=== PATIENT | female | born 1995 | race Caucasian/White ===

== ENCOUNTER → 2022-05-14 | Outpatient (CLI) | payer OTHER, BC, SELFPAY ==
[2022-05-14 10:51] LABS: hCG Titer Quant., Serum 98 mIU/mL (1-3)
== END | disposition home or self-care (01) ==
LOC: LAB 09:41
PROVIDERS: PCP Student in an Organized Health Care Education/Training Program; Referring Provider Obstetrics & Gynecology; Visit Provider Obstetrics & Gynecology
DX: O36.80X0 Pregnancy with inconclusive fetal viability, not applicable or unspecified (principal); Z3A.00 Weeks of gestation of pregnancy not specified
CPT/HCPCS: 36415; 84702

== ENCOUNTER → 2022-05-16 | Outpatient (CLI) | payer OTHER, BC, SELFPAY ==
[2022-05-16 11:41] LABS: hCG Titer Quant., Serum 17 mIU/mL (1-3)
== END | disposition home or self-care (01) ==
LOC: LAB 10:13
PROVIDERS: PCP Student in an Organized Health Care Education/Training Program; Referring Provider Obstetrics & Gynecology; Visit Provider Obstetrics & Gynecology
DX: O36.80X0 Pregnancy with inconclusive fetal viability, not applicable or unspecified (principal)
CPT/HCPCS: 36415; 84702

== ENCOUNTER → 2022-06-10 | Outpatient (CLI) | payer OTHER, BC, SELFPAY ==
[2022-06-19 14:59] LABS: HPV Reflexed? NOT INDICATED
== END | disposition home or self-care (01) ==
LOC: LABSPEC 13:18
PROVIDERS: PCP Student in an Organized Health Care Education/Training Program; Referring Provider Obstetrics & Gynecology; Visit Provider Obstetrics & Gynecology
DX: Z12.4 Encounter for screening for malignant neoplasm of cervix (principal)
CPT/HCPCS: 88175; G0145

== ENCOUNTER → 2022-12-31 | Outpatient (CLI) | payer BC, SELFPAY ==
[2022-12-31 11:56] LABS: hCG Titer Quant., Serum 485 mIU/mL (1-3)
== END | disposition home or self-care (01) ==
PROVIDERS: PCP Student in an Organized Health Care Education/Training Program; Referring Provider Obstetrics & Gynecology; Visit Provider Obstetrics & Gynecology
DX: N91.2 Amenorrhea, unspecified (principal)
CPT/HCPCS: 36415; 84702

== ENCOUNTER → 2023-01-02 | Outpatient (CLI) | payer BC, SELFPAY ==
[2023-01-02 11:05] LABS: hCG Titer Quant., Serum 974 mIU/mL (1-3)
== END | disposition home or self-care (01) ==
PROVIDERS: PCP Student in an Organized Health Care Education/Training Program; Referring Provider Obstetrics & Gynecology; Visit Provider Obstetrics & Gynecology
DX: N91.2 Amenorrhea, unspecified (principal)
CPT/HCPCS: 84702

== ENCOUNTER → 2023-01-31 | Outpatient (CLI) | payer BC, SELFPAY ==
--- NOTE | 2023-01-31 13:51 | US_ITS ---
STUDY: FIRST TRIMESTER OBSTETRICAL ULTRASOUND REASON FOR EXAM: Female, 27 years old . Dating. LMP: December 02, 2022. TECHNIQUE: Transvaginal TECHNICAL QUALITY: Adequate. PRIOR ULTRASOUND: None. FINDINGS: There is visualization of a single gestational sac in a normal intrauterine position. The mean sac diameter (MSD) measures 2.9 cm, indicating an estimated gestational age (EGA) of 8 weeks, 0 days. The gestational sac shape is within normal limits. There is a visualized yolk sac. The yolk sac measures 5 mm. The placenta is non-visualized. There is visualization of a live embryo. The crown-rump length (CRL) measures 2.22 cm, indicating an estimated gestational age (EGA) of 8 weeks, 3 days. There is demonstrated cardiac activity with a heart rate of 166 bpm. The estimated gestation age (EGA) by LMP is 8 weeks, 4 days. The estimated date of delivery (JOANNE) by LMP is September 08, 2023. The estimated gestation age (EGA) by US is 8 weeks, 3 days. The estimated date of delivery (JOANNE) by US is September 09, 2023. The uterus measures 9.9 cm x 7.4 cm x 5.5 cm. There is no demonstrated uterine fibroid. The cervix is closed. The right ovary measures 3.4 cm x 2.2 cm x 2.7 cm. There is no right ovarian cyst. There is no visualized right adnexal mass or complex lesion. The left ovary measures 4.3 cm x 2.8 cm x 3.4 cm. There is a 3.4 cm x 2 cm x 2.2 cm hypoechoic nodule in the left ovary most likely representing a corpus luteum cyst. There is no visualized left adnexal mass or complex lesion. There is no fluid in the cul de sac. US/Transvaginal w/Preg US IMPRESSION: Single live uterine gestation with a mean gestational age of 8 weeks and 3 days. Findings suggestive of a 3.4 cm x 2 cm x 2.2 cm corpus luteum cyst in the left ovary. Electronically Signed: Sharad Peoples MD at 12:49 EDT ,
[2023-02-02 22:07] LABS: Chlamydia By Nucleic Acid AMP Negative (Negative); Gonococcus By Nucleic Acid AMP Negative (Negative)
== END | disposition home or self-care (01) ==
PROVIDERS: PCP Student in an Organized Health Care Education/Training Program; Referring Provider Obstetrics & Gynecology; Visit Provider Obstetrics & Gynecology
DX: O09.90 Supervision of high risk pregnancy, unspecified, unspecified trimester (principal); Z3A.00 Weeks of gestation of pregnancy not specified
CPT/HCPCS: 76817; 87086; 87491; 87591

== ENCOUNTER → 2023-02-11 | Outpatient (CLI) | payer BC, SELFPAY ==
[2023-02-11 09:46] LABS: Absolute Lymphocyte Count 1.32 X10^3/uL (0.83-4.51); Absolute Neutrophil Count 6.5 X10^3/uL (2.0-7.7); Basophil# 0.03 X10^3/uL; Basophil% 0.4 % (0-1); Eosinophil# 0.15 X10^3/uL; Eosinophils% 1.8 % (0-5); Hematocrit 39.1 % (37-47); Hemoglobin 12.9 g/dL (12.0-15.0); Lymphocyte # 1.32 X10^3/ul (0.83-4.51); Lymphocyte % 15.6 % (19-41); Mean Corpuscular Hgb 29.5 pg (27.0-32.0); Mean Corpuscular Volume 89.5 fL (81-99); Monocyte# 0.44 X10^3/uL; Monocyte% 5.2 % (0-10); NRBC Flagged by Analyzer 0 % (0-5); Neutrophil # 6.49 X10^3/uL (2.7-7.7); Neutrophil % 76.8 % (47-70); Platelet Count 277 K/mm3 (150-450); RBC Distribution Width SD 39.6 fl (35.1-43.9); Red Blood Count 4.37 M/mm3 (4.2-5.4); White Blood Count 8.5 K/mm3 (4.4-11.0)
[2023-02-11 10:01] LABS: NATERA MAILED SPECIMEN
[2023-02-11 11:04] LABS: HIV - WCH Non-Reactive (Nonreactive); Hepatitis B Surface Antigen Non-Reactive (Nonreactive); Hepatitis C Antibody Non-Reactive (Nonreactive); Rubella IgG Reactive (Nonreactive); Syphilis Antibodies Non-reactive
== END | disposition home or self-care (01) ==
LOC: LAB 08:57
PROVIDERS: PCP Student in an Organized Health Care Education/Training Program; Referring Provider Obstetrics & Gynecology; Visit Provider Obstetrics & Gynecology
DX: Z34.81 Encounter for supervision of other normal pregnancy, first trimester (principal); Z31.430 Encounter of female for testing for genetic disease carrier status for procreative management
CPT/HCPCS: 36415; 85025; 86703; 86762; 86780; 86803; 86850; 86900; 86901; 87340

== ENCOUNTER → 2023-06-22 | Outpatient (CLI) | payer BC, SELFPAY ==
[2023-06-22 09:07] LABS: Absolute Lymphocyte Count 1.39 X10^3/uL (0.83-4.51); Absolute Neutrophil Count 7.7 X10^3/uL (2.0-7.7); Basophil# 0.03 X10^3/uL; Basophil% 0.3 % (0-1); Hematocrit 35.4 % (37-47); Hemoglobin 11.7 g/dL (12.0-15.0); Lymphocyte # 1.39 X10^3/ul (0.83-4.51); Lymphocyte % 14.1 % (19-41); Mean Corp Hgb Conc 33.1 g/dL (32-36); Mean Corpuscular Hgb 29.1 pg (27.0-32.0); Mean Corpuscular Volume 88.1 fL (81-99); Mean Platelet Vol. 10.4 fl (6.2-12.0); Monocyte# 0.54 X10^3/uL; Monocyte% 5.5 % (0-10); NRBC Flagged by Analyzer 0 % (0-5); Neutrophil % 78.4 % (47-70); Platelet Count 233 K/mm3 (150-450); RBC Distribution Width CV 12.4 % (11.6-14.6); RBC Distribution Width SD 40.1 fl (35.1-43.9); Red Blood Count 4.02 M/mm3 (4.2-5.4); White Blood Count 9.8 K/mm3 (4.4-11.0)
[2023-06-22 09:34] LABS: Glucose Challenge Gest 1H 50g 115 mg/dL (70-140)
[2023-06-22 10:06] LABS: HIV - WCH Non-Reactive (Nonreactive); Syphilis Antibodies Non-reactive
== END | disposition home or self-care (01) ==
LOC: LAB 07:49
PROVIDERS: PCP Student in an Organized Health Care Education/Training Program; Referring Provider Obstetrics & Gynecology; Visit Provider Obstetrics & Gynecology
DX: O09.90 Supervision of high risk pregnancy, unspecified, unspecified trimester (principal); Z3A.00 Weeks of gestation of pregnancy not specified
CPT/HCPCS: 36415; 82950; 85025; 86703; 86780

== ENCOUNTER → 2023-08-11 | Outpatient (CLI) | payer BC, SELFPAY ==
[2023-08-11 15:58] LABS: ROM Internal Control Test YES-OK TO RESULT pt. (Internal QC); ROM Patient Test Negative (Negative)
--- OUTSIDE RECORDS SUMMARY | 2023-08-11 17:45 | XMS RPT_ITS | CCD ---
Author Name Unknown Address [id number] [place] [address] Organization [facility] Care Team Providers Care Osha Inspector Name Role Phone Bello Alfaro DO Primary Care Provider [phone] JUDY WILCOX Attending Unavailable BELLO ALFARO Primary Care Unavailable KELY PEREZ Attending Unavailable JALEN MOSER Primary Care Unavailable PUNEET ENRIQUE Referring Unavaillelo e Allergies Allergy Classification Reported Allergen(s) Allergy Type Date of Onset Reaction(s) Facility (2 sources) Environmental allergies [Other] Propensity to adverse reactions 1 Other: See Comments [facility] (1 source) OTHER; Translations: [OTHER] Propensity to adverse reactions (disorder) 1 [facility] Repository Medications Current Medications Medication Drug Class(es) Dates Sig (Normalized) Sig (Original) amoxicillin 875 mg oral tablet (1 source) Penicillin-class Antibacterial Start: 05-03-2022 End: 05-08-2022 take 1 tablet by mouth twice daily amoxicillin (AMOXIL) 875 mg tablet Take 1 tablet by mouth twice daily for 5 days. 10 tablet 0 05/03/2022 05/08/2022 Active Completed/Discontinued Medications Medication Drug Class(es) Dates Sig (Normalized) Sig (Original) [id number] 200 actuat albuterol 0.09 mg/actuat metered dose inhaler (2 sources) beta2-Adrenergic Agonist Start: 11-12-2015 albuterol HFA (PROVENTIL HFA, VENTOLIN HFA) 90 mcg/actuation inhaler 2 puffs q 4 prn. May use 15 to 20 minutes pre-exercise 1 Inhaler 0 11/12/2015 Active Problems Active Problems Problem Classification Problem Date Documented Da te Episodic/Chronic Anxiety disorders (5 sources) Generalized anxiety disorder; Translations: [Generalized anxiety disorder] Onset: 11-28-2016 Chronic Other upper respiratory disease (2 sources) Allergic rhinitis; Translations: [Allergic rhinitis, unspecified] Onset: 11-05-2010 11-05-2010 Chronic Other upper respiratory infections (1 source) Bacterial sinusitis; Translations: [Chronic sinusitis, unspecified] Chronic Residual codes; unclassified (1 source) First trimester ; Translations: [Less than 8 weeks gestation of ] Episodic Past or Other Problems Problem Classification Problem Date Documented Date Episodic/Chronic Conditions associated with dizziness or vertigo (2 sources) Dizziness and giddiness; Translations: [Dizziness and giddiness] Onset: 03-04-2021 03-04-2021 Episodic Headache; including migraine (2 sources) Chronic mixed headache syndrome; Translations: [Other headache syndrome] Onset: 03-04-2021 03-04-2021 Episodic Inflammation; infection of eye (except that caused by tuberculosis or sexually transmitteddisease) (2 sources) Acute atopic conjunctivitis; Translations: [Acute atopic conjunctivitis, unspecified eye] Onset: 11-05-2010 11-05-2010 Episodic Other circulatory disease (2 sources) Syncope due to orthostatic hypotension; Translations: [Orthostatic hypotension] Onset: 03-23-2013 03-23-2013 Episodic Other connective tissue disease (1 source) Weakness of right arm; Translations: [Other symptoms and signs involving the musculoskeletal system] Onset: 03-04-2021 03-04-2021 Episodic Other connective tissue disease (1 source) Other symptoms and signs involving the musculoskeletal system; Translations: [Other musculoskeletal symptoms referable to limbs] Onset: 03-04-2021 03-04-2021 Episodic Other nervous system disorders (2 sources) Facial paresthesia; Translations: [Paresthesia of skin] Onset: 03-04-2021 03-04-2021 Episodic Other nervous system disorders (2 sources) Weakness of face muscles; 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] Onset: 03-04-2021 03-04-2021 Episodic Other nervous system disorders (2 sources) Numbness of upper limb; Translations: [Anesthesia of skin] Onset: 03-04-2021 03-04-2021 Episodic Results Test Name Value Interpretation Reference Range Facil ity Vital Signs Date Time Vital Sign Value Performing Clinician Faci lity 05-03-2022 12:49-0400 Body temperature 99 [degF] Judy Zurawick [employer] Work Phone: [facility] 05-03-2022 12:49-0400 Body weight 77.66 kg Judy Zurawick [employer] Work Phone: [facility] 05-03-2022 12:49-0400 Diastolic blood pressure 68 mm[Hg] Judy Zurawick [employer] Work Phone: [facility] 05-03-2022 12:49-0400 Heart rate 86 /min Judy Zurawick [employer] Work Phone: [facility] 05-03-2022 12:49-0400 Respiratory rate 14 /min Judy Zurawick [employer] Work Phone: [facility] 05-03-2022 12:49-0400 SaO2% (BldA) [Mass fraction] 99 % Judy Zurawick [employer] Work Phone: [facility] 05-03-2022 12:49-0400 Systolic blood pressure 100 mm[Hg] Judy Zurawick [employer] Work Phone: [facility] Encounters Encounter Date Encounter Type Care Provider Facility Start: 04-12-2023 End: 04-12-2023 ambulatory KELY PEREZ [facility] Start: 06-08-2022 Telephone encounter [facility] Plan of Treatment Date Care Activity Detail Author Start: 07-03-2023 PAP TESTING PAP TESTING [facility] Start: 05-03-2023 Urine microalbumin profile DTA P,TDAP,TD (7 - Td or Tdap) [facility] Immunizations Immunization Date Immunization Notes Care Provider Jeovany lange 04-24-2014 influenza, injectabl e, quadrivalent, preservative free Judy Emmaawick [employer] Work Phone: [facility] 01-30-2013 Meningococcal, MCV4, unspecified conjugate formulation(groups A, C, Y and W-135) Judy Zurawick [facility] Work Phone: [facility] Work Phone: 01-30-2013 varicella virus vaccine Genny on Zurawick [employer] Work Phone: [facility] Work Phone: 04-17-2009 influenza virus vaccine, unspecified formulation Judy Zurawick [employer] Work Phone: [facility] 01-30-2009 hepatitis A vaccine, unspecified formulation Judy Zurawick [employer] Work Phone: [facility] Work Phone: 01-30-2009 Meningococcal, MCV4, unspecified conjugate formulation(groups A, C, Y and W-135) Judy Zurawick [employer] [employer] Work Phone: [facility] Work Phone: 01-30-2009 tetanus toxoid, redu dwaine diphtheria toxoid, and acellular pertussis vaccine, adsorbed Judy Zurawick [employer] Work Phone: [facility] Work Phone: 05-09-2008 influenza virus vaccine, unspecified formulation Judy Zurawick [employer] Work Phone: [facility] Work Phone: 05-22-2007 influenza virus vaccine, unspecified formulation Judy Zurawick [employer] Work Phone: [facility] 02-14-2007 hepatitis A vaccine, unspecified formulation Judy Zurawick [employer] Work Phone: [facility] Work Phone: 05-09-2006 influenza virus vaccine, unspecified formulation Judy Zurawick [employer] Work Phone: [facility] Work Phone: 05-10-2005 influenza virus vaccine, unspecified formulation Judy Zurawick [employer] Work Phone: [facility] Work Phone: 05-29-2004 influenza virus vaccine, unspecified formulation Judy Zurawick [employer] Work Phone: [facility] Work Phone: 02-06-2002 diphtheria, tetanus toxoids and acellular pertussis vaccine Judy Zurawick [employer] Work Phone: [facility] Work Phone: 02-06-2002 measles, mumps and rubella virus vaccine Judy Zurawick [employer] Work Phone: [facility] Work Phone: 02-06-2002 poliovirus vaccine, inactivated Judy Zurawick [employer] Work Phone: [facility] Work Phone: 06-13-2000 influenza virus vaccine, unspecified formulation Judy Zurawick [employer] Work Phone: [facility] Work Phone: 06-05-1999 influenza virus vaccine, unspecified formulation Judy Zurawick [employer] Work Phone: [facility] Work Phone: 02-06-1999 poliovirus vaccine, inactivated Judy Zurawick [employer] Work Phone: [facility] Work Phone: 11-03-1998 diphtheria, tetanus toxoids and acellular pertussis vaccine Judy Zurawick [employer] Work Phone: [facility] Work Phone: 11-03-1998 haemophilus influenz ae type b vaccine, HbOC conjugate Judy Zurawick [employer] Work Phone: [facility] Work Phone: 11-28-1997 measles, mumps and rubella virus vaccine Judy Zurawick [employer] Work Phone: [facility] Work Phone: 11-28-1997 varicella virus vaccine Genny on Zurawick [employer] Work Phone: [facility] Work Phone: 06-03-1997 diphtheria, tetanus toxoids and acellular pertussis vaccine Judy Zurawick [employer] [employer] Work Phone: [facility] Work Phone: 06-03-1997 haemophilus influenz ae type b vaccine, HbOC conjugate Judy Zurawick [employer] [employer] Work Phone: [facility] Work Phone: 06-03-1997 hepatitis B vaccine, pediatric or pediatric/adolescent dosage Judy Zurawick [employer] Work Phone: [facility] Work Phone: 04-03-1997 diphtheria, tetanus toxoids and acellular pertussis vaccine Judy Zurawick [employer] Work Phone: [facility] Work Phone: 04-03-1997 haemophilus influenz ae type b vaccine, HbOC conjugate Judy Zurawick [employer] Work Phone: [facility] Work Phone: 04-03-1997 poliovirus vaccine, inactivated Judy Zurawick [employer] Work Phone: [facility] Work Phone: 02-19-1997 diphtheria, tetanus toxoids and acellular pertussis vaccine Judy Zurawick [employer] Work Phone: [facility] Work Phone: 02-19-1997 haemophilus influenz ae type b vaccine, HbOC conjugate Judy Zurawick [employer] Work Phone: [facility] Work Phone: 02-19-1997 poliovirus vaccine, inactivated Judy Zurawick [employer] Work Phone: [facility] Work Phone: 01-16-1997 hepatitis B vaccine, pediatric or pediatric/adolescent dosage Judy Zurawick [employer] Work Phone: [facility] Work Phone: 1996 hepatitis B vaccine, pediatric or pediatric/adolescent dosage Judy Daley [employer] Work Phone: [facility] Work Phone: Payers Date Payer Category Payer Unknown MMO MMO [employer] [id number] 2015-Present [phone] [address] [place] [address] PPO [id number] 2015 Unknown [id number] 1996 Unknown [id number] Unknown [id number] Social History Date Type Detail Facility Tobacco smoking status NHIS Never smoked tobacco [facility] Start: 05-03-2022 Alcohol intake Current non-dr 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 machine of alcohol (finding) [facility] Start: 07-03-2020 History SDOH Social Connections Phone 5 [facility] Start: 07-03-2020 History SDOH Social Connections Get Together 4 [facility] Start: 07-03-2020 History SDOH Social Connections Hinduism 2 [facility] Start: 07-03-2020 History SDOH Social Connections Meetings 1 [facility] Start: 07-03-2020 History SDOH Social Connections Living 7 [facility] Start: 07-03-2020 History SDOH Physica l Activity DPW 0 [facility] Start: 07-03-2020 History SDOH Stress 3 [facility] Start: 07-03-2020 Education 21 [facility] Start: 1996 Sex Assigned At Not on file C [facility] Start: 04-23-2022 End: 05-03-2022 Exposure to SARS-CoV-2 (event) Not sure [facility] Note 06-22-2022 Telephone Encounter - Lizeth Lovelace Pss - 06/22/2022 9:20 AM ESTTelephone Encounter - Bello Alfaro DO - 06/21/2022 4:05 PM ESTTelephone Encounter - INDIA Kenny - 06/08/2022 12:40 PM EST Note Date & Type Note Facility 06-22-2022 Miscellaneous Notes Formattin g of this note might be different from the original. 1st attempt to reach patient. Left message for patient to call office to schedule to schedule new patient consult with anyone in Dr. Alfaro's triad. Ok per JG. Patient's MRN is .[id number]. Yes, willing for him to establish care with our team. Bello Alfaro DO Patient calling in to see if you will make an exception to take on her as a patient. Daren Jain, : 02/08/1996. Please review and advise. Patient prefers that we call her to get him scheduled if willing to take him on. INDIA Kenny June 08, 2022 12:42 PM documented in this encounter [facility] Progress note 05-03-2022 Note Date & Type Note Facility 05-03-2022 Note HNO ID: [id number] Author: Judy Daley APRN.[employer] Service: ? Author Type: Nurse Practitioner Type: Progress Notes Filed: 05/03/2022 2:31 PM Note Text: Chief Complaint Patient presents with: Cough: Cough and nsal congestion for past two weeks no over the counters working and just found out she is HPI Miesha Tanner is a 26 year old female who presents here today for Above Complaints. Miesha is an established patient of Dr. Alfaro. She is a new patient to me today. Concerns today... Cough-- Cough and runny nose x 2 weeks. Was taking OTC pseudofed AND Advil cold and sinus with little relief. Tested for COVID at home 2-3 days ago and was negative. Sinus pressure in bilateral cheeks. Just found out she is yesterday, first . Just has honeymoon. Knows what OB she would like to use ([facility]), has not set up appointment yet. Was unsure what OTC medication to use or if she could have an antibiotic for this. No other concerns or complaints. HM -- Overdue for routine lab work and routine physical exam. No prior thyroid issues -- recent TSH in 2020 was normal. No need to repeat due to now. Past medical history, appointments, medications, allergies reviewed. 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 PMH - PAST MEDICAL HISTORY OF 02/2007 normal color vision PMH - PAST MEDICAL HISTORY OF 07/2008 menses started Previous Surgical History PAST SURGICAL HISTORY Procedure Laterality Date NONE Family History FAMILY HISTORY Problem Relation Age of Onset Asthma Mother Asthma Father Allergies Father Heart Father Diabetes Father Allergies Sister Cancer Sister PATERNAL SIDE WITH BREAST CANCER AND GBCA Heart Maternal Grandfather GA Lipids Maternal Grandfather ELEVATED CHOLESTEROL Patient Allergies ALLERGIES Allergen Reactions Environmental Aller* Other: See Comments Molds, trees, grasses, weeds, ragweed, horse Current Medications Current Outpatient Medications on File Prior to Visit Medication Sig FLUoxetine (PROZAC) 20 mg capsule Take 1 capsule by mouth once daily. Take with 10 mg capsul, take In the morning FLUoxetine (PROZAC) 10 mg capsule Take 1 capsule by mouth once daily. Take with 20 mg capsule to total 30 mg a day, take In the morning rizatriptan (MAXALT CREAMERY WORKER) 5 mg disintegrating tablet Take 1 tablet by mouth as needed for Migraine Headache (see administration instructions). May repeat in 2 hours if needed loratadine (CLARITIN) 10 mg tablet Take 1 tablet by mouth once daily. albuterol HFA (PROVENTIL HFA, VENTOLIN HFA) 90 mcg/actuation inhaler 2 puffs q 4 prn. May use 15 to 20 minutes pre-exercise cetirizine-pseudoephedrine (ZYRTEC-D) 5-120 mg per tablet Take 1 tablet by mouth once daily. No current facility-administered medications on file prior to visit. Social History Social History Tobacco Use Smoking status: Never Smokeless tobacco: Never Vaping Use Vaping Use: Never used Substance Use Topics Alcohol use: No Drug use: No REVIEW OF SYSTEMS: as above Reviewed relevant PMHx, PSHx, Social Hx, current medications and allergies. Review of Symptoms REVIEW OF SYSTEMS See HPI. All other systems are negative. EXAM: BP 100/68 (BP Site: Left Arm, BP Position: Sitting, BP Cuff Size: Regular Adult) Pulse 86 Temp 37.2 ?C (99 ?F) Resp 14 Wt 77.7 kg (171 lb 3.2 oz) LMP 02/20/2021 (Exact Date) SpO2 99% BMI 29.39 kg/m? General Appearance: Well appearing, alert, in no acute distress, well-hydrated, well nourished.. Skin: Skin color, texture, turgor normal, no suspicious rashes or lesions. Head: Normocephalic, no masses, lesions, tenderness or abnormalities. Lungs: Lungs clear to auscultation. No wheezing, rhonchi, rales.. Heart: RRR without murmur, gallop, or rubs. No ectopy. Health Maintenance List COVID-19 VACCINE(1) Never done HPV VACCINE(1 - 2-dose series) Never done HEPATITIS C SCREENING Never done HIV SCREENING Never done INFLUENZA(1) due on 12/31/2022 DTAP,TDAP,TD(7 - Td or Tdap) due on 05/03/2023 PAP TESTING due on 07/03/2023 HEPATITIS B Completed ASSESSMENT/PLAN: 1. Bacterial sinusitis - ICD9: 473.9, 041.9, ICD10: J32.9, B96.89 (primary diagnosis) Discussed due to , the avoidance of numerous over the counter cold/flu medications. Due to , we discussed regimen of short term amoxicillin x 5 days. Pt requesting antibiotic versus symptomatic, supportive management. - Will begin treatment with Amoxicillin for 5 days - The patient should also be given warm salt water gargles, throat lozenges and/or OTC throat spray as needed and nasal saline gtts and suction prn for the first 5-7 days of treatment. - Supportive care with plenty of fluids, rest, and analgesi (more content not included)... [facility] History of Present illness Narrative 05-03-2022 Judy Daley APRN.[employer] - 05/03/2022 12:53 PM EDT Note Date & Type Note Facility 10-31-2022 History of Presen t illness Narrative Chief Complaint Patient presents with: Cough: Cough and nsal congestion for past two weeks no over the counters working and just found out she is HPI Miesha Tanner is a 26 year old female who presents here today for Above Complaints. Miesha is an established patient of Dr. Alfaro. She is a new patient to me today. Concerns today... Cough-- Cough and runny nose x 2 weeks. Was taking OTC pseudofed & Advil cold and sinus with little relief. Tested for COVID at home 2-3 days ago and was negative. Sinus pressure in bilateral cheeks. Just found out she is yesterday, first . Just has honeymoon. Knows what OB she would like to use ([facility]), has not set up appointment yet. Was unsure what OTC medication to use or if she could have an antibiotic for this. No other concerns or complaints. -- Overdue for routine lab work and routine physical exam. No prior thyroid issues -- recent TSH in 2020 was normal. No need to repeat due to now. Past medical history, appointments, medications, allergies reviewed. 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 PMH - PAST MEDICAL HISTORY OF 02/2007 normal color vision PMH - PAST MEDICAL HISTORY OF 07/2008 menses started Previous Surgical History PAST SURGICAL HISTORY Procedure Laterality Date NONE Family History FAMILY HISTORY Problem Relation Age of Onset Asthma Mother Asthma Father Allergies Father Heart Father Diabetes Father Allergies Sister Cancer Sister PATERNAL SIDE WITH BREAST CANCER AND GBCA Heart Maternal Grandfather GA Lipids Maternal Grandfather ELEVATED CHOLESTEROL Patient Allergies ALLERGIES Allergen Reactions Environmental Aller* Other: See Comments Molds, trees, grasses, weeds, ragweed, horse Current Medications Current Outpatient Medications on File Prior to Visit Medication Sig FLUoxetine (PROZAC) 20 mg capsule Take 1 capsule by mouth once daily. Take with 10 mg capsul, take In the morning FLUoxetine (PROZAC) 10 mg capsule Take 1 capsule by mouth once daily. Take with 20 mg capsule to total 30 mg a day, take In the morning rizatriptan (MAXALT CREAMERY WORKER) 5 mg disintegrating tablet Take 1 tablet by mouth as needed for Migraine Headache (see administration instructions). May repeat in 2 hours if needed loratadine (CLARITIN) 10 mg tablet Take 1 tablet by mouth once daily. albuterol HFA (PROVENTIL HFA, VENTOLIN HFA) 90 mcg/actuation inhaler 2 puffs q 4 prn. May use 15 to 20 minutes pre-exercise cetirizine-pseudoephedrine (ZYRTEC-D) 5-120 mg per tablet Take 1 tablet by mouth once daily. No current facility-administered medications on file prior to visit. Social History Social History Tobacco Use Smoking status: Never Smokeless tobacco: Never Vaping Use Vaping Use: Never used Substance Use Topics Alcohol use: No Drug use: No REVIEW OF SYSTEMS: as above Reviewed relevant PMHx, PSHx, Social Hx, current medications and allergies. Review of Symptoms REVIEW OF SYSTEMS See HPI. All other systems are negative. EXAM: BP 100/68 (BP Site: Left Arm, BP Position: Sitting, BP Cuff Size: Regular Adult) Pulse 86 Temp 37.2 C (99 F) Resp 14 Wt 77.7 kg (171 lb 3.2 oz) LMP 02/20/2021 (Exact Date) SpO2 99% BMI 29.39 kg/m General Appearance: Well appearing, alert, in no acute distress, well-hydrated, well nourished.. Skin: Skin color, texture, turgor normal, no suspicious rashes or lesions. Head: Normocephalic, no masses, lesions, tenderness or abnormalities. Lungs: Lungs clear to auscultation. No wheezing, rhonchi, rales.. Heart: RRR without murmur, gallop, or rubs. No ectopy. Health Maintenance List COVID-19 VACCINE(1) Never done HPV VACCINE(1 - 2-dose series) Never done HEPATITIS C SCREENING Never done HIV SCREENING Never done INFLUENZA(1) due on 12/31/2022 DTAP,TDAP,TD(7 - Td or Tdap) due on 05/03/2023 PAP TESTING due on 07/03/2023 HEPATITIS B Completed ASSESSMENT/PLAN: 1. Bacterial sinusitis - ICD9: 473.9, 041.9, ICD10: J32.9, B96.89 (primary diagnosis) Discussed due to , the avoidance of numerous over the counter cold/flu medications. Due to , we discussed regimen of short term amoxicillin x 5 days. Pt requesting antibiotic versus symptomatic, supportive management. - Will begin treatment with Amoxicillin for 5 days - The patient should also be given warm salt water gargles, throat lozenges and/or OTC throat spray as needed and nasal saline gtts and suction prn for the first 5-7 days of treatment. - Supportive care with plenty of fluids, rest, and analgesia prn. - Follow up in 3-5 days if symptoms persist or worsen. 2. PRÉEZ (generalized anxiety disorder) - ICD9: 300.02, ICD10: F41.1 Discussed finding OB and reaching out about SSRI therapy. Discussed switching to Zoloft due to known safety. Would like to stay on prozac if safe. Again, needs to discuss with OB as soon as possible about options for medication regimen. 3. Less than 8 weeks gestation of - ICD9: V22.2, ICD10: Z3A.01 See above. Discussed no maxalt during -- on medication list but not needing currently per pt. RTO in 3 months, sooner if needed. For routine physical exam and routine blood work. Prescription instructions reviewed with patient as applicable. Potential red flag symptoms discussed with the patient. Reviewed appropriate action plan to take if red flag symptoms occur. Patient agreeable to treatment plan. Judy Daley APRN.CNP [address] [place] [address] documented in this encounter [facility] Evaluation note Note Date & Type Note Facility documented in this encounter [facility] Summary Purpose Family History No Family History Records FoundNo Family History Records Found Advance Directives No Advanced Directives Records FoundNo Advanced Directives Records Found Additional Source Comments Source Comments (unrecognize d section and content) In the event this informatio n is protected by the Federal Confidentiality of Alcohol and Drug Abuse Patient Records regulations: The Federal rules restrict any use of the information to criminally investigate or prosecute any alcohol or drug abuse patient.[facility] the event this information is protected by the Federal Confidentiality of Alcohol and Drug Abuse Patient Records regulations: The Federal rules restrict any use of the information to criminally investigate or prosecute any alcohol or drug abuse patient.[facility] Reason for Visit (unrecogniz ed section and content) Reason Comments Appointment Care Teams (unrecognized sec tion and content) Osha Inspector Relationship Specialty Start Date End Date Bello Alfaro, DO [address] [place] [address] PCP - General Family Medicine 03/24/21 INFORMATION SOURCE (unrecogn ized section and content) DATE CREATED AUTHOR AUTHOR'S ORGANIZ ATION 04/13/2023 [facility] FOR RECORDS PERTAINING TO PATIENTS WHO ARE OR HAVE BEEN ENROLLED IN A CHEMICAL DEPENDENCY/SUBSTANCEABUSE PROGRAM, SOME INFORMATION MAY BE OMITTED. This clinical summary was aggregated from multiple sources. Caution should be exercised in using it in the provision of clinical care. This summary normalizes information from multiple sources, and as a consequence, information in this document may materially change the coding, format and clinical context of patient data. In addition, data may be omitted in some cases. CLINICAL DECISIONS SHOULD BE BASED ON THE PRIMARY CLINICAL RECORDS. [employer] [facility]. provides no warranty or guarantee of the accuracy or completeness of information in this document.
== END | disposition home or self-care (01) ==
PROVIDERS: PCP Student in an Organized Health Care Education/Training Program; Referring Provider Nurse Practitioner Women's Health; Visit Provider Nurse Practitioner Women's Health
DX: O42.90 Premature rupture of membranes, unspecified as to length of time between rupture and onset of labor, unspecified weeks of gestation (principal); Z3A.00 Weeks of gestation of pregnancy not specified
CPT/HCPCS: 84112; 87081

== ENCOUNTER 2023-08-23 08:17 | Inpatient (IN) | payer BC, SELFPAY ==
[2023-08-23] VITALS (61 sets, daily range): BP systolic 115–173; BP diastolic 57–96; PULSE 60–109; TEMP 36.7–37.1; O2SAT 97–100; BMI 36.6
--- OUTSIDE RECORDS SUMMARY | 2023-08-23 07:34 | XMS RPT_ITS | CCD ---
Author Name Unknown Address [address] [place] [address] Organization [facility] Care Team Providers Care Lab Associate Name Role Phone Bello Alfaro DO Primary Care Provider JUDY WILCOX Attending Unavailable BELLO ALFARO Primary Care Unavailable KELY PEREZ Attending Unavailable JALEN MOSER Primary Care Unavailable PUNEET ENRIQUE Referring Unavaillelo e Allergies Allergy Classification Reported Allergen(s) Allergy Type Date of Onset Reaction(s) Facility (2 sources) Environmental allergies [Other] Propensity to adverse reactions 1 Other: See Comments [facility] (1 source) OTHER; Translations: [OTHER] Propensity to adverse reactions (disorder) 1 [facility] Repository Medications Current Medications Medication Drug Class(es) Dates Sig (Normalized) Sig (Original) amoxicillin 875 mg oral tablet (1 source) Penicillin-class Antibacterial Start: 05-03-2022 End: 05-08-2022 take 1 tablet by mouth twice daily amoxicillin (AMOXIL) 875 mg tablet Take 1 tablet by mouth twice daily for 5 days. 10 tablet 0 05/03/2022 05/08/2022 Active Completed/Discontinued Medications Medication Drug Class(es) Dates Sig (Normalized) Sig (Original) [id number] 200 actuat albuterol 0.09 mg/actuat metered dose [...] 12:49-0400 Body temperature 99 [degF] Judy Zurawick SALES DEVELOPMENT ASSOCIATE.PARA MACHINE OPERATOR Work Phone: [facility] 05-03-2022 12:49-0400 Body weight 77.66 kg Judy Zurawick SALES DEVELOPMENT ASSOCIATE.PARA MACHINE OPERATOR Work Phone: [facility] 05-03-2022 12:49-0400 Diastolic blood pressure 68 mm[Hg] Judy Zurawick SALES DEVELOPMENT ASSOCIATE.PARA MACHINE OPERATOR Work Phone: [facility] 05-03-2022 12:49-0400 Heart rate 86 /min Judy Zurawick SALES DEVELOPMENT ASSOCIATE.PARA MACHINE OPERATOR Work Phone: [facility] 05-03-2022 12:49-0400 Respiratory rate 14 /min Judy Zurawick SALES DEVELOPMENT ASSOCIATE.PARA MACHINE OPERATOR Work Phone: [facility] 05-03-2022 12:49-0400 SaO2% (BldA) [Mass fraction] 99 % Judy Zurawick SALES DEVELOPMENT ASSOCIATE.PARA MACHINE OPERATOR Work Phone: [facility] 05-03-2022 12:49-0400 Systolic blood pressure 100 mm[Hg] Judy Zurawick SALES DEVELOPMENT ASSOCIATE.PARA MACHINE OPERATOR Work Phone: [facility] Encounters Encounter Date Encounter Type Care Provider Facility Start: 04-12-2023 End: 04-12-2023 ambulatory KELY PEREZ [facility] Start: 06-08-2022 Telephone encounter [facility] [place] Plan of Treatment Date Care Activity Detail Author Start: 07-03-2023 PAP TESTING PAP TESTING [facility] Start: 05-03-2023 Urine microalbumin profile DTA P,TDAP,TD (7 - Td or Tdap) [facility] Immunizations Immunization Date Immunization Notes Care Provider Jeovany lange 04-24-2014 influenza, injectabl e, quadrivalent, preservative free Judy Emmaawick SALES DEVELOPMENT ASSOCIATE.PARA MACHINE OPERATOR Work Phone: [facility] 01-30-2013 Meningococcal, MCV4, unspecified conjugate formulation(groups A, C, Y and W-135) Judy Zurawick SALES DEVELOPMENT ASSOCIATE.[facility] Work Phone: [facility] Work Phone: 01-30-2013 varicella virus vaccine Genny on Zurawick SALES DEVELOPMENT ASSOCIATE.[facility] Work Phone: [facility] Work Phone: 04-17-2009 influenza virus vaccine, unspecified formulation Judy Zurawick SALES DEVELOPMENT ASSOCIATE.[facility] Work Phone: [facility] 01-30-2009 hepatitis A vaccine, unspecified formulation Judy Zurawick SALES DEVELOPMENT ASSOCIATE.[facility] Work Phone: [facility] Work Phone: 01-30-2009 Meningococcal, MCV4, unspecified conjugate formulation(groups A, C, Y and W-135) Judy Zurawick SALES DEVELOPMENT ASSOCIATE.[facility] Work Phone: [facility] Work Phone: 01-30-2009 tetanus toxoid, redu dwaine diphtheria toxoid, and acellular pertussis vaccine, adsorbed Judy Zurawick SALES DEVELOPMENT ASSOCIATE.[facility] Work Phone: [facility] Work Phone: 05-09-2008 influenza virus vaccine, unspecified formulation Judy Zurawick SALES DEVELOPMENT ASSOCIATE.[facility] Work Phone: [facility] Work Phone: 05-22-2007 influenza virus vaccine, unspecified formulation Judy Zurawick SALES DEVELOPMENT ASSOCIATE.[facility] Work Phone: [facility] 02-14-2007 hepatitis A vaccine, unspecified formulation Judy Zurawick SALES DEVELOPMENT ASSOCIATE.[facility] Work Phone: [facility] Work Phone: 05-09-2006 influenza virus vaccine, unspecified formulation Judy Zurawick SALES DEVELOPMENT ASSOCIATE.[facility] Work Phone: [facility] Work Phone: 05-10-2005 influenza virus vaccine, unspecified formulation Judy Zurawick SALES DEVELOPMENT ASSOCIATE.[facility] Work Phone: [facility] Work Phone: 05-29-2004 influenza virus vaccine, unspecified formulation Judy Zurawick SALES DEVELOPMENT ASSOCIATE.[facility] Work Phone: [facility] Work Phone: 02-06-2002 diphtheria, tetanus toxoids and acellular pertussis vaccine Judy Zurawick SALES DEVELOPMENT ASSOCIATE.[facility] Work Phone: [facility] Work Phone: 02-06-2002 measles, mumps and rubella virus vaccine Judy Zurawick SALES DEVELOPMENT ASSOCIATE.[facility] Work Phone: [facility] Work Phone: 02-06-2002 poliovirus vaccine, inactivated Judy Zurawick SALES DEVELOPMENT ASSOCIATE.[facility] Work Phone: [facility] Work Phone: 06-13-2000 influenza virus vaccine, unspecified formulation Judy Zurawick SALES DEVELOPMENT ASSOCIATE.[facility] Work Phone: [facility] Work Phone: 06-05-1999 influenza virus vaccine, unspecified formulation Judy Zurawick SALES DEVELOPMENT ASSOCIATE.[facility] Work Phone: [facility] Work Phone: 02-06-1999 poliovirus vaccine, inactivated Judy Zurawick SALES DEVELOPMENT ASSOCIATE.[facility] Work Phone: [facility] Work Phone: 11-03-1998 diphtheria, tetanus toxoids and acellular pertussis vaccine Judy Zurawick SALES DEVELOPMENT ASSOCIATE.[facility] Work Phone: [facility] Work Phone: 11-03-1998 haemophilus influenz ae type b vaccine, HbOC conjugate Judy Zurawick SALES DEVELOPMENT ASSOCIATE.[facility] Work Phone: [facility] Work Phone: 11-28-1997 measles, mumps and rubella virus vaccine Judy Zurawick SALES DEVELOPMENT ASSOCIATE.[facility] Work Phone: [facility] Work Phone: 11-28-1997 varicella virus vaccine Genny on Zurawick SALES DEVELOPMENT ASSOCIATE.[facility] Work Phone: [facility] Work Phone: 06-03-1997 diphtheria, tetanus toxoids and acellular pertussis vaccine Judy Zurawick SALES DEVELOPMENT ASSOCIATE.[facility] Work Phone: [facility] Work Phone: 06-03-1997 haemophilus influenz ae type b vaccine, HbOC conjugate Judy Zurawick SALES DEVELOPMENT ASSOCIATE.[facility] Work Phone: [facility] Work Phone: 06-03-1997 hepatitis B vaccine, pediatric or pediatric/adolescent dosage Judy Zurawick SALES DEVELOPMENT ASSOCIATE.[facility] Work Phone: [facility] Work Phone: 04-03-1997 diphtheria, tetanus toxoids and acellular pertussis vaccine Judy Zurawick SALES DEVELOPMENT ASSOCIATE.[facility] Work Phone: [facility] Work Phone: 04-03-1997 haemophilus influenz ae type b vaccine, HbOC conjugate Judy Zurawick SALES DEVELOPMENT ASSOCIATE.[facility] Work Phone: [facility] Work Phone: 04-03-1997 poliovirus vaccine, inactivated Judy Zurawick SALES DEVELOPMENT ASSOCIATE.[facility] Work Phone: [facility] Work Phone: 02-19-1997 diphtheria, tetanus toxoids and acellular pertussis vaccine Judy Zurawick SALES DEVELOPMENT ASSOCIATE.[facility] Work Phone: [facility] Work Phone: 02-19-1997 haemophilus influenz ae type b vaccine, HbOC conjugate Judy Zurawick SALES DEVELOPMENT ASSOCIATE.[facility] Work Phone: [facility] Work Phone: 02-19-1997 poliovirus vaccine, inactivated Judy Zurawick SALES DEVELOPMENT ASSOCIATE.[facility] Work Phone: [facility] Work Phone: 01-16-1997 hepatitis B vaccine, pediatric or pediatric/adolescent dosage Judy Zurawick SALES DEVELOPMENT ASSOCIATE.PARA MACHINE OPERATOR Work Phone: [facility] Work Phone: 1996 hepatitis B vaccine, pediatric or pediatric/adolescent dosage Judy Daley SALES DEVELOPMENT ASSOCIATE.PARA MACHINE OPERATOR Work Phone: [facility] Work Phone: Payers Date Payer Category Payer Unknown MMO MMO [employer] [id number] 2015-Present [phone] [address] [place] [address] PPO [id number] 2015 Unknown [id number] 1996 Unknown [id number] Unknown [id number] Social History Date Type Detail Facility Tobacco smoking status NHIS Never smoked tobacco [facility] Start: 05-03-2022 Alcohol intake 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) [facility] Start: 07-03-2020 History SDOH Social Connections Phone 5 [facility] Start: 07-03-2020 History SDOH Social Connections Get Together 4 [facility] Start: 07-03-2020 History SDOH Social Connections Scientologist 2 [facility] Start: 07-03-2020 History SDOH Social Connections Meetings 1 [facility] Start: 07-03-2020 History SDOH Social Connections Living 7 [facility] Start: 07-03-2020 History SDOH Physica l Activity DPW 0 [facility] Start: 07-03-2020 History SDOH Stress 3 [facility] Start: 07-03-2020 Education 21 [facility] Start: 1995 Sex Assigned At Not on file [facility] Start: 04-23-2022 End: 05-03-2022 Exposure to SARS-CoV-2 (event) Not sure [facility] Note 06-22-2022 Telephone Encounter - Lizeth Lovelace [...] triad. Ok per JG. Patient's MRN is .[id number]. Yes, willing for him to establish care [...] 2022 12:42 PM documented in this encounter [facility] Progress note 05-03-2022 Note Date & Type Note Facility 05-03-2022 Note HNO ID: [id number] Author: Judy Daley APRN.PARA MACHINE OPERATOR Service: ? Author Type: Nurse Practitioner Type: [...] what OB she would like to use ([facility]), has not set up appointment yet. [...] BREAST CANCER AND GBCA Heart Maternal Grandfather MT Lipids Maternal Grandfather ELEVATED CHOLESTEROL Patient Allergies [...] day, take In the morning rizatriptan (MAXALT MENTAL HEALTH TECHNICIAN) 5 mg disintegrating tablet Take 1 tablet [...] rest, and analgesi (more content not included)... [facility] History of Present illness Narrative 05-03-2022 Judy Daley APRN.PARA MACHINE OPERATOR - 05/03/2022 12:53 PM EDT Note Date [...] what OB she would like to use ([facility]), has not set up appointment yet. [...] BREAST CANCER AND GBCA Heart Maternal Grandfather MT Lipids Maternal Grandfather ELEVATED CHOLESTEROL Patient Allergies [...] day, take In the morning rizatriptan (MAXALT MENTAL HEALTH TECHNICIAN) 5 mg disintegrating tablet Take 1 tablet [...] days if symptoms persist or worsen. 2. PÉREZ (generalized anxiety disorder) - ICD9: 300.02, ICD10: [...] agreeable to treatment plan. Judy Daley APRN.CNP [address] [place] [address] documented in this encounter [facility] Evaluation note Note Date & Type Note Facility documented in this encounter [facility] Summary Purpose Family History No Family History [...] or prosecute any alcohol or drug abuse patient.[facility] the event this information is protected by the Federal Confidentiality of Alcohol and Drug Abuse Patient Records regulations: The Federal rules restrict any use of the information to criminally investigate or prosecute any alcohol or drug abuse patient.[facility] Reason for Visit (unrecogniz ed section and content) Reason Comments Appointment Care Teams (unrecognized sec tion and content) Lab Associate Relationship Specialty Start Date End Date Bello Alfaro, DO [address] [place] [address] PCP - General Family Medicine 03/24/21 INFORMATION SOURCE (unrecogn ized section and content) DATE CREATED AUTHOR AUTHOR'S ORGANIZ ATION 04/13/2023 [facility] FOR RECORDS PERTAINING TO PATIENTS WHO [...] BE BASED ON THE PRIMARY CLINICAL RECORDS. [facility]. provides no warranty or guarantee of the accuracy or completeness of information in this document.
[2023-08-23 08:16] LABS: ROM Internal Control Test YES-OK TO RESULT pt. (Internal QC); ROM Patient Test POSITIVE (Negative)
--- NOTE | 2023-08-23 08:30 | PCM.HP.OB ---
HPI - General General Date of Admission: 08/23/23 Date of Service: 08/23/23 HPI Narrative ROBERTO CARLOS SEPULVEDA, is a 27 F 37.5 weeks GBS neg who presents to Unit for SROM at 0515 this am for clear fluid. positive ROM. Maternal Data Information JOANNE Calculator Estimated Delivery Date Method Current WG Current Estimate 09/08/23 LMP (Certain) 37w 5d Final JOANNE: 09/08/23 Final JOANNE Source: US >20 weeks Gestational age: 37.5 weeks PFSH PFSH Medical History Anxiety with depression Asthma Home Medications montelukast 10 mg tablet (Singulair) 10 mg PO DAILY 01/20/23 [History Last Taken Unknown] multivit-min no.71-iron fum 28 mg-folate no.1 1 mg-dha 300 mg capsule (PNV-Thornton) 1 cap PO DAILY 01/20/23 [History Last Taken 08/23/23 07:00 1 cap] breast pump #1 ea 07/18/23 [Rx Last Taken Unknown] sertraline 50 mg tablet (Zoloft) 75 mg (1.5 x 50 mg) PO DAILY 90 days #135 tabs 08/01/23 [Rx Last Taken 08/23/23 07:00 75 mg] Allergy/AdvReac Type Severity Reaction Status Date / Time No Known Allergies Allergy Verified 08/23/23 07:45 Family History Father Diabetes Mother Hypertension Grandmother Family history of recurrent miscarriage paternal Social History adopted: No household members: spouse current occupational status: employed current occupation: [employer] pets and animals: Yes pets and animals: dog(s) history of recent travel: Yes ([place]) out of state: Yes out of country: No sexually active: Yes Smoking Status: Never smoker alcohol intake: never substance use type: does not use well-balanced diet: daily or most days caffeine: No eating out: 1-3 times/week during the past year weight has: increased > 10 lbs what type of physical activity do you participate in: walking frequency: 3-4 times per week duration: 30-45 minutes/day ben/baptist: Gnosticism seatbelt use: always do you feel safe at home: Yes additional social history: works at [employer]- [employer] History 2 Elective abortions Hx Para 0 Spontaneous abortions 1 Hx # Term Pregnancies Ectopic pregnancies Hx # Pregnancies Multiple births # of living children 0 Past Pregnancies Del. Date Name GA/Weeks Outcome Route Bth Weight Gen Labor Lgth Anesthesia Billy Newellatn Provider FOB Unknown 05/2022 Miscarriage 6wks Visit Details Expected Delivery Route/Plan Labor Preferences- CB/BF classes: signed up for all 3 labor support person: Daren labor intervention preferences: [] pain management options preferred: [] cut cord/dad catch: [] : plans PP control planned: [] discussed possible routes of delivery and associated risks: [] special requests: [] Plans Covid status: unvaxed Flu vaccine: declines Tdap vaccine: accepts 07/06 Rhogam: NA LARC form signed: [] Problem list reviewed and updated with the most current plan of care details and appropriate orders placed. Relevant counseling for the gestational age provided. Continue routine care and follow up unless otherwise noted in visit notes/problem list details OB Flowsheet Initial Weight: Not Recorded Date <del>?</del> EGA Weight BP Urine Prot <del>?</del> Glucose FHR FuHt Pres Dilation <del>?</del> Effaced St Visit Note 01/31/23 <del>?</del> 8w 4d 182 lb 4 oz 124/75 <del>?</del> <del>?</del> Sm- getting formal scan right after this visit. no vb 03/01/23 <del>?</del> 12w 5d 181 lb 4 oz 109/72 Negative <del>?</del> Negative 160 <del>?</del> KW-VB/cramping. no concerns 03/29/23 <del>?</del> 16w 5d 186 lb 4 oz 108/65 Negative <del>?</del> Negative 153 <del>?</del> JV- no lof, vaginal bleeding, or cramping. no complaints. normal NIPT. has anatomy scan scheduled. 04/26/23 <del>?</del> 20w 5d 190 lb 8 oz 122/78 Negative <del>?</del> Negative 155 <del>?</del> MH-No VB, LOF. Good FM. Wants to change to zoloft due to concern with prozac and . New Rx sent and discussed airplane coverer. 05/25/23 <del>?</del> 24w 6d 197 lb Negative <del>?</del> Negative 160 25 <del>?</del> KW-discussed CB education classes. no vb/lof/cramping. good fm. KW-discussed CB education classes. no vb/lof/cramping. good fm. did not start the zoloft yet. will product picker from pharmacy and start taking 06/22/23 <del>?</del> 28w 6d 201 lb 4 oz 128/77 Negative <del>?</del> Negative 143 28 <del>?</del> LC- no vb/ctx/lof. good fm. enrolled in CBE, larc and pedi discussed. 07/06/23 <del>?</del> 30w 6d 203 lb 2 oz 129/78 Negative <del>?</del> Negative 153 31 <del>?</del> LC- no vb/ctx/lof. good fm. no concerns today. will desire a breast pump. tdap today 07/18/23 <del>?</del> 32w 4d 206 lb 8 oz 120/78 Negative <del>?</del> Negative 147 33 <del>?</del> JV- no lof, vaginal bleeding or dec fm. breast pump rx today JV- no lof, vaginal bleeding or dec fm. breast pump rx today. will try increasing zoloft to 75 these next 2 weeks. if helps will give rx to reflect this if not will give rx for 100 mg. 08/01/23 <del>?</del> 34w 4d 213 lb 122/79 Negative <del>?</del> Negative 160 35 <del>?</del> JV-doing well on zoloft 75 mg. no lof, vaginal bleeding, or dec fm. 08/11/23 <del>?</del> 36w 0d 212 lb 2 oz 126/84 Negative <del>?</del> Negative 156 36 <del>?</del> MH-Gush of fluid in the night, none since. No bleeding. ROM and GBS collected. No CTX. Good FM 08/15/23 <del>?</del> 36w 4d 214 lb 2 oz 131/88 Negative <del>?</del> Negative 150 37 <del>?</del> JV- no lof, vaginal bleeding, or dec fm gbs was negative. NST FHR Rate Baby A Baseline: 150 Variability:: Moderate Accelerations:: 15 x 15 Decelerations:: Variable NST Reactive:: Yes FHR Category:: Category II Uterine Activity:: 2-3 minutes ROS Constitutional Constitutional: Denies change in weight, fatigue, fever(s), headache(s), poor appetite or weakness Eyes Eyes: Denies blurry vision, change in vision, floaters, seeing flashes or spots in vision ENT HEENT: Denies dizziness, headache(s), loss taste/smell or sore throat Cardiovascular Cardiovascular: Denies chest pain, dizziness, dyspnea, irregular heart rhythm, lightheadedness, palpitations or rapid heart rate Respiratory/Chest Respiratory/Chest: Denies change in mental status, chest tightness, cough, dyspnea or breast pain Gastrointestinal Gastrointestinal: Denies anorexia, chewing difficulty, constipation, diarrhea or weight changes Genitourinary Genitourinary: Denies difficulty urinating, dysuria, flank pain, genital pain, urinary frequency or urinary urgency Musculoskeletal Musculoskeletal: Denies back pain, difficulty walking, extremity pain, joint pain, muscle cramps or muscle weakness Integumentary Integumentary: Denies lesions or unusual bruising Neurologic Neurologic: Denies abnormal movements, abnormal speech, dizziness, numbness, seizure-like activity, syncope or weakness Psychiatric Psychiatric: Denies behavioral changes, change in appetite, confusion, depression, homicidal ideation, suicidal ideation or suicidal thoughts Endocrine Endocrinology: Denies excessive sweating, polydipsia or polyuria Hematologic/Lymphatic Hematologic/Lymphatic: Denies anemia Allergic/Immunologic Allergic/Immunologic: Denies itchy eyes, lip swelling, throat swelling, tongue swelling or wheezing Vital Signs Vital Signs Vital Signs: 08/23/23 07:41 08/23/23 07:41 08/23/23 07:41 Temperature Temperature Source Pulse Rate 89 Blood Pressure 130/84 H BP Systolic 130 BP Diastolic 84 Pulse Ox 97 08/23/23 07:41 08/23/23 07:41 Temperature 98.5 F Temperature Source Temporal Pulse Rate Blood Pressure BP Systolic BP Diastolic Pulse Ox Weight Weight: 213 lb 10.047 oz Body Mass Index (BMI) 36.6 Physical Exam Const alert, oriented x3 and no apparent distress General Appearance: cooperative Orientation / Consciousness: awake HEENT normocephalic Neck full ROM Lymph Lymphatic: no lymphadenopathy noted Chest inspection of chest normal Resp normal respiratory effort and normal air movement Effort and Inspection: able to speak in complete sentences and symmetric chest movement GI soft to palpation and non-tender Inspection: gravid Palpation: soft; Negative for tender external exam normal Manual OB Exam: dilated Back/Spine normal to inspection Extremity normal to inspection and full ROM Skin no rashes or lesions noted Psych mental status grossly normal Appearance: grossly normal Speech: normal speech Labs Labs Labs: Blood Type A POSITIVE Antibody Screen NEGATIVE Hct 35.4 % (37-47) L Hgb 11.7 g/dL (12.0-15.0) L Obstetrics Ultrasound Syphilis Total Ab Non-reactive Rubella IgG Antibody Reactive (Nonreactive) Hep Bs Antigen Non-Reactive (Nonreactive) Hepatitis C Antibody Non-Reactive (Nonreactive) Chlamydia DNA ([place]) Negative (Negative) N.gonorrhoeae DNA ([facility]) Negative (Negative) HIV 1&2 Antibody Non-Reactive (Nonreactive) Glucose 1 Hr 50 gm 115 mg/dL (70-140) Assessment & Plan (1) SROM (spontaneous rupture of membranes): PLAN: Patient presents IAL, plan expectant management for , pitocin/AROM PRN if needed. Pain management: plans epidural. GBS neg. Management of any complications: none I have reviewed the [facility] and made any clinically relevant updates. Dr Madrigal aware of above assessment and plan and agrees with plan of care (2) H/O miscarriage, currently : COMMENT: 05/2022 @6wks (3) Anxiety with depression: COMMENT: prozac; switched to zoloft; stable (4) Seasonal allergies: (5) Supervision of high-risk : QUALIFIERS: Trimester: third trimester Qualified Code(s): O09.93 - Supervision of high risk , unspecified, third trimester COMMENT: PRR,,boy! JOANNE 09/07/22 Daren (6) : QUALIFIERS: Weeks of gestation: 36 weeks Qualified Code(s): Z3A.36 - 36 weeks gestation of COMMENT: Neg GBS. NIPT low risk, carrier neg. , nl anatomy Charges/Coding Multi Select Codes Urinary/Genital Urinary/Genital CPT Codes: No Charge
[2023-08-23] MEDS: Lactated Ringers 1,000 ML 50 ML IV (09:15)
[2023-08-23 09:33] LABS: Absolute Lymphocyte Count 1.03 X10^3/uL (0.83-4.51); Absolute Neutrophil Count 9.8 X10^3/uL (2.0-7.7); Basophil# 0.05 X10^3/uL; Basophil% 0.4 % (0-1); Eosinophil# 0.21 X10^3/uL; Eosinophils% 1.8 % (0-5); Hemoglobin 10.8 g/dL (12.0-15.0); Lymphocyte # 1.03 X10^3/ul (0.83-4.51); Lymphocyte % 8.7 % (19-41); Mean Corp Hgb Conc 32.7 g/dL (32-36); Mean Corpuscular Volume 82.5 fL (81-99); Mean Platelet Vol. 11.1 fl (6.2-12.0); Monocyte# 0.71 X10^3/uL; NRBC Flagged by Analyzer 0 % (0-5); Neutrophil # 9.81 X10^3/uL (2.7-7.7); Neutrophil % 82.6 % (47-70); Platelet Count 249 K/mm3 (150-450); RBC Distribution Width CV 12.9 % (11.6-14.6); RBC Distribution Width SD 38.7 fl (35.1-43.9); White Blood Count 11.9 K/mm3 (4.4-11.0)
[2023-08-23 10:16] LABS: Syphilis Antibodies Non-reactive
[2023-08-23] MEDS: Oxytocin 15 Units/NS 250ml 15 UNITS/250 ML IV.SOLN 2 UNITS IV (12:19)
--- NOTE | 2023-08-23 12:43 | PCM.PN.BLA ---
Progress Note Coping well with contractions current tracing: FHT: 140 Moderate variability reactive no decelerations category I tracing [place]: 3-4 minute mild Contractions Membranes: additional bag felt SVE:2/60/-2 A/P: Continue with position changes start and titrate pitocin per protocol Epidural per anesthesia Plan to rupture forebag when appropriate Anticipate Dr Madrigal aware of above assessment and agrees with plan of care Assessment & Plan Assessment/Plan (1) SROM (spontaneous rupture of membranes): (2) H/O miscarriage, currently : (3) Seasonal allergies: (4) Supervision of high-risk : QUALIFIERS: Trimester: third trimester Qualified Code(s): O09.93 - Supervision of high risk , unspecified, third trimester (5) : QUALIFIERS: Weeks of gestation: 36 weeks Qualified Code(s): Z3A.36 - 36 weeks gestation of (6) Anxiety with depression: Multi Select Codes Urinary/Genital Urinary/Genital CPT Codes: No Charge
[2023-08-23] MEDS: LACTATED RINGERS 500 ML 999 ML IV (15:58)
[2023-08-23] MEDS: fentaNYL-bupivacaine (epidural) 100 ML BAG EPIDURAL (16:51)
[2023-08-23] MEDS: Lactated Ringers 1,000 ML 200 ML IV (19:20)
[2023-08-23 19:47] LABS: Hematocrit 32.7 % (37-47); Hemoglobin 10.4 g/dL (12.0-15.0); Mean Corp Hgb Conc 31.8 g/dL (32-36); Mean Corpuscular Hgb 26.6 pg (27.0-32.0); Mean Corpuscular Volume 83.6 fL (81-99); Mean Platelet Vol. 10.9 fl (6.2-12.0); Platelet Count 245 K/mm3 (150-450); RBC Distribution Width CV 13.1 % (11.6-14.6); RBC Distribution Width SD 39.2 fl (35.1-43.9); Red Blood Count 3.91 M/mm3 (4.2-5.4); White Blood Count 16.5 K/mm3 (4.4-11.0)
[2023-08-23 19:55] LABS: Protein, Urine (Random) 11.6 mg/dL (<11.9); Protein:Creat Ratio 375 mg/g CRE (0-200)
[2023-08-23 20:02] LABS: AST(SGOT) 24 U/L (15-37); Alanine Aminotransfer ALT/SGPT 12 U/L (13-56); Creatinine, Serum 0.63 mg/dL (0.55-1.02); EST Glomerular Filtration Rate 121 mL/min (>60); Est Glom Filt Rate - Afr Amer 147 mL/min (>60); Estimated Creatinine Clearance 152.91 ml/min; Uric Acid 4.1 mg/dL (2.6-6.0)
--- NOTE | 2023-08-23 20:14 | PN_ITS ---
Progress Note comfortable with epidural current tracing: FHT: 135 Moderate variability reactive prolonged deceleration noted after nursing placed IUPC category II tracing [place]: 1-2 minute Contractions after IUPC Membranes: Forebag Ruptured for meconium 1400 SVE:/-2 reviewed tracing abnormalities since last note: collaboration with Dr Madrigal at time of deceleration for Cat II FHT tracing and BJ. In route to hospital A/P: Continue with position changes Discontinue pitocin IV fluid bolus Epidural per anesthesia BJ called. If resolved return to room and anticipate . Dr Madrigal aware of above assessment and agrees with plan of care Assessment & Plan Assessment/Plan (1) SROM (spontaneous rupture of membranes): (2) H/O miscarriage, currently : (3) Seasonal allergies: (4) Supervision of high-risk : QUALIFIERS: Trimester: third trimester Qualified Code(s): O09.93 - Supervision of high risk , unspecified, third trimester (5) : QUALIFIERS: Weeks of gestation: 36 weeks Qualified Code(s): Z3A.36 - 36 weeks gestation of (6) Anxiety with depression: Multi Select Codes Urinary/Genital Urinary/Genital CPT Codes: No Charge
--- NOTE | 2023-08-23 20:27 | PCM.PN.BLA ---
Progress Note giles din for BJ due to decel into the 90s x 4 minutes. upon arrival patient in OR and on hands and knees and heart rate in the 150s moderate variability and acceleration present. some blood present, possible small abruption but overall reassuring FHT and now 5 cm, so bleeding could be due to quick cervical change. position changed and one late decel noted, then min-mod variability pos accel. will continue to monitor and return to room for now, reviewed with nursing and block hacker tracing monitoring and bleeding monitoring parameters. exp management for now.
[2023-08-23] MEDS: CHLORHEXIDINE GLUC 2% CLOTH 1 EACH TOWELETTE TOPICAL (21:45)
[2023-08-23] MEDS: Oxytocin 15 Units/NS 250ml 15 UNITS/250 ML IV.SOLN 83 UNITS IV (23:07)
[2023-08-23] MEDS: Oxytocin 10 UNITS/ML Vial IM (23:07)
[2023-08-24] VITALS (34 sets, daily range): BP systolic 111–138; BP diastolic 62–83; PULSE 86–113; RESP 14–16; TEMP 36.1–37.7; O2SAT 93–99
--- NOTE | 2023-08-24 00:25 | EX.PCM.OBRPT ---
Assessment & Plan (1) SROM (spontaneous rupture of membranes): (2) H/O miscarriage, currently : COMMENT: 05/2022 @6wks (3) Vaginal delivery: COMMENT: KW SROM 37.5 Boy (4) Seasonal allergies: (5) Supervision of high-risk : QUALIFIERS: Trimester: third trimester Qualified Code(s): O09.93 - Supervision of high risk , unspecified, third trimester COMMENT: PRR,,boy! JOANNE 09/07/22 Daren (6) : QUALIFIERS: Weeks of gestation: 36 weeks Qualified Code(s): Z3A.36 - 36 weeks gestation of COMMENT: Neg GBS. NIPT low risk, carrier neg. , nl anatomy (7) Anxiety with depression: COMMENT: prozac; switched to zoloft; stable Maternal Data Information JOANNE Calculator Estimated Delivery Date Method Current WG Current Estimate 09/08/23 LMP (Certain) 37w 6d Final JOANNE: 09/08/23 Final JOANNE Source: US >20 weeks Gestational age: 37.5 weeks Vaginal Delivery Maternal Presentation Maternal Presentation: Spontaneous Rupture of Membranes Maternal Presentation: Progressed well to 10cm dilated and made steady progress with effective maternal pushing. Delivered the head in ANTONIO presentation. The head was delivered atraumatically and no nuchal cord was identified. The anterior and posterior shoulders delivered without complication followed by the rest of the and the was placed on the maternal abdomen. Delayed cord clamping was employed for approximately 3 minutes. Cord was clamped and cut and gentle traction was applied to the cord and the placenta delivered spontaneously. Immediately following, it was noted to be intact with a 3 vessel cord. The perineum and vagina were inspected and noted to have a second degree laceration which was repaired with 3-0 Vicryl in the usual fashion. EBL was 100cc. Patient and tolerated delivery well. Apgars 9/9. Dr Madrigal notified of vaginal delivery and orders reviewed. Physician agrees with current plan of care. 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: Lavern Zavala Type of Anesthesia: Epidural Estimated Blood Loss: 100 Time of Delivery: 23:04 Findings Presentation: Vertex Amniotic Membrane Rupture Type: Spontaneous Amniotic Fluid Description: Moderate meconium Placental Delivery Description: Spontaneous Placenta Disposition: [facility] Cord Vessel Description: 3 Vessels Cord Entanglement: None Infant A Gender: Male (1 minute): 9 (5 minute): 9 Delayed Cord Clamping: Yes Post Vaginal Delivery Medications Given After Delivery: IV Pitocin and IM Pitocin Episiotomy Description: None Laceration: 2nd degree Complication Complications: None Multi Select Codes Urinary/Genital Urinary/Genital CPT Codes: 65825 Vaginal Delivery [facility]
--- NOTE | 2023-08-24 00:32 | NURSING ---
This RN notified KWilliams of patient temp 99.5 and HR during recovery being 100's-118. Provider states to make sure patient isn't covered in blankets & to give fluid bolus if HR goes into 120's.
--- NOTE | 2023-08-24 07:59 | PN.OBGYN_ITS ---
Subjective Subjective Patient doing well without complaints. Tolerating PO. Ambulating and voiding without difficulty. Feeding well. Denies chest pain, shortness of breath, calf pain/swelling, fevers, chills, lightheadedness. Objective Data Objective Data Vital Signs: Vital Signs Temp Pulse Resp BP Pulse Ox O2 Del Method 97.4 F L 100 16 121/74 H 95 Room Air 08/24/23 07:26 08/24/23 07:26 08/24/23 07:26 08/24/23 07:26 08/24/23 07:26 08/24/23 07:26 Oxygen Delivery Method Room Air Weight: 213 lb 10.047 oz Body Mass Index (BMI) 36.6 Intake & Output: Intake and Output for Last 24 Hours 08/22/23 08/23/23 08/24/23 23:59 23:59 23:59 Intake Total 2810.04 / 2810.04 250 / 250 Output Total 1150 / 1150 1200 / 1200 Balance 1660.04 / 1660.04 -950 / -950 Lab / Micro Data 08/23/23 19:30 08/23/23 19:30 Labs: Laboratory Results - last 24 hr 08/23/23 08:00: Vag Amniotic Fld Detect POSITIVE H 08/23/23 09:15: WBC 11.9 H, RBC 4.00 L, Hgb 10.8 L, Hct 33.0 L, MCV 82.5, MCH 27.0, MCHC 32.7, RDW Std Deviation 38.7, RDW Coeff of [place] 12.9, Plt Count 249, MPV 11.1, Immature Gran % (Auto) 0.500, Neut % (Auto) 82.6 H, Lymph % (Auto) 8.7 L, [place] % (Auto) 6.0, Eos % (Auto) 1.8, Baso % (Auto) 0.4, Absolute Neuts (auto) 9.8 H, Absolute Lymphs (auto) 1.03, Nucleated RBC % 0, Syphilis Total Ab Non- reactive, Blood Type A POSITIVE, Antibody Screen NEGATIVE 08/23/23 18:50: U Random Total Protein 11.6, Urine Creatinine 30.90, Protein/Creatinin Ratio 375 H 08/23/23 19:30: WBC 16.5 H, RBC 3.91 L, Hgb 10.4 L, Hct 32.7 L, MCV 83.6, MCH 26.6 L, MCHC 31.8 L, RDW Std Deviation 39.2, RDW Coeff of [place] 13.1, Plt Count 245, MPV 10.9, Creatinine 0.63, Estim Creat Clear Calc 152.91, Est GFR (MDRD) Af Amer 147, Est GFR (MDRD) Non-Af 121, Uric Acid 4.1, AST 24, ALT 12 L Physical Exam Const alert and oriented x3 HEENT normocephalic Eyes PERRL Neck full ROM Resp normal respiratory effort GI soft to palpation GI Narrative: FF below U Assessment & Plan (1) Vaginal delivery: COMMENT: KW SROM 37.5 Boy [place] (2) Anxiety with depression: COMMENT: prozac; switched to zoloft; stable PLAN: Plan s/p PPD # 1 1. routine post delivery care 2. breast feeding- support given 3. rh positive 4. rubella immune
[2023-08-24] MEDS: Acetaminophen 500 MG Tablet 1000 MG PO ×2 (13:37→22:08)
[2023-08-25 08:08] VITALS: BP 124/91; PULSE 88; RESP 16; TEMP 36.1; O2SAT 98
--- NOTE | 2023-08-25 08:19 | PCM.PN.OB ---
Subjective Subjective Patient doing well without complaints. Tolerating PO. Ambulating and voiding without difficulty. feeding well. Denies chest pain, shortness of breath, calf pain/swelling, fevers, chills, lightheadedness. Objective Data Objective Data Vital Signs: Vital Signs Temp Pulse Resp BP Pulse Ox O2 Del Method 97.0 F L 88 16 124/91 H 98 Room Air 08/25/23 08:08 08/25/23 08:08 08/25/23 08:08 08/25/23 08:08 08/25/23 08:08 08/25/23 08:08 Oxygen Delivery Method Room Air Weight: 213 lb 10.047 oz Body Mass Index (BMI) 36.6 Intake & Output: Intake and Output for Last 24 Hours 08/23/23 08/24/23 08/25/23 23:59 23:59 23:59 Intake Total 2810.04 / 2810.04 877.67 / 877.67 Output Total 1150 / 1150 1200 / 1200 Balance 1660.04 / 1660.04 -322.33 / -322.33 Lab / Micro Data 08/23/23 19:30 08/23/23 19:30 ROS Constitutional Constitutional: Reports systems reviewed and no addt'l complaints, except as documented Cardiovascular Cardiovascular: Reports systems reviewed and no addt'l complaints, except as documented Respiratory/Chest Respiratory/Chest: Reports systems reviewed and no addt'l complaints, except as documented Gastrointestinal Gastrointestinal: Reports systems reviewed and no addt'l complaints, except as documented Physical Exam Const alert, oriented x3 and no apparent distress HEENT Head and Scalp: atraumatic Resp normal respiratory effort GI soft to palpation and non-tender Bimanual Exam - Vag & Uterus: uterus non-tender Uterus Palpation: uterus fundus firm (below Umbilicus) Assessment & Plan (1) Vaginal delivery: COMMENT: KW SROM 37.5 Boy Romain PLAN: Plan s/p PPD # 2 1. routine post delivery care 2. breast feeding- support given 3. rh positive 4. rubella immune
[2023-08-25 12:10] VITALS: BP 145/90
[2023-08-25 12:39] VITALS: PULSE 100; RESP 16; TEMP 35.9; O2SAT 97
--- NOTE | 2023-08-25 15:30 | CASEMGMT ---
Social Work Assessment Labor and Delivery Unit Patient Address: [address] [place] [address] [place] [address] Phone number: [phone] Date of Referral: 08/24/23 Time of Referral:? 410 Referred By: Lavern Zavala Date of Intervention: ??08/25/23 Time of Intervention:? 5 Reason for Referral:? anxiety and depression Sw completed chart review and acknowledges social work consult due to maternal mental health history of anxiety and depression. Sw presented to bedside and introduced self to mother of baby (NAYLA- Miesha) and father of baby (FOMarlo- Daren). Sw explained reason for sw involvement and completed psychosocial assessment. History obtained from: medical records, MOB and FOB Household composition: Currently residing in the family home is MOB, FOMarlo, and now baby. Parents deny that anyone else is currently living with them. No concerns or issues with their housing at this time. Patient's parent/guardian status:? ?Parents state that they have been together for 6 years, they met through a mutual friend. No concerns at this time regarding domestic violence or intimate partner violence. Medical History: ?NAYLA is 27 year old female who is 2, para 0- now 1 following labor and delivery of . NAYLA did experience a loss at 6 weeks gestation. NAYLA received routine care with [place] during . NAYLA presented to hospital on 08/23/23 and delivered baby via vaginal delivery at 37 weeks gestation. Baby boy, named Romain, was born weighing 6lb 13oz and his apgars were 9 and 9 at one and five minutes of life, respectfully. NAYLA states that she is breast feeding and it is going well, she has a breast pump for home. NAYLA states that baby will also be followed by Dr. Liu for pediatrics. Educational Status:? Both parents graduated from high school.. NAYLA has some college courses but no degree. NO concerns regarding reading, learning or comprehension. 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 KEVIN states that he si able to take off 6 weeks of work. Supplies:?? Parents have obtained all necessary baby supplies, including: car seat, safe sleep space, clothes, diapers and wipes. Childcare/Caregiver(s):? Transportation:?? Programs/Agencies Involved: ??? Children Services/Legal Issues:??? Behavioral Health Issues: ??Mental Health History:??? Substance Use History:?? Family History:? Drug Screens: ?? Family/Social Stressors:? Support Systems: Depression/Shaken Baby/Safe Sleeping:? ASSESSMENT:? Safe Plan of Care for infant related to substance use:? PLAN:? ?No other services requested or indicated.
--- NOTE | 2023-08-26 08:54 | CASEMGMT ---
Social Work Assessment Labor and Delivery Unit Patient Address:[address] [place] [address] [place] [address] Phone number: [phone] Date of Referral: 08/24/23 Time of Referral:? [phone] Referred By: Lavern Zavala Date of Intervention: ??08/25/23 Time of Intervention:? 1320 Reason for Referral:? anxiety and depression Sw completed chart review and acknowledges social work consult due to maternal mental health history positive for anxiety and depression. Sw presented to bedside and introduced self to mother of baby (MOB- Miesha) and father of baby (FOB- Daren). Sw explained reason for sw involvement and completed psychosocial assessment. History obtained from: medical records, MOB and FOB Household composition: MOB, FOB and now baby. Patient's parent/guardian status:? ?Parents have been together for 6 years, they met through mutual friends. No concerns of domestic violence or intimate partner violence reported. Medical History: ?NAYLA is 27 year old female who is 2, para 0- now 1 following labor and delivery of . NAYLA did experience a loss at 6 weeks gestation. NAYLA received routine care during with [facility]. NAYLA presented to hospital on 08/23/23 and delivered baby Educational Status:? Both parents graduated from high school, no concerns with reading, learning or comprehension. MOB did attend some college, but did not obtain a degree. 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 He is able to take a month off of work now that baby has been born. 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 Supplies:?? Parents have obtained all necessary baby items, including: car seat, safe sleep space, clothes, diapers, wipes and a breast pump Childcare/Caregiver(s):? MOB will be the primary caregiver to baby along with KEVIN when he is not working. Transportation:?? No barriers. Programs/Agencies Involved: ???Parents are over income for financial assistance through community agencies. Children Services/Legal Issues:??No history of involvement, no issues or concerns warranting a referral to be made at this time. ? Behavioral Health Issues: ??Mental Health History:??FOMarlo states that he has anxiety, he is prescribed medication through his Primary Care doctor. MOB states that she has also been diagnosed with anxiety and depression. MOB is prescribed zoloft also prescribed through her PCP/ OBGYN. MOB states that her labor was anxiety driven due to some things that happened including an BJ. MOB states that she is feeling better now, she is anxious to be discharged and to get home to her own space. ? Substance Use History:?MOB denies substance use prior to and during . FOB also denies substance use. ? Family History:?Parents deny family history of substance use, and also no reported significant mental health diagnoses such as bipolar or schizophrenia. ? Drug Screens: ?No drug screens observed during chart review. ? Family/Social Stressors:? Parents deny any issues or concerns at this time. Support Systems: MOB and FOB both report to having strong family support systems. Depression/Shaken Baby/Safe Sleeping:? Sw talked at length regarding signs and symptoms of baby blues and depression and anxiety. Parents report to understand signs and symptoms to look out for. FOB states that he and MOB have been together for a long time and he believes that he would be able to recognize a change in MOB and would know how to support her if she were to struggle. Sw educated parents on shaken baby prevention and ABCs of safe sleep. Parents express understanding. ASSESSMENT:? MOB and baby admitted following labor and delivery. MOB was observed holding baby in appropriate way and providing loving hands on care. FOB was very attentive to MOB and baby and observed to be very supportive. Parents have obtained all necessary baby items and have natural family supports in place. Parents very open with sw and discussed several concerns they experienced during labor and delivery of . Parents very polite and receptive to sw involvement and support. PLAN:? MOB and baby to be discharged when medically ready ?No other services requested or indicated. Adan Avila, DRAWING HAND, RESIZER OPERATOR
--- NOTE | 2023-08-29 14:34 | NURSING ---
Attempted follow up phone call. No answer, voicemail left for pt. with unit phone number if she has questions or concerns.
== END 2023-08-25 12:50 | disposition home or self-care (01) | DRG 807 ==
LOC: WPOUT 08:22 → WP 08:23
PROVIDERS: Admitting Provider Advanced Practice Midwife; PCP Student in an Organized Health Care Education/Training Program; Referring Provider Obstetrics & Gynecology; Visit Provider Advanced Practice Midwife
DX: O70.1 Second degree perineal laceration during delivery (principal); Z37.0 Single live birth; O99.344 Other mental disorders complicating childbirth; F41.8 Other specified anxiety disorders; J30.2 Other seasonal allergic rhinitis; O99.824 Streptococcus B carrier state complicating childbirth; O99.52 Diseases of the respiratory system complicating childbirth; Z3A.37 37 weeks gestation of pregnancy
CPT/HCPCS: 36415; 59025; 59050; 82565; 82570; 84112; 84156; 84450; 84460; 84550; 85025; 85027; 86780; 86850; 86900; 86901; 99221; J7120; G0378; J0330

== ENCOUNTER → 2024-09-12 | Outpatient (CLI) | payer BC, SELFPAY ==
[2024-09-12 14:13] LABS: Protein, Urine (Random) 10.2 mg/dL (0.0-12.0); Protein:Creat Ratio 150 mg/g CRE (0-200)
[2024-09-13 22:07] LABS: Chlamydia By Nucleic Acid AMP Negative (Negative); Gonococcus By Nucleic Acid AMP Negative (Negative)
== END | disposition home or self-care (01) ==
PROVIDERS: PCP Student in an Organized Health Care Education/Training Program; Referring Provider Obstetrics & Gynecology; Visit Provider Obstetrics & Gynecology
DX: O09.90 Supervision of high risk pregnancy, unspecified, unspecified trimester (principal); Z87.59 Personal history of other complications of pregnancy, childbirth and the puerperium
CPT/HCPCS: 82570; 84156; 87086; 87491; 87591

== ENCOUNTER → 2024-09-25 | Outpatient (CLI) | payer BC, SELFPAY ==
[2024-09-25 12:15] LABS: Absolute Lymphocyte Count 1.56 X10^3/uL (0.83-4.51); Absolute Neutrophil Count 5.5 X10^3/uL (2.0-7.7); Basophil# 0.02 X10^3/uL; Basophil% 0.3 % (0-1); Eosinophil# 0.08 X10^3/uL; Eosinophils% 1.1 % (0-5); Hematocrit 40.1 % (37-47); Hemoglobin 13.6 g/dL (12.0-15.0); Lymphocyte # 1.56 X10^3/ul (0.83-4.51); Lymphocyte % 20.8 % (19-41); Mean Corp Hgb Conc 33.9 g/dL (32-36); Mean Corpuscular Hgb 29.2 pg (27.0-32.0); Mean Corpuscular Volume 86.2 fL (81-99); Mean Platelet Vol. 10.7 fl (6.2-12.0); Monocyte# 0.35 X10^3/uL; Monocyte% 4.7 % (0-10); NRBC Flagged by Analyzer 0 % (0-5); Neutrophil # 5.46 X10^3/uL (2.7-7.7); Neutrophil % 72.7 % (47-70); Platelet Count 261 K/mm3 (150-450); RBC Distribution Width CV 13.2 % (11.6-14.6); RBC Distribution Width SD 41.1 fl (35.1-43.9); Red Blood Count 4.65 M/mm3 (4.2-5.4); White Blood Count 7.5 K/mm3 (4.4-11.0)
[2024-09-25 13:25] LABS: HIV Nonreactive (Nonreactive)
[2024-09-25 13:42] LABS: ALB/GLOB Ratio 1.5 RATIO (0.9-2.4); AST(SGOT) 15 U/L (<=31); Alanine Aminotransfer ALT/SGPT 10 U/L (<=34); Albumin, Serum 4.4 g/dL (3.5-5.0); Alkaline Phosphatase 65 U/L (35-104); Anion Gap 14 (5-15); BUN 7 mg/dL (4-19); BUN/Creat Ratio 12.1 RATIO (10-20); Calcium,Total 9.5 mg/dL (7.6-11.0); Carbon Dioxide 20.9 mmol/L (21.0-32.0); Chloride 100 mmol/L (98-108); Creatinine, Serum 0.59 mg/dL (0.70-1.20); EST Glomerular Filtration Rate 127 (>60); Glucose 84 mg/dL (70-99); Potassium 4.2 mmol/L (3.3-5.1); Protein, Total 7.5 g/dL (5.9-8.4); Sodium Level 135 mmol/L (133-145); Total Bilirubin 0.53 mg/dL (0.00-1.30)
[2024-09-25 15:40] LABS: Hepatitis B Surface Antigen Nonreactive (Nonreactive); Hepatitis C Antibody Nonreactive (Nonreactive); Rubella IgG REAC (Nonreactive); Syphilis Antibodies Nonreactive (Nonreactive)
== END | disposition home or self-care (01) ==
PROVIDERS: PCP Student in an Organized Health Care Education/Training Program; Referring Provider Obstetrics & Gynecology; Visit Provider Obstetrics & Gynecology
DX: O09.90 Supervision of high risk pregnancy, unspecified, unspecified trimester (principal); Z3A.00 Weeks of gestation of pregnancy not specified
CPT/HCPCS: 36415; 80053; 85025; 86703; 86762; 86780; 86803; 86850; 86900; 86901; 87340

== ENCOUNTER → 2024-11-13 | Outpatient (CLI) | payer BC, SELFPAY | END | disposition home or self-care (01) | PROVIDERS: PCP Student in an Organized Health Care Education/Training Program; Referring Provider Nurse Practitioner Women's Health; Visit Provider Nurse Practitioner Women's Health | DX: Z36.9 Encounter for antenatal screening, unspecified (principal) | CPT/HCPCS: 36415 ==

== ENCOUNTER → 2024-12-10 | Outpatient (CLI) | payer BC, SELFPAY ==
[2024-12-10 13:01] LABS: Protein, Urine (Random) 51.8 mg/dL (0.0-12.0); Protein:Creat Ratio 200 mg/g CRE (0-200)
== END | disposition home or self-care (01) ==
LOC: LABSPEC 11:56
PROVIDERS: PCP Student in an Organized Health Care Education/Training Program; Referring Provider Advanced Practice Midwife; Visit Provider Advanced Practice Midwife
DX: R80.9 Proteinuria, unspecified (principal)
CPT/HCPCS: 82570; 84156

== ENCOUNTER → 2025-01-28 | Outpatient (CLI) | payer BC, SELFPAY ==
[2025-01-28 16:28] LABS: Hematocrit 33.3 % (37-47); Hemoglobin 11.1 g/dL (12.0-15.0); Immature Granulocytes Count 0.160 X10^3/uL (0.0-0.0); Mean Corp Hgb Conc 33.3 g/dL (32-36); Mean Corpuscular Volume 86.7 fL (81-99); Mean Platelet Vol. 10.7 fl (6.2-12.0); NRBC Flagged by Analyzer 0 % (0-5); Platelet Count 244 K/mm3 (150-450); RBC Distribution Width CV 12.6 % (11.6-14.6); RBC Distribution Width SD 39.9 fl (35.1-43.9); Red Blood Count 3.84 M/mm3 (4.2-5.4); White Blood Count 13.0 K/mm3 (4.4-11.0)
[2025-01-28 17:09] LABS: Glucose Challenge Gest 1H 50g 103 mg/dL (70-140); HIV Nonreactive (Nonreactive); Syphilis Antibodies Nonreactive (Nonreactive)
== END | disposition home or self-care (01) ==
LOC: BWCLAB 13:17
PROVIDERS: Obstetrics & Gynecology; PCP Student in an Organized Health Care Education/Training Program; Visit Provider Nurse Practitioner Women's Health
DX: O09.92 Supervision of high risk pregnancy, unspecified, second trimester (principal); Z3A.00 Weeks of gestation of pregnancy not specified; Z13.1 Encounter for screening for diabetes mellitus
CPT/HCPCS: 36415; 82950; 85025; 86703; 86780

== ENCOUNTER → 2025-03-28 | Outpatient (CLI) | payer BC, SELFPAY | END | disposition home or self-care (01) | LOC: LABSPEC 12:23 | PROVIDERS: PCP Student in an Organized Health Care Education/Training Program; Referring Provider Obstetrics & Gynecology; Visit Provider Obstetrics & Gynecology | DX: O09.93 Supervision of high risk pregnancy, unspecified, third trimester (principal); Z3A.36 36 weeks gestation of pregnancy | CPT/HCPCS: 87081 ==

== ENCOUNTER 2025-04-08 16:13 | Outpatient (CLI) | payer BC, SELFPAY ==
[2025-04-08 16:38] VITALS: BP 135/85; PULSE 70
[2025-04-08 16:53] VITALS: BP 136/89; PULSE 82
[2025-04-08 17:06] VITALS: RESP 16; TEMP 37.1
[2025-04-08 17:11] LABS: Hematocrit 33.5 % (37-47); Hemoglobin 10.9 g/dL (12.0-15.0); Mean Corp Hgb Conc 32.5 g/dL (32-36); Mean Corpuscular Volume 80.9 fL (81-99); Mean Platelet Vol. 11.8 fl (6.2-12.0); Platelet Count 237 K/mm3 (150-450); RBC Distribution Width CV 13.8 % (11.6-14.6); RBC Distribution Width SD 40.1 fl (35.1-43.9); Red Blood Count 4.14 M/mm3 (4.2-5.4); White Blood Count 8.8 K/mm3 (4.4-11.0)
[2025-04-08 17:23] VITALS: BP 116/77; PULSE 67
[2025-04-08 17:30] LABS: AST(SGOT) 15 U/L (<=31); Alanine Aminotransfer ALT/SGPT 8 U/L (<=34); Uric Acid 3.9 mg/dL (2.6-6.0)
[2025-04-08 17:37] LABS: Creatinine, Urine (random) 36.00 mg/dL (28.00-217.00); Protein, Urine (Random) < 6.0 mg/dL (0.0-12.0); Protein:Creat Ratio UNABLE TO CALCULATE mg/g CRE (0-200)
[2025-04-08 17:38] VITALS: BP 120/72; PULSE 70
--- NOTE | 2025-04-11 08:11 | OB.TRI.PN_ITS ---
Progress Notes Date of Service: 04/08/25 Progress Note: Patient presents for triage evaluation secondary to elevated BP reading at home at 37 weeks FHT: Moderate variability reactive no decelerations category I tracing [place]: no Contractions Assessment and plan: bedside US to confirm position-Vertex, Normal pre e labs and BPs in hospital, Reactive NST, reassuring maternal and status patient discharged to home to follow-up in office. See problem list details for additional plan information. Laboratory Studies: Laboratory Tests 04/08/25 Range/Units 17:00 WBC 8.8 (4.4-11.0) K/mm3 RBC 4.14 L (4.2-5.4) M/mm3 Hgb 10.9 L (12.0-15.0) g/dL Hct 33.5 L (37-47) % MCV 80.9 L (81-99) fL MCH 26.3 L (27.0-32.0) pg MCHC 32.5 (32-36) g/dL RDW Std Deviation 40.1 (35.1-43.9) fl RDW Coeff of [place] 13.8 (11.6-14.6) % Plt Count 237 (150-450) K/mm3 MPV 11.8 (6.2-12.0) fl Creatinine 0.52 L (0.70-1.20) mg/dL Est GFR (MDRD) Non-Af 130 (>60) Uric Acid 3.9 (2.6-6.0) mg/dL AST 15 (<=31) U/L ALT 8 (<=34) U/L U Random Total Protein < 6.0 (0.0-12.0) mg/dL Urine Creatinine 36.00 (28.00-217.00) mg/dL Protein/Creatinin Ratio UNABLE TO CALCULATE (0-200) mg/g CRE Charges/Coding Multi Select Codes Visit Charges Office Visit/Consults: 81805 OV L3 Est 20min Urinary/Genital Urinary/Genital CPT Codes: 13192-64 non-stress test Interp Assessment & Plan (1) History of gestational hypertension: COMMENT: discussed 81 mg ASA if desired. (2) Anxiety with depression: COMMENT: prozac; switched to zoloft; stable (3) : QUALIFIERS: Weeks of gestation: 37 weeks Qualified Code(s): Z3A.37 - 37 weeks gestation of COMMENT: Neg GBS. NIPT low risk. carrier negative first . Negative AFP . nl anatomy. (4) Supervision of high-risk : QUALIFIERS: Trimester: third trimester Qualified Code(s): O09.93 - Supervision of high risk , unspecified, third trimester COMMENT: PRR , JOANNE 04/23/25, boy, PC Romain, Daren (5) Hemorrhoids during : QUALIFIERS: Trimester: third trimester Qualified Code(s): O22.43 - Hemorrhoids in , third trimester COMMENT: compounded suppositories, tucks, warm soaks, avoid constipation
--- NOTE | 2025-04-11 08:11 | OB.TRI.PN_ITS ---
Progress Notes Date of Service: 04/08/25 Progress Note: Patient presents for triage evaluation secondary to elevated BP reading at home at 37 weeks FHT: Moderate variability reactive no decelerations category I tracing [place]: no Contractions Assessment and plan: bedside US to confirm position-Vertex, Normal pre e labs and BPs in hospital, Reactive NST, reassuring maternal and status patient discharged to home to follow-up in office. See problem list details for additional plan information. Laboratory Studies: Laboratory Tests 04/08/25 Range/Units 17:00 WBC 8.8 (4.4-11.0) K/mm3 RBC 4.14 L (4.2-5.4) M/mm3 Hgb 10.9 L (12.0-15.0) g/dL Hct 33.5 L (37-47) % MCV 80.9 L (81-99) fL MCH 26.3 L (27.0-32.0) pg MCHC 32.5 (32-36) g/dL RDW Std Deviation 40.1 (35.1-43.9) fl RDW Coeff of [place] 13.8 (11.6-14.6) % Plt Count 237 (150-450) K/mm3 MPV 11.8 (6.2-12.0) fl Creatinine 0.52 L (0.70-1.20) mg/dL Est GFR (MDRD) Non-Af 130 (>60) Uric Acid 3.9 (2.6-6.0) mg/dL AST 15 (<=31) U/L ALT 8 (<=34) U/L U Random Total Protein < 6.0 (0.0-12.0) mg/dL Urine Creatinine 36.00 (28.00-217.00) mg/dL Protein/Creatinin Ratio UNABLE TO CALCULATE (0-200) mg/g CRE Charges/Coding Multi Select Codes Visit Charges Office Visit/Consults: 92394 OV L3 Est 20min Urinary/Genital Urinary/Genital CPT Codes: 76545-93 non-stress test Interp Assessment & Plan (1) History of gestational hypertension: COMMENT: discussed 81 mg ASA if desired. (2) Anxiety with depression: COMMENT: prozac; switched to zoloft; stable (3) : QUALIFIERS: Weeks of gestation: 37 weeks Qualified Code(s): Z3A.37 - 37 weeks gestation of COMMENT: Neg GBS. NIPT low risk. carrier negative first . Negative AFP . nl anatomy. (4) Supervision of high-risk : QUALIFIERS: Trimester: third trimester Qualified Code(s): O09.93 - Supervision of high risk , unspecified, third trimester COMMENT: PRR , JOANNE 04/23/25, boy, PC Romain, Daren (5) Hemorrhoids during : QUALIFIERS: Trimester: third trimester Qualified Code(s): O22.43 - Hemorrhoids in , third trimester COMMENT: compounded suppositories, tucks, warm soaks, avoid constipation
== END 2025-04-08 17:50 | disposition home or self-care (01) ==
LOC: WPOUT 16:16 → WP 16:32
PROVIDERS: PCP Student in an Organized Health Care Education/Training Program; Referring Provider Advanced Practice Midwife; Visit Provider Advanced Practice Midwife
DX: O26.893 Other specified pregnancy related conditions, third trimester (principal); R03.0 Elevated blood-pressure reading, without diagnosis of hypertension; O22.43 Hemorrhoids in pregnancy, third trimester; O99.343 Other mental disorders complicating pregnancy, third trimester; F41.9 Anxiety disorder, unspecified; F32.9 Major depressive disorder, single episode, unspecified; O09.93 Supervision of high risk pregnancy, unspecified, third trimester; Z3A.37 37 weeks gestation of pregnancy
CPT/HCPCS: 36415; 59050; 82565; 82570; 84156; 84450; 84460; 84550; 85027; 99221; G0378

== ENCOUNTER 2025-04-18 10:55 | Inpatient (IN) | payer BC, SELFPAY ==
[2025-04-18] VITALS (61 sets, daily range): BP systolic 120–168; BP diastolic 58–94; PULSE 61–97; RESP 14–18; TEMP 36.3–37.2; O2SAT 94–100; BMI 33.9
[2025-04-18] MEDS: Lactated Ringers 1,000 ML 50 ML IV (12:00)
[2025-04-18] MEDS: Oxytocin 15 Units/NS 250ml 15 UNITS/250 ML IV.SOLN 2 UNITS IV (12:15)
[2025-04-18 12:22] LABS: Hematocrit 34.1 % (37-47); Hemoglobin 11.1 g/dL (12.0-15.0); Immature Granulocytes Count 0.090 X10^3/uL (0.0-0.0); Mean Corp Hgb Conc 32.6 g/dL (32-36); Mean Corpuscular Volume 80.0 fL (81-99); Mean Platelet Vol. 11.5 fl (6.2-12.0); NRBC Flagged by Analyzer 0 % (0-5); Platelet Count 228 K/mm3 (150-450); RBC Distribution Width CV 14.4 % (11.6-14.6); RBC Distribution Width SD 41.1 fl (35.1-43.9); Red Blood Count 4.26 M/mm3 (4.2-5.4); White Blood Count 10.6 K/mm3 (4.4-11.0)
[2025-04-18 12:59] LABS: Creatinine, Urine (random) 33.10 mg/dL (28.00-217.00); Protein, Urine (Random) < 6.0 mg/dL (0.0-12.0); Protein:Creat Ratio UNABLE TO CALCULATE mg/g CRE (0-200)
[2025-04-18] MEDS: Lactated Ringers 1,000 ML 999 ML IV (13:02)
[2025-04-18 13:44] LABS: AST(SGOT) 18 U/L (<=31); Uric Acid 4.2 mg/dL (2.6-6.0)
[2025-04-18 13:51] LABS: Alanine Aminotransfer ALT/SGPT 10 U/L (<=34); Estimated Creatinine Clearance 156.52 ml/min (50-250); Syphilis Antibodies Nonreactive (Nonreactive)
[2025-04-18] MEDS: fentaNYL-bupivacaine (epidural) 100 ML BAG EPIDURAL ×2 (13:56→17:56)
[2025-04-18] MEDS: Lactated Ringers 1,000 ML 200 ML IV (17:56)
[2025-04-18] MEDS: Oxytocin 15 Units/NS 250ml 15 UNITS/250 ML IV.SOLN 83 UNITS IV (19:44)
[2025-04-18] MEDS: Cefazolin 1 GM/50 ML BAG IV (20:19)
[2025-04-18] MEDS: 0.9% Saline Lock 10 ML Syringe IV (22:48)
[2025-04-19] VITALS (9 sets, daily range): BP systolic 125–139; BP diastolic 67–78; PULSE 70–81; RESP 16–18; TEMP 36.1–36.7; O2SAT 96–97
[2025-04-20 02:33] VITALS: BP 129/70; PULSE 69; PULSE 70; RESP 16; O2SAT 97
[2025-04-20 10:45] VITALS: BP 128/88; PULSE 80; PULSE 84; RESP 18; TEMP 36.3; O2SAT 98
[2025-04-20 10:46] VITALS: BP 132/91; PULSE 83; O2SAT 98
[2025-04-20] MEDS: SELF ADMINISTRATION OF MEDS 1 EACH NOTE (11:35)
[2025-04-20] MEDS: GLYCERIN/WITCH HAZEL (TUCKS) MED..PAD 1 EACH TOPICAL (11:35)
== END 2025-04-20 11:40 | disposition home or self-care (01) | DRG 807 ==
PROVIDERS: Admitting Provider Obstetrics & Gynecology; PCP Student in an Organized Health Care Education/Training Program; Visit Provider Obstetrics & Gynecology
DX: O13.4 Gestational [pregnancy-induced] hypertension without significant proteinuria, complicating childbirth (principal); Z37.0 Single live birth; O99.344 Other mental disorders complicating childbirth; F32.A Depression, unspecified; F41.9 Anxiety disorder, unspecified; O77.0 Labor and delivery complicated by meconium in amniotic fluid; Z3A.39 39 weeks gestation of pregnancy
CPT/HCPCS: 59025; 59050; 82565; 82570; 84156; 84450; 84460; 84550; 85025; 86780; 86850; 86900; 86901; 99221; A4216; G0378

== ENCOUNTER → 2025-05-29 | Outpatient (CLI) | payer BC, SELFPAY ==
--- OUTSIDE RECORDS SUMMARY | 2025-05-29 16:42 | XMS RPT_ITS | CCD ---
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 Bello Alfaro Primary Care Provider Dr. Bello Alfaro Referring Provider Dr. Clementina Enrique Attending Provider [phone] Bello Alfaro DO Primary Care Provider Dr. Bello Alfaro Primary Care Provider Dr. Bello Alfaro Referring Provider Dr. Clementina Enrique Attending Provider Dr. Bello Alfaro Referring Provider BREANN Zavala Attending Provider [phone] Dr. Camille Herzog Attending Provider Michael PAD ASSEMBLER, ALINA-C Liana Attending Provider [phone] Care Physician, No Primary Referring Provider Un available BREANN Darnell Attending Provider [phone] Dr. Bello Alfaro Primary Care Provider BREANN Zavala Attending Provider [phone] Dr. Bello Alfaro Referring Provider Dr. Camille Herzog Attending Provider Michael PAD ASSEMBLERALINA-Jose Gaines Attending Provider Dr. Clementina Enrique Referring Provider BREANN Zavala Admit Provider BREANN Zavala Other Provider [phone] Clementina Enrique Attending Provider Bello Alfaro DO Primary Care Provider Hernandez BRIDGE PAINTER.SURGICAL ASSIST, Dorina Shoemaker Unavailable Lasha BRIDGE PAINTER.SURGICAL ASSIST, Myra Unavailable HALIMA IZAGUIRRE Referring Unavailable BELLO ALFARO Primary Care Unavailable BELLO ALFARO Primary Care Unavailable Dominic DEL CID, Dr. Monsalve Primary Care Provider Dr. Bello Alfaro DO Referring Provider Dr. Camille Herzog DO Attending Provider Jd Grant DO, Dr. Obrien Referring Provider Lavern Zavala CNM Attending Provider [phone] Dr. Clementina Enrique MD Attending Provider Michael PAD ASSEMBLER-CLiana Attending Provider [phone] Michael PAD ASSEMBLER-CLiana Referring Provider KELY PEREZ Attending Unavailable JALEN AREVALO Primary Care Unavailable CLEMENTINA ENRIQUE Referring Unavailabl e Lavern Zavala CNM Referring Provider [phone] Dr. Bello Alfaro DO Primary Care Provider [phone] Dr. Bello Alfaro DO Referring Provider Lavern Zavala CNM Attending Provider [phone] Dr. Camille Herzog DO Attending Provider Dr. Bello Alfaro DO Primary Care Provider Dr. Bello Alfaro DO Referring Provider Dr. Clementina Enrique MD Attending Provider [phone] Dominic DEL CID, Dr. Monsalve Primary Care Provider Dr. Bello Alfaro DO Referring Provider Michael FULLER-Liana Garcia Attending Provider Dr. Bello Alfaro DO Primary Care Physician Lavern Zavala CNM Attending Physician [phone] Jd Grant DO, Dr. Obrien Attending Physician Michael FULLER-CLiana Attending Physician [phone] Rohan ABEBE, Dr. Mcrae Attending Physician Jd Grant DO, Dr. Obrien Referring Provider Dominic DEL CID, Dr. Monsalve Primary Care Physician Dominic DEL CID, Dr. Monsalve Referring Provider [phone] Lavern Zavala CNM Attending Physician [phone] Lavern Zavala CNM Referring Provider [phone] Lavern Zavala CNM Nurse Practitioner [phone] Jd Grant DO, Dr. Obrien Admitting Physician Jd Grant DO, Dr. Obrien Nurse Practitioner Laureano CRAIN, Kathy Attending Physician Unavail jorge l oDnato PAD ASSEMBLER-Nikki Garcia Attending Physician [phone] Camille Herzog Attending Unavailabl e Alfaro, Bello Referring Unavailable Alfaro, Bello Primary Care Unavailable Alfaro, Bello Referring Unavailable Alfaro, Bello Primary Care Unavailable Lavern Zavala Attending Unavailable Camille Herzog Attending Unavailabl e Alfaro, Bello Referring Unavailable Alfaro, Bello Primary Care Unavailable Lavern Zavala Attending Unavailable Alfaro, Bello Referring Unavailable Alfaro, Bello Primary Care Unavailable Camille Herzog Admitting Unavailabl e Varshae Camille Grant Attending Unavailabl e Alfaro, Bello Primary Care Unavailable Camille Herzog Attending Unavaillelo e Camille Herzog Referring Unavailabl e Alfaro, Bello Primary Care Unavailable Camille Herzog Admitting UnavailClementina Ross Attending Unavailable Alfaro, Bello Primary Care Unavailable Camille Herzog Consulting UnavailCamille Bowling Attending UnavailLavern Garcia Attending Unavailable Lavern Zavala Referring Unavailable Alfaro, Bello Primary Care Unavailable Lavern Zavala Consulting Unavailable Michael PAD ASSEMBLERLiana Attending Unavailable Alfaro, Bello Referring Unavailable Alfaro, Bello Primary Care Unavailable Camille Herzog Attending Unavailabl e Alfaro, Bello Referring Unavailable Alfaro, Bello Primary Care Unavailable Michael PAD ASSEMBLER, Liana Attending Unavailable Alfaro, Bello Referring Unavailable Alfaro, Bello Primary Care Unavailable Lavern Zavala Attending Unavailable Alfaro, Bello Referring Unavailable Alfaro, Bello Primary Care Unavailable Camille Herzog Attending Unavailabl e Vande Vellatasha, Camille Referring Unavailabl e Alfaro, Bello Primary Care Unavailable Camille Herzog Attending Unavailabl e Vande Velde, Camille Referring Unavailabl e Alfaro, Bello Primary Care Unavailable Michael PAD ASSEMBLER, Liana Attending Unavailable Michael PAD ASSEMBLERLiana Referring Unavailable Alfaro, Bello Primary Care Unavailable Clementina Enrique Attending Unavailable Alfaro, Bello Referring Unavailable Alfaro, Bello Primary Care Unavailable Michael PAD ASSEMBLERLiana Attending Unavailable Alfaro, Bello Referring Unavailable Alfaro, Bello Primary Care Unavailable Camille Herzog Attending Unavailabl e Alfaro, Bello Referring Unavailable Alfaro, Bello Primary Care Unavailable Michael PAD ASSEMBLER, Liana Attending Unavailable Alfaro, Bello Primary Care Unavailable Lavern Zavala Attending Unavailable Lavern Zavala Referring Unavailable Alfaro, Bello Primary Care Unavailable Lavern Zavala Attending Unavailable Lavern Zavala Referring Unavailable Alfaro, Bello Primary Care Unavailable Lavern Zavala Attending Unavailable Alfaro, Bello Referring Unavailable Alfaro, Bello Primary Care Unavailable Alfaro, Bello Referring Unavailable Alfaro, Bello Primary Care Unavailable Lavern Zavala Attending Unavailable Clementina Enrique Attending Unavailable Alfaro, Bello Referring Unavailable Alfaro, Bello Primary Care Unavailable Alfaro, Bello Referring Unavailable Alfaro, Bello Primary Care Unavailable Lavern Zavala Attending Unavailable Nikki Donato Attending Unavailable Alfaro, Bello Referring Unavailable Alfaro, Bello Primary Care Unavailable Kathy Tinsley Attending Unavailable Alfaro , Dr. Monsalve Primary Care Physician Dominic DEL CID, Dr. Monsalve Referring Provider Dr. Camille Herzog DO Attending Physician Michael FULLER-CLiana Attending Physician [phone] Rohan ABEBE, Dr. Mcrae Attending Physician Lavern Zavala CNM Attending Physician [phone] Dr. Camille Herzog DO Referring Provider Lavern Zavala CNM Referring Provider [phone] Lavern Zavala CNM Nurse Practitioner [phone] Dr. Camille Herzog DO Admitting Physician Dr. Camille Herzog DO Nurse Practitioner Laureano CRAIN, Kathy Attending Physician Unavail jorge l Donato NP-CNikki Attending Physician Allergies Allergy Classification Reported Allergen(s) Allergy Type Date of Onset Reaction(s) Facility (2 sources) Environmental allergies [Other] Propensity to adverse reactions 1 Other: See Comments [facility] (3 sources) Seasonal allergy; Translations: [SEASONAL ALLERGIES] Allergy to substance 9 Intolerance [facility] (1 source) OTHER; Translations: [OTHER] Propensity to adverse reactions (disorder) 1 [facility] Medications Current Medications Medication Drug Class(es) Dates Sig (Normalized) Sig (Original) [id number] 200 actuat albuterol 0.09 mg/actuat metered dose inhaler (5 sources) beta2-Adrenergic Agonist Start: 06-28-2024 take 2 puff(s) by inhalation every four hours as needed for wheezing albuterol HFA (PROVENTIL HFA, VENTOLIN HFA) 90 mcg/actuation inhaler Indications: Acute cough , Influenza A Inhale 2 Puffs as instructed every 4 hours as needed for wheezing/shortnes s of breath. 8 g 06/28/2024 Active Start: 11-12-2015 albuterol HFA (PROVENTIL HFA, VENTOLIN HFA) 90 mcg/actuation inhaler 2 puffs q 4 prn. May use 15 to 20 minutes pre-exercise 1 Inhaler 0 11/12/2015 Active Comment on above: 2 puffs q 4 prn. May use 15 to 20 minutes pre-exercise amoxicillin 875 mg oral tablet (1 source) Penicillin-class Antibacterial Start: 05-03-20 22 End: 05-08-20 22 take 1 tablet by mouth twice daily amoxicillin (AMOXIL) 875 mg tablet Take 1 tablet by mouth twice daily for 5 days. 10 tablet 0 05/03/2022 05/08/2022 Active Comment on above: Take 1 tablet by catarino th twice daily for 5 days. Breast Pump (2 sources) Start: 07-18-19 24 Breast Pump Active 0 .ROUTE .MEDSUPPLY July 18, 2023 12:00am As directed 12 hr cetirizine hydrochloride 5 mg / pseudoephedrine hydrochloride 120 mg extended release oral tablet (4 sources) alpha-Adrenergic Agonist, Histamine-1 Receptor Antagonist Start: 11-22-19 13 take 1 tablet by mouth once daily cetirizine-pseudoep hedrine (ZYRTEC-D) 5-120 mg per tablet Take 1 tablet by mouth once daily. 25 tablet 2 11/21/2012 Active Comment on above: Take 1 tablet by catarino th once daily. loratadine 10 mg oral tablet (4 sources) Start: 03-31-20 18 take 1 tablet by mouth once daily loratadine (CLARITIN) 10 mg tablet Take 1 tablet by mouth once daily. 30 tablet 11 03/31/2018 Active Comment on above: Take 1 tablet by catarino th once daily. Mv-Mins 55-Dkam-Wrwia No.1-Dha (Pnv-[place]) 28-1-300 mg capsule (20 sources) Start: 01-21-20 Mv-Mins 67-Ilqh-Cqsxv No.1-Dha (Pnv-[place]) 28-1-300 mg capsule Active 1 NMA PO DAILY January 19, 2023 11:00pm Complies with drug therapy Start: 01-20-2023 Mv-Mins 71-Iro n-Folic No.1-Dha ([facility]nv-[place]) 28-1-300 mg capsule Active 1 NMA PO DAILY January 20, 2023 12:00am Complies with drug therapy Start: 01-20-2023 Mv-Mins 71-Iro n-Folic No.1-Dha (Pnv-[place]) 28-1-300 mg capsule Active 1 NMA PO DAILY January 20, 2023 12:00am Complies with drug therapy Start: 01-20-2023 Start: 01-20-2023 Mv-Mins 71-Iro n-Folic No.1-Dha (Pnv-[place]) 28-1-300 mg capsule Active 1 NMA PO DAILY January 20, 2023 12:00am Start: 01-20-2023 take 1 capsule by mo uth once daily Mv-Mins 21-Emhc-Nyvxv No.1-Dha (Pnv-[place]) 28-1-300 mg capsule Active 1 CAP PO DAILY January 19, 2023 11:00pm Start: 01-20-2023 take 1 capsule by mouth once M v-Mins 90-Bylu-Fajod No.1-Dha (Pnv-[place]) 28-1-300 mg capsule Active CAP PO January 19, 2023 11:00pm Start: 01-20-2023 take 1 capsule by mouth once M v-Mins 70-Vtom-Bqiot No.1-Dha ([facility]nv-[place]) 28-1-300 mg capsule Active CAP PO January 20, 2023 12:00am oseltamivir 75 mg oral capsule (1 source) Neuraminidase Inhibitor Start: 06-28-2024 End: 07-03-2024 take 1 capsule by mouth twice daily oseltamivir (TAMIFLU) 75 mg capsule Indications: Influenza A Take 1 capsule by mouth two times a day for 5 days. 10 capsule 06/28/2024 07/03/2024 Active predniSONE 20 mg oral tablet (1 source) Start: 06-28-2024 End: 07-03-2024 take 2 tablets by mouth once daily predniSONE (DELTASONE) 20 mg tablet Indications: Acute cough , Influenza A Take 2 tablets by mouth once daily for 5 days. 10 tablet 06/28/2024 07/03/2024 Active rizatriptan 5 mg disintegrating oral tablet (4 sources) Serotonin-1b and Serotonin-1d Receptor Agonist Start: 03-04-2021 take 1 tablet by mouth every two hours as needed for headache rizatriptan (MAXALT INSPECTOR PLATING) 5 mg disintegrating tablet Indications: Chronic mixed headache syndrome Take 1 tablet by mouth as needed for Migraine Headache (see administration instructions). May repeat in 2 hours if needed 12 tablet 2 03/04/2021 Active Comment on above: Take 1 tablet by catarino th as needed for Migraine Headache (see administration instructions). May repeat in 2 hours if needed Completed/Discontinued Medications Medication Drug Class(es) Dates Sig (Normalized) Sig (Original) Breast Pump device (20 sources) Start: 07-18-2023 End: 09-12-2024 Breast Pump device Discontinued 0 .ROUTE .MEDSUPPLY 1 0 July 18, 2023 12:00am September 12, 2024 7:46am Breast feeding status of mother Encounter for care and examination of lactating mother As directed Start: 07-18-2023 End: 09-12-2024 Breast Pump device Discontin ued 0 .ROUTE .MEDSUPPLY 1 0 July 18, 2023 1:00am September 12, 2024 8:46am Breast feeding status of mother Encounter for care and examination of lactating mother As directed Start: 07-18-2023 End: 09-12-2024 Breast Pump device Discontin ued 0 .ROUTE .MEDSUPPLY 1 July 18, 2023 1:00am September 12, 2024 8:46am As directed cephalexin 500 mg oral capsule (20 sources) Cephalosporin Antibacterial Start: 09-19-2023 End: 09-26-2023 take 1 capsule by mouth every six hours Cephalexin 500 mg capsule Discontinued 500 mg PO EVERY 6 HOURS 28 7 0 September 18, 2023 11:00pm September 24, 2023 11:00pm September 25, 2023 11:05pm dicloxacillin 500 mg oral capsule (20 sources) Penicillin-class Antibacterial Start: 10-27-2023 End: 08-28-2024 take 1 tablet by mouth every six hours Dicloxacillin 500 mg capsule Discontinued 500 mg PO EVERY 6 HOURS 40 0 October 26, 2023 11:00pm August 28, 2024 11:08am Take 1 tablet PO q 6 hours for 10 days FLUoxetine 40 mg oral capsule (20 sources) Serotonin Reuptake Inhibitor Start: 01-24-2024 End: 08-28-2024 take 1 capsule by mouth once daily Fluoxetine (Prozac) 40 mg capsule Discontinued 40 mg PO DAILY 30 January 24, 2024 8:25am August 28, 2024 11:08am Start: 06-10-2022 End: 04-26-2023 take 1 capsule by mouth once daily Fluoxetine (Prozac) 40 mg capsule Discontinued 40 mg PO DAILY 30 June 10, 2022 12:00am April 26, 2023 8:33am Start: 07-24-2021 End: 05-03-2022 take 1 capsule by mouth once daily in the morning FLUoxetine (PROZAC) 10 mg capsule Indications: PÉREZ (generalized anxiety disorder) Take 1 capsule by mouth once daily. Take with 20 mg capsule to total 30 mg a day, take In the morning 90 capsule 1 05/03/2022 Active Start: 07-24-2021 End: 08-28-2024 take 1 capsule by mouth once daily Fluoxetine (Prozac) 20 mg capsule Discontinued 20 mg PO DAILY 7 0 January 23, 2024 11:00pm August 28, 2024 11:08am Comment on above: Take 1 capsule by mo uth once daily. Take with 10 mg capsul, take In the morning Take 1 capsule by mo uth once daily. Take with 20 mg capsule to total 30 mg a day, take In the morning montelukast 10 mg oral tablet (20 sources) Leukotriene Receptor Antagonist Start: 3 End: take 1 tablet by mouth once daily Montelukast (Singulair) 10 mg tablet Discontinued 10 mg PO DAILY January 19, 2023 11:00pm August 28, 2024 11:08am sertraline 50 mg oral tablet (20 sources) Serotonin Reuptake Inhibitor Start: 4 End: Sertraline (Zoloft) 50 mg tablet Discontinued 75 mg PO DAILY 135 90 4 August 01, 2023 12:00am January 24, 2024 8:25am Start: 04-26-2023 End: 08-11-2023 take 1 tablet by mouth once daily Sertraline (Zoloft) 50 mg tablet Discontinued 50 mg PO DAILY 30 June 08, 2023 12:03pm August 11, 2023 3:23pm Problems Active Problems Problem Classification Problem Date Documented Date Episodic/Chronic Anxiety disorders (20 sources) Generalized anxiety disorder; Translations: [Generalized anxiety disorder] Onset: 11-28-2016 Chronic Comment on above: prozac; switched to zoloft; stable Hypertension complicating ; childbirth and the puerperium (20 sources) Hypertension complicating ; Translations: [Unspecified maternal hypertension, unspecified trimester] 08-28-2024 Chronic Comment on above: PP BP check normal. does not indicate need for medications. Hypertension complicating ; childbirth and the puerperium (7 sources) -induced hypertension; Translations: [Gestational [-induced] hypertension without significant proteinuria, unspecified trimester] Onset: 05-06-2025 04-20-2025 Episodic Comment on above: BP stable. Will marla tor BP at home 2-3 times a week & call if >140/90. Immunizations and screening for infectious disease (1 source) Encounter for immunization; Translations: [Encounter for immunization] Onset: 03-01-2025 Episodic Influenza (1 source) Influenza due to Influenza A virus; Translations: [Influenza due to other identified influenza virus with other respiratory manifestations] 06-28-2024 Episodic Nonmalignant breast conditions (6 sources) Engorgement of breasts; Translations: [Other signs and symptoms in breast] 04-23-2025 Episodic Other circulatory disease (1 source) Elevated blood-pressure reading, without diagnosis of hypertension; Translations: [Elevated blood-pressure reading, without diagnosis of hypertension] Onset: 04-26-2025 Episodic Other complications of (20 sources) H/O: miscarriage; Translations: [Supervision of with other poor reproductive or obstetric history, unspecified trimester] 01-20-2023 Episodic Comment on above: x1 in 2021 @ 6wks Other complications of (20 sources) High risk ; Translations: [Supervision of high risk , unspecified, unspecified trimester] 01-31-2023 Episodic Comment on above: , JOANNE 04/23/25, [facility], Daren PRR,,boy! JOANNE 09/07/22 Daren [facility]R , JOANNE , boy, [facility], Daren Other complications of (20 sources) Hemorrhoids in ; Translations: [Hemorrhoids in , unspecified trimester] 03-14-2025 Episodic Comment on above: compounded supposito maria l, tucks, warm soaks, avoid constipation Other complications of (2 sources) Hemorrhoids in , third trimester; Translations: [Hemorrhoids in , third trimester] Onset: 04-18-2025 Episodic Other complications of (2 sources) Supervision of high risk , unspecified, third trimester; Translations: [Supervision of high risk , unspecified, third trimester] Onset: 04-18-2025 Episodic Other complications of (1 source) Supervision of high risk , unspecified, second trimester; Translations: [Supervision of high risk , unspecified, second trimester] Onset: 03-01-2025 Episodic Other lower respiratory disease (1 source) Cough; Translations: [Acute cough] 06-28-2024 Episodic Other lower respiratory disease (1 source) H/O: asthma; Translations: [Personal history of other diseases of the respiratory system] 06-28-2024 Episodic Other and delivery including normal (20 sources) ; Translations: [Encounter for supervision of normal , unspecified, unspecified trimester] Onset: 09-30-2024 01-31-2023 Episodic Comment on above: KW SROM 37.5 Boy Luly higginbotham elects NIPT with Gen jenna Neg GBS. NIPT low ri sk, carrier neg. 14/14, nl anatomy NIPT low risk. anette er negative first . plan AFP screen NIPT low risk. anette er negative first . Negative AFP . nl anatomy. Neg GBS. NIPT low ri sk. carrier negative first . Negative AFP . nl anatomy. jv Other upper respiratory disease (4 sources) Allergic rhinitis; Translations: [Allergic rhinitis, unspecified] Onset: 11-05-2010 11-05-2010 Chronic Other upper respiratory disease (20 sources) Seasonal allergy; Translations: [Other seasonal allergic rhinitis] 01-20-2023 Chronic Other upper respiratory disease (19 sources) Other seasonal allergic rhinitis; Translations: [Allergic rhinitis, cause unspecified] 01-31-2023 Chronic Other upper respiratory infections (1 source) Bacterial sinusitis; Translations: [Chronic sinusitis, unspecified] Chronic Residual codes; unclassified (1 source) First trimester ; Translations: [Less than 8 weeks gestation of ] Episodic Residual codes; unclassified (20 sources) H/O: hypertension; Translations: [Personal history of other complications of , childbirth and the puerperium] 08-28-2024 Episodic Comment on above: PP BP check was norm al. No meds Residual codes; unclassified (20 sources) History of gestational hypertension; Translations: [Personal history of other complications of , childbirth and the puerperium] 08-28-2024 Episodic Comment on above: discussed 81 mg ASA if desired. Residual codes; unclassified (2 sources) 39 weeks gestation of ; Translations: [39 weeks gestation of ] Onset: 04-18-2025 Episodic Residual codes; unclassified (2 sources) Personal history of other complications of , childbirth and the puerperium; Translations: [Personal history of other complications of , childbirth and the puerperium] Onset: 04-18-2025 Episodic Residual codes; unclassified (1 source) 38 weeks gestation of ; Translations: [38 weeks gestation of ] Onset: 04-11-2025 Episodic Residual codes; unclassified (2 sources) 37 weeks gestation of ; Translations: [37 weeks gestation of ] Onset: 04-04-2025 Episodic Residual codes; unclassified (1 source) 36 weeks gestation of ; Translations: [36 weeks gestation of ] Onset: 03-28-2025 Episodic Residual codes; unclassified (1 source) 34 weeks gestation of ; Translations: [34 weeks gestation of ] Onset: 03-14-2025 Episodic Residual codes; unclassified (1 source) 32 weeks gestation of ; Translations: [32 weeks gestation of ] Onset: 03-01-2025 Episodic Residual codes; unclassified (1 source) 30 weeks gestation of ; Translations: [30 weeks gestation of ] Onset: 02-14-2025 Episodic Past or Other Problems Problem Classification Problem Date Documented Date Episodic/Chronic Conditions associated with dizziness or vertigo (4 sources) Dizziness and giddiness; Translations: [Dizziness and giddiness] Onset: 03-04-2021 03-04-2021 Episodic Genitourinary symptoms and ill-defined conditions (1 source) Proteinuria, unspecified; Translations: [Proteinuria, unspecified] Onset: 12-14-2024 Episodic Headache; including migraine (4 sources) Chronic mixed headache syndrome; Translations: [Other headache syndrome] Onset: 03-04-2021 03-04-2021 Episodic Inflammation; infection of eye (except that caused by tuberculosis or sexually transmitteddisease) (4 sources) Acute atopic conjunctivitis; Translations: [Acute atopic conjunctivitis, unspecified eye] Onset: 11-05-2010 11-05-2010 Episodic Other circulatory disease (4 sources) Syncope due to orthostatic hypotension; Translations: [Orthostatic hypotension] Onset: 03-23-2013 03-23-2013 Episodic Other complications of (13 sources) Supervision of with other poor reproductive or obstetric history, unspecified trimester; Translations: [Supervision of high-risk with history of ] Onset: 09-25-2024 01-31-2023 Episodic Other complications of (20 sources) Supervision of high risk , unspecified, unspecified trimester; Translations: [Supervision of unspecified high-risk ] Onset: 10-17-2024 01-31-2023 Episodic Other connective tissue disease (1 source) Weakness of right arm; Translations: [Other symptoms and signs involving the musculoskeletal system] Onset: 03-04-2021 03-04-2021 Episodic Other connective tissue disease (3 sources) Other symptoms and signs involving the musculoskeletal system; Translations: [Other musculoskeletal symptoms referable to limbs] Onset: 03-04-2021 03-04-2021 Episodic Other nervous system disorders (4 sources) Facial paresthesia; Translations: [Paresthesia of skin] Onset: 03-04-2021 03-04-2021 Episodic Other nervous system disorders (4 sources) Weakness of face muscles; 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] Onset: 03-04-2021 03-04-2021 Episodic Other nervous system disorders (4 sources) Numbness of upper limb; Translations: [Anesthesia of skin] Onset: 03-04-2021 03-04-2021 Episodic Other screening for suspected conditions (not mental disorders or infectious disease) (1 source) Encounter for screening, unspecified; Translations: [Encounter for screening, unspecified] Onset: 11-19-2024 Episodic Residual codes; unclassified (1 source) 27 weeks gestation of ; Translations: [27 weeks gestation of ] Onset: 01-28-2025 Episodic Residual codes; unclassified (1 source) 20 weeks gestation of ; Translations: [20 weeks gestation of ] Onset: 12-10-2024 Episodic Residual codes; unclassified (1 source) 17 weeks gestation of ; Translations: [17 weeks gestation of ] Onset: 11-13-2024 Episodic Residual codes; unclassified (1 source) 10 weeks gestation of ; Translations: [10 weeks gestation of ] Onset: 10-17-2024 Episodic Results Test Name Value Interpretation Reference Range Facility Office Visit Reporton 2024 Office Visit Report [facility] [address] [id number] OFFICE VISIT Date of Service: 04/25/25 MR#: [id number] Acct: [id number] Patient: ROBERTO CARLOS JAIN Rep #: [id number] : 1995 Provider: BREANN El ams Age/Sex: 29/F Location: [facility] [place] Status: Signed Intake Vital Signs 04/23/25 08:26 04/25/25 10:01 04/25/25 10:04 Height 5 ft 4 in 5 ft 4 in Weight: 179 lb 2 oz BMI 30.7 BP 131/85 H 116/82 H Intake Visit Reasons: 1wk BP Check Size Tester Required: No Is patient in pain?: No Allergies No Known Allergies Allergy (Verified 04/25/25 10:02) Medications ???Medication ???Instructions ???Recorded ???Confirmed ???Type multivit-min no.71-iron fum 28 1 cap PO DAILY 01/20/23 04/25/25 History mg-folate no.1 1 mg-dha 300 mg capsule (PNV-[place]) Is last menstrual period known: No Post menopausal: No Patient : No Have you fallen in the past year?: No Nursing Note pt presents for 1 wk bp check. has been taking them at home- 120's/70's. no issues or complaints today. first bp 131/85, second one 116/82. Clinical Quality Measures Falls Risk Screening/Assistive Devices Have you fallen in the past year?: No 04/26/25 1630 Date Lavern Doshi Signature: Date (if applicable) CC: Normal [facility] MR/BMS.BBCon 04-23-2025 MR/BMS.VALENTIN [facility] [address] [place] [address] OFFICE VISIT Date of Service: 04/22/25 MR#: [id number] Acct: [id number] Name: ORBERTO CARLOS JAIN Rep #: [id number] : 1995 Provider: ANDREA claire Age/Sex: 29/F Location[place] [facility] [place] Status: Signed Intake Vital Signs 04/18/25 11:41 Height 5 ft 4 in Intake Visit Reasons: Visit Allergies No Known Allergies Allergy (Verified 04/18/25 11:36) PFSH PFS Medical History (Updated 04/23/25 @ 08:21 by ANDREA Matson) Care and examination of lactating mother Engorgement of breasts Gestational HTN Vaginal delivery Family history of malignant hyperthermia Asthma Seasonal allergies Anxiety with depression Family History Father Diabetes Mother Hypertension Grandmother Family history of recurrent miscarriage paternal Social History (Updated 04/23/25 @ 08:16 by ANDREA Matson) adopted: No household members: spouse and children housing: house number of children: 2 current occupational status: unemployed current occupation: [employer] pets and animals: Yes (2) pets and animals: dog(s) history of recent travel: [place] ([place]) sexually active: Yes Smoking Status: Never smoker alcohol intake: never substance use type: does not use well-balanced diet: daily or most days caffeine: No eating out: rarely or never during the past year weight has: decreased > 10 lbs what type of physical activity do you participate in: other details: crossfit frequency: 3-4 times per week duration: 45-60 minutes/day ben/mu-ism: Orthodoxy seatbelt use: always do you feel safe at home: Yes additional social history: Daren- AEP History 3 Elective abortions Hx Para 2 Spontaneous abortions 1 Hx # Term Pregnancies 2 Ectopic pregnancies Hx # Pregnancies Multiple births # of living children 2 Past Pregnancies Del. Date Name GA/Weeks Outcome Route Bth Weight Gen Labor Lgth Anesthesia Del Locatn Provider FOB Unknown 05/2022 Miscarriage 6wks 08/23/23 [place] 37 live - 6#13oz Male epidural WCErick Mercedes 04/18/25 [place] 39 live - full term Male epidural H JV Daren Delivery Date: 08/23/23 Last Updated by: Stacy YATES Delivery Date: 04/18/25 Last Updated by: Zoila Santos, RN See problem list for complications HPI HPI HPI: ROBERTO CARLOS JAIN, is a 29 F who presents to the office today for assessment ROS ROS Const Constitutional: Denies fever(s) or lethargy : Denies nipple discharge Skin Skin/Breast: Reports breast pain; Denies breast skin changes or nipple discharge Details: patient reports being engorged since milk came in overnight 04/21 ROS Narrative patient with HTN during , denies MI, visual changes and RUQ pain. Has BP check in OB office scheduled. Exam Maternal Assessment Breast Assessment Bilateral Breasts: Engorged and Symmetrical Nipple Assessment Bilateral Nipples: Short Areolar Tissue Areolar Tissue: Non-pliable Assessment Baby Feeding History Is your baby latching onto the breast: Yes Number of Breast Feedings in 24 hours: every 2-2.5 hours Minutes per breast: First Breast: 10-15 Minutes per breast: Second Breast: 5 Supplements Supplement Type:: None Breast Pumping Type of Breast Pump: spectra Frequency: has not pumped yet Output - Last 24 hours Wets/Color:: 7 Stools/Color:: 6-7 yellow, brownish Exam Const General: comfortable and no acute distress Orientation: alert and oriented x3 Chest Breast inspection: normal inspection of the breasts Breast palpation: normal palpation of the breasts (breasts firm) Resp Effort Inspection: normal respiratory effort Skin General: no rashes or lesions noted Psych Appearance: grossly normal Mental Status: mental status grossly normal Affect: normal affect Assessment and Plan Assessment and Plan (1) Engorgement of breasts: Status: Acute Plan: Educated on ice, motrin, breast gymnastics, pumping only 2-5 minutes with goal of not overpumping. Monitor for any signs of infection and call office right away. (2) Care and examination of lactating mother: Status: Acute Plan: Newborns weight down 4% from birthweight with adequate output. Assisted patient to latch in office for 25 minutes, 10 on right side and 15 on left with total transfer volume of 65ml. Educated on feeding on demand, offering both sides with each feed, vasqueza use, pumping, milk supply, milk storage and milk regulation. Follow up with PRN. Card given with termite control servicer number provided, encouraged to call with any questio (more content not included)... Normal [facility] Discharge Instructionon 04-03 Discharge Instruction [facility] Medical Records Department [address] [place] [address] Instructions for Home/Discharge Instructions 04/19/25 1304 MR#: [id number] Acct: [id number] Name: ROBERTO CARLOS JAIN Rep #: [id number] : 1995 29 From: Clementina Enrique MD PCP: Dr. Bello Alfaro DO Status:ADM IN Discharge Instructions DC O2, CPAP, BIPAP needs Home O2 Discharge instructions: No Dressing / Incision Discharge Activity: Return to Normal Activity, May Not Drive (while taking narcotic pain medications.) and May Shower May resume sexual activity in: 4-6 weeks Dressing / Incision Call your doctor if your incision/area has: Continuous Slow Oozing, Sudden Increased Bleeding, Increased Pain/ Swelling, Increased Redness and Foul Smelling Discharge Follow Up Care Please Follow Up With: Clementina Enrique MD When: Call [phone] to make an appointment with your doctor in 6 weeks. If you had elevated blood pressure or 4th degree laceration, you will need to be seen in 2 weeks. Test Results: Test results from this visit will be discussed in further detail at your follow-up appointment, if applicable. Discharge Plan Admission Admit Date/Time: 04/18/25 10:55 Attending Provider: Camille Herzog Primary Care Provider: Bello Alfaro Discharge Orders/Prescriptions Prescriptions: No Action PNV-[place] 28-1-300 mg capsule 1 cap PO DAILY Referrals / Follow Up: Bello Alfaro DO [Primary Care Provider, Medical] 04/19/25 1304 Clementina Enrique MD CC: Dr. Bello Alfaro DO Signed Normal [facility] AST(SGOT)Ordered By: Nancy Grant on 04-18-2025 AST [Catalytic activity/Vol] 18 U/L Normal <=31 [facility] Comment on above: Performed By: #### L 501.4770, L501.1400, L501.0900 #### [facility] [address] [place], [address] Absolute lymphocyte countOrd ered By: Camille Rudy on 04-18-2025 Lymphocytes Auto (Unsp spec) [#/Vol] 1.64 10*3/uL 0.83-4.51 [facility] Absolute neutrophil countOrd ered By: Camille Rudy on 04-18-2025 Neutrophils (Bld) [#/Vol] 8.1 10*3/uL High 2.0-7.7 [facility] Automated blood erythrocyte countOrdered By: Camille Rudy on 04-18-2025 RBC (Bld) [#/Vol] 4.26 10*6/uL Normal 4.2-5.4 [facility] Comment on above: Performed By: #### L 100.0100, BTS ####[facility] [address] [place], [address] Automated blood hematocrit ( percentage)Ordered By: Camille Rudy on 04-18-2025 Hematocrit (Bld) [Volume fraction] 34.1 % Low 37-47 [facility] Comment on above: Performed By: #### L 100.0100, BTS ####[facility] [address] [place], [address] Automated lymphocyte count a s percentage of total leukocytesOrdered By: Camillevaibhav Grant on 04-18-2025 Lymphocytes/100 WBC Auto (Unsp spec) 15.5 % Low 19-41 [facility] Basophil percentageOrdered B y: Camille Rudy on 04-18-2025 Basophils/100 WBC (Bld) 0.3 % Normal 0-1 [facility] Comment on above: Performed By: #### L 100.0100, BTS ####[facility] [address] [place], [address] CBC W/Diff, Automatedon 10- Absolute Lymph 1.64 X10 3/uL Normal 0.83-4.51 [facility] Comment on above: Performed By: #### L 100.0100, BTS ####[facility] [address] [place], [address] Absolute Neut 8.1 X10 3/uL High 2.0-7.7 [facility] Comment on above: Performed By: #### L 100.0100, BTS ####[facility] [address] [place], [address] IG% 0.900 Normal 0.0-0.9 [facility] Comment on above: Result Comment: IG% - Immature Granulocytes (promyelocytes, myelocytes and metamyelocytes) > 1% indicates that a LEFT SHIFT is Present. Performed By: #### L 100.0100, BTS ####[facility] [address] [place], [address] Lymphocytes/100 WBC (Bld) 15.5 % Low 19-41 [facility] Comment on above: Performed By: #### L 100.0100, BTS ####[facility] [address] [place], [address] Nucleated RBC (Bld) [#/Vol] 0 10*3/uL Normal 0-5 [facility] Comment on above: Performed By: #### L 100.0100, BTS ####[facility] [address] [place], [address] RDW SD 41.1 fl Normal 35.1-43.9 [facility] Comment on above: Performed By: #### L 100.0100, BTS ####[facility] [address] [place], [address] Eosinophil percentageOrdered By: Camille Grant on 04-18-2025 Eosinophils/100 WBC (Bld) 0.6 % Normal 0-5 [facility] Comment on above: Performed By: #### L 100.0100, BTS ####[facility] [address] [place], [address] Erythrocyte distribution wid th ratioOrdered By: Camille Grant on 04-18-2025 Erythrocyte distribution width (RBC) [Ratio] 14.4 % Normal 11.6-14.6 [facility] Comment on above: Performed By: #### L 100.0100, BTS ####[facility] [address] [place], [address] Erythrocyte distribution wid th standard deviationOrdered By: Camille Grant on 04-18-2025 Erythrocyte distribution width (RBC) [Ratio] 41.1 fl 35.1-43.9 [facility] Glomerular filtration rate ( GFR) estimation/1.73 sq m using serum, plasma, or whole bOrdered By: Camille Grant on 04-18-2025 GFR/1.73 sq M.predicted among non-blacks MDRD (S/P/Bld) [Vol rate/Area] 126 mL/min/{1.73_m2} Normal >60 [facility] Comment on above: mL/min/1.73m2 CKD-EP I Creatinine Equation (2020) Result Comment: mL/m in/1.73m2 CKD-EPI Creatinine Equation (2020) Performed By: #### L 501.1105, L509.8002, L501.4405 ####[facility] [address] [place], [address] H AND P Exam - OB/GYNon 04-03 H&P Exam - BEEF LUGGER [facility] Medical Records Department [address] [place] [address] H P Exam - BEEF LUGGER 04/18/25 1242 MR#: [id number] Acct: [id number] Name: ROBERTO CARLOS JAIN Rep #: [id number] : 1995 29 From: Camille Herzog DO PCP: Dr. Blelo Alfaro, DO Status:ADM IN Location: [id number] [facility] - General General Date of Admission: 04/18/25 HPI Narrative ROBERTO CARLOS JAIN, is a 29 y/o @ 39 weeks 2 days who presents to L D for induced hypertension. Her pressures in the beginning of were 120'/s70's and have started to increase to 140's-150's/80's. She has intermittent headaches. pre-e work up ordered. plan is for IOL today. Maternal Data Information JOANNE Calculator Estimated Delivery Date Method Current WG Current Estimate 04/23/25 LMP (Certain) 39w 2d Other Estimates 04/22/25 Ultrasound #1 39w 3d PFSH PFS Medical History (Updated 04/18/25 @ 12:[address] Camille Herzog, DO) Gestational HTN Vaginal delivery Family history of malignant hyperthermia Asthma Seasonal allergies Anxiety with depression Home Medications ???Medication ???Instructions ???Recorded ???Last Taken ???Type multivit-min no.71-iron fum 28 1 cap PO DAILY 01/20/23 04/17/25 22:00 History mg-folate no.1 1 mg-dha 300 mg 1 cap capsule (PNV-[place]) Allergy/AdvReac Type Severity Reaction Status Date / Time No Known Allergies Allergy Verified 04/18/25 11:36 Family History Father Diabetes Mother Hypertension Grandmother Family history of recurrent miscarriage paternal Social History adopted: No household members: spouse and children housing: house number of children: 1 current occupational status: unemployed current occupation: [employer] pets and animals: Yes (2) pets and animals: dog(s) history of recent travel: [place] ([place]) sexually active: Yes Smoking Status: Never smoker alcohol intake: never substance use type: does not use well-balanced diet: daily or most days caffeine: No eating out: rarely or never during the past year weight has: decreased > 10 lbs what type of physical activity do you participate in: other details: crossfit frequency: 3-4 times per week duration: 45-60 minutes/day ben/mu-ism: Orthodoxy seatbelt use: always do you feel safe at home: Yes additional social history: Daren- JAM History 3 Elective abortions Hx Para 1 Spontaneous abortions 1 Hx # Term Pregnancies Ectopic pregnancies Hx # Pregnancies 1 Multiple births # of living children 1 Past Pregnancies Del. Date Name GA/Weeks Outcome Route Bth Weight Gen Labor Lgth Anesthesia Del Reeceatsourav Provider FOB Unknown 05/2022 Miscarriage 6wks 08/23/23 [place] 37 live - 6#13oz Male epidural [facility] Roger Mercedes Delivery Date: 08/23/23 Last Updated by: Stacy YATES Visit Details Expected Delivery Route/Plan Labor Preferences- CB/BF classes: no labor support person: Daren labor intervention preferences: [] pain management options preferred: epidural cut cord/dad catch: yes : yes PP control planned: [] discussed possible routes of delivery and associated risks: [] special requests: [] Plans Covid status: [] Flu vaccine: [] Tdap vaccine: given Rhogam: na LARC form signed: yes Problem list reviewed and updated with the most current plan of care details and appropriate orders placed. Relevant counseling for the gestational age provided. Continue routine care and follow up unless otherwise noted in visit notes/problem list details OB Flowsheet Initial Weight: 169 lb Date -???-???-???-???-??? -???-???-???-???-??? -???-???- EGA Weight BP Urine Prot -???-???-???-???-??? -???-???-???-???-??? -???-???- Glucose FHR FuHt Pres Dilation -???-???-???-???-??? -???-???-???-???-??? -???-???- Effaced St Visit Note 09/12/24 -???-???-???-???-??? -???-???-???-???-??? -???-???- 8w 1d 169 lb (+0 oz) 122/72 -???-???-???-???-??? -???-???-???-???-??? -???-???- 158 -???-???-???-???-??? -???-???-???-???-??? -???-???- JV- CRL cons istent with LMP. Desires NIPT. will return in 2 weeks for blood work. 09/25/24 -???-???-???-???-??? -???-???-???-???-??? -???-???- 10w 0d 168 lb 2 oz (-14 oz) 134/79 Negative -???-???-???-???-??? -???-???-???-???-??? -???-???- Negative 180 -???-???-???-???-??? -???-???-???-???-??? -???-???- KW- no vb/cr amping. requesting a heartbeat check because her friend just had SAB. active fetus on US and FHT easily found. labs today 10/17/24 -???-???-???-???-??? -???-???-???-???-??? -???-???- 13w 1d 171 lb 2 oz (+2 lb 2 oz) 123/71 Negative -???-???-???-???-? (more content not included)... Normal [facility] Hemoglobin measurementOrdere d By: Camille Grant on 04-18-2025 Hemoglobin (Bld) [Mass/Vol] 11.1 g/dL Low 12.0-15.0 [facility] Comment on above: Performed By: #### L 100.0100, BTS ####[facility] [address] [place], [place], [address] Immature granulocytes/100 WB C Auto (Bld)Ordered By: Camille Grant on 04-18-2025 Immature granulocytes/100 WBC (Bld) 0.900 % 0.0-0.9 [facility] Comment on above: IG% - Immature Granu locytes (promyelocytes, myelocytes and metamyelocytes) > 1% indicates that a LEFT SHIFT is Present. Laboratory - Chemistry and C hemistry - challengeOrdered By: Camille Grant on 04-18-2025 Glucose Ql (U) Negative [facility] Laboratory - UrinalysisOrder ed By: Camille Grant on 04-18-2025 Protein Ql (U) Negative [facility] MCV (mean corpuscular volume ) determinationOrdered By: Camille Grant on 04-18-2025 MCV (RBC) [Entitic vol] 80.0 fL Low 81-99 [facility] Comment on above: Performed By: #### L 100.0100, BTS ####[facility] [address] [place], [place], [id number] MR/OB.VAGDELIon 04-18-2025 MR/[facility] Medical Records Department [address] [place] [address] OB Vaginal Delivery 04/18/25 1921 MR#: [id number] Acct: [id number] Name: ROBERTO CARLOS JAIN Rep #: [id number] : 1995 29 From: Camille Herzog DO PCP: Dr. Bello Alfaro, DO Status:ADM IN Location: [id number] Assessment Plan (1) PIH ( induced hypertension): (2) Supervision of high-risk : QUALIFIERS: Trimester: third trimester Qualified Code(s): O09.93 - Supervision of high risk , unspecified, third trimester COMMENT: PRR , JOANNE 04/23/25, boy, PC Romain, Daren (3) : QUALIFIERS: Weeks of gestation: 39 weeks Qualified Code(s): Z3A.39 - 39 weeks gestation of COMMENT: Neg GBS. NIPT low risk. carrier negative first . Negative AFP . nl anatomy. (4) History of gestational hypertension: COMMENT: discussed 81 mg ASA if desired. (5) Anxiety with depression: COMMENT: prozac; switched to zoloft; stable Maternal Data Information JOANNE Calculator Estimated Delivery Date Method Current WG Current Estimate 04/23/25 LMP (Certain) 39w 2d Other Estimates 04/22/25 Ultrasound #1 39w 3d Final JOANNE: 04/23/25 Final JOANNE Source: LMP Gestational age: 39 weeks 2 days Doctor Who Attended Delivery: Curry Hendrix Vaginal Delivery Maternal Presentation Maternal Presentation: Medically Indicated Induction Type of Induction: Pitocin and Amniotomy Vaginal Delivery Information Procedure Performed: Spontaneous Vaginal Delivery Surgeon/Practitioner : Camille Herzog Date of Procedure: 04/18/25 Pre-Procedure Diagnosis: gestational hypertension, 39 weeks, Post-Procedure Diagnosis: gestational hypertension, 39 weeks, Type of anesthesia: Epidural Estimated Blood Loss: 100cc Time of Delivery: 19:08 Findings Description of procedure: Patient began pushing and delivered the head in the ANTONIO presentation. The head was delivered atraumatically. The anterior and posterior shoulders delivered without complication followed by the rest of the and the was placed on the maternal abdomen. Delayed cord clamping was employed for approximately 60 seconds. Cord was clamped and cut and gentle traction was applied to the cord, despite gentle traction and uterine massage, the cord evulsed. The placenta was beyond the cervical os and was manually grasped and delivered in one piece. manual uterine exploration was performed and no further membranes or uterine parts were left behind. The perineum and vagina were inspected. EBL was 100 cc. Patient and tolerated delivery well. Procedure findings: viable male apgars 7/9 Edwar Presentation: Vertex Amniotic Membrane Rupture Type: Artificial Amniotic Fluid Description: Lightly stained meconium Placental Delivery Description: Manual Removal Placenta Disposition: [facility] Specimen collected: No Cord Vessel Description: 3 Vessels Cord Entanglement: None A Gender: Male (1 minute): 7 (5 minute): 9 Delayed Cord Clamping: Yes Visual Merchandising Director business project analyst: No Post Vaginal Deli Medications given after delivery: IV Pitocin Episiotomy Description: None Laceration: None Complication Complications: No Multi Select Codes Urinary/Genital Urinary/Genital CPT Codes: 58212 Vaginal Delivery [facility] 04/18/251925 Cosigner Signature (if applicable): CC: Dr. Camille Herzog, DO; Dr. Bello Alfaro, DO Signed Normal [facility] Mean corpuscular hemoglobin (MCH) determinationOrdered By: Camille Grant on 04-18-2025 MCH (RBC) [Entitic mass] 26.1 pg Low 27.0-32.0 [facility] Comment on above: Performed By: #### L 100.0100, BTS ####[facility] [address] [place], [address] Mean corpuscular hemoglobin concentration (MCHC) determinationOrdered By: Camille Grant on 04-18-2025 MCHC (RBC) [Mass/Vol] 32.6 g/dL Normal 32-36 [facility] Comment on above: Performed By: #### L 100.0100, BTS ####[facility] [address] [place], [address] Mean platelet volume determi nationOrdered By: Camille Grant on 04-18-2025 Platelet mean volume (Bld) [Entitic vol] 11.5 fL Normal 6.2-12.0 [facility] Comment on above: Performed By: #### L 100.0100, BTS ####[facility] [address] [place], [address] Monocyte percentageOrdered B y: Camille Grant on 04-18-2025 Monocytes/100 WBC (Bld) 6.1 % Normal 0-10 [facility] Comment on above: Performed By: #### L 100.0100, BTS ####[facility] [address] [place], [address] Neutrophil percentageOrdered By: Camille Grant on 04-18-2025 Neutrophils/100 WBC (Bld) 76.6 % High 47-70 [facility] Comment on above: Performed By: #### L 100.0100, BTS ####[facility] [address] [place], [address] Nucleated red blood cell per centageOrdered By: Camille Grant on 04-18-2025 Nucleated RBC/100 WBC (Bld) [Ratio] 0 % 0-5 [facility] Collaborating Supervising Physician Office Visit Reporton 04-18-2025 Collaborating Supervising Physician Office Visit Report [facility] [address], [address] [place] [address] OFFICE VISIT Date of Service: 04/18/25 MR#: [id number] Acct: [id number] Name: ROBERTO CARLOS JAIN Rep #: [id number] : 1995 Provider: Dr. Camille Shields DO Age/Sex: 29/F Location: [facility] [place] Status: Signed Intake Vital Signs 01/28/25 13:15 04/11/25 11:18 04/18/25 10:20 04/18/25 10:21 Height 5 ft 3 in 5 ft 3 in 5 ft 3 in 5 ft 3 in Weight: 195 lb 3 oz 198 lb 3 oz BMI 34.5 35.1 BP 135/84 H 138/86 H Intake Visit Reasons: 39 wk ob Size Tester Required: No Is patient in pain?: No Allergies No Known Allergies Allergy (Verified 04/18/25 10:21) Medications ???Medication ???Instructions ???Recorded ???Confirmed ???Type multivit-min no.71-iron fum 28 1 cap PO DAILY 01/20/23 04/18/25 H istory mg-folate no.1 1 mg-dha 300 mg capsule (PNV-[place]) Last Menstrual Period: 07/17/24 Zika: Zika virus screening: Negative : No PFSH PFSH Medical History Seasonal allergies Vaginal delivery Family history of malignant hyperthermia Asthma Anxiety with depression Family History Father Diabetes Mother Hypertension Grandmother Family history of recurrent miscarriage paternal Social History adopted: No household members: spouse and children housing: house number of children: 1 current occupational status: unemployed current occupation: [employer] pets and animals: Yes (2) pets and animals: dog(s) history of recent travel: [place] ([place]) sexually active: Yes Smoking Status: Never smoker alcohol intake: never substance use type: does not use well-balanced diet: daily or most days caffeine: No eating out: rarely or never during the past year weight has: decreased > 10 lbs what type of physical activity do you participate in: other details: crossfit frequency: 3-4 times per week duration: 45-60 minutes/day ben/mu-ism: Orthodoxy seatbelt use: always do you feel safe at home: Yes additional social history: Daren- JAM History 3 Elective abortions Hx Para 1 Spontaneous abortions 1 Hx # Term Pregnancies Ectopic pregnancies Hx # Pregnancies 1 Multiple births # of living children 1 Past Pregnancies Del. Date Name GA/Weeks Outcome Route Bth Weight Infant Gen Labor Lgth Anesthesia Del Locatn Provider FOB Unknown 05/2022 Miscarriage 6wks 08/23/23 [place] 37 live - 6#13oz Male epidural [facility] Roger Mercedes Delivery Date: 08/23/23 Last Updated by: Stacy YATES HPI 39 wk ob Details: ROBERTO CARLOS JAIN is a 29 year old who presents for routine OB visit. OB Visit JOANNE Calculator Estimated Delivery Date Method Current WG Current Estimate 04/23/25 LMP (Certain) 39w 2d Other Estimates 04/22/25 Ultrasound #1 39w 3d Expected Delivery Route/Plan Labor Preferences- CB/BF classes: no labor support person: Daren labor intervention preferences: [] pain management options preferred: epidural cut cord/dad catch: yes : yes PP control planned: [] discussed possible routes of delivery and associated risks: [] special requests: [] Specific Issue/Plans Covid status: [] Flu vaccine: [] Tdap vaccine: given Rhogam: na LARC form signed: yes Problem list reviewed and updated with the most current plan of care details and appropriate orders placed. Relevant counseling for the gestational age provided. Continue routine care and follow up unless otherwise noted in visit notes/problem list details Initial Weight: 169 lb Date -???-???-???-???-??? -???-???-???-???-??? -???-???- EGA Weight BP Urine Prot -???-???-???-???-??? -???-???-???-???-??? -???-???- Glucose FHR FuHt Pres Dilation -???-???-???-???-??? -???-???-???-???-??? -???-???- Effaced St Visit Note 09/12/24 -???-???-???-???-??? -???-???-???-???-??? -???-???- 8w 1d 169 lb (+0 oz) 122/72 -???-???-???-???-??? -???-???-???-???-??? -???-???- 158 -???-???-???-???-??? -???-???-???-???-??? -???-???- JV- CRL cons istent with LMP. Desires NIPT. will return in 2 weeks for blood work. 09/25/24 -???-???-???-???-??? -???-???-???-???-??? -???-???- 10w 0d 168 lb 2 oz (-14 oz) 134/79 Negative -???-???-???-???-??? -???-???-???-???-??? -???-???- Negative 180 -???-???-???-???-??? -???-???-???-???-??? -???-???- KW- no vb/cr amping. requesting a heartbeat check because her friend just had SAB. active fetus on US and FHT easily found. labs today 10/17/24 -???-???-???-???-??? -???-???-???-???-??? -???-???- 13w 1d 171 lb 2 oz (+2 lb 2 oz) 123/71 Negative -???-??? (more content not included)... Normal [facility] Platelet countOrdered By: Oswaldo Grant on 04-18-2025 Platelets (Bld) [#/Vol] 228 10*3/uL Normal 150-450 [facility] Comment on above: Performed By: #### L 100.0100, BTS ####[facility] [address] [place], [address] Protein+Creatinine Ratio,Uri neon 04-18-2025 PROT:CRE RATIO UNABLE TO CALCULATE Normal 0-200 [facility] Comment on above: Performed By: #### L 501.4100, L501.1400, L501.0900 #### [facility] [address] [place], [address] PROTEIN,UR.RAN. < 6.0 Normal 0.0-12.0 [facility] Comment on above: Performed By: #### L 501.4100, L501.1400, L501.0900 #### [facility] [address] [place], [address] UR CREAT 33.10 mg/dL Normal 28.00-217.00 [facility] Comment on above: Performed By: #### L 501.4100, L501.1400, L501.0900 #### [facility] [address] [place], [address] Random urine creatinine jerman urement (mass/volume)Ordered By: Camille Grant on 04-18-2025 Creatinine Unsp time (U) [Mass/Vol] 33.10 mg/dL 28.00-217.00 [facility] Serum Creatinine AND GFRon 1 ECRCL 156.52 ml/min Normal 50-250 [facility] Comment on above: Performed By: #### L 501.1105, L509.8002, L501.4405 ####[facility] [address] [place], [address] Serum creatinine measurement (mass/volume)Ordered By: Camille Grant on 04-18-2025 Creatinine [Mass/Vol] 0.58 mg/dL Low 0.70-1.20 [facility] Comment on above: Performed By: #### L 501.1105, L509.8002, L501.4405 ####[facility] [address] [place], [address] Serum or plasma alanine tabares otransferase (ALT) measurementOrdered By: Camille Grant on 04-18-2025 ALT [Catalytic activity/Vol] 10 U/L Normal <=34 [facility] Comment on above: Performed By: #### L 501.1105, L509.8002, L501.4405 ####[facility] [address] [place], [address] Serum or plasma uric acid me asurement (mass/volume)Ordered By: Camille Grant on 04-18-2025 Urate [Mass/Vol] 4.2 mg/dL 2.6-6.0 [facility] Comment on above: The drugs N-Acetylcy steine and Metamizole may falsely depress this assay. Syphilis Antibodieson 2024 Syphilis Abs Non-Reactive Normal Nonreactive [facility] Comment on above: Performed By: #### L 501.1105, L509.8002, L501.4405 ####[facility] [address] [place], [address] Type AND Screenon 04-18-2025 Ab SCREEN GEL Negative Normal [facility] Comment on above: Order Comment: Labor Performed By: #### L 100.0100, BTS ####[facility] [address] [place], [address] Uric Acidon 04-18-2025 URIC 4.2 mg/dL Normal 2.6-6.0 [facility] Comment on above: Result Comment: The drugs N-Acetylcysteine and Metamizole may falsely depress this assay. Performed By: #### L 501.4100, L501.1400, L501.0900 #### [facility] [address] [place], [address] Urine protein measurement (m ass/volume)Ordered By: Camille Grant on 04-18-2025 Protein (U) [Mass/Vol] mg/dL 0.0-12.0 [facility] Urine protein/creatinine mas s ratioOrdered By: Camille Grant on 04-18-2025 Protein/Creatinine (U) [Mass ratio] UNABLE TO CALCULATE mg/g CRE 0-200 [facility] White blood cell (WBC) count Ordered By: Camille Grant on 04-18-2025 WBC (Bld) [#/Vol] 10.6 10*3/uL Normal 4.4-11.0 [facility] Comment on above: Performed By: #### L 100.0100, BTS ####[facility] [address] [place], [address] Laboratory - Chemistry and C hemistry - challengeOrdered By: Lavern Zavala on 04-11-2025 Glucose Ql (U) Negative [facility] Laboratory - UrinalysisOrder ed By: Lavern Zavala on 04-11-2025 Protein Ql (U) Negative [facility] OB Triage Progress Noteon OB Triage Progress Note [facility] Medical Records Department [address] [place] [address] OB Triage Progress Note 04/11/25 0811 MR#: [id number] Acct: [id number] Name: ROBERTO CARLOS JAIN Rep #: [id number] : 1995 29 From: Lavern Zavala CNM PCP: Dr. Bello Alfaro, DO Status:DEP CLI Y DOS: Location: [facility] Progress Notes Date of Service: 04/08/25 Progress Note: Patient presents for triage evaluation secondary to elevated BP reading at home at 37 weeks FHT: Moderate variability reactive no decelerations category I tracing Anthem: no Contractions Assessment and plan: bedside US to confirm position-Vertex, Normal pre e labs and BPs in hospital, Reactive NST, reassuring maternal and status patient discharged to home to follow-up in office. See problem list details for additional plan information. Laboratory Studies: Laboratory Tests 04/08/25 Range/Units 17:00 WBC 8.8 (4.4-11.0) K/mm3 RBC 4.14 L (4.2-5.4) M/mm3 Hgb 10.9 L (12.0-15.0) g/dL Hct 33.5 L (37-47) % MCV 80.9 L (81-99) fL MCH 26.3 L (27.0-32.0) pg MCHC 32.5 (32-36) g/dL RDW Std Deviation 40.1 (35.1-43.9) fl RDW Coeff of Adilene 13.8 (11.6-14.6) % Plt Count 237 (150-450) K/mm3 MPV 11.8 (6.2-12.0) fl Creatinine 0.52 L (0.70-1.20) mg/dL Est GFR (MDRD) Non-Af 130 (>60) Uric Acid 3.9 (2.6-6.0) mg/dL AST 15 (<=31) U/L ALT 8 (<=34) U/L U Random Total Protein < 6.0 (0.0-12.0) mg/dL Urine Creatinine 36.00 (28.00-217.00) mg/dL Protein/Creatinin Ratio UNABLE TO CALCULATE (0-200) mg/g CRE Charges/Coding Multi Select Codes Visit Charges Office Visit/Consults: 81677 OV L3 Est 20min Urinary/Genital Urinary/Genital CPT Codes: 04891-60 non-stress test Interp Assessment Plan (1) History of gestational hypertension: COMMENT: discussed 81 mg ASA if desired. (2) Anxiety with depression: COMMENT: prozac; switched to zoloft; stable (3) : QUALIFIERS: Weeks of gestation: 37 weeks Qualified Code(s): Z3A.37 - 37 weeks gestation of COMMENT: Neg GBS. NIPT low risk. carrier negative first . Negative AFP . nl anatomy. (4) Supervision of high-risk : QUALIFIERS: Trimester: third trimester Qualified Code(s): O09.93 - Supervision of high risk , unspecified, third trimester COMMENT: PRR , JOANNE 04/23/25, boy, BJORN [place]os, Daren (5) Hemorrhoids during : QUALIFIERS: Trimester: third trimester Qualified Code(s): O22.43 - Hemorrhoids in , third trimester COMMENT: compounded suppositories, tucks, warm soaks, avoid constipation 04/11/25 0813 Date Lavern Zavala CNM Cosigner Signature (if applicable): Date _ CC: BREANN Zavala; Dr. Bello Alfaro, DO Signed Normal [facility] Collaborating Supervising Physician Office Visit Reporton 04-11-2025 Collaborating Supervising Physician Office Visit Report [facility] [address], [address] [place] [address] OFFICE VISIT Date of Service: 04/11/25 MR#: [id number] Acct: [id number] Name: ROBERTO CARLOS JAIN Rep #: [id number] : 1995 Provider: BREANN El ams Age/Sex: 29/F [place] [facility] [place] Status: Signed Intake Vital Signs 01/28/25 13:15 04/04/25 14:56 04/11/25 11:18 Height 5 ft 3 in 5 ft 3 in 5 ft 3 in Weight: 195 lb 3 oz BMI 34.5 BP 135/84 H Intake Visit Reasons: 38 wk ob Chief Complaint: 38wk OB Size Tester Required: No Is patient in pain?: No Allergies No Known Allergies Allergy (Verified 04/11/25 11:19) Medications ???Medication ???Instructions ???Recorded ???Confirmed ???Type multivit-min no.71-iron fum 28 1 cap PO DAILY 01/20/23 04/11/25 H istory mg-folate no.1 1 mg-dha 300 mg capsule (PNV-[place]) Last Menstrual Period: 07/17/24 : No Have you fallen in the past year?: No PFSH PFSH Medical History Seasonal allergies Vaginal delivery Family history of malignant hyperthermia Asthma Anxiety with depression Family History Father Diabetes Mother Hypertension Grandmother Family history of recurrent miscarriage paternal Social History adopted: No household members: spouse and children housing: house number of children: 1 current occupational status: unemployed current occupation: [employer] pets and animals: Yes (2) pets and animals: dog(s) history of recent travel: [place] ([place]) sexually active: Yes Smoking Status: Never smoker alcohol intake: never substance use type: does not use well-balanced diet: daily or most days caffeine: No eating out: rarely or never during the past year weight has: decreased > 10 lbs what type of physical activity do you participate in: other details: crossfit frequency: 3-4 times per week duration: 45-60 minutes/day ben/mu-ism: Orthodoxy seatbelt use: always do you feel safe at home: Yes additional social history: Daren- AESamuel History 3 Elective abortions Hx Para 1 Spontaneous abortions 1 Hx # Term Pregnancies Ectopic pregnancies Hx # Pregnancies 1 Multiple births # of living children 1 Past Pregnancies Del. Date Name GA/Weeks Outcome Route Bth Weight Gen Labor Lgth Anesthesia Del Locatn Provider FOB Unknown 05/2022 Miscarriage 6wks 08/23/23 [place] 37 live - 6#13oz Male epidural [facility] Roger Mercedes Delivery Date: 08/23/23 Last Updated by: Stacy Garzon SROM HPI 38 wk ob Details: ROBERTO CARLOS JAIN is a 29 year old who presents for routine OB visit. OB Visit JOANNE Calculator Estimated Delivery Date Method Current WG Current Estimate 04/23/25 LMP (Certain) 38w 2d Other Estimates 04/22/25 Ultrasound #1 38w 3d Expected Delivery Route/Plan Labor Preferences- CB/BF classes: no labor support person: Daren labor intervention preferences: [] pain management options preferred: epidural cut cord/dad catch: yes : yes PP control planned: [] discussed possible routes of delivery and associated risks: [] special requests: [] Specific Issue/Plans Covid status: [] Flu vaccine: [] Tdap vaccine: given Rhogam: na LARC form signed: yes Problem list reviewed and updated with the most current plan of care details and appropriate orders placed. Relevant counseling for the gestational age provided. Continue routine care and follow up unless otherwise noted in visit notes/problem list details Initial Weight: 169 lb Date -???-???-???-???-??? -???-???-???-???-??? -???-???- EGA Weight BP Urine Prot -???-???-???-???-??? -???-???-???-???-??? -???-???- Glucose FHR FuHt Pres Dilation -???-???-???-???-??? -???-???-???-???-??? -???-???- Effaced St Visit Note 09/12/24 -???-???-???-???-??? -???-???-???-???-??? -???-???- 8w 1d 169 lb (+0 oz) 122/72 -???-???-???-???-??? -???-???-???-???-??? -???-???- 158 -???-???-???-???-??? -???-???-???-???-??? -???-???- JV- CRL cons istent with LMP. Desires NIPT. will return in 2 weeks for blood work. 09/25/24 -???-???-???-???-??? -???-???-???-???-??? -???-???- 10w 0d 168 lb 2 oz (-14 oz) 134/79 Negative -???-???-???-???-??? -???-???-???-???-??? -???-???- Negative 180 -???-???-???-???-??? -???-???-???-???-??? -???-???- KW- no vb/cr amping. requesting a heartbeat check because her friend just had SAB. active fetus on US and FHT easily found. labs today 10/17/24 -???-???-???-???-??? -???-???-???-???-??? -???-???- 13w 1d 171 lb 2 oz (+2 lb 2 oz) 123/71 Negative -???-???-???-???-??? -???-???-???-???-??? -???-???- Negati (more content not included)... Normal [facility] AST(SGOT)Ordered By: Lavern forte on 04-08-2025 AST [Catalytic activity/Vol] 15 U/L Normal <=31 [facility] Comment on above: Performed By: #### L 100.0500, L501.1105, L501.0900, L501.4405, L501.4100, L501.1400 ####[facility] [address] [place], [place], [id number] Automated blood erythrocyte countOrdered By: Lavern Zavala on 04-08-2025 RBC (Bld) [#/Vol] 4.14 10*6/uL Low 4.2-5.4 [facility] Comment on above: Performed By: #### L 100.0500, L501.1105, L501.0900, L501.4405, L501.4100, L501.1400 #### [facility] [address] [place], [address] Automated blood hematocrit ( percentage)Ordered By: Lavern Zavala on 04-08-2025 Hematocrit (Bld) [Volume fraction] 33.5 % Low 37-47 [facility] Comment on above: Performed By: #### L 100.0500, L501.1105, L501.0900, L501.4405, L501.4100, L501.1400 #### [facility] [address] [place], [address] CBC-Complete Blood Cnt No Di ffon 04-08-2025 RDW SD 40.1 fl Normal 35.1-43.9 [facility] Comment on above: Performed By: #### L 100.0500, L501.1105, L501.0900, L501.4405, L501.4100, L501.1400 #### [facility] [address] [place], [address] Erythrocyte distribution wid th ratioOrdered By: Lavern Zavala on 04-08-2025 Erythrocyte distribution width (RBC) [Ratio] 13.8 % Normal 11.6-14.6 [facility] Comment on above: Performed By: #### L 100.0500, L501.1105, L501.0900, L501.4405, L501.4100, L501.1400 #### [facility] [address] [place], [place], [id number] Erythrocyte distribution wid th standard deviationOrdered By: Lavern Zavala on 04-08-2025 Erythrocyte distribution width (RBC) [Ratio] 40.1 fl 35.1-43.9 [facility] Glomerular filtration rate ( GFR) estimation/1.73 sq m using serum, plasma, or whole bOrdered By: Lavern Zavala on 04-08-2025 GFR/1.73 sq M.predicted among non-blacks MDRD (S/P/Bld) [Vol rate/Area] 130 mL/min/{1.73_m2} Normal >60 [facility] Comment on above: mL/min/1.73m2 CKD-EP I Creatinine Equation (2020) Result Comment: mL/m in/1.73m2 CKD-EPI Creatinine Equation (2020) Performed By: #### L 100.0500, L501.1105, L501.0900, L501.4405, L501.4100, L501.1400 #### [facility] [address] [place], [place], [id number] Hemoglobin measurementOrdere d By: Lavern Zavala on 04-08-2025 Hemoglobin (Bld) [Mass/Vol] 10.9 g/dL Low 12.0-15.0 [facility] Comment on above: Performed By: #### L 100.0500, L501.1105, L501.0900, L501.4405, L501.4100, L501.1400 #### [facility] [address] [place], [place], [id number] MCV (mean corpuscular volume ) determinationOrdered By: Lavern Zavala on 04-08-2025 MCV (RBC) [Entitic vol] 80.9 fL Low 81-99 [facility] Comment on above: Performed By: #### L 100.0500, L501.1105, L501.0900, L501.4405, L501.4100, L501.1400 #### [facility] [address] [place], [place], [address] Mean corpuscular hemoglobin (MCH) determinationOrdered By: Lavern Zavala on 04-08-2025 MCH (RBC) [Entitic mass] 26.3 pg Low 27.0-32.0 [facility] Comment on above: Performed By: #### L 100.0500, L501.1105, L501.0900, L501.4405, L501.4100, L501.1400 #### [facility] [address] [place], [address] Mean corpuscular hemoglobin concentration (MCHC) determinationOrdered By: Lavern Zavala on 04-08-2025 MCHC (RBC) [Mass/Vol] 32.5 g/dL Normal 32-36 [facility] Comment on above: Performed By: #### L 100.0500, L501.1105, L501.0900, L501.4405, L501.4100, L501.1400 #### [facility] [address] [place], [address] Mean platelet volume determi nationOrdered By: Lavern Zavala on 04-08-2025 Platelet mean volume (Bld) [Entitic vol] 11.8 fL Normal 6.2-12.0 [facility] Comment on above: Performed By: #### L 100.0500, L501.1105, L501.0900, L501.4405, L501.4100, L501.1400 #### [facility] [address] [place], [address] Platelet countOrdered By: Chepe Zavala on 04-08-2025 Platelets (Bld) [#/Vol] 237 10*3/uL Normal 150-450 [facility] Comment on above: Performed By: #### L 100.0500, L501.1105, L501.0900, L501.4405, L501.4100, L501.1400 #### [facility] [address] [place], [address] Protein+Creatinine Ratio,Uri neon 04-08-2025 PROT:CRE RATIO UNABLE TO CALCULATE Normal 0-200 [facility] Comment on above: Performed By: #### L 100.0500, L501.1105, L501.0900, L501.4405, L501.4100, L501.1400 #### [facility] [address] [place], [address] PROTEIN,UR.RAN. < 6.0 Normal 0.0-12.0 [facility] Comment on above: Performed By: #### L 100.0500, L501.1105, L501.0900, L501.4405, L501.4100, L501.1400 #### [facility] [address] [place], [address] UR CREAT 36.00 mg/dL Normal 28.00-217.00 [facility] Comment on above: Performed By: #### L 100.0500, L501.1105, L501.0900, L501.4405, L501.4100, L501.1400 #### [facility] [address] [place], [address] Random urine creatinine jerman urement (mass/volume)Ordered By: Lavern Zavala on 04-08-2025 Creatinine Unsp time (U) [Mass/Vol] 36.00 mg/dL 28.00-217.00 [facility] Serum creatinine measurement (mass/volume)Ordered By: Lavern Zavala on 04-08-2025 Creatinine [Mass/Vol] 0.52 mg/dL Low 0.70-1.20 [facility] Comment on above: Performed By: #### L 100.0500, L501.1105, L501.0900, L501.4405, L501.4100, L501.1400 #### [facility] [address] [place], [address] Serum or plasma alanine tabares otransferase (ALT) measurementOrdered By: Lavern Zavala on 04-08-2025 ALT [Catalytic activity/Vol] 8 U/L Normal <=34 [facility] Comment on above: Performed By: #### L 100.0500, L501.1105, L501.0900, L501.4405, L501.4100, L501.1400 ####[facility] [address] [place], [place], [address] Serum or plasma uric acid me asurement (mass/volume)Ordered By: Lavern Zavala on 04-08-2025 Urate [Mass/Vol] 3.9 mg/dL 2.6-6.0 [facility] Comment on above: The drugs N-Acetylcy steine and Metamizole may falsely depress this assay. Uric Acidon 04-08-2025 URIC 3.9 mg/dL Normal 2.6-6.0 [facility] Comment on above: Result Comment: The drugs N-Acetylcysteine and Metamizole may falsely depress this assay. Performed By: #### L 100.0500, L501.1105, L501.0900, L501.4405, L501.4100, L501.1400 #### [facility] [address] [place], [address] Urine protein measurement (m ass/volume)Ordered By: Lavern Zavala on 04-08-2025 Protein (U) [Mass/Vol] mg/dL 0.0-12.0 [facility] Urine protein/creatinine mas s ratioOrdered By: Lavern Zavala on 04-08-2025 Protein/Creatinine (U) [Mass ratio] UNABLE TO CALCULATE mg/g CRE 0-200 [facility] White blood cell (WBC) count Ordered By: Lavern Zavala on 04-08-2025 WBC (Bld) [#/Vol] 8.8 10*3/uL Normal 4.4-11.0 [facility] Comment on above: Performed By: #### L 100.0500, L501.1105, L501.0900, L501.4405, L501.4100, L501.1400 #### [facility] [address] [place], [place], [id number] Collaborating Supervising Physician Office Visit Reporton 04-04-2025 Collaborating Supervising Physician Office Visit Report [facility], [address] [place] [id number] OFFICE VISIT Date of Service: 04/04/25 MR#: [id number] Acct: [id number] Name: ROBERTO CARLOS JAIN Rep #: [id number] : 1995 Provider: BREANN El ams Age/Sex: 29/F Location: [facility] [place] Status: Signed Intake Vital Signs 01/28/25 13:15 03/28/25 11:01 04/04/25 14:52 04/04/25 14:56 Height 5 ft 3 in 5 ft 3 in 5 ft 3 in 5 ft 3 in Weight: 193 lb 8 oz BMI 34.2 BP 129/85 H Intake Visit Reasons: 37 wk ob Size Tester Required: No Is patient in pain?: No Allergies No Known Allergies Allergy (Verified 04/04/25 14:51) Medications ???Medication ???Instructions ???Recorded ???Confirmed ???Type multivit-min no.71-iron fum 28 1 cap PO DAILY 01/20/23 04/04/25 H istory mg-folate no.1 1 mg-dha 300 mg capsule (PNV-[place]) Last Menstrual Period: 07/17/24 Zika: Zika virus screening: Negative : No PFSH PFSH Medical History Seasonal allergies Vaginal delivery Family history of malignant hyperthermia Asthma Anxiety with depression Family History Father Diabetes Mother Hypertension Grandmother Family history of recurrent miscarriage paternal Social History adopted: No household members: spouse and children housing: house number of children: 1 current occupational status: unemployed current occupation: [employer] pets and animals: Yes (2) pets and animals: dog(s) history of recent travel: [place] ([place]) sexually active: Yes Smoking Status: Never smoker alcohol intake: never substance use type: does not use well-balanced diet: daily or most days caffeine: No eating out: rarely or never during the past year weight has: decreased > 10 lbs what type of physical activity do you participate in: other details: crossfit frequency: 3-4 times per week duration: 45-60 minutes/day ben/mu-ism: Orthodoxy seatbelt use: always do you feel safe at home: Yes additional social history: Daren- AEP History 3 Elective abortions Hx Para 1 Spontaneous abortions 1 Hx # Term Pregnancies Ectopic pregnancies Hx # Pregnancies 1 Multiple births # of living children 1 Past Pregnancies Del. Date Name GA/Weeks Outcome Route Bth Weight Infant Gen Labor Lgth Anesthesia Del Locatn Provider FOB Unknown 05/2022 Miscarriage 6wks 08/23/23 [place] 37 live - 6#13oz Male epidural [facility] Roger Zavala Daren Delivery Date: 08/23/23 Last Updated by: Stacy YATES HPI 37 wk ob Details: ROBERTO CARLOS JAIN is a 29 year old who presents for routine OB visit. OB Visit JOANNE Calculator Estimated Delivery Date Method Current WG Current Estimate 04/23/25 LMP (Certain) 37w 2d Other Estimates 04/22/25 Ultrasound #1 37w 3d Expected Delivery Route/Plan Labor Preferences- CB/BF classes: no labor support person: Daren labor intervention preferences: [] pain management options preferred: epidural cut cord/dad catch: yes : yes PP control planned: [] discussed possible routes of delivery and associated risks: [] special requests: [] Specific Issue/Plans Covid status: [] Flu vaccine: [] Tdap vaccine: given Rhogam: na LARC form signed: yes Problem list reviewed and updated with the most current plan of care details and appropriate orders placed. Relevant counseling for the gestational age provided. Continue routine care and follow up unless otherwise noted in visit notes/problem list details Initial Weight: 169 lb Date -???-???-???-???-??? -???-???-???-???-??? -???-???- EGA Weight BP Urine Prot -???-???-???-???-??? -???-???-???-???-??? -???-???- Glucose FHR FuHt Pres Dilation -???-???-???-???-??? -???-???-???-???-??? -???-???- Effaced St Visit Note 09/12/24 -???-???-???-???-??? -???-???-???-???-??? -???-???- 8w 1d 169 lb (+0 oz) 122/72 -???-???-???-???-??? -???-???-???-???-??? -???-???- 158 -???-???-???-???-??? -???-???-???-???-??? -???-???- JV- CRL cons istent with LMP. Desires NIPT. will return in 2 weeks for blood work. 09/25/24 -???-???-???-???-??? -???-???-???-???-??? -???-???- 10w 0d 168 lb 2 oz (-14 oz) 134/79 Negative -???-???-???-???-??? -???-???-???-???-??? -???-???- Negative 180 -???-???-???-???-??? -???-???-???-???-??? -???-???- KW- no vb/cr amping. requesting a heartbeat check because her friend just had SAB. active fetus on US and FHT easily found. labs today 10/17/24 -???-???-???-???-??? -???-???-???-???-??? -???-???- 13w 1d 171 lb 2 oz (+2 lb 2 oz) 123/71 Negative -???-???-???-???-??? -???-???-???-???-??? -???-???- (more content not included)... Normal [facility] Rule out Beta Strep (Grp. B) on 03-30-2025 MELBA Group B Beta Streptococcus is not isolated. Normal [facility] Comment on above: Performed By: #### M 100.3400 ####[facility] [address] [place], [address] Laboratory - Chemistry and C hemistry - challengeOrdered By: Camille Grant on 03-28-2025 Glucose Ql (U) Negative [facility] Laboratory - UrinalysisOrder ed By: Camille Grant on 03-28-2025 Protein Ql (U) Negative [facility] Collaborating Supervising Physician Office Visit Reporton 03-28-2025 Collaborating Supervising Physician Office Visit Report [facility] [address], [address] [place] [address] OFFICE VISIT Date of Service: 03/28/25 MR#: [id number] Acct: [id number] Name: ROBERTO CARLOS JAIN Rep #: [id number] : 1995 Provider: Dr. Camille Shields DO Age/Sex: 29/F Location: [facility] [place] Status: Signed Intake Vital Signs 01/28/25 13:15 03/14/25 13:30 03/28/25 11:01 03/28/25 11:56 Height 5 ft 3 in 5 ft 3 in 5 ft 3 in Weight: 192 lb 7 oz BMI 34.0 BP 133/81 H 123/78 H Intake Visit Reasons: 36 wk ob Chief Complaint: 36wk OB Size Tester Required: No Is patient in pain?: No Allergies No Known Allergies Allergy (Verified 03/28/25 10:58) Medications ???Medication ???Instructions ???Recorded ???Confirmed ???Type multivit-min no.71-iron fum 28 1 cap PO DAILY 01/20/23 03/28/25 H istory mg-folate no.1 1 mg-dha 300 mg capsule (PNV-[place]) Last Menstrual Period: 07/17/24 : No PFSH PFSH Medical History Seasonal allergies Vaginal delivery Family history of malignant hyperthermia Asthma Anxiety with depression Family History Father Diabetes Mother Hypertension Grandmother Family history of recurrent miscarriage paternal Social History adopted: No household members: spouse and children housing: house number of children: 1 current occupational status: unemployed current occupation: [employer] pets and animals: Yes (2) pets and animals: dog(s) history of recent travel: [place] ([place]) sexually active: Yes Smoking Status: Never smoker alcohol intake: never substance use type: does not use well-balanced diet: daily or most days caffeine: No eating out: rarely or never during the past year weight has: decreased > 10 lbs what type of physical activity do you participate in: other details: crossfit frequency: 3-4 times per week duration: 45-60 minutes/day ben/mu-ism: Orthodoxy seatbelt use: always do you feel safe at home: Yes additional social history: Daren- JAM History 3 Elective abortions Hx Para 1 Spontaneous abortions 1 Hx # Term Pregnancies Ectopic pregnancies Hx # Pregnancies 1 Multiple births # of living children 1 Past Pregnancies Del. Date Name GA/Weeks Outcome Route Bth Weight Gen Labor Lgth Anesthesia Del Locatn Provider FOB Unknown 05/2022 Miscarriage 6wks 08/23/23 Romain 37 live - 6#13oz Male epidural [facility] Roger Zavala Daren Delivery Date: 08/23/23 Last Updated by: Stacy YATES HPI 36 wk ob Details: ROBERTO CARLOS JAIN is a 29 year old who presents for routine OB visit. OB Visit JOANNE Calculator Estimated Delivery Date Method Current WG Current Estimate 04/23/25 LMP (Certain) 36w 2d Other Estimates 04/22/25 Ultrasound #1 36w 3d Expected Delivery Route/Plan Labor Preferences- CB/BF classes: no labor support person: Daren labor intervention preferences: [] pain management options preferred: epidural cut cord/dad catch: yes : yes PP control planned: [] discussed possible routes of delivery and associated risks: [] special requests: [] Specific Issue/Plans Covid status: [] Flu vaccine: [] Tdap vaccine: given Rhogam: na LARC form signed: yes Problem list reviewed and updated with the most current plan of care details and appropriate orders placed. Relevant counseling for the gestational age provided. Continue routine care and follow up unless otherwise noted in visit notes/problem list details Initial Weight: 169 lb Date -???-???-???-???-??? -???-???-???-???-??? -???-???- EGA Weight BP Urine Prot -???-???-???-???-??? -???-???-???-???-??? -???-???- Glucose FHR FuHt Pres Dilation -???-???-???-???-??? -???-???-???-???-??? -???-???- Effaced St Visit Note 09/12/24 -???-???-???-???-??? -???-???-???-???-??? -???-???- 8w 1d 169 lb (+0 oz) 122/72 -???-???-???-???-??? -???-???-???-???-??? -???-???- 158 -???-???-???-???-??? -???-???-???-???-??? -???-???- JV- CRL cons istent with LMP. Desires NIPT. will return in 2 weeks for blood work. 09/25/24 -???-???-???-???-??? -???-???-???-???-??? -???-???- 10w 0d 168 lb 2 oz (-14 oz) 134/79 Negative -???-???-???-???-??? -???-???-???-???-??? -???-???- Negative 180 -???-???-???-???-??? -???-???-???-???-??? -???-???- KW- no vb/cr amping. requesting a heartbeat check because her friend just had SAB. active fetus on US and FHT easily found. labs today 10/17/24 -???-???-???-???-??? -???-???-???-???-??? -???-???- 13w 1d 171 lb 2 oz (+2 lb 2 oz) 123/71 Negative -???-???-???-???-??? -???-???-???-???-??? -???-???- Negative 1 (more content not included)... Normal [facility] Screening beta-hemolytic Str eptococcus cultureOrdered By: Camille Grant on 03-28-2025 Beta-hemolytic Streptococcus culture Group B Beta Streptococcus is not isolated. [facility] Beta-hemolytic Streptococcus culture Group B Beta Streptococcus is not isolated. [facility] Laboratory - Chemistry and C hemistry - challengeOrdered By: Liana Rodriguez on 03-14-2025 Glucose Ql (U) Negative [facility] Laboratory - UrinalysisOrder ed By: Liana Rodriguez on 03-14-2025 Protein Ql (U) Negative [facility] Collaborating Supervising Physician Office Visit Reporton 03-14-2025 Collaborating Supervising Physician Office Visit Report [facility] [address], [address] [place] [address] OFFICE VISIT Date of Service: 03/14/25 MR#: [id number] Acct: [id number] Name: DERICKROBERTO CARLOS YUNIOR Rep #: [id number] : 1995 Provider: ANDREA roldan Age/Sex: 29/F Location: [facility] [place] Status: Signed Intake Vital Signs 01/28/25 13:15 03/01/25 11:59 03/14/25 13:30 Height 5 ft 3 in 5 ft 3 in 5 ft 3 in Weight: 192 lb BMI 34.0 BP 122/74 H Intake Visit Reasons: 34 wk ob Chief Complaint: 34 Week OB Size Tester Required: No Is patient in pain?: No Allergies No Known Allergies Allergy (Verified 03/14/25 13:32) Medications ???Medication ???Instructions ???Recorded ???Confirmed ???Type multivit-min no.71-iron fum 28 1 cap PO DAILY 01/20/23 03/14/25 H istory mg-folate no.1 1 mg-dha 300 mg capsule (PNV-[place]) Last Menstrual Period: 07/17/24 Zika: Zika virus screening: Negative : No PFSH PFSH Medical History Seasonal allergies Vaginal delivery Family history of malignant hyperthermia Asthma Anxiety with depression Family History Father Diabetes Mother Hypertension Grandmother Family history of recurrent miscarriage paternal Social History adopted: No household members: spouse and children housing: house number of children: 1 current occupational status: unemployed current occupation: [employer] pets and animals: Yes (2) pets and animals: dog(s) history of recent travel: [place] ([place]) sexually active: Yes Smoking Status: Never smoker alcohol intake: never substance use type: does not use well-balanced diet: daily or most days caffeine: No eating out: rarely or never during the past year weight has: decreased > 10 lbs what type of physical activity do you participate in: other details: crossfit frequency: 3-4 times per week duration: 45-60 minutes/day ben/mu-ism: Orthodoxy seatbelt use: always do you feel safe at home: Yes additional social history: Kimberlyn POLK History 3 Elective abortions Hx Para 1 Spontaneous abortions 1 Hx # Term Pregnancies Ectopic pregnancies Hx # Pregnancies 1 Multiple births # of living children 1 Past Pregnancies Del. Date Name GA/Weeks Outcome Route Bth Weight Infant Gen Labor Lgth Anesthesia Del Locatn Provider FOB Unknown 05/2022 Miscarriage 6wks 08/23/23 Romain 37 live - 6#13oz Male epidural [facility] Roger Zavala Daren Delivery Date: 08/23/23 Last Updated by: Stacy YATES HPI 34 wk ob Details: ROBERTO CARLOS JAIN is a 29 year old who presents for routine OB visit. OB Visit JOANNE Calculator Estimated Delivery Date Method Current WG Current Estimate 04/23/25 LMP (Certain) 34w 2d Other Estimates 04/22/25 Ultrasound #1 34w 3d Expected Delivery Route/Plan Labor Preferences- CB/BF classes: no labor support person: Daren labor intervention preferences: [] pain management options preferred: epidural cut cord/dad catch: yes : yes PP control planned: [] discussed possible routes of delivery and associated risks: [] special requests: [] Specific Issue/Plans Covid status: [] Flu vaccine: [] Tdap vaccine: given Rhogam: na LARC form signed: yes Problem list reviewed and updated with the most current plan of care details and appropriate orders placed. Relevant counseling for the gestational age provided. Continue routine care and follow up unless otherwise noted in visit notes/problem list details Initial Weight: Not Recorded Date -???-???-???-???-??? -???-???-???-???-??? -???-???- EGA Weight BP Urine Prot -???-???-???-???-??? -???-???-???-???-??? -???-???- Glucose FHR FuHt Pres Dilation -???-???-???-???-??? -???-???-???-???-??? -???-???- Effaced St Visit Note 09/12/24 -???-???-???-???-??? -???-???-???-???-??? -???-???- 8w 1d 169 lb 122/72 -???-???-???-???-??? -???-???-???-???-??? -???-???- 158 -???-???-???-???-??? -???-???-???-???-??? -???-???- JV- CRL cons istent with LMP. Desires NIPT. will return in 2 weeks for blood work. 09/25/24 -???-???-???-???-??? -???-???-???-???-??? -???-???- 10w 0d 168 lb 2 oz 134/79 Negative -???-???-???-???-??? -???-???-???-???-??? -???-???- Negative 180 -???-???-???-???-??? -???-???-???-???-??? -???-???- KW- no vb/cr amping. requesting a heartbeat check because her friend just had SAB. active fetus on US and FHT easily found. labs today 10/17/24 -???-???-???-???-??? -???-???-???-???-??? -???-???- 13w 1d 171 lb 2 oz 123/71 Negative -???-???-???-???-??? -???-???-???-???-??? -???-???- Negative 160 - (more content not included)... Normal [facility] Laboratory - Chemistry and C hemistry - challengeOrdered By: Clementina Enrique on 03-01-2025 Glucose Ql (U) Negative [facility] Laboratory - UrinalysisOrder ed By: Clementina Enrique on 03-01-2025 Protein Ql (U) Negative [facility] Collaborating Supervising Physician Office Visit Reporton 03-01-2025 Collaborating Supervising Physician Office Visit Report [facility] [address], [address] [place] [address] OFFICE VISIT Date of Service: 03/01/25 MR#: [id number] Acct: [id number] Name: ROBERTO CARLOS JAIN Rep #: [id number] : 1995 Provider: BREANN El ams Age/Sex: 29/F [place] [facility] [place] Status: Signed with Addenda ADDENDUM by Kristyn Rodríguez on 03/01/25 at 1222 Office Procedure Documentation entered by Kristyn Rodríguez 03/01/25 12:22: Immunizations Adacel(Tdap Adolesn/Adult)(PF) 2 Lf-(2.5-5-3-5)-5 Lf/0.5 mL IM syringe Performing Provider: Lavern Zavala CNM Performing Location: [facility] Administered by: Kristyn Rodríguez on 03/01/25 12:22 Dose Route Admin Location Dispensed Lot Number Expiration Date NDC Man ufacturer 0.5 mL IM Right Deltoid 0.5 mL [id number] 03/03/27 [id number] SANOFI- PASTEUR VIS Given Date VIS Provided VIS Publication Date 03/01/25 Single Vaccine 24 Eligibility Eligibility Date Funding Source Not Applicable Date cc: * Signed Intake Vital Signs 01/09/25 15:23 02/14/25 15:17 03/01/25 11:57 03/01/25 11:59 Height 5 ft 3 in 5 ft 3 in 5 ft 3 in 5 ft 3 in Weight: 192 lb BMI 34.0 BP 121/76 H Intake Visit Reasons: 32 WK OB Size Tester Required: No Is patient in pain?: No Allergies No Known Allergies Allergy (Verified 03/01/25 11:57) Medications ???Medication ???Instructions ???Recorded ???Confirmed ???Type multivit-min no.71-iron fum 28 1 cap PO DAILY 01/20/23 03/01/25 H istory mg-folate no.1 1 mg-dha 300 mg capsule (PNV-[place]) Last Menstrual Period: 07/17/24 Zika: Zika virus screening: Negative : No PFSH PFSH Medical History Seasonal allergies Vaginal delivery Family history of malignant hyperthermia Asthma Anxiety with depression Family History Father Diabetes Mother Hypertension Grandmother Family history of recurrent miscarriage paternal Social History adopted: No household members: spouse and children housing: house number of children: 1 current occupational status: unemployed current occupation: [employer] pets and animals: Yes (2) pets and animals: dog(s) history of recent travel: [place] ([place]) sexually active: Yes Smoking Status: Never smoker alcohol intake: never substance use type: does not use well-balanced diet: daily or most days caffeine: No eating out: rarely or never during the past year weight has: decreased > 10 lbs what type of physical activity do you participate in: other details: crossfit frequency: 3-4 times per week duration: 45-60 minutes/day ben/mu-ism: Orthodoxy seatbelt use: always do you feel safe at home: Yes additional social history: Daren- AEP History 3 Elective abortions Hx Para 1 Spontaneous abortions 1 Hx # Term Pregnancies Ectopic pregnancies Hx # Pregnancies 1 Multiple births # of living children 1 Past Pregnancies Del. Date Name GA/Weeks Outcome Route Bth Weight Infant Gen Labor Lgth Anesthesia Del Locatn Provider FOB Unknown 05/2022 Miscarriage 6wks 08/23/23 [place] 37 live - 6#13oz Male epidural [facility] Roger Zavala Daren Delivery Date: 08/23/23 Last Updated by: Stacy YATES HPI 32 WK OB Details: ROBERTO CARLOS JAIN is a 29 year old who presents for routine OB visit. OB Visit JOANNE Calculator Estimated Delivery Date Method Current WG Current Estimate 04/23/25 LMP (Certain) 32w 3d Other Estimates 04/22/25 Ultrasound #1 32w 4d Expected Delivery Route/Plan Labor Preferences- CB/BF classes: no labor support person: Daren labor intervention preferences: [] pain management options preferred: epidural cut cord/dad catch: yes : yes PP control planned: [] discussed possible routes of delivery and associated risks: [] special requests: [] Specific Issue/Plans Covid status: [] Flu vaccine: [] Tdap vaccine: [] Rhogam: na LARC form signed: yes Problem list reviewed and updated with the most current plan of care details and appropriate orders placed. Relevant counseling for the gestational age provided. Continue routine care and follow up unless otherwise noted in visit notes/problem list details Initial Weight: Not Recorded Date -???-???-???-???-??? -???-???-???-???-??? -???-???- EGA Weight BP Urine Prot -???-???-???-???-??? -???-???-???-???-??? -???-???- Glucose FHR FuHt Pres Dilation -???-???-???-???-??? -???-???-???-???-??? -???-???- Effaced St Visit Note 09/12/24 -???-???-???- (more content not included)... Normal [facility] Laboratory - Chemistry and C hemistry - challengeOrdered By: Clementina Enrique on 02-14-2025 Glucose Ql (U) Negative [facility] Laboratory - UrinalysisOrder ed By: Clementina Enrique on 02-14-2025 Protein Ql (U) Negative [facility] Collaborating Supervising Physician Office Visit Reporton 02-14-2025 Collaborating Supervising Physician Office Visit Report [facility] [address], [address] [place] [address] OFFICE VISIT Date of Service: 02/14/25 MR#: [id number] Acct: [id number] Name: ROBERTO CARLOS JAIN Rep #: [id number] : 1995 Provider: Dr. Clementina guardado MD Age/Sex: 29/F Location: [facility] [place] Status: Signed Intake Vital Signs 01/09/25 15:23 01/28/25 13:15 02/14/25 15:13 02/14/25 15:17 Height 5 ft 3 in 5 ft 3 in 5 ft 3 in 5 ft 3 in Weight: 188 lb 3 oz BMI 33.3 BP 129/73 H Intake Visit Reasons: 30 WK OB Size Tester Required: No Is patient in pain?: No Allergies No Known Allergies Allergy (Verified 02/14/25 15:13) Medications ???Medication ???Instructions ???Recorded ???Confirmed ???Type multivit-min no.71-iron fum 28 1 cap PO DAILY 01/20/23 02/14/25 H istory mg-folate no.1 1 mg-dha 300 mg capsule (PNV-[place]) Last Menstrual Period: 07/17/24 Zika: Zika virus screening: Negative : No PFSH PFSH Medical History Seasonal allergies Vaginal delivery Family history of malignant hyperthermia Asthma Anxiety with depression Family History Father Diabetes Mother Hypertension Grandmother Family history of recurrent miscarriage paternal Social History adopted: No household members: spouse and children housing: house number of children: 1 current occupational status: unemployed current occupation: [employer] pets and animals: Yes (2) pets and animals: dog(s) history of recent travel: [place] ([place]) sexually active: Yes Smoking Status: Never smoker alcohol intake: never substance use type: does not use well-balanced diet: daily or most days caffeine: No eating out: rarely or never during the past year weight has: decreased > 10 lbs what type of physical activity do you participate in: other details: crossfit frequency: 3-4 times per week duration: 45-60 minutes/day ben/mu-ism: Orthodoxy seatbelt use: always do you feel safe at home: Yes additional social history: Daren- AESamuel History 3 Elective abortions Hx Para 1 Spontaneous abortions 1 Hx # Term Pregnancies Ectopic pregnancies Hx # Pregnancies 1 Multiple births # of living children 1 Past Pregnancies Del. Date Name GA/Weeks Outcome Route Bth Weight Gen Labor Lgth Anesthesia Del Locatn Provider FOB Unknown 05/2022 Miscarriage 6wks 08/23/23 Romain 37 live - 6#13oz Male epidural [facility] Roger Mercedes Delivery Date: 08/23/23 Last Updated by: Stacy Garzon SROM HPI 30 WK OB Details: ROBERTO CARLOS JAIN is a 29 year old who presents for routine OB visit. OB Visit JOANNE Calculator Estimated Delivery Date Method Current WG Current Estimate 04/23/25 LMP (Certain) 30w 2d Other Estimates 04/22/25 Ultrasound #1 30w 3d Expected Delivery Route/Plan Labor Preferences- CB/BF classes: no labor support person: Daren labor intervention preferences: [] pain management options preferred: epidural cut cord/dad catch: yes : yes PP control planned: [] discussed possible routes of delivery and associated risks: [] special requests: [] Specific Issue/Plans Covid status: [] Flu vaccine: [] Tdap vaccine: [] Rhogam: na LARC form signed: yes Problem list reviewed and updated with the most current plan of care details and appropriate orders placed. Relevant counseling for the gestational age provided. Continue routine care and follow up unless otherwise noted in visit notes/problem list details Initial Weight: Not Recorded Date -???-???-???-???-??? -???-???-???-???-??? -???-???- EGA Weight BP Urine Prot -???-???-???-???-??? -???-???-???-???-??? -???-???- Glucose FHR FuHt Pres Dilation -???-???-???-???-??? -???-???-???-???-??? -???-???- Effaced St Visit Note 09/12/24 -???-???-???-???-??? -???-???-???-???-??? -???-???- 8w 1d 169 lb 122/72 -???-???-???-???-??? -???-???-???-???-??? -???-???- 158 -???-???-???-???-??? -???-???-???-???-??? -???-???- JV- CRL cons istent with LMP. Desires NIPT. will return in 2 weeks for blood work. 09/25/24 -???-???-???-???-??? -???-???-???-???-??? -???-???- 10w 0d 168 lb 2 oz 134/79 Negative -???-???-???-???-??? -???-???-???-???-??? -???-???- Negative 180 -???-???-???-???-??? -???-???-???-???-??? -???-???- KW- no vb/cr amping. requesting a heartbeat check because her friend just had SAB. active fetus on US and FHT easily found. labs today 10/17/24 -???-???-???-???-??? -???-???-???-???-??? -???-???- 13w 1d 171 lb 2 oz 123/71 Negative -???-???-???-???-??? -???-???-???-???-??? -???-???- Negative 160 -??? (more content not included)... Normal [facility] Absolute lymphocyte countOrd ered By: Camille Grant on 01-28-2025 Lymphocytes Auto (Unsp spec) [#/Vol] 1.68 10*3/uL 0.83-4.51 [facility] Absolute neutrophil countOrd ered By: Camille Grant on 01-28-2025 Neutrophils (Bld) [#/Vol] 10.3 10*3/uL High 2.0-7.7 [facility] Automated lymphocyte count a s percentage of total leukocytesOrdered By: Camille Grant on 01-28-2025 Lymphocytes/100 WBC Auto (Unsp spec) 13.0 % Low 19-41 [facility] Basophil percentageOrdered B y: Camille Grant on 01-28-2025 Basophils/100 WBC (Bld) 0.4 % 0-1 [facility] CBC W/Diff, Automatedon 01-02 Absolute Lymph 1.68 X10 3/uL Normal 0.83-4.51 [facility] Comment on above: Performed By: #### L 509.8002, L501.0250, L100.0100, L3890.6006 ####[facility] [address] [place], [address] Absolute Neut 10.3 X10 3/uL High 2.0-7.7 [facility] Comment on above: Performed By: #### L 509.8002, L501.0250, L100.0100, L3890.6006 ####[facility] [address] [place], [address] Basophils/100 WBC (Bld) 0.4 % Normal 0-1 [facility] Comment on above: Performed By: #### L 509.8002, L501.0250, L100.0100, L3890.6006 ####[facility] [address] [place], [address] Eosinophils/100 WBC (Bld) 0.9 % Normal 0-5 [facility] Comment on above: Performed By: #### L 509.8002, L501.0250, L100.0100, L3890.6006 ####[facility] [address] [place], [address] Erythrocyte distribution width (RBC) [Ratio] 12.6 % Normal 11.6-14.6 [facility] Comment on above: Performed By: #### L 509.8002, L501.0250, L100.0100, L3890.6006 ####[facility] [address] [place], [address] Hematocrit (Bld) [Volume fraction] 33.3 % Low 37-47 [facility] Comment on above: Performed By: #### L 509.8002, L501.0250, L100.0100, L3890.6006 ####[facility] [address] [place], [address] Hemoglobin (Bld) [Mass/Vol] 11.1 g/dL Low 12.0-15.0 [facility] Comment on above: Performed By: #### L 509.8002, L501.0250, L100.0100, L3890.6006 ####[facility] [address] [place], [address] IG% 1.200 High 0.0-0.9 [facility] Comment on above: Result Comment: IG% - Immature Granulocytes (promyelocytes, myelocytes and metamyelocytes) > 1% indicates that a LEFT SHIFT is Present. Performed By: #### L 509.8002, L501.0250, L100.0100, L3890.6006 ####[facility] [address] [place], [address] Lymphocytes/100 WBC (Bld) 13.0 % Low 19-41 [facility] Comment on above: Performed By: #### L 509.8002, L501.0250, L100.0100, L3890.6006 ####[facility] [address] [place], [address] MCH (RBC) [Entitic mass] 28.9 pg Normal 27.0-32.0 [facility] Comment on above: Performed By: #### L 509.8002, L501.0250, L100.0100, L3890.6006 ####[facility] [address] [place], [address] MCHC (RBC) [Mass/Vol] 33.3 g/dL Normal 32-36 [facility] Comment on above: Performed By: #### L 509.8002, L501.0250, L100.0100, L3890.6006 ####[facility] [address] [place], [address] MCV (RBC) [Entitic vol] 86.7 fL Normal 81-99 [facility] Comment on above: Performed By: #### L 509.8002, L501.0250, L100.0100, L3890.6006 ####[facility] [address] [place], [address] Monocytes/100 WBC (Bld) 4.8 % Normal 0-10 [facility] Comment on above: Performed By: #### L 509.8002, L501.0250, L100.0100, L3890.6006 ####[facility] [address] [place], [address] Neutrophils/100 WBC (Bld) 79.7 % High 47-70 [facility] Comment on above: Performed By: #### L 509.8002, L501.0250, L100.0100, L3890.6006 ####[facility] [address] [place], [address] Nucleated RBC (Bld) [#/Vol] 0 10*3/uL Normal 0-5 [facility] Comment on above: Performed By: #### L 509.8002, L501.0250, L100.0100, L3890.6006 ####[facility] [address] [place], [address] Platelet mean volume (Bld) [Entitic vol] 10.7 fL Normal 6.2-12.0 [facility] Comment on above: Performed By: #### L 509.8002, L501.0250, L100.0100, L3890.6006 ####[facility] [address] [place], [address] Platelets (Bld) [#/Vol] 244 10*3/uL Normal 150-450 [facility] Comment on above: Performed By: #### L 509.8002, L501.0250, L100.0100, L3890.6006 ####[facility] [address] [place], [address] RBC (Bld) [#/Vol] 3.84 10*6/uL Low 4.2-5.4 [facility] Comment on above: Performed By: #### L 509.8002, L501.0250, L100.0100, L3890.6006 ####[facility] [address] [place], [address] RDW SD 39.9 fl Normal 35.1-43.9 [facility] Comment on above: Performed By: #### L 509.8002, L501.0250, L100.0100, L3890.6006 ####[facility] [address] [place], [address] WBC (Bld) [#/Vol] 13.0 10*3/uL High 4.4-11.0 [facility] Comment on above: Performed By: #### L 509.8002, L501.0250, L100.0100, L3890.6006 ####[facility] [address] [place], [place], [id number] Eosinophil percentageOrdered By: Camille Rudy on 01-28-2025 Eosinophils/100 WBC (Bld) 0.9 % 0-5 [facility] Erythrocyte distribution wid th ratioOrdered By: Camille Rudy on 01-28-2025 Erythrocyte distribution width (RBC) [Ratio] 12.6 % 11.6-14.6 [facility] Erythrocyte distribution wid th standard deviationOrdered By: Camille Rudy on 01-28-2025 Erythrocyte distribution width (RBC) [Ratio] 39.9 fl 35.1-43.9 [facility] Glucose Challenge Gest 1H 50 eveline 01-28-2025 GLU GEST 50g 1H 103 mg/dL Normal 70-140 [facility] Comment on above: Performed By: #### L 509.8002, L501.0250, L100.0100, L3890.6006 ####[facility] [address] [place], [address] Glucose measurement at 2 [facility] rs post-dose gestational glucose tolerance testOrdered By: Camille Grant on 01-28-2025 Glucose [Mass/Vol] 103 mg/dL 70-140 [facility] HIVon 01-28-2025 HIV Non-Reactive Normal Nonreactive [facility] Comment on above: Result Comment: Non- Reactive Reactive Repeatedly reactive samples must be confirmed according to CDC recommended confirmatory algorithms. The subresults for either HIVAG or AHIV can be used as an aid in the selection of the confirmation algorithm for reactive samples. Send out specimens with Reactive results to [facility] for confirmation. Order the HIV antibody detection and differentiation: lc#[id number] Performed By: #### L 509.8002, L501.0250, L100.0100, L3890.6006 ####[facility] [address] [place], [place], [id number] Hematocrit Auto (Bld) [Volum e fraction]Ordered By: Camille Grant on 01-28-2025 Hematocrit (Bld) [Volume fraction] 33.3 % Low 37-47 [facility] Hemoglobin measurementOrdere d By: Camille Grant on 01-28-2025 Hemoglobin (Bld) [Mass/Vol] 11.1 g/dL Low 12.0-15.0 [facility] Immature granulocytes/100 WB C Auto (Bld)Ordered By: Camille Grant on 01-28-2025 Immature granulocytes/100 WBC (Bld) 1.200 % High 0.0-0.9 [facility] Comment on above: IG% - Immature Granu locytes (promyelocytes, myelocytes and metamyelocytes) > 1% indicates that a LEFT SHIFT is Present. Laboratory - Chemistry and C hemistry - challengeOrdered By: Liana Rodriguez on 01-28-2025 Glucose Ql (U) Negative [facility] Laboratory - UrinalysisOrder ed By: Liana Rodriguez on 01-28-2025 Protein Ql (U) Negative [facility] MCV (mean corpuscular volume ) determinationOrdered By: Camille Grant on 01-28-2025 MCV (RBC) [Entitic vol] 86.7 fL 81-99 [facility] Mean corpuscular hemoglobin (MCH) determinationOrdered By: Camille Grant on 01-28-2025 MCH (RBC) [Entitic mass] 28.9 pg 27.0-32.0 [facility] Mean corpuscular hemoglobin concentration (MCHC) determinationOrdered By: Camille Grant on 01-28-2025 MCHC (RBC) [Mass/Vol] 33.3 g/dL 32-36 [facility] Mean platelet volume determi nationOrdered By: Camille Grant on 01-28-2025 Platelet mean volume (Bld) [Entitic vol] 10.7 fL 6.2-12.0 [facility] Monocyte percentageOrdered B y: Camille Grant on 01-28-2025 Monocytes/100 WBC (Bld) 4.8 % 0-10 [facility] Neutrophil percentageOrdered By: Camille Grant on 01-28-2025 Neutrophils/100 WBC (Bld) 79.7 % High 47-70 [facility] No Panel InformationOrdered By: Camille Grant on 01-28-2025 HIV (1&2) Antibody Non-Reactive Nonreactive [facility] Comment on above: Non-ReactiveReactive Repeatedly reactive samples must be confirmed according to CDC recommended confirmatory algorithms. The subresults for either HIVAG or AHIV can be used as an aid in the selection of the confirmation algorithm for reactive samples.Send out specimens with Reactive results to [facility] for confirmation.Order the HIV antibody detection and differentiation: #[id number] Nucleated red blood cell per centageOrdered By: Camille Grant on 01-28-2025 Nucleated RBC/100 WBC (Bld) [Ratio] 0 % 0-5 [facility] Collaborating Supervising Physician Office Visit Reporton 01-28-2025 Collaborating Supervising Physician Office Visit Report [facility] [address], [address] [place] [address] OFFICE VISIT Date of Service: 01/28/25 MR#: [id number] Acct: [id number] Name: ROBERTO CARLOS JAIN Rep #: [id number] : 1995 Provider: ANDREA roldan Age/Sex: 29/F Location: [facility] [place] Status: Signed Intake Vital Signs 11/13/24 15:51 01/09/25 15:23 01/28/25 13:14 01/28/25 13:15 Height 5 ft 3 in 5 ft 3 in 5 ft 3 in 5 ft 3 in Weight: 187 lb BMI 33.1 BP 107/71 Intake Visit Reasons: 28wk ob/glucose Size Tester Required: No Is patient in pain?: No Allergies No Known Allergies Allergy (Verified 01/28/25 13:15) Medications ???Medication ???Instructions ???Recorded ???Confirmed ???Type multivit-min no.71-iron fum 28 1 cap PO DAILY 01/20/23 01/28/25 H istory mg-folate no.1 1 mg-dha 300 mg capsule (PNV-[place]) Last Menstrual Period: 07/17/24 Zika: Zika virus screening: Negative : No Have you fallen in the past year?: No PFSH PFSH Medical History Seasonal allergies Vaginal delivery Family history of malignant hyperthermia Asthma Anxiety with depression Family History Father Diabetes Mother Hypertension Grandmother Family history of recurrent miscarriage paternal Social History adopted: No household members: spouse and children housing: house number of children: 1 current occupational status: unemployed current occupation: [employer] pets and animals: Yes (2) pets and animals: dog(s) history of recent travel: No ([place]) sexually active: Yes Smoking Status: Never smoker alcohol intake: never substance use type: does not use well-balanced diet: daily or most days caffeine: No eating out: rarely or never during the past year weight has: decreased > 10 lbs what type of physical activity do you participate in: other details: crossfit frequency: 3-4 times per week duration: 45-60 minutes/day ben/mu-ism: Orthodoxy seatbelt use: always do you feel safe at home: Yes additional social history: Kimberlyn POLK History 3 Elective abortions Hx Para 1 Spontaneous abortions 1 Hx # Term Pregnancies Ectopic pregnancies Hx # Pregnancies 1 Multiple births # of living children 1 Past Pregnancies Del. Date Name GA/Weeks Outcome Route Bth Weight Gen Labor Lgth Anesthesia Del Locatn Provider FOB Unknown 05/2022 Miscarriage 6wks 08/23/23 [place] 37 live - 6#13oz Male epidural [facility] Roger Mercedes Delivery Date: 08/23/23 Last Updated by: Stacy YATES HPI 28wk ob/glucose Details: ROBERTO CARLOS JAIN is a 29 year old who presents for routine OB visit. OB Visit JOANNE Calculator Estimated Delivery Date Method Current WG Current Estimate 04/23/25 LMP (Certain) 27w 6d Other Estimates 04/22/25 Ultrasound #1 28w 0d Expected Delivery Route/Plan Labor Preferences- CB/BF classes: no labor support person: Daren labor intervention preferences: [] pain management options preferred: epidural cut cord/dad catch: yes : yes PP control planned: [] discussed possible routes of delivery and associated risks: [] special requests: [] Specific Issue/Plans Covid status: [] Flu vaccine: [] Tdap vaccine: [] Rhogam: na LARC form signed: yes Problem list reviewed and updated with the most current plan of care details and appropriate orders placed. Relevant counseling for the gestational age provided. Continue routine care and follow up unless otherwise noted in visit notes/problem list details Initial Weight: Not Recorded Date -???-???-???-???-??? -???-???-???-???-??? -???-???- EGA Weight BP Urine Prot -???-???-???-???-??? -???-???-???-???-??? -???-???- Glucose FHR FuHt Pres Dilation -???-???-???-???-??? -???-???-???-???-??? -???-???- Effaced St Visit Note 09/12/24 -???-???-???-???-??? -???-???-???-???-??? -???-???- 8w 1d 169 lb 122/72 -???-???-???-???-??? -???-???-???-???-??? -???-???- 158 -???-???-???-???-??? -???-???-???-???-??? -???-???- JV- CRL cons istent with LMP. Desires NIPT. will return in 2 weeks for blood work. 09/25/24 -???-???-???-???-??? -???-???-???-???-??? -???-???- 10w 0d 168 lb 2 oz 134/79 Negative -???-???-???-???-??? -???-???-???-???-??? -???-???- Negative 180 -???-???-???-???-??? -???-???-???-???-??? -???-???- KW- no vb/cr amping. requesting a heartbeat check because her friend just had SAB. active fetus on US and FHT easily found. labs today 10/17/24 -???-???-???-???-??? -???-???-???-???-??? -???-???- 13w 1d 171 lb 2 oz 123/71 Negative -???-???-???-???-??? -???-???-???-???- (more content not included)... Normal [facility] Platelet countOrdered By: Oswaldo Grant on 01-28-2025 Platelets (Bld) [#/Vol] 244 10*3/uL 150-450 [facility] RBC Auto (Bld) [#/Vol]Ordere d By: Camille Grant on 01-28-2025 RBC (Bld) [#/Vol] 3.84 10*6/uL Low 4.2-5.4 [facility] Syphilis Antibodieson 2024 Syphilis Abs Non-Reactive Normal Nonreactive [facility] Comment on above: Performed By: #### L 509.8002, L501.0250, L100.0100, L3890.6006 ####[facility] [address] [place], [address] White blood cell (WBC) count Ordered By: Camille Grant on 01-28-2025 WBC (Bld) [#/Vol] 13.0 10*3/uL High 4.4-11.0 [facility] Laboratory - Chemistry and C hemistry - challengeOrdered By: Camille Grant on 01-09-2025 Glucose Ql (U) Negative [facility] Laboratory - UrinalysisOrder ed By: Camille Grant on 01-09-2025 Protein Ql (U) Negative [facility] Collaborating Supervising Physician Office Visit Reporton 01-09-2025 Collaborating Supervising Physician Office Visit Report [facility] [address], [address] [place] [address] OFFICE VISIT Date of Service: 01/09/25 MR#: [id number] Acct: [id number] Name: ROBERTO CARLOS JAIN Rep #: [id number] : 1995 Provider: Dr. Camille Shields DO Age/Sex: 29/F Location: [facility] [place] Status: Signed Intake Vital Signs 10/17/24 09:47 12/10/24 11:19 01/09/25 15:23 Height 5 ft 3 in 5 ft 3 in 5 ft 3 in Weight: 183 lb BMI 32.4 BP 107/67 Intake Visit Reasons: 25wk ob Size Tester Required: No Is patient in pain?: No Allergies No Known Allergies Allergy (Verified 01/09/25 15:25) Medications ???Medication ???Instructions ???Recorded ???Confirmed ???Type multivit-min no.71-iron fum 28 1 cap PO DAILY 01/20/23 01/09/25 H istory mg-folate no.1 1 mg-dha 300 mg capsule (PNV-[place]) Last Menstrual Period: 07/17/24 Zika: Zika virus screening: Negative : No PFSH PFSH Medical History Seasonal allergies Vaginal delivery Family history of malignant hyperthermia Asthma Anxiety with depression Family History Father Diabetes Mother Hypertension Grandmother Family history of recurrent miscarriage paternal Social History adopted: No household members: spouse and children housing: house number of children: 1 current occupational status: unemployed current occupation: [employer] pets and animals: Yes (2) pets and animals: dog(s) history of recent travel: [place] ([place]) sexually active: Yes Smoking Status: Never smoker alcohol intake: never substance use type: does not use well-balanced diet: daily or most days caffeine: No eating out: rarely or never during the past year weight has: decreased > 10 lbs what type of physical activity do you participate in: other details: crossfit frequency: 3-4 times per week duration: 45-60 minutes/day ben/mu-ism: Orthodoxy seatbelt use: always do you feel safe at home: Yes additional social history: Daren- AEP History 3 Elective abortions Hx Para 1 Spontaneous abortions 1 Hx # Term Pregnancies Ectopic pregnancies Hx # Pregnancies 1 Multiple births # of living children 1 Past Pregnancies Del. Date Name GA/Weeks Outcome Route Bth Weight Infant Gen Labor Lgth Anesthesia Del Locatn Provider FOB Unknown 05/2022 Miscarriage 6wks 08/23/23 [place] 37 live - 6#13oz Male epidural [facility] Roger juan antonio Mercedes Delivery Date: 08/23/23 Last Updated by: Stacy Garzon SROM HPI 25wk ob Details: ROBERTO CARLOS JAIN is a 29 year old who presents for routine OB visit. OB Visit JOANNE Calculator Estimated Delivery Date Method Current WG Current Estimate 04/23/25 LMP (Certain) 25w 1d Other Estimates 04/22/25 Ultrasound #1 25w 2d Expected Delivery Route/Plan Labor Preferences- CB/BF classes: [] labor support person: [] labor intervention preferences: [] pain management options preferred: [] cut cord/dad catch: [] : [] PP control planned: [] discussed possible routes of delivery and associated risks: [] special requests: [] Specific Issue/Plans Covid status: [] Flu vaccine: [] Tdap vaccine: [] Rhogam: [] LARC form signed: [] Problem list reviewed and updated with the most current plan of care details and appropriate orders placed. Relevant counseling for the gestational age provided. Continue routine care and follow up unless otherwise noted in visit notes/problem list details Initial Weight: Not Recorded Date -???-???-???-???-??? -???-???-???-???-??? -???-???- EGA Weight BP Urine Prot -???-???-???-???-??? -???-???-???-???-??? -???-???- Glucose FHR FuHt Pres Dilation -???-???-???-???-??? -???-???-???-???-??? -???-???- Effaced St Visit Note 09/12/24 -???-???-???-???-??? -???-???-???-???-??? -???-???- 8w 1d 169 lb 122/72 -???-???-???-???-??? -???-???-???-???-??? -???-???- 158 -???-???-???-???-??? -???-???-???-???-??? -???-???- JV- CRL cons istent with LMP. Desires NIPT. will return in 2 weeks for blood work. 09/25/24 -???-???-???-???-??? -???-???-???-???-??? -???-???- 10w 0d 168 lb 2 oz 134/79 Negative -???-???-???-???-??? -???-???-???-???-??? -???-???- Negative 180 -???-???-???-???-??? -???-???-???-???-??? -???-???- KW- no vb/cr amping. requesting a heartbeat check because her friend just had SAB. active fetus on US and FHT easily found. labs today 10/17/24 -???-???-???-???-??? -???-???-???-???-??? -???-???- 13w 1d 171 lb 2 oz 123/71 Negative -???-???-???-???-??? -???-???-???-???-??? -???-???- Negative 160 -???-???-???-???-??? -???-???-???-???-??? -???-???- (more content not included)... Normal [facility] Laboratory - Chemistry and C hemistry - challengeOrdered By: Lavern Zavala on 12-10-2024 Glucose Ql (U) Negative [facility] Laboratory - UrinalysisOrder ed By: Lavern Zavala on 12-10-2024 Protein Ql (U) 1+ [facility] Collaborating Supervising Physician Office Visit Reporton 12-10-2024 Collaborating Supervising Physician Office Visit Report [facility] [address], [address] [place] [address] OFFICE VISIT Date of Service: 12/10/24 MR#: [id number] Acct: [id number] Name: ROBERTO CARLOS JAIN Rep #: [id number] : 1995 Provider: BREANN El ams Age/Sex: 29/F Location: [facility] [place] Status: Signed Intake Vital Signs 10/17/24 09:47 11/13/24 15:51 12/10/24 11:19 Height 5 ft 3 in 5 ft 3 in 5 ft 3 in Weight: 176 lb 8 oz BMI 31.2 BP 124/75 H Intake Visit Reasons: 21wk ob Size Tester Required: No Is patient in pain?: No Allergies No Known Allergies Allergy (Verified 12/10/24 11:20) Medications ???Medication ???Instructions ???Recorded ???Confirmed ???Type multivit-min no.71-iron fum 28 1 cap PO DAILY 01/20/23 12/10/24 H istory mg-folate no.1 1 mg-dha 300 mg capsule (PNV-[place]) Last Menstrual Period: 07/17/24 Zika: Zika virus screening: Negative : No PFSH PFSH Medical History Seasonal allergies Vaginal delivery Family history of malignant hyperthermia Asthma Anxiety with depression Family History Father Diabetes Mother Hypertension Grandmother Family history of recurrent miscarriage paternal Social History adopted: No household members: spouse and children housing: house number of children: 1 current occupational status: unemployed current occupation: [employer] pets and animals: Yes (2) pets and animals: dog(s) history of recent travel: [place] ([place]) sexually active: Yes Smoking Status: Never smoker alcohol intake: never substance use type: does not use well-balanced diet: daily or most days caffeine: No eating out: rarely or never during the past year weight has: decreased > 10 lbs what type of physical activity do you participate in: other details: crossfit frequency: 3-4 times per week duration: 45-60 minutes/day ben/mu-ism: Orthodoxy seatbelt use: always do you feel safe at home: Yes additional social history: Kimberlyn POLK History 3 Elective abortions Hx Para 1 Spontaneous abortions 1 Hx # Term Pregnancies Ectopic pregnancies Hx # Pregnancies 1 Multiple births # of living children 1 Past Pregnancies Del. Date Name GA/Weeks Outcome Route Bth Weight Gen Labor Lgth Anesthesia Del Locatn Provider FOB Unknown 05/2022 Miscarriage 6wks 08/23/23 [place] 37 live - 6#13oz Male epidural [facility] Roger Mercedes Delivery Date: 08/23/23 Last Updated by: Stacy YATES HPI 21wk ob Details: ROBERTO CARLOS JAIN is a 29 year old who presents for routine OB visit. OB Visit JOANNE Calculator Estimated Delivery Date Method Current WG Current Estimate 04/23/25 LMP (Certain) 20w 6d Other Estimates 04/22/25 Ultrasound #1 21w 0d Expected Delivery Route/Plan Labor Preferences- CB/BF classes: [] labor support person: [] labor intervention preferences: [] pain management options preferred: [] cut cord/dad catch: [] : [] PP control planned: [] discussed possible routes of delivery and associated risks: [] special requests: [] Specific Issue/Plans Covid status: [] Flu vaccine: [] Tdap vaccine: [] Rhogam: [] LARC form signed: [] Problem list reviewed and updated with the most current plan of care details and appropriate orders placed. Relevant counseling for the gestational age provided. Continue routine care and follow up unless otherwise noted in visit notes/problem list details Initial Weight: Not Recorded Date -???-???-???-???-??? -???-???-???-???-??? -???-???- EGA Weight BP Urine Prot -???-???-???-???-??? -???-???-???-???-??? -???-???- Glucose FHR FuHt Pres Dilation -???-???-???-???-??? -???-???-???-???-??? -???-???- Effaced St Visit Note 09/12/24 -???-???-???-???-??? -???-???-???-???-??? -???-???- 8w 1d 169 lb 122/72 -???-???-???-???-??? -???-???-???-???-??? -???-???- 158 -???-???-???-???-??? -???-???-???-???-??? -???-???- JV- CRL cons istent with LMP. Desires NIPT. will return in 2 weeks for blood work. 09/25/24 -???-???-???-???-??? -???-???-???-???-??? -???-???- 10w 0d 168 lb 2 oz 134/79 Negative -???-???-???-???-??? -???-???-???-???-??? -???-???- Negative 180 -???-???-???-???-??? -???-???-???-???-??? -???-???- KW- no vb/cr amping. requesting a heartbeat check because her friend just had SAB. active fetus on US and FHT easily found. labs today 10/17/24 -???-???-???-???-??? -???-???-???-???-??? -???-???- 13w 1d 171 lb 2 oz 123/71 Negative -???-???-???-???-??? -???-???-???-???-??? -???-???- Negative 160 -???-???-???-???-??? -???-???-???-???-??? -???-???- (more content not included)... Normal [facility] Protein+Creatinine Ratio,Uri neon 12-10-2024 PROT:CRE RATIO 200 mg/g CRE Normal 0-200 [facility] Comment on above: Performed By: #### L 501.0900 ####[facility] [address] [place], [address] Protein (U) [Mass/Vol] 51.8 mg/dL High 0.0-12.0 [facility] Comment on above: Performed By: #### L 501.0900 ####[facility] [address] [place], [address] UR CREAT 259.00 mg/dL High 28.00-217.00 [facility] Comment on above: Performed By: #### L 501.0900 ####[facility] [address] [place], [address] Random urine creatinine jerman urement (mass/volume)Ordered By: Lavern Zavala on 12-10-2024 Creatinine Unsp time (U) [Mass/Vol] 259.00 mg/dL High 28.00-217.00 [facility] Urine protein measurement (m ass/volume)Ordered By: Lavern Zavala on 12-10-2024 Protein (U) [Mass/Vol] 51.8 mg/dL High 0.0-12.0 [facility] Urine protein/creatinine mas s ratioOrdered By: Lavern Zavala on 12-10-2024 Protein/Creatinine (U) [Mass ratio] 200 mg/g CRE 0-200 [facility] [id number] 11-30-2024 [facility] Misc. Normal [facility] Comment on above: Order Comment: [id number] 1msAFP SERUM RT Result Comment: TEST RESULTS LIMITS AFP, Serum, Open Spina Bifida Results Report Test Results: *Screen Negative* Gest. Age on Collection Date 17.1 weeks Gestat. Age Based On As provided Recalculations are not recommended when gestational dating by LMP and ultrasound are within 10 days. M[age] JOANNE 28.3 yr Race Weight 171 lbs Insulin Dep Diabetes No Multiple Gestation No AFP Value 47.1 ng/mL AFP MoM 1.34 OSBR Risk 1 IN 4273 Interpretation Interpretation: Screen Negative This result is screen negative for OSB. The AFP MoM calculated is based on the gestational age provided. MS-AFP can identify up to 80% of open neural tube defects. Closed neural tube defects and some open defects may not be detected by this test. This test does not screen for Down Syndrome or Trisomy 18. If screening for Down Syndrome or Trisomy 18 is desired, contact [facility] to discuss available options. The [employer] recommends amniocentesis be offered to women age 35 and older. Comment: Gisele Rossi, Ph.D., [facility] Director References: Available Upon Request. Multiples Of Median Cutoffs For AFP Elevations Velez 2.5 Black 2.8 IDD 2.0 Twins 4.5 Abbreviation Definitions IDD - Insulin Dep Diabetes OSBR - Open Spina Bifida Risk For further inquiries contact [facility] at [phone]. This test was developed and its performance characteristics determined by [facility]. It has not been cleared or approved by the Food and Drug Administration. TESTING PERFORMED AT [facility]. ORIGINAL REPORT ON FILE IN LAB CONTAINS ADDITIONAL TEST SITE INFORMATION. Performed By: #### L 3410.9992 ####[facility] [address] [place], [address] Laboratory - Chemistry and C hemistry - challengeOrdered By: Liana Rodriguez on 11-13-2024 Glucose Ql (U) Negative [facility] Laboratory - UrinalysisOrder ed By: Liana Rodriguez on 11-13-2024 Protein Ql (U) Negative [facility] Collaborating Supervising Physician Office Visit Reporton 11-13-2024 Collaborating Supervising Physician Office Visit Report [facility]'[address], [address] [place] [address] OFFICE VISIT Date of Service: 11/13/24 MR#: [id number] Acct: [id number] Name: ROBERTO CARLOS JAIN Rep #: [id number] : 1995 Provider: ANDREA roldan Age/Sex: 28/F Location: [facility] [place] Status: Signed Intake Vital Signs 09/12/24 08:47 10/17/24 09:47 11/13/24 15:51 Height 5 ft 3 in 5 ft 3 in 5 ft 3 in Weight: 173 lb BMI 30.6 BP 122/74 H Intake Visit Reasons: 17wk ob Chief Complaint: 17 Week OB Size Tester Required: No Is patient in pain?: No Allergies No Known Allergies Allergy (Verified 11/13/24 15:51) Medications ???Medication ???Instructions ???Recorded ???Confirmed ???Type multivit-min no.71-iron fum 28 1 cap PO DAILY 01/20/23 11/13/24 H istory mg-folate no.1 1 mg-dha 300 mg capsule (PNV-[place]) Last Menstrual Period: 07/17/24 Zika: Zika virus screening: Negative : No PFSH PFSH Medical History Seasonal allergies Vaginal delivery Family history of malignant hyperthermia Asthma Anxiety with depression Family History Father Diabetes Mother Hypertension Grandmother Family history of recurrent miscarriage paternal Social History adopted: No household members: spouse and children housing: house number of children: 1 current occupational status: unemployed current occupation: [employer] pets and animals: Yes (2) pets and animals: dog(s) history of recent travel: No ([place]) sexually active: Yes Smoking Status: Never smoker alcohol intake: never substance use type: does not use well-balanced diet: daily or most days caffeine: No eating out: rarely or never during the past year weight has: decreased > 10 lbs what type of physical activity do you participate in: other details: crossfit frequency: 3-4 times per week duration: 45-60 minutes/day ben/mu-ism: Orthodoxy seatbelt use: always do you feel safe at home: Yes additional social history: Daren- AEP History 3 Elective abortions Hx Para 1 Spontaneous abortions 1 Hx # Term Pregnancies Ectopic pregnancies Hx # Pregnancies 1 Multiple births # of living children 1 Past Pregnancies Del. Date Name GA/Weeks Outcome Route Bth Weight Gen Labor Lgth Anesthesia Del Locatn Provider FOB Unknown 05/2022 Miscarriage 6wks 08/23/23 [place] 37 live - 6#13oz Male epidural [facility] Roger Zavala Daren Delivery Date: 08/23/23 Last Updated by: Stacy Garzon SROM HPI 17wk ob Details: ROBERTO CARLOS JAIN is a 28 year old who presents for routine OB visit. OB Visit JOANNE Calculator Estimated Delivery Date Method Current WG Current Estimate 04/23/25 LMP (Certain) 17w 0d Other Estimates 04/22/25 Ultrasound #1 17w 1d Expected Delivery Route/Plan Labor Preferences- CB/BF classes: [] labor support person: [] labor intervention preferences: [] pain management options preferred: [] cut cord/dad catch: [] : [] PP control planned: [] discussed possible routes of delivery and associated risks: [] special requests: [] Specific Issue/Plans Covid status: [] Flu vaccine: [] Tdap vaccine: [] Rhogam: [] LARC form signed: [] Problem list reviewed and updated with the most current plan of care details and appropriate orders placed. Relevant counseling for the gestational age provided. Continue routine care and follow up unless otherwise noted in visit notes/problem list details Initial Weight: Not Recorded Date -???-???-???-???-??? -???-???-???-???-??? -???-???- EGA Weight BP Urine Prot -???-???-???-???-??? -???-???-???-???-??? -???-???- Glucose FHR FuHt Pres Dilation -???-???-???-???-??? -???-???-???-???-??? -???-???- Effaced St Visit Note 09/12/24 -???-???-???-???-??? -???-???-???-???-??? -???-???- 8w 1d 169 lb 122/72 -???-???-???-???-??? -???-???-???-???-??? -???-???- 158 -???-???-???-???-??? -???-???-???-???-??? -???-???- JV- CRL cons istent with LMP. Desires NIPT. will return in 2 weeks for blood work. 09/25/24 -???-???-???-???-??? -???-???-???-???-??? -???-???- 10w 0d 168 lb 2 oz 134/79 Negative -???-???-???-???-??? -???-???-???-???-??? -???-???- Negative 180 -???-???-???-???-??? -???-???-???-???-??? -???-???- KW- no vb/cr amping. requesting a heartbeat check because her friend just had SAB. active fetus on US and FHT easily found. labs today 10/17/24 -???-???-???-???-??? -???-???-???-???-??? -???-???- 13w 1d 171 lb 2 oz 123/71 Negative -???-???-???-???-??? -???-???-???-???-??? -???-???- Negative 160 -???-???-???-???- (more content not included)... Normal [facility] Laboratory - Chemistry and C hemistry - challengeOrdered By: Clementina Enrique on 10-17-2024 Glucose Ql (U) Negative [facility] Laboratory - UrinalysisOrder ed By: Clementina Enrique on 10-17-2024 Protein Ql (U) Negative [facility] Collaborating Supervising Physician Office Visit Reporton 10-17-2024 Collaborating Supervising Physician Office Visit Report [facility]'s [address], [address] [place] [address] OFFICE VISIT Date of Service: 10/17/24 MR#: [id number] Acct: [id number] Name: ROBERTO CARLOS JAIN Rep #: [id number] : 1995 Provider: Dr. Clementina guardado MD Age/Sex: 28/F Location: [facility] [place] Status: Signed Intake Vital Signs 10/27/23 14:32 09/25/24 11:09 10/17/24 09:47 Height 5 ft 3 in 5 ft 3 in 5 ft 3 in Weight: 171 lb 2 oz BMI 30.3 BP 123/71 H Intake Visit Reasons: 13wk OB Size Tester Required: No Is patient in pain?: No Feel stressed/tense/nervo us/anxious/difficult y sleeping: not at all Allergies No Known Allergies Allergy (Verified 10/17/24 09:50) Medications ???Medication ???Instructions ???Recorded ???Confirmed ???Type multivit-min no.71-iron fum 28 1 cap PO DAILY 01/20/23 10/17/24 H istory mg-folate no.1 1 mg-dha 300 mg capsule (PNV-[place]) Last Menstrual Period: 07/17/24 Zika: Zika virus screening: Negative : No PFSH PFSH Medical History Seasonal allergies Vaginal delivery Family history of malignant hyperthermia Asthma Anxiety with depression Family History Father Diabetes Mother Hypertension Grandmother Family history of recurrent miscarriage paternal Social History adopted: No household members: spouse and children housing: house number of children: 1 current occupational status: unemployed current occupation: [employer] pets and animals: Yes (2) pets and animals: dog(s) history of recent travel: [place] ([place]) sexually active: Yes Smoking Status: Never smoker alcohol intake: never substance use type: does not use well-balanced diet: daily or most days caffeine: No eating out: rarely or never during the past year weight has: decreased > 10 lbs what type of physical activity do you participate in: other details: crossfit frequency: 3-4 times per week duration: 45-60 minutes/day ben/mu-ism: Orthodoxy seatbelt use: always do you feel safe at home: Yes additional social history: [place]- AEP History 3 Elective abortions Hx Para 1 Spontaneous abortions 1 Hx # Term Pregnancies Ectopic pregnancies Hx # Pregnancies 1 Multiple births # of living children 1 Past Pregnancies Del. Date Name GA/Weeks Outcome Route Bth Weight Infant Gen Labor Lgth Anesthesia Del Locatn Provider FOB Unknown 05/2022 Miscarriage 6wks 08/23/23 [place] 37 live - 6#13oz Male epidural [facility] Roger Mercedes Delivery Date: 08/23/23 Last Updated by: Stacy Garzon SROM HPI 13wk OB Details: ROBERTO CARLOS JAIN is a 28 year old who presents for routine OB visit. OB Visit JOANNE Calculator Estimated Delivery Date Method Current WG Current Estimate 04/23/25 LMP (Certain) 13w 1d Other Estimates 04/22/25 Ultrasound #1 13w 2d Expected Delivery Route/Plan Labor Preferences- CB/BF classes: [] labor support person: [] labor intervention preferences: [] pain management options preferred: [] cut cord/dad catch: [] : [] PP control planned: [] discussed possible routes of delivery and associated risks: [] special requests: [] Specific Issue/Plans Covid status: [] Flu vaccine: [] Tdap vaccine: [] Rhogam: [] LARC form signed: [] Problem list reviewed and updated with the most current plan of care details and appropriate orders placed. Relevant counseling for the gestational age provided. Continue routine care and follow up unless otherwise noted in visit notes/problem list details Initial Weight: Not Recorded Date -???-???-???-???-??? -???-???-???-???-??? -???-???- EGA Weight BP Urine Prot -???-???-???-???-??? -???-???-???-???-??? -???-???- Glucose FHR FuHt Pres Dilation -???-???-???-???-??? -???-???-???-???-??? -???-???- Effaced St Visit Note 09/12/24 -???-???-???-???-??? -???-???-???-???-??? -???-???- 8w 1d 169 lb 122/72 -???-???-???-???-??? -???-???-???-???-??? -???-???- 158 -???-???-???-???-??? -???-???-???-???-??? -???-???- JV- CRL cons istent with LMP. Desires NIPT. will return in 2 weeks for blood work. 09/25/24 -???-???-???-???-??? -???-???-???-???-??? -???-???- 10w 0d 168 lb 2 oz 134/79 Negative -???-???-???-???-??? -???-???-???-???-??? -???-???- Negative 180 -???-???-???-???-??? -???-???-???-???-??? -???-???- KW- no vb/cr amping. requesting a heartbeat check because her friend just had SAB. active fetus on US and FHT easily found. labs today 10/17/24 -???-???-???-???-??? -???-???-???-???-??? -???-???- 13w 1d 171 lb 2 oz 123/71 Negative -???-???-???-???-??? -???-???-???-???-??? - (more content not included)... Normal [facility] Absolute lymphocyte countOrd ered By: Camille Grant on 09-25-2024 Lymphocytes Auto (Unsp spec) [#/Vol] 1.56 10*3/uL 0.83-4.51 [facility] Absolute neutrophil countOrd ered By: Camille Grant on 09-25-2024 Neutrophils (Bld) [#/Vol] 5.5 10*3/uL 2.0-7.7 [facility] Anion gap in Serum or Plasma Ordered By: Camille Grant on 09-25-2024 Anion gap [Moles/Vol] 14 mmol/L 5- [facility] Automated lymphocyte count a s percentage of total leukocytesOrdered By: Camille Grant on 09-25-2024 Lymphocytes/100 WBC Auto (Unsp spec) 20.8 % [facility] BUN/creatinine ratioOrdered By: Camille Grant on 09-25-2024 Urea nitrogen/Creatinine [Mass ratio] 12.1 mg/mg - [facility] Basophil percentageOrdered B y: Camille Grant on 09-25-2024 Basophils/100 WBC (Bld) 0.3 % 0-1 [facility] Bilirubin, totalOrdered By: Camille Grant on 09-25-2024 Bilirubin [Mass/Vol] 0.53 mg/dL 0.00-1.30 [facility] CBC W/Diff, Automatedon 09-02 Absolute Lymph 1.56 X10 3/uL Normal 0.83-4.51 [facility] Comment on above: Performed By: #### L 3890.6301, L900.0098, L500.4050, L100.0100, L3890.6006, L509.4006, BTS, L3890.6102, L509.8002 ####[facility] [address] [place], [place], [id number] Absolute Neut 5.5 X10 3/uL Normal 2.0-7.7 [facility] Comment on above: Performed By: #### L 3890.6301, L900.0098, L500.4050, L100.0100, L3890.6006, L509.4006, BTS, L3890.6102, L509.8002 ####[facility] [address] [place], [address] Basophils/100 WBC (Bld) 0.3 % Normal 0-1 [facility] Comment on above: Performed By: #### L 3890.6301, L900.0098, L500.4050, L100.0100, L3890.6006, L509.4006, BTS, L3890.6102, L509.8002 ####[facility] [address] [place], [address] Eosinophils/100 WBC (Bld) 1.1 % Normal 0-5 [facility] Comment on above: Performed By: #### L 3890.6301, L900.0098, L500.4050, L100.0100, L3890.6006, L509.4006, BTS, L3890.6102, L509.8002 ####[facility] [address] [place], [address] Erythrocyte distribution width (RBC) [Ratio] 13.2 % Normal 11.6-14.6 [facility] Comment on above: Performed By: #### L 3890.6301, L900.0098, L500.4050, L100.0100, L3890.6006, L509.4006, BTS, L3890.6102, L509.8002 ####[facility] [address] [place], [address] Hematocrit (Bld) [Volume fraction] 40.1 % Normal 37-47 [facility] Comment on above: Performed By: #### L 3890.6301, L900.0098, L500.4050, L100.0100, L3890.6006, L509.4006, BTS, L3890.6102, L509.8002 ####[facility] [address] [place], [address] Hemoglobin (Bld) [Mass/Vol] 13.6 g/dL Normal 12.0-15.0 [facility] Comment on above: Performed By: #### L 3890.6301, L900.0098, L500.4050, L100.0100, L3890.6006, L509.4006, BTS, L3890.6102, L509.8002 ####[facility] [address] [place], [address] IG% 0.400 Normal 0.0-0.9 [facility] Comment on above: Result Comment: IG% - Immature Granulocytes (promyelocytes, myelocytes and metamyelocytes) > 1% indicates that a LEFT SHIFT is Present. Performed By: #### L 3890.6301, L900.0098, L500.4050, L100.0100, L3890.6006, L509.4006, BTS, L3890.6102, L509.8002 ####[facility] [address] [place], [address] Lymphocytes/100 WBC (Bld) 20.8 % Normal 19-41 [facility] Comment on above: Performed By: #### L 3890.6301, L900.0098, L500.4050, L100.0100, L3890.6006, L509.4006, BTS, L3890.6102, L509.8002 ####[facility] [address] [place], [address] MCH (RBC) [Entitic mass] 29.2 pg Normal 27.0-32.0 [facility] Comment on above: Performed By: #### L 3890.6301, L900.0098, L500.4050, L100.0100, L3890.6006, L509.4006, BTS, L3890.6102, L509.8002 ####[facility] [address] [place], [address] MCHC (RBC) [Mass/Vol] 33.9 g/dL Normal 32-36 [facility] Comment on above: Performed By: #### L 3890.6301, L900.0098, L500.4050, L100.0100, L3890.6006, L509.4006, BTS, L3890.6102, L509.8002 ####[facility] [address] [place], [address] MCV (RBC) [Entitic vol] 86.2 fL Normal 81-99 [facility] Comment on above: Performed By: #### L 3890.6301, L900.0098, L500.4050, L100.0100, L3890.6006, L509.4006, BTS, L3890.6102, L509.8002 ####[facility] [address] [place], [address] Monocytes/100 WBC (Bld) 4.7 % Normal 0-10 [facility] Comment on above: Performed By: #### L 3890.6301, L900.0098, L500.4050, L100.0100, L3890.6006, L509.4006, BTS, L3890.6102, L509.8002 ####[facility] [address] [place], [address] Neutrophils/100 WBC (Bld) 72.7 % High 47-70 [facility] Comment on above: Performed By: #### L 3890.6301, L900.0098, L500.4050, L100.0100, L3890.6006, L509.4006, BTS, L3890.6102, L509.8002 ####[facility] [address] [place], [address] Nucleated RBC (Bld) [#/Vol] 0 10*3/uL Normal 0-5 [facility] Comment on above: Performed By: #### L 3890.6301, L900.0098, L500.4050, L100.0100, L3890.6006, L509.4006, BTS, L3890.6102, L509.8002 ####[facility] [address] [place], [address] Platelet mean volume (Bld) [Entitic vol] 10.7 fL Normal 6.2-12.0 [facility] Comment on above: Performed By: #### L 3890.6301, L900.0098, L500.4050, L100.0100, L3890.6006, L509.4006, BTS, L3890.6102, L509.8002 ####[facility] [address] [place], [address] Platelets (Bld) [#/Vol] 261 10*3/uL Normal 150-450 [facility] Comment on above: Performed By: #### L 3890.6301, L900.0098, L500.4050, L100.0100, L3890.6006, L509.4006, BTS, L3890.6102, L509.8002 ####[facility] [address] [place], [address] RBC (Bld) [#/Vol] 4.65 10*6/uL Normal 4.2-5.4 [facility] Comment on above: Performed By: #### L 3890.6301, L900.0098, L500.4050, L100.0100, L3890.6006, L509.4006, BTS, L3890.6102, L509.8002 ####[facility] [address] [place], [address] RDW SD 41.1 fl Normal 35.1-43.9 [facility] Comment on above: Performed By: #### L 3890.6301, L900.0098, L500.4050, L100.0100, L3890.6006, L509.4006, BTS, L3890.6102, L509.8002 ####[facility] [address] [place], [address] WBC (Bld) [#/Vol] 7.5 10*3/uL Normal 4.4-11.0 [facility] Comment on above: Performed By: #### L 3890.6301, L900.0098, L500.4050, L100.0100, L3890.6006, L509.4006, BTS, L3890.6102, L509.8002 ####[facility] [address] [place], [address] Carbon dioxide, total [Moles /volume] in Central venous bloodOrdered By: Camille Grant on 09-25-2024 CO2 [Moles/Vol] 20.9 mmol/L Low 21.0-32.0 [facility] Chloride assayOrdered By: Oswaldo Grant on 09-25-2024 Chloride [Moles/Vol] 100 mmol/L 98-108 [facility] Comprehensive Metabolic Prof ilon 09-25-2024 Albumin [Mass/Vol] 4.4 g/dL Normal 3.5-5.0 [facility] Comment on above: Order Comment: NIPT WITH GENDER Performed By: #### L 501.4100, L501.1400, L501.0900 #### [facility] [address] [place], [address] Albumin/Globulin [Mass ratio] 1.5 {ratio} Normal 0.9-2.4 [facility] Comment on above: Order Comment: NIPT WITH GENDER Performed By: #### L 501.4100, L501.1400, L501.0900 #### [facility] [address] [place], [address] ALK PHOS 65 U/L Normal 35-104 [facility] Comment on above: Order Comment: NIPT WITH GENDER Performed By: #### L 501.4100, L501.1400, L501.0900 #### [facility] [address] [place], [address] ALT [Catalytic activity/Vol] 10 U/L Normal <=34 [facility] Comment on above: Order Comment: NIPT WITH GENDER Performed By: #### L 501.4100, L501.1400, L501.0900 #### [facility] [address] [place], [address] AST [Catalytic activity/Vol] 15 U/L Normal <=31 [facility] Comment on above: Order Comment: NIPT WITH GENDER Performed By: #### L 501.4100, L501.1400, L501.0900 #### [facility] [address] [place], [address] Bilirubin [Mass/Vol] 0.53 mg/dL Normal 0.00-1.30 [facility] Comment on above: Order Comment: NIPT WITH GENDER Performed By: #### L 501.4100, L501.1400, L501.0900 #### [facility] [address] [place], [address] BUN/CRE 12.1 RATIO Normal 10-20 [facility] Comment on above: Order Comment: NIPT WITH GENDER Performed By: #### L 501.4100, L501.1400, L501.0900 #### [facility] [address] [place], [address] Calcium [Mass/Vol] 9.5 mg/dL Normal 7.6-11.0 [facility] Comment on above: Order Comment: NIPT WITH GENDER Performed By: #### L 501.4100, L501.1400, L501.0900 #### [facility] [address] [place], [address] Chloride [Moles/Vol] 100 mmol/L Normal 98-108 [facility] Comment on above: Order Comment: NIPT WITH GENDER Performed By: #### L 501.4100, L501.1400, L501.0900 #### [facility] [address] [place], [address] CO2 [Moles/Vol] 20.9 mmol/L Low 21.0-32.0 [facility] Comment on above: Order Comment: NIPT WITH GENDER Performed By: #### L 501.4100, L501.1400, L501.0900 #### [facility] [address] [place], [address] Creatinine [Mass/Vol] 0.59 mg/dL Low 0.70-1.20 [facility] Comment on above: Order Comment: NIPT WITH GENDER Performed By: #### L 501.4100, L501.1400, L501.0900 #### [facility] [address] [place], [address] GAP 14 Normal 5-15 [facility] Comment on above: Order Comment: NIPT WITH GENDER Performed By: #### L 501.4100, L501.1400, L501.0900 #### [facility] [address] [place], [address] GFR/1.73 sq M.predicted among non-blacks MDRD (S/P/Bld) [Vol rate/Area] 127 mL/min/{1.73_m2} Normal >60 [facility] Comment on above: Order Comment: NIPT WITH GENDER Result Comment: mL/m in/1.73m2 CKD-EPI Creatinine Equation (2020) Performed By: #### L 501.4100, L501.1400, L501.0900 #### [facility] [address] [place], [address] Globulin (S) [Mass/Vol] 3.0 g/dL Normal 2.2-4.2 [facility] Comment on above: Order Comment: NIPT WITH GENDER Performed By: #### L 501.4100, L501.1400, L501.0900 #### [facility] [address] [place], [address] Glucose [Mass/Vol] 84 mg/dL Normal 70-99 [facility] Comment on above: Order Comment: NIPT WITH GENDER Performed By: #### L 501.4100, L501.1400, L501.0900 #### [facility] [address] [place], [address] Potassium [Moles/Vol] 4.2 mmol/L Normal 3.3-5.1 [facility] Comment on above: Order Comment: NIPT WITH GENDER Performed By: #### L 501.4100, L501.1400, L501.0900 #### [facility] [address] [place], [address] Sodium [Moles/Vol] 135 mmol/L Normal 133-145 [facility] Comment on above: Order Comment: NIPT WITH GENDER Performed By: #### L 501.4100, L501.1400, L501.0900 #### [facility] [address] [place], [address] T PROT 7.5 g/dL Normal 5.9-8.4 [facility] Comment on above: Order Comment: NIPT WITH GENDER Performed By: #### L 501.4100, L501.1400, L501.0900 #### [facility] [address] [place], [address] Urea nitrogen [Mass/Vol] 7 mg/dL Normal 4-19 [facility] Comment on above: Order Comment: NIPT WITH GENDER Performed By: #### L 501.4100, L501.1400, L501.0900 #### [facility] [address] [place], [address] Eosinophil percentageOrdered By: Camille Grant on 09-25-2024 Eosinophils/100 WBC (Bld) 1.1 % 0-5 [facility] Erythrocyte distribution wid th ratioOrdered By: Camille Grant on 09-25-2024 Erythrocyte distribution width (RBC) [Ratio] 13.2 % 11.6-14.6 [facility] Erythrocyte distribution wid th standard deviationOrdered By: Camille Grant on 09-25-2024 Erythrocyte distribution width (RBC) [Entitic vol] 41.1 fL 35.1-43.9 [facility] Erythrocyte distribution width (RBC) [Ratio] 41.1 fl 35.1-43.9 [facility] GFR/1.73 sq M.predicted jay g non-blacks MDRD (S/P/Bld) [Vol rate/Area]Ordered By: Camille Grant on 09-25-2024 Estimated GFR (MDRD) Non-Af Amer 127 >60 [facility] Comment on above: mL/min/1.73m2 CKD-EP I Creatinine Equation (2020) Glomerular filtration rate ( GFR) estimation/1.73 sq m using serum, plasma, or whole bOrdered By: Camille Grant on 09-25-2024 GFR/1.73 sq M.predicted among non-blacks MDRD (S/P/Bld) [Vol rate/Area] 127 mL/min/{1.73_m2} >60 [facility] Comment on above: mL/min/1.73m2 CKD-EP I Creatinine Equation (2020) HBV surface Ag Ql (S)Ordered By: Camille Grant on 09-25-2024 Hepatitis B Surface Antigen Non-Reactive Nonreactive [facility] Comment on above: Reactive: Presumptiv e evidence of HBV. Repeatedly reactive samples must be confirmed using a neutralization test ([employer] HBsAg Confirmatory Test)Non-Reactive: HBsAg not detected; does not exclude the possibility of exposure to HBV Hematocrit Auto (Bld) [Volum e fraction]Ordered By: Camille Grant on 09-25-2024 Hematocrit (Bld) [Volume fraction] 40.1 % 37-47 [facility] Hemoglobin measurementOrdere d By: Camille Grant on 09-25-2024 Hemoglobin (Bld) [Mass/Vol] 13.6 g/dL 12.0-15.0 [facility] Hepatitis C antibodyOrdered By: Camille Grant on 09-25-2024 Hepatitis C Antibody Non-Reactive Nonreactive [facility] Comment on above: Reactive: Presumptiv e evidence of antibodies to HCV. Follow CDC recommendations for supplemental testing.Non-Reactive: Antibodies to HCV were not detected; does not exclude the possibility of exposure to HCVReactive Results are presumptive evidence of antibodies to HCV. Follow CDC recommendations for supplemental testing.Order confirmation testing: HCV Quant by PCR testing - HCVPCR #[id number] Non Reactive: < 0.8 Equivocal: >/= 0.8 to < 1.0 Reactive: >/= 1.0The CDC requires that a reactive/equivocal HCV antibody result be sent out for confirmation. HCV Quant by PCR testing. Immature granulocytes/100 WB C Auto (Bld)Ordered By: Camille Grant on 09-25-2024 Immature granulocytes/100 WBC (Bld) 0.400 % 0.0-0.9 [facility] Comment on above: IG% - Immature Granu locytes (promyelocytes, myelocytes and metamyelocytes) > 1% indicates that a LEFT SHIFT is Present. L3890.6006on 09-25-2024 HIV Non-Reactive Normal Nonreactive [facility] Comment on above: Result Comment: Non- Reactive Reactive Repeatedly reactive samples must be confirmed according to CDC recommended confirmatory algorithms. The subresults for either HIVAG or AHIV can be used as an aid in the selection of the confirmation algorithm for reactive samples. Send out specimens with Reactive results to [facility] for confirmation. Order the HIV antibody detection and differentiation: lc#[id number] Performed By: #### L 501.4100, L501.1400, L501.0900 #### [facility] [place], [address] L3890.6102on 09-25-2024 HEP B Surf Ag Non-Reactive Normal Nonreactive [facility] Comment on above: Result Comment: Reac tive: Presumptive evidence of HBV. Repeatedly reactive samples must be confirmed using a neutralization test ([employer] HBsAg Confirmatory Test) Non-Reactive: HBsAg not detected; does not exclude the possibility of exposure to HBV Performed By: #### L 501.4100, L501.1400, L501.0900 #### [facility] [address] [place], [address] L3890.6301on 09-25-2024 Hepatitis C Ab Non-Reactive Normal Nonreactive [facility] Comment on above: Result Comment: Reac tive: Presumptive evidence of antibodies to HCV. Follow CDC recommendations for supplemental testing. Non-Reactive: Antibodies to HCV were not detected; does not exclude the possibility of exposure to HCV Reactive Results are presumptive evidence of antibodies to HCV. Follow CDC recommendations for supplemental testing. Order confirmation testing: HCV Quant by PCR testing - HCVPCR #[id number] Non Reactive: < 0.8 Equivocal: >/= 0.8 to < 1.0 Reactive: >/= 1.0 The [facility] requires that a reactive/equivocal HCV antibody result be sent out for confirmation. HCV Quant by PCR testing. Performed By: #### L 501.4100, L501.1400, L501.0900 #### [facility] [address] [place], [address] L509.4006on 09-25-2024 Rubella IgG REAC Normal Nonreactive [facility] Comment on above: Result Comment: Anti body Result: Interpretation Non-Reactive: Non-Immune Reactive: Immune The following results were obtained with the [employer] Rubella IgG assay. Results from assays of other manufacturers cannot be used interchangeably. Performed By: #### L 501.4100, L501.1400, L501.0900 #### [facility] [address] [place], [address] L509.8002on 09-25-2024 Syphilis Abs Non-Reactive Normal Nonreactive [facility] Comment on above: Performed By: #### L 501.4100, L501.1400, L501.0900 #### [facility] [address] [place], [address] Laboratory - Chemistry and C hemistry - challengeOrdered By: Camille Grant on 09-25-2024 AST [Catalytic activity/Vol] 15 U/L <32 [facility] - Chemistry and C hemistry - challengeOrdered By: Lavern Zavala on 09-25-2024 Glucose Ql (U) Negative [facility] - Microbiology an d Antimicrobial susceptibilityOrdered By: Camille Grant on 09-25-2024 HBV surface Ag Ql (S) Non-Reactive Nonreactive [facility] Comment on above: Reactive: Presumptiv e evidence of HBV. Repeatedly reactive samples must be confirmed using a neutralization test ([employer] HBsAg Confirmatory Test)Non-Reactive: HBsAg not detected; does not exclude the possibility of exposure to HBV Laboratory - UrinalysisOrder ed By: Lavern Zavala on 09-25-2024 Protein Ql (U) Negative [facility] Lymphocytes Auto (Unsp spec) [#/Vol]Ordered By: Camille Grant on 09-25-2024 Lymphocytes (Bld) [#/Vol] 1.56 10*3/uL 0.83-4.51 [facility] Lymphocytes/100 WBC Auto (Un sp spec)Ordered By: Camille Grant on 09-25-2024 Lymphocytes/100 WBC (Bld) 20.8 % 19-41 [facility] MCV (mean corpuscular volume ) determinationOrdered By: Camille Grant on 09-25-2024 MCV (RBC) [Entitic vol] 86.2 fL 81-99 [facility] Mean corpuscular hemoglobin (MCH) determinationOrdered By: Camille Grant on 09-25-2024 MCH (RBC) [Entitic mass] 29.2 pg 27.0-32.0 [facility] Mean corpuscular hemoglobin concentration (MCHC) determinationOrdered By: Camille Grant on 09-25-2024 MCHC (RBC) [Mass/Vol] 33.9 g/dL 32-36 [facility] Mean platelet volume determi nationOrdered By: Camille Grant on 09-25-2024 Platelet mean volume (Bld) [Entitic vol] 10.7 fL 6.2-12.0 [facility] Miscellaneous procedureOrder ed By: Camille Grant on 09-25-2024 Miscellaneous Test Comment SEE SCANNED REPORT [facility] Monocyte percentageOrdered B y: Camille Leunglatasha on 09-25-2024 Monocytes/100 WBC (Bld) 4.7 % 0-10 [facility] NATERAon 09-25-2024 NATURA SEE SCANNED REPORT Normal [facility] Comment on above: Order Comment: Comme nts: NIPT WITH GENDER Performed By: #### L 501.4100, L501.1400, L501.0900 #### [facility] [address] [place], [address] Neutrophil percentageOrdered By: Camille Rudy on 09-25-2024 Neutrophils/100 WBC (Bld) 72.7 % High 47-70 [facility] No Panel InformationOrdered By: Camille Grant on 09-25-2024 HIV (1&2) Antibody Non-Reactive Nonreactive [facility] Comment on above: Non-ReactiveReactive Repeatedly reactive samples must be confirmed according to CDC recommended confirmatory algorithms. The subresults for either HIVAG or AHIV can be used as an aid in the selection of the confirmation algorithm for reactive samples.Send out specimens with Reactive results to [facility] for confirmation.Order the HIV antibody detection and differentiation: #[id number] Nucleated red blood cell per centageOrdered By: Camille Rudy on 09-25-2024 Nucleated RBC/100 WBC (Bld) [Ratio] 0 % 0-5 [facility] Collaborating Supervising Physician Office Visit Reporton 09-25-2024 Collaborating Supervising Physician Office Visit Report [facility] [address], [address] [place] [address] OFFICE VISIT Date of Service: 09/25/24 MR#: [id number] Acct: [id number] Name: ROBERTO CARLOS JAIN Rep #: [id number] : 1995 Provider: BREANN El ams Age/Sex: 28/F [place] [facility] Status: Signed Intake Vital Signs 09/12/24 08:47 09/25/24 11:09 Height 5 ft 3 in 5 ft 3 in Weight: 168 lb 2 oz BMI 29.7 BP 134/79 H Intake Visit Reasons: HEARTBEAT CK Chief Complaint: Heartbeat Check Is patient in pain?: No Allergies No Known Allergies Allergy (Verified 09/25/24 11:09) Medications ???Medication ???Instructions ???Recorded ???Confirmed ???Type multivit-min no.71-iron fum 28 1 cap PO DAILY 01/20/23 09/25/24 H istory mg-folate no.1 1 mg-dha 300 mg capsule (PNV-[place]) Last Menstrual Period: 07/17/24 : No PFSH PFSH Medical History Seasonal allergies Vaginal delivery Family history of malignant hyperthermia Asthma Anxiety with depression Family History Father Diabetes Mother Hypertension Grandmother Family history of recurrent miscarriage paternal Social History adopted: No household members: spouse and children housing: house number of children: 1 current occupational status: unemployed current occupation: [employer] pets and animals: Yes (2) pets and animals: dog(s) history of recent travel: No ([place]) sexually active: Yes Smoking Status: Never smoker alcohol intake: never substance use type: does not use well-balanced diet: daily or most days caffeine: No eating out: rarely or never during the past year weight has: decreased > 10 lbs what type of physical activity do you participate in: other details: crossfit frequency: 3-4 times per week duration: 45-60 minutes/day ben/mu-ism: Orthodoxy seatbelt use: always do you feel safe at home: Yes additional social history: Daren- AEP History 3 Elective abortions Hx Para 1 Spontaneous abortions 1 Hx # Term Pregnancies Ectopic pregnancies Hx # Pregnancies 1 Multiple births # of living children 1 Past Pregnancies Del. Date Name GA/Weeks Outcome Route Bth Weight Gen Labor Lgth Anesthesia Del Locatn Provider FOB Unknown 05/2022 Miscarriage 6wks 08/23/23 [place] 37 live - 6#13oz Male epidural [facility] Roger Zavala [place] Delivery Date: 08/23/23 Last Updated by: Stacy YATES HPI HEARTBEAT CK Details: ROBERTO CARLOS JAIN is a 28 year old who presents for routine OB visit. OB Visit JOANNE Calculator Estimated Delivery Date Method Current WG Current Estimate 10/21/25 LMP (Certain) 10w 0d Other Estimates 04/22/25 Ultrasound #1 10w 1d Expected Delivery Route/Plan Labor Preferences- CB/BF classes: [] labor support person: [] labor intervention preferences: [] pain management options preferred: [] cut cord/dad catch: [] : [] PP control planned: [] discussed possible routes of delivery and associated risks: [] special requests: [] Specific Issue/Plans Covid status: [] Flu vaccine: [] Tdap vaccine: [] Rhogam: [] LARC form signed: [] Problem list reviewed and updated with the most current plan of care details and appropriate orders placed. Relevant counseling for the gestational age provided. Continue routine care and follow up unless otherwise noted in visit notes/problem list details Initial Weight: Not Recorded Date -???-???-???-???-??? -???-???-???-???-??? -???-???- EGA Weight BP Urine Prot -???-???-???-???-??? -???-???-???-???-??? -???-???- Glucose FHR FuHt Pres Dilation -???-???-???-???-??? -???-???-???-???-??? -???-???- Effaced St Visit Note 09/12/24 -???-???-???-???-??? -???-???-???-???-??? -???-???- 8w 1d 169 lb 122/72 -???-???-???-???-??? -???-???-???-???-??? -???-???- 158 -???-???-???-???-??? -???-???-???-???-??? -???-???- JV- CRL cons istent with LMP. Desires NIPT. will return in 2 weeks for blood work. 09/25/24 -???-???-???-???-??? -???-???-???-???-??? -???-???- 10w 0d 168 lb 2 oz 134/79 Negative -???-???-???-???-??? -???-???-???-???-??? -???-???- Negative 180 -???-???-???-???-??? -???-???-???-???-??? -???-???- KW- no vb/cr amping. requesting a heartbeat check because her friend just had SAB. active fetus on US and FHT easily found. labs today ACOG First Trimester First Trimester: Discussed Second Trimester Second Trimester: Signs and Symptoms of Labor, Selecting a care provider, Reproductive Life Planning Contreception, Care Planning, Depression/Anxiety and In (more content not included)... Normal [facility] Platelet countOrdered By: Oswaldo Grant on 09-25-2024 Platelets (Bld) [#/Vol] 261 10*3/uL 150-450 [facility] Potassium (Unsp spec) [Mass/ Vol]Ordered By: Camille Grant on 09-25-2024 Potassium [Moles/Vol] 4.2 mmol/L 3.3-5.1 [facility] Potassium measurement (mass/ volume)Ordered By: Camille Grant on 09-25-2024 Potassium (Unsp spec) [Mass/Vol] 4.2 mmol/L 3.3-5.1 [facility] RBC Auto (Bld) [#/Vol]Ordere d By: Camille Grant on 09-25-2024 RBC (Bld) [#/Vol] 4.65 10*6/uL 4.2-5.4 [facility] Rubella immune status determ ination by IgG antibody assayOrdered By: Camille Grant on 09-25-2024 Rubella IgG Antibody REAC Nonreactive [facility] Comment on above: Antibody Result: Int erpretationNon-Reactive: Non-ImmuneReactive: ImmuneThe following results were obtained with the [employer] Rubella IgG assay. Results from assays of other manufacturers cannot be used interchangeably. Serum creatinine measurement (mass/volume)Ordered By: Camille Grant on 09-25-2024 Creatinine [Mass/Vol] 0.59 mg/dL Low 0.70-1.20 [facility] Serum globulin measurementOr dered By: Camille Grant on 09-25-2024 Globulin (S) [Mass/Vol] 3.0 g/dL 2.2-4.2 [facility] Serum glucose measurement (m ass/volume)Ordered By: Camille Grant on 09-25-2024 Glucose [Mass/Vol] 84 mg/dL 70-99 [facility] Serum or plasma alanine tabares otransferase (ALT) measurementOrdered By: Camille Grant on 09-25-2024 ALT [Catalytic activity/Vol] 10 U/L <35 [facility] Serum or plasma albumin jerman urement (mass/volume)Ordered By: Camille Grant on 09-25-2024 Albumin [Mass/Vol] 4.4 g/dL 3.5-5.0 [facility] Serum or plasma albumin/glob ulin mass ratioOrdered By: Camille Grant on 09-25-2024 Albumin/Globulin [Mass ratio] 1.5 {ratio} 0.9-2.4 [facility] Serum or plasma alkaline ysabel sphatase measurementOrdered By: Camille Grant on 09-25-2024 ALP [Catalytic activity/Vol] 65 U/L 35-104 [facility] Serum or plasma calcium jerman urement (mass/volume)Ordered By: Camille Grant on 09-25-2024 Calcium [Mass/Vol] 9.5 mg/dL 7.6-11.0 [facility] Serum or plasma urea nitroge n measurement (mass/volume)Ordered By: Camille Grant on 09-25-2024 Urea nitrogen [Mass/Vol] 7 mg/dL 4-19 [facility] Sodium levelOrdered By: Gissell josé miguel Rudy on 09-25-2024 Sodium [Moles/Vol] 135 mmol/L 133-145 [facility] T. pallidum abOrdered By: Oswaldo oh Rudy on 09-25-2024 Syphilis Total Antibody Non-Reactive Nonreactiv e [facility] Total proteinOrdered By: Noelle Grant on 09-25-2024 Protein [Mass/Vol] 7.5 g/dL 5.9-8.4 [facility] Type AND Screenon 09-25-2024 Ab SCREEN GEL Negative Normal [facility] Comment on above: Order Comment: PN Performed By: #### L 3890.6301, L900.0098, L500.4050, L100.0100, L3890.6006, L509.4006, BTS, L3890.6102, L509.8002 ####[facility] [address] [place], [address] White blood cell (WBC) count Ordered By: Camille Grant on 09-25-2024 WBC (Bld) [#/Vol] 7.5 10*3/uL 4.4-11.0 [facility] Chlamydia/GC WILBUR aptimaon CHLAMY,NUC ACID Negative Normal Negative [facility] Comment on above: Performed By: #### L 7000.1800, M100.2200, L501.0900 ####[facility] [address] [place], [address] GC BY NUC ACID Negative Normal Negative [facility] Comment on above: Result Comment: Perf ormed at: =G - [facility] [address] [id number] Dag Coater: Barbara Stephenson MD, Phone: [phone] Performed By: #### L 7000.1800, M100.2200, L501.0900 ####[facility] [address] [place], [address] Urine Cultureon 09-13-2024 URC Culture exhibits no growth. Normal [facility] Comment on above: Performed By: #### L 7000.1800, M100.2200, L501.0900 ####[facility] [address] [place], [address] C. trachomatis rRNA WILBUR+prob e Ql (Unsp spec)Ordered By: Camille Grant on 09-12-2024 Chlamydia DNA (WILBUR) Negative Negative [facility] Chlamydia trachomatis rRNA d etection by probe and target amplification methodOrdered By: Camille Grant on 09-12-2024 C. trachomatis rRNA WILBUR+probe Ql (Unsp spec) Negative Negative [facility] Creatinine Unsp time (U) [Ma ss/Vol]Ordered By: Camille Grant on 09-12-2024 Creatinine (U) [Mass/Vol] 67.90 mg/dL 28- [facility] Neisseria gonorrhoeae nuclei c acid detection by amplified probe techniqueOrdered By: Camille Grant on 09-12-2024 N. gonorrhoeae DNA WILBUR+probe Ql (Unsp spec) Negative Negative [facility] Comment on above: Performed at: =[address] [id number] Director: Barbara Stephenson MD, Phone: [phone] Collaborating Supervising Physician Office Visit Reporton 09-12-2024 Collaborating Supervising Physician Office Visit Report [facility] [address], [address] [place] [address] OFFICE VISIT Date of Service: 09/12/24 MR#: [id number] Acct: [id number] Name: ROBERTO CARLOS JAIN Rep #: [id number] : 1995 Provider: Dr. Camille Shields DO Age/Sex: 28/F [place] [facility] [place] Status: Signed Intake Vital Signs 10/27/23 14:32 09/12/24 08:47 09/12/24 08:47 Height 5 ft 3 in 5 ft 3 in 5 ft 3 in Weight: 169 lb BMI 29.9 BP 122/72 H Intake Visit Reasons: NOB, LMP 07/17, JOANNE 04/23/25 Size Tester Required: No Is patient in pain?: No Allergies No Known Allergies Allergy (Verified 09/12/24 08:46) Medications ???Medication ???Instructions ???Recorded ???Confirmed ???Type multivit-min no.71-iron fum 28 1 cap PO DAILY 01/20/23 09/12/24 H istory mg-folate no.1 1 mg-dha 300 mg capsule (PNV-[place]) Last Menstrual Period: 07/17/24 Zika: Zika virus screening: Negative : No PFSH PFSH Medical History Seasonal allergies Vaginal delivery Family history of malignant hyperthermia Asthma Anxiety with depression Family History Father Diabetes Mother Hypertension Grandmother Family history of recurrent miscarriage paternal Social History adopted: No household members: spouse and children housing: house number of children: 1 current occupational status: unemployed current occupation: [employer] pets and animals: Yes (2) pets and animals: dog(s) history of recent travel: No ([place]) sexually active: Yes Smoking Status: Never smoker alcohol intake: never substance use type: does not use well-balanced diet: daily or most days caffeine: No eating out: rarely or never during the past year weight has: decreased > 10 lbs what type of physical activity do you participate in: other details: crossfit frequency: 3-4 times per week duration: 45-60 minutes/day ben/mu-ism: Orthodoxy seatbelt use: always do you feel safe at home: Yes additional social history: Daren- AEP History 3 Elective abortions Hx Para 1 Spontaneous abortions 1 Hx # Term Pregnancies Ectopic pregnancies Hx # Pregnancies 1 Multiple births # of living children 1 Past Pregnancies Del. Date Name GA/Weeks Outcome Route Bth Weight Gen Labor Lgth Anesthesia Del Locatn Provider FOB Unknown 05/2022 Miscarriage 6wks 08/23/23 [place] 37 live - 6#13oz Male epidural [facility] Roger Zavala Daren Delivery Date: 08/23/23 Last Updated by: Stacy YATES HPI NOB, LMP 07/17, JOANNE 04/23/25 Details: ROBERTO CARLOS JAIN is a 28 year old who presents for New OB visit. OB Visit JOANNE Calculator Estimated Delivery Date Method Current WG Current Estimate 04/23/25 LMP (Certain) 8w 1d Other Estimates 04/22/25 Ultrasound #1 8w 2d Comments: HIV: Urine Culture: Sequential Screen: NIPT Screen: Estimated Due Date: 04/23/24 Expected Delivery Route/Plan Labor Preferences- CB/BF classes: [] labor support person: [] labor intervention preferences: [] pain management options preferred: [] cut cord/dad catch: [] : [] PP control planned: [] discussed possible routes of delivery and associated risks: [] special requests: [] Specific Issue/Plans Covid status: [] Flu vaccine: [] Tdap vaccine: [] Rhogam: [] LARC form signed: [] Problem list reviewed and updated with the most current plan of care details and appropriate orders placed. Relevant counseling for the gestational age provided. Continue routine care and follow up unless otherwise noted in visit notes/problem list details Initial Weight: Not Recorded Date -???-???-???-???-??? -???-???-???-???-??? -???-???- EGA Weight BP Urine Prot -???-???-???-???-??? -???-???-???-???-??? -???-???- Glucose FHR FuHt Pres Dilation -???-???-???-???-??? -???-???-???-???-??? -???-???- Effaced St Visit Note 09/12/24 -???-???-???-???-??? -???-???-???-???-??? -???-???- 8w 1d 169 lb 122/72 -???-???-???-???-??? -???-???-???-???-??? -???-???- 158 -???-???-???-???-??? -???-???-???-???-??? -???-???- JV- CRL cons istent with LMP. Desires NIPT. will return in 2 weeks for blood work. Menstrual History Last Menstrual Period: 07/17/24 Reported LMP: definite Normal amount/duration: Yes Frequency in days: 26-28 On hormonal BC at conception: No hCG+: 08/14/24 Antepartum Record Genetic Screening: Congenital Heart Defect: Other, Neural Tube Defect: Other, Hemoglobinopathy Or Carrier: Other, Cystic Fibrosis: Other, Chromosome Abnormality: Other, Luis Miguel-Sachs: Other, Hemophilia: Other, Intellectual Di (more content not included)... Normal [facility] Protein+Creatinine Ratio,Uri neon 09-12-2024 PROT:CRE RATIO 150 mg/g CRE Normal 0-200 [facility] Comment on above: Performed By: #### L 7000.1800, M100.2200, L501.0900 ####[facility] [address] [place], [address] Protein (U) [Mass/Vol] 10.2 mg/dL Normal 0.0-12.0 [facility] Comment on above: Performed By: #### L 7000.1800, M100.2200, L501.0900 ####[facility] [address] [place], [address] UR CREAT 67.90 mg/dL Normal 28-217 [facility] Comment on above: Performed By: #### L 7000.1800, M100.2200, L501.0900 ####[facility] [address] [place], [address] Protein/Creatinine (U) [Mass ratio]Ordered By: Camille Grant on 09-12-2024 Urine Protein/Creatinine Ratio 150 mg/g CRE 0-200 [facility] Random urine creatinine jerman urement (mass/volume)Ordered By: Camille Grant on 09-12-2024 Creatinine Unsp time (U) [Mass/Vol] 67.90 mg/dL 28-217 [facility] Urine cultureOrdered By: Noelle Grant on 09-12-2024 Bacteria identified Cx Nom (U) Culture exhibits no growth. [facility] Urine protein measurement (m ass/volume)Ordered By: Camille Grant on 09-12-2024 Protein (U) [Mass/Vol] 10.2 mg/dL 0.0-12.0 [facility] Urine protein/creatinine mas s ratioOrdered By: Camille Grant on 09-12-2024 Protein/Creatinine (U) [Mass ratio] 150 mg/g CRE 0-200 [facility] CNOVon 06-28-2024 CNOV Office Visit (UCWSTR) RODNEYNIKUNJROBERTO CARLOS ([id number]) 1995 F Date Time Provider Department 06/28/24 9:15 AM HALIMA IZAGUIRRE [facility] During your visit today, we recorded the following information about you: Temperature Pulse Respiration Blood pressure 102.7 degrees 106/minute 18/minute 114/75 Weight 76.9 kg Halima Izaguirre APRN.[facility] 06/28/2024 10:05 AM Signed Subjective HPI HPI Roberto Carloscarlos Jain is a 28 year old female who presents today for CC of fever, cough, congestion. This started 2 days ago. Has tried otc medication for relief. Symptoms are worsened by nothing. Risk factors no sick exposures. Hx of asthma. Denies possibility of being /breastfeedi ng. nonsmoker. 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 albuterol HFA (PROVENTIL HFA, VENTOLIN HFA) 90 mcg/actuation inhaler 2 puffs q 4 prn. May use 15 to 20 minutes pre-exercise cetirizine-pseudoeph edrine (ZYRTEC-D) 5-120 mg per tablet Take 1 tablet by mouth once daily. FLUoxetine (PROZAC) 10 mg capsule Take 1 capsule by mouth once daily. Take with 20 mg capsule to total 30 mg a day, take In the morning (Patient not taking: Reported on 06/28/2024) FLUoxetine (PROZAC) 20 mg capsule Take 1 capsule by mouth once daily. Take with 10 mg capsul, take In the morning (Patient not taking: Reported on 06/28/2024) rizatriptan (MAXALT INSPECTOR PLATING) 5 mg disintegrating tablet Take 1 tablet by mouth as needed for Migraine Headache (see administration instructions). May repeat in 2 hours if needed (Patient not taking: Reported on 06/28/2024) FAMILY HISTORY Problem Relation Age of Onset Asthma Mother Asthma Father Allergies Father Heart Father Diabetes Father Allergies Sister Cancer Sister PATERNAL SIDE WITH BREAST CANCER AND GBCA Heart Maternal Grandfather NM Lipids Maternal Grandfather ELEVATED CHOLESTEROL Social History Tobacco Use Smoking status: Never Smokeless tobacco: Never Vaping Use Vaping status: Never Used Substance Use Topics Alcohol use: No Drug use: No Review of Systems Constitutional: Positive for fever. HENT: Positive for congestion and sore throat. Negative for ear pain and nosebleeds. Respiratory: Positive for cough. Negative for shortness of breath and wheezing. Musculoskeletal: Negative for neck pain. Skin: Negative for itching and rash. Objective Blood pressure 114/75, pulse 106, temperature (!) 39.3 ?C (102.7 ?F), resp. rate 18, weight 76.9 kg (169 lb 8.5 oz), last menstrual period 02/20/2021, SpO2 100%. Physical Exam Constitutional: General: She is not in acute distress. Appearance: She is ill-appearing. She is not toxic-appearing or diaphoretic. HENT: Head: Normocephalic and atraumatic. Right Ear: Hearing, tympanic membrane, ear canal and external ear normal. Left Ear: Hearing, tympanic membrane, ear canal and external ear normal. Nose: Nose normal. Mouth/Throat: Pharynx: Uvula midline. No pharyngeal swelling, oropharyngeal exudate, posterior oropharyngeal erythema or uvula swelling. Eyes: General: Lids are normal. No scleral icterus. Right eye: No discharge. Left eye: No discharge. Conjunctiva/sclera: Conjunctivae normal. Pupils: Pupils are equal, round, and reactive to light. Neck: Trachea: Trachea normal. Cardiovascular: Rate and Rhythm: Normal rate and regular rhythm. Heart sounds: Normal heart sounds. Pulmonary: Effort: Pulmonary effort is normal. Breath sounds: Rhonchi (scattered bilat) present. No decreased breath sounds, wheezing or rales. Musculoskeletal: Cervical back: Normal range of motion and neck supple. Lymphadenopathy: Cervical: No cervical adenopathy. Right cervical: No superficial cervical adenopathy. Left cervical: No superficial cervical adenopathy. Skin: Findings: No rash. Neurological: Mental Status: She is alert and oriented to person, place, and time. ASSESSMENT/PLAN: 1. Influenza A - ICD9: 487.1, ICD10: J10.1 (primary diagnosis) -discussed expected course -discussed supportive care -discussed red flags and reasons for f/u -discussed contagiousness, reason/when close family members should f/u, and whom to avoid -f/u in 3-5 days if symptoms worsening - OSELTAMIVIR 75 MG CAPSULE - ALBUTEROL SULFATE HFA 90 MCG/ACTUATION AEROSOL INHALER - PREDNISONE 20 MG TABLET 2. Acute cough - ICD9: 786.2, ICD10: R05.1 - XR CHEST 2V FRONTAL/LAT IM (more content not included)... Normal [facility] INFLUENZA A&B MOLECULAR (POC )on 06-28-2024 Flu A (POCT) Positive Abnormal Negative [facility] Comment on above: Location:[facility] [address] [place] [address], [place], [address] Interpretation and review of laboratory results Abnormal [facility] Procedural Control Valid [facility] Location: [place], [address] [facility], [place], [address] [facility] POINT OF CARE [facility] XR CHEST 2V FRONTAL/LATon XR CHEST 2V FRONTAL/LAT * * *Final Repor t* * * DATE OF EXAM: Jun 28 2024 9:46AM WOX 5291 - XR CHEST 2V FRONTAL/LAT / PROCEDURE REASON: Acute cough * * * * Physician Interpretation * * * * EXAMINATION: CHEST RADIOGRAPH (2 VIEW FRONTAL and LATERAL) CLINICAL HISTORY: Acute cough MQ: XC2_6 EXAM DATE/TIME: 06/28/2024 9:46 AM COMPARISON: Radiograph 11/06/2018 RESULT: Lines, tubes, and devices: None. Lungs and pleura: No consolidation. No lung mass. No pleural effusion. No pneumothorax. Cardiomediastinal silhouette: Normal cardiomediastinal silhouette. Bones and soft tissues: Unremarkable. IMPRESSION: No acute radiographic abnormality. Coding Spec: Neomatrix Transcribe Date/Time: Jun 28 2024 9:47A Dictated by : SERGIO UGARTE MD This examination was interpreted and the report reviewed and electronically signed by: SERGIO UGARTE MD on Jun 28 2024 9:48AM EST [id number] Normal [facility] XR Chest PA and Lateralon IMPRESSION: No acute radiographic abnormality. Coding Spec: Neomatrix Transcribe Date/Time: Jun 28 2024 9:47A Dictated by : SERGIO UGARTE MD This examination was interpreted and the report reviewed and electronically signed by: SERGIO UGARTE MD on Jun 28 2024 9:48AM EST DIVISION OF RADIOLOGY * * *Final Report* * * DATE OF EXAM: Jun 28 2024 9:46AM WOX 5291 - XR CHEST 2V FRONTAL/LAT / PROCEDURE REASON: Acute cough * * * * Physician Interpretation * * * * EXAMINATION: CHEST RADIOGRAPH (2 VIEW FRONTAL & LATERAL) CLINICAL HISTORY: Acute cough MQ: XC2_6 EXAM DATE/TIME: 06/28/2024 9:46 AM COMPARISON: Radiograph 11/06/2018 RESULT: Lines, tubes, and devices: None. Lungs and pleura: No consolidation. No lung mass. No pleural effusion. No pneumothorax. Cardiomediastinal silhouette: Normal cardiomediastinal silhouette. Bones and soft tissues: Unremarkable. DIVISION OF RADIOLOGY Provider, [facility] - 06/28/2024 * * *Final Report* * * DATE OF EXAM: Jun 28 2024 9:46AM WOX 5291 - XR CHEST 2V FRONTAL/LAT / PROCEDURE REASON: Acute cough * * * * Physician Interpretation * * * * EXAMINATION: CHEST RADIOGRAPH (2 VIEW FRONTAL & LATERAL) CLINICAL HISTORY: Acute cough MQ: XC2_6 EXAM DATE/TIME: 06/28/2024 9:46 AM COMPARISON: Radiograph 11/06/2018 RESULT: Lines, tubes, and devices: None. Lungs and pleura: No consolidation. No lung mass. No pleural effusion. No pneumothorax. Cardiomediastinal silhouette: Normal cardiomediastinal silhouette. Bones and soft tissues: Unremarkable. IMPRESSION IMPRESSION: No acute radiographic abnormality. Coding Spec: PSCB Transcribe Date/Time: Jun 28 2024 9:47A Dictated by : SERGIO UGARTE MD This examination was interpreted and the report reviewed and electronically signed by: SERGIO UGARTE MD on Jun 28 2024 9:48AM EST [facility] Radiology Study observation (narrative) [facility] XR Chest PA and LateralOrder ed By: [facility] Provider on 06-28-2024 [facility] Absolute lymphocyte countOrd ered By: Lavern Zavala on 08-23-2023 Lymphocytes Auto (Unsp spec) [#/Vol] 1.03 10*3/uL 0.83-4.51 [facility] Automated lymphocyte count a s percentage of total leukocytesOrdered By: Lavern Zavala on 08-23-2023 Lymphocytes/100 WBC Auto (Unsp spec) 8.7 % 19-41 [facility] Basophil percentageOrdered B y: Lavern Zavala on 08-23-2023 Hemoglobin (Bld) [Mass/Vol] 10.4 g/dL 12.0-15.0 [facility] WBC (Bld) [#/Vol] 16.5 10*3/uL 4.4-11.0 [facility] Basophils/100 WBC (Bld) 0.4 % 0-1 [facility] Eosinophils/100 WBC (Bld) 1.8 % 0-5 [facility] Monocytes/100 WBC (Bld) 6.0 % 0-10 [facility] Neutrophils (Bld) [#/Vol] 9.8 10*3/uL 2.0-7.7 [facility] Neutrophils/100 WBC (Bld) 82.6 % 47-70 [facility] Determination of erythrocyte mean corpuscular volume (MCV)Ordered By: Lavern Zavala on 08-23-2023 MCV (RBC) [Entitic vol] 83.6 fL 81-99 [facility] Erythrocyte distribution wid th ratioOrdered By: Lavern Zavala on 08-23-2023 Erythrocyte distribution width (RBC) [Ratio] 13.1 % 11.6-14.6 [facility] Erythrocyte distribution wid th standard deviationOrdered By: Lavern Zavala on 08-23-2023 Erythrocyte distribution width (RBC) [Entitic vol] 39.2 fL 35.1-43.9 [facility] Hematocrit Auto (Bld) [Volum e fraction]Ordered By: Lavern Zavala on 08-23-2023 Hematocrit (Bld) [Volume fraction] 32.7 % 37-47 [facility] Immature granulocytes/100 WB C Auto (Bld)Ordered By: Lavern Zavala on 08-23-2023 Immature granulocytes/100 WBC (Bld) 0.500 % 0.0-0.9 [facility] Comment on above: IG% - Immature Granu locytes (promyelocytes, myelocytes and metamyelocytes) > 1% indicates that a LEFT SHIFT is Present. Laboratory - Chemistry and C hemistry - challengeOrdered By: Lavern Zavala on 08-23-2023 ALT [Catalytic activity/Vol] 12 U/L 13-56 [facility] Laboratory - Hematology and Cell countsOrdered By: Lavern Zavala on 08-23-2023 MCH (RBC) [Entitic mass] 26.6 pg 27.0-32.0 [facility] MCHC (RBC) [Mass/Vol] 31.8 g/dL 32-36 [facility] Platelet mean volume (Bld) [Entitic vol] 10.9 fL 6.2-12.0 [facility] Platelets (Bld) [#/Vol] 245 10*3/uL 150-450 [facility] Nucleated RBC/100 WBC (Bld) [Ratio] 0 % 0-5 [facility] No Panel InformationOrdered By: Lavern Zavala on 08-23-2023 Estimated Creatinine Clearance Calc 152.91 ml/min [facility] Estimated GFR (MDRD) Amer 147 mL/min >60 [facility] Comment on above: GFR Calc Estimated GFR (MDRD) Non-Af Amer 121 mL/min >60 [facility] Comment on above: Non- GFR Calc No Panel InformationOrdered By: Clementina Enrique on 08-23-2023 Vaginal Amniotic Fluid Detection Positive Negative [facility] Comment on above: Amniotic fluid prese nt indicates rupture of Membranes. RESULTS CALLED TO Shara MILLIGAN 08/23/23 0816 Stacy Florez.REPORT READ BACK BY SAME . RBC Auto (Bld) [#/Vol]Ordere d By: Lavern Zavala on 08-23-2023 RBC (Bld) [#/Vol] 3.91 10*6/uL 4.2-5.4 [facility] Serum Treponema species anti body detectionOrdered By: Lavern Zavala on 08-23-2023 Treponema sp Ab Ql (S) Non-Reactive [facility] Serum or plasma creatinine m easurement (mass/volume)Ordered By: Lavern Zavala on 08-23-2023 Creatinine [Mass/Vol] 0.63 mg/dL 0.55-1.02 [facility] Comment on above: The validity of the calculated GFR & GFRAA in patients over 70 years has not been determined. Clinical correlation is essential. Serum or plasma uric acid me asurement (mass/volume)Ordered By: Lavern Zavala on 08-23-2023 Urate [Mass/Vol] 4.1 mg/dL 2.6-6.0 [facility] Comment on above: The drugs N-Acetylcy steine and Metamizole may falsely depress this assay. Thin prep Papanicolaou smear with manual screeningOrdered By: Lavern Zavala on 08-23-2023 Thin prep Papanicolaou smear with manual screening 24 U/L 15-37 [facility] Comment on above: Moderate Hemolysis, Result may be falsely increased. Protein (U) [Mass/Vol] 11.6 mg/dL 0.0-11.8 [facility] Urine creatinine measurement (mass/volume)Ordered By: Lavern Zavala on 08-23-2023 Creatinine (U) [Mass/Vol] 30.90 mg/dL NO RANGE EST. [facility] Urine protein/creatinine mas s ratioOrdered By: Lavern Zavala on 08-23-2023 Protein/Creatinine (U) [Mass ratio] 375 mg/g CRE 0-200 [facility] Laboratory - Chemistry and C hemistry - challengeon 08-15-2023 Glucose Ql (U) Negative [facility] Laboratory - Urinalysison Protein Ql (U) Negative [facility] Laboratory - Chemistry and C hemistry - challengeon 08-11-2023 Glucose Ql (U) Negative [facility] Laboratory - Urinalysison Protein Ql (U) Negative [facility] No Panel InformationOrdered By: Liana Rodriguez on 08-11-2023 Vaginal Amniotic Fluid Detection Negative Negative [facility] Comment on above: Amniotic fluid not p resent indicates No Rupture of FetalMembranes at time of specimen collection. Group B Streptococcus Culture Group B Beta Streptococcus is not isolated. [facility] Laboratory - Chemistry and C hemistry - challengeon 08-01-2023 Glucose Ql (U) Negative [facility] Laboratory - Urinalysison Protein Ql (U) Negative [facility] Laboratory - Chemistry and C hemistry - challengeon 07-18-2023 Glucose Ql (U) Negative [facility] Laboratory - Urinalysison Protein Ql (U) Negative [facility] Laboratory - Chemistry and C hemistry - challengeon 07-06-2023 Glucose Ql (U) Negative [facility] Laboratory - Urinalysison Protein Ql (U) Negative [facility] Absolute lymphocyte countOrd ered By: Clementina Enrique on 06-22-2023 Lymphocytes Auto (Unsp spec) [#/Vol] 1.39 10*3/uL 0.83-4.51 [facility] Basophil percentageOrdered B y: Clementina Enrique on 06-22-2023 Basophils/100 WBC (Bld) 0.3 % 0-1 [facility] Eosinophils/100 WBC (Bld) 1.0 % 0-5 [facility] Neutrophils (Bld) [#/Vol] 7.7 10*3/uL 2.0-7.7 [facility] Neutrophils/100 WBC (Bld) 78.4 % 47-70 [facility] WBC (Bld) [#/Vol] 9.8 10*3/uL 4.4-11.0 [facility] Blood erythrocytes count (nu mber/volume)Ordered By: Clementina Enrique on 06-22-2023 RBC (Bld) [#/Vol] 4.02 10*6/uL 4.2-5.4 [facility] Blood hemoglobin measurement (mass/volume)Ordered By: Clementina Enrique on 06-22-2023 Hemoglobin (Bld) [Mass/Vol] 11.7 g/dL 12.0-15.0 [facility] Blood lymphocytes/100 leukoc ytesOrdered By: Clementina Enrique on 06-22-2023 Lymphocytes/100 WBC (Bld) 14.1 % 19-41 [facility] Blood monocytes/100 leukocyt esOrdered By: Clementina Enrique on 06-22-2023 Monocytes/100 WBC (Bld) 5.5 % 0-10 [facility] Blood platelet mean volumeOr dered By: Clementina Enrique on 06-22-2023 Platelet mean volume (Bld) [Entitic vol] 10.4 fL 6.2-12.0 [facility] Determination of erythrocyte mean corpuscular volume (MCV)Ordered By: Clementina Enrique on 06-22-2023 MCV (RBC) [Entitic vol] 88.1 fL 81-99 [facility] Gestational diabetes screen 1-hour screen with 50g oral glucose loadOrdered By: Clementina Enrique on 06-22-2023 Glucose 1 Hr post 50 g glucose PO [Mass/Vol] 115 mg/dL 70-140 [facility] HIV 1 and HIV-2 antibody ass ay with HIV-1 p24 antigen detectionOrdered By: Clementina Enrique on 06-22-2023 HIV 1+2 Ab+HIV1 p24 Ag IA Ql Non-Reactive Nonreactive [facility] Hematocrit Auto (Bld) [Volum e fraction]Ordered By: Clementina Enrique on 06-22-2023 Hematocrit (Bld) [Volume fraction] 35.4 % 37-47 [facility] Laboratory - Chemistry and C hemistry - challengeon 06-22-2023 Glucose Ql (U) Negative [facility] Laboratory - Hematology and Cell countsOrdered By: Clementina Enrique on 06-22-2023 Erythrocyte distribution width (RBC) [Entitic vol] 40.1 fL 35.1-43.9 [facility] Erythrocyte distribution width (RBC) [Ratio] 12.4 % 11.6-14.6 [facility] Immature granulocytes/100 WBC (Bld) 0.700 % 0.0-0.9 [facility] Comment on above: IG% - Immature Granu locytes (promyelocytes, myelocytes and metamyelocytes) > 1% indicates that a LEFT SHIFT is Present. MCH (RBC) [Entitic mass] 29.1 pg 27.0-32.0 [facility] Nucleated RBC/100 WBC (Bld) [Ratio] 0 % 0-5 [facility] Laboratory - Urinalysison Protein Ql (U) Negative [facility] MCHC Auto (RBC) [Mass/Vol]Or dered By: Clementina Enrique on 06-22-2023 MCHC (RBC) [Mass/Vol] 33.1 g/dL 32-36 [facility] Platelets bldOrdered By: Will Enrique on 06-22-2023 Platelets (Bld) [#/Vol] 233 10*3/uL 150-450 [facility] Serum Treponema species anti body detectionOrdered By: Clementina Enrique on 06-22-2023 Treponema sp Ab Ql (S) Non-Reactive [facility] Laboratory - Chemistry and C hemistry - challengeon 05-25-2023 Glucose Ql (U) Negative [facility] Laboratory - Urinalysison Protein Ql (U) Negative [facility] Laboratory - Chemistry and C hemistry - challengeon 04-26-2023 Glucose Ql (U) Negative [facility] Laboratory - Urinalysison Protein Ql (U) Negative [facility] Laboratory - Chemistry and C hemistry - challengeon 03-29-2023 Glucose Ql (U) Negative [facility] Laboratory - Urinalysison Protein Ql (U) Negative [facility] Laboratory - Chemistry and C hemistry - challengeon 03-01-2023 Glucose Ql (U) Negative [facility] Laboratory - Urinalysison Protein Ql (U) Negative [facility] Absolute lymphocyte countOrd ered By: Clementina Enrique on 02-11-2023 Lymphocytes Auto (Unsp spec) [#/Vol] 1.32 10*3/uL 0.83-4.51 [facility] Basophil percentageOrdered B y: Clementina Enrique on 02-11-2023 Basophils/100 WBC (Bld) 0.4 % 0-1 [facility] Eosinophils/100 WBC (Bld) 1.8 % 0-5 [facility] Neutrophils (Bld) [#/Vol] 6.5 10*3/uL 2.0-7.7 [facility] Neutrophils/100 WBC (Bld) 76.8 % 47-70 [facility] WBC (Bld) [#/Vol] 8.5 10*3/uL 4.4-11.0 [facility] Blood erythrocytes count (nu mber/volume)Ordered By: Clementina Enrique on 02-11-2023 RBC (Bld) [#/Vol] 4.37 10*6/uL 4.2-5.4 [facility] Blood hemoglobin measurement (mass/volume)Ordered By: Clementina Enrique on 02-11-2023 Hemoglobin (Bld) [Mass/Vol] 12.9 g/dL 12.0-15.0 [facility] Blood lymphocytes/100 leukoc ytesOrdered By: Clementina Enrique on 02-11-2023 Lymphocytes/100 WBC (Bld) 15.6 % 19-41 [facility] Blood monocytes/100 leukocyt esOrdered By: Clementina Enrique on 02-11-2023 Monocytes/100 WBC (Bld) 5.2 % 0-10 [facility] Blood platelet mean volumeOr dered By: Clementina Enrique on 02-11-2023 Platelet mean volume (Bld) [Entitic vol] 10.0 fL 6.2-12.0 [facility] Determination of erythrocyte mean corpuscular volume (MCV)Ordered By: Clementina Enrique on 02-11-2023 MCV (RBC) [Entitic vol] 89.5 fL 81-99 [facility] HIV 1 and HIV-2 antibody ass ay with HIV-1 p24 antigen detectionOrdered By: Clementina Enrique on 02-11-2023 HIV 1+2 Ab+HIV1 p24 Ag IA Ql Non-Reactive Nonreactive [facility] Hematocrit Auto (Bld) [Volum e fraction]Ordered By: Clementina Enrique on 02-11-2023 Hematocrit (Bld) [Volume fraction] 39.1 % 37-47 [facility] Laboratory - Hematology and Cell countsOrdered By: Clementina Enrique on 02-11-2023 Erythrocyte distribution width (RBC) [Entitic vol] 39.6 fL 35.1-43.9 [facility] Erythrocyte distribution width (RBC) [Ratio] 12.0 % 11.6-14.6 [facility] Immature granulocytes/100 WBC (Bld) 0.200 % 0.0-0.9 [facility] Comment on above: IG% - Immature Granu locytes (promyelocytes, myelocytes and metamyelocytes) > 1% indicates that a LEFT SHIFT is Present. MCH (RBC) [Entitic mass] 29.5 pg 27.0-32.0 [facility] Nucleated RBC/100 WBC (Bld) [Ratio] 0 % 0-5 [facility] MCHC Auto (RBC) [Mass/Vol]Or dered By: Clementina Enrique on 02-11-2023 MCHC (RBC) [Mass/Vol] 33.0 g/dL 32-36 [facility] No Panel InformationOrdered By: Clementina Enrique on 02-11-2023 Hepatitis B Surface Antigen Non-Reactive Nonreactive [facility] Hepatitis C Antibody Non-Reactive Nonreactive [facility] Comment on above: Non Reactive: < 0.8 Equivocal: >/= 0.8 to < 1.0 Reactive: >/= 1.0The CDC recommends that a reactive/equivocal HCV antibody result be followed up by the HCV Nucleic Acid Amplificationtest (878471) Miscellaneous Test Comment MAILED SPECIMEN [facility] Rubella IgG Antibody Reactive Nonreactive [facility] Comment on above: Antibody Results Int erpretation of Immune Status Non Reactive Presumed Non-Immune Equivocal Equivocal Reactive Presumed Immune Platelets bldOrdered By: Will Enrique on 02-11-2023 Platelets (Bld) [#/Vol] 277 10*3/uL 150-450 [facility] Serum Treponema species anti body detectionOrdered By: Clementina Enrique on 02-11-2023 Treponema sp Ab Ql (S) Non-Reactive [facility] Chlamydia trachomatis rRNA d etection by probe and target amplification methodOrdered By: Clementina Enrique on 01-31-2023 C. trachomatis rRNA WILBUR+probe Ql (Unsp spec) Negative Negative [facility] Culture, urineOrdered By: Adamaris Enrique on 01-31-2023 Bacteria identified Cx Nom (U) Culture exhibits no growth. [facility] Laboratory - Microbiology an d Antimicrobial susceptibilityOrdered By: Clementina Enrique on 01-31-2023 N. gonorrhoeae DNA WILBUR+probe Ql (Unsp spec) Negative Negative [facility] Comment on above: Performed at: =[address] [id number] Director: Barbara Stephenson MD, Phone: [phone] Serum or plasma choriogonado tropin detectionOrdered By: Clementina Enrique on 01-02-2023 HCG ( test) Ql 974 mIU/mL <4 [facility] Comment on above: hCG levels with Gest ational AgeGestational Age hCG mIU/mL (IU/L)0.2 - 1 week 5 - 501-2 weeks 50 - 5002-3 weeks 100 - 12637-5 weeks 500 - 322535-0 weeks 1000 - 711046-8 weeks 53337 - 100,0006-8 weeks 94106 - 200,0002-3 months 48520 - 100,000 Serum or plasma choriogonado tropin detectionOrdered By: Clementina Enrique on 12-31-2022 HCG ( test) Ql 485 mIU/mL <4 [facility] Comment on above: hCG levels with Gest ational AgeGestational Age hCG mIU/mL (IU/L)0.2 - 1 week 5 - 501-2 weeks 50 - 5002-3 weeks 100 - 82097-0 weeks 500 - 247144-1 weeks 1000 - 825705-9 weeks 48436 - 100,0006-8 weeks 29506 - 200,0002-3 months 53715 - 100,000 Serum or plasma choriogonado tropin detectionon 05-16-2022 HCG ( test) Ql 17 mIU/mL <4 [facility] Work Phone: Comment on above: hCG levels with Gest ational AgeGestational Age hCG mIU/mL (IU/L)0.2 - 1 week 5 - 501-2 weeks 50 - 5002-3 weeks 100 - 29701-6 weeks 500 - 250447-1 weeks 1000 - 104346-8 weeks 99136 - 100,0006-8 weeks 77493 - 200,0002-3 months 83539 - 100,000 Serum or plasma choriogonado tropin detectionon 05-14-2022 HCG ( test) Ql 98 mIU/mL <4 [facility] Work Phone: Comment on above: hCG levels with Gest ational AgeGestational Age hCG mIU/mL (IU/L)0.2 - 1 week 5 - 501-2 weeks 50 - 5002-3 weeks 100 - 25585-6 weeks 500 - 976781-6 weeks 1000 - 316008-4 weeks 40747 - 100,0006-8 weeks 23221 - 200,0002-3 months 35858 - 100,000 Vital Signs Date Time Vital Sign Value Performing Clinician Facility 04-25-2025 10:04-0400 Diastolic blood pressure 82 mm[Hg] Dr. Bello Alfaro DO Work Phone: [facility] 04-25-2025 10:04-0400 Systolic blood pressure 116 mm[Hg] Dr. Bello Alfaro DO Work Phone: [facility] 04-25-2025 10:01-0400 Body height 162.[address] Bello Alfaro DO Work Phone: [facility] 04-25-2025 10:01-0400 Body mass index (BMI) [Ratio] 30.7 kg/m2 Dr. Bello Alfaro DO Work Phone: [facility] 04-25-2025 10:01-0400 Body weight 81.[address] Bello Alfaro DO Work Phone: [facility] 04-20-2025 10:46-0400 Diastolic blood pressure 91 mm[Hg] Dr. Bello Alfaro DO Work Phone: [phone] [place] [address] 04-20-2025 10:46-0400 Heart rate 83 /min Dr. Bello Alfaro DO Work Phone: [phone] [place] [address] 04-20-2025 10:46-0400 SaO2% (BldA) [Mass fraction] 98 % Dr. Bello Alfaro DO Work Phone: [phone] [place] [address] 04-20-2025 10:46-0400 Systolic blood pressure 132 mm[Hg] Dr. Bello Alfaro DO Work Phone: [phone] [place] [address] 04-20-2025 10:45-0400 Body temperature 97.4 [degF] Dr. Bello Alfaro DO Work Phone: [phone] [place] [address] 04-20-2025 10:45-0400 Respiratory rate 18 /min Dr. Bello Alfaro DO Work Phone: [phone] [place] [address] 04-18-2025 11:41-0400 Body mass index (BMI) [Ratio] 33.9 kg/m2 Dr. Bello Alfaro DO Work Phone: 1(361)155-626781 [place] [address] 04-18-2025 11:41-0400 Body weight 89.[address] Bello Alfaro DO Work Phone: 5(010)865-824581 [place] [address] 04-18-2025 10:20-0400 Body mass index (BMI) [Ratio] 35.1 kg/m2 Dr. Bello Alfaro DO Work Phone: 4(170)947-594681 [place] [address] 04-18-2025 10:20-0400 Body weight 89.[address] Bello Alfaro DO Work Phone: 9(315)159-675181 [place] [address] 04-18-2025 10:20-0400 Diastolic blood pressure 86 mm[Hg] Dr. Bello Alfaro DO Work Phone: 2(195)819-477681 [place] [address] 04-18-2025 10:20-0400 Systolic blood pressure 138 mm[Hg] Dr. Bello Alfaro DO Work Phone: 8(616)543-874181 [place] [address] 04-11-2025 11:18-0400 Body height 160.[address] Bello Alfaro DO Work Phone: 2(163)032-567881 [place] [address] 04-11-2025 11:18-0400 Body mass index (BMI) [Ratio] 34.5 kg/m2 Dr. Bello Alfaro DO Work Phone: 2(113)737-753981 [place] [address] 04-11-2025 11:18-0400 Body weight 88.[address] Bello Alfaro DO Work Phone: 0(784)365-513881 [place] [address] 04-11-2025 11:18-0400 Diastolic blood pressure 84 mm[Hg] Dr. Blelo Alfaro DO Work Phone: 5(857)745-068181 [place] [address] 04-11-2025 11:18-0400 Systolic blood pressure 135 mm[Hg] Dr. Bello Alfaro DO Work Phone: 9(453)675-531281 [place] [address] 04-08-2025 17:38-0400 Diastolic blood pressure 72 mm[Hg] Dr. Bello Alfaro DO Work Phone: 9(891)975-438381 [place] [address] 04-08-2025 17:38-0400 Heart rate 70 /min Dr. Bello Alfaro DO Work Phone: 7(696)447-894981 [place] [address] 04-08-2025 17:38-0400 Systolic blood pressure 120 mm[Hg] Dr. Bello Alfaro DO Work Phone: 7(075)570-090381 [place] [address] 04-08-2025 17:06-0400 Body temperature 98.7 [degF] Dr. Bello Alfaro DO Work Phone: 8(383)360-755681 [place] [address] 04-08-2025 17:06-0400 Respiratory rate 16 /min Dr. Bello Alfaro DO Work Phone: 4(209)193-338481 [place] [address] 04-04-2025 14:56-0400 Body height 160.[address] Bello Alfaro DO Work Phone: 0(414)521-739181 [place] [address] 04-04-2025 14:52-0400 Body mass index (BMI) [Ratio] 34.2 kg/m2 Dr. Bello Alfaro DO Work Phone: 4(004)989-748681 [place] [address] 04-04-2025 14:52-0400 Body weight 87.[address] Bello Alfaro DO Work Phone: 1(956)246-166981 [place] [address] 04-04-2025 14:52-0400 Diastolic blood pressure 85 mm[Hg] Dr. Bello Alfaro DO Work Phone: 2(124)266-661381 [place] [address] 04-04-2025 14:52-0400 Systolic blood pressure 129 mm[Hg] Dr. Bello Alfaro DO Work Phone: 6(001)481-032881 [place] [address] 03-28-2025 11:56-0400 Diastolic blood pressure 78 mm[Hg] Dr. Bello Alfaro DO Work Phone: 2(529)552-655281 [place] [address] 03-28-2025 11:56-0400 Systolic blood pressure 123 mm[Hg] Dr. Bello Alfaro DO Work Phone: 5(028)547-921881 [place] [address] 03-28-2025 11:01-0400 Body height 160.[address] Bello Alfaro DO Work Phone: 6(163)912-605781 [place] [address] 03-28-2025 11:01-0400 Body mass index (BMI) [Ratio] 34 kg/m2 Dr. Bello Alfaro DO Work Phone: 2(824)792-413581 [place] [address] 03-28-2025 11:01-0400 Body weight 87.[address] Bello Alfaro DO Work Phone: 6(019)741-807081 [place] [address] 03-14-2025 13:30-0400 Body height 160.[address] Bello Alfaro DO Work Phone: 9(719)441-071981 [place] [address] 03-14-2025 13:30-0400 Body mass index (BMI) [Ratio] 34 kg/m2 Dr. Bello Alfaro DO Work Phone: 9(325)442-097281 [place] [address] 03-14-2025 13:30-0400 Body weight 87.[address] Bello Alfaro DO Work Phone: 1(793)073-241881 [place] [address] 03-14-2025 13:30-0400 Diastolic blood pressure 74 mm[Hg] Dr. Bello Alfaro DO Work Phone: 7(299)034-596181 [place] [address] 03-14-2025 13:30-0400 Systolic blood pressure 122 mm[Hg] Dr. Bello Alfaro DO Work Phone: 8(008)744-667481 [place] [address] 03-01-2025 11:59-0400 Body height 160.[address] Bello Alfaro DO Work Phone: 9(950)346-448881 [place] [address] 03-01-2025 11:57-0400 Body mass index (BMI) [Ratio] 34 kg/m2 Dr. Bello Alfaro DO Work Phone: 2(646)528-024881 [place] [address] 03-01-2025 11:57-0400 Body weight 87.[address] Bello Alfaro DO Work Phone: 2(410)945-768081 [place] [address] 03-01-2025 11:57-0400 Diastolic blood pressure 76 mm[Hg] Dr. Bello Alfaro DO Work Phone: 9(504)923-111681 [place] [address] 03-01-2025 11:57-0400 Systolic blood pressure 121 mm[Hg] Dr. Bello Alfaro DO Work Phone: 6(912)792-871481 [place] [address] 02-14-2025 15:17-0400 Body height 160.[address] Bello Alfaro DO Work Phone: 9(678)705-495381 [place] [address] 02-14-2025 15:13-0400 Body mass index (BMI) [Ratio] 33.3 kg/m2 Dr. Bello Alfaro DO Work Phone: 5(256)698-862081 [place] [address] 02-14-2025 15:13-0400 Body weight 85.[address] Bello Alfaro DO Work Phone: 2(476)936-446281 [place] [address] 02-14-2025 15:13-0400 Diastolic blood pressure 73 mm[Hg] Dr. Bello Alfaro DO Work Phone: 4(859)783-207081 [place] [address] 02-14-2025 15:13-0400 Systolic blood pressure 129 mm[Hg] Dr. Bello Alfaro DO Work Phone: 4(757)555-630981 [place] [address] 01-28-2025 13:15-0400 Body height 160.[address] Bello Alfaro DO Work Phone: 8(963)161-352881 [place] [address] 01-28-2025 13:14-0400 Body mass index (BMI) [Ratio] 33.1 kg/m2 Dr. Bello Alfaro DO Work Phone: [facility] 01-28-2025 13:14-0400 Body weight 84.[address] Bello Alfaro DO Work Phone: 4(852)256-253881 [place] [address] 01-28-2025 13:14-0400 Diastolic blood pressure 71 mm[Hg] Dr. Bello Alfaro DO Work Phone: 6(090)064-597820 [place] [address] 01-28-2025 13:14-0400 Systolic blood pressure 107 mm[Hg] Dr. Bello Alfaro DO Work Phone: 4(433)177-817481 [place] [address] 01-09-2025 15:23-0400 Body height 160.[address] Bello Alfaro DO Work Phone: 3(723)885-343081 [place] [address] 01-09-2025 15:23-0400 Body mass index (BMI) [Ratio] 32.4 kg/m2 Dr. Bello Alfaro DO Work Phone: 1(875)131-731781 [place] [address] 01-09-2025 15:23-0400 Body weight [address] Bello Alfaro DO Work Phone: 7(557)123-546581 [place] [address] 01-09-2025 15:23-0400 Diastolic blood pressure 67 mm[Hg] Dr. Blelo Alfaro DO Work Phone: 0(533)123-196781 [place] [address] 01-09-2025 15:23-0400 Systolic blood pressure 107 mm[Hg] Dr. Bello Alfaro DO Work Phone: 0(126)665-506120 [place] [address] 12-10-2024 11:19-0400 Body height 160.[address] Bello lAfaro DO Work Phone: 3(612)851-744081 [place] [address] 12-10-2024 11:19-0400 Body mass index (BMI) [Ratio] 31.2 kg/m2 Dr. Bello Alfaro DO Work Phone: [facility] 12-10-2024 11:19-0400 Body weight 80.[address] Bello Alfaro DO Work Phone: 1(991)494-810481 [place] [address] 12-10-2024 11:19-0400 Diastolic blood pressure 75 mm[Hg] Dr. Bello Alfaro DO Work Phone: 7(591)837-012881 [place] [address] 12-10-2024 11:19-0400 Systolic blood pressure 124 mm[Hg] Dr. Bello Alfaro DO Work Phone: 0(177)109-196481 [place] [address] 11-13-2024 15:51-0400 Body height 160.[address] Bello Alfaro DO Work Phone: 2(852)281-124681 [place] [address] 11-13-2024 15:51-0400 Body mass index (BMI) [Ratio] 30.6 kg/m2 Dr. Bello Alfaro DO Work Phone: 9(906)922-948781 [place] [address] 11-13-2024 15:51-0400 Body weight 78.[address] Bello Alfaro DO Work Phone: 6(664)198-757481 [place] [address] 11-13-2024 15:51-0400 Diastolic blood pressure 74 mm[Hg] Dr. Bello Alfaro DO Work Phone: 5(779)100-049781 [place] [address] 11-13-2024 15:51-0400 Systolic blood pressure 122 mm[Hg] Dr. Bello Alfaro DO Work Phone: 8(777)967-223581 [place] [address] 10-17-2024 09:47-0400 Body mass index (BMI) [Ratio] 30.3 kg/m2 Dr. Bello Alfaro DO Work Phone: 0(008)661-667781 [place] [address] 10-17-2024 09:47-0400 Body weight 77.[address] Bello Alfaro DO Work Phone: 4(708)494-142381 [place] [address] 10-17-2024 09:47-0400 Diastolic blood pressure 71 mm[Hg] Dr. Bello Alfaro DO Work Phone: 2(760)355-029381 [place] [address] 10-17-2024 09:47-0400 Systolic blood pressure 123 mm[Hg] Dr. Bello Alfaro DO Work Phone: 8(331)387-573981 [place] [address] 09-25-2024 11:09-0400 Body height 160.[address] Bello Alfaro DO Work Phone: [facility] 09-25-2024 11:09-0400 Body mass index (BMI) [Ratio] 29.7 kg/m2 Dr. Bello Alfaro DO Work Phone: [facility] 09-25-2024 11:09-0400 Body weight 76.[address] Bello Alfaro DO Work Phone: [facility] 09-25-2024 11:09-0400 Diastolic blood pressure 79 mm[Hg] Dr. Bello Alfaro DO Work Phone: 9(469)538-126781 [place] [address] 09-25-2024 11:09-0400 Systolic blood pressure 134 mm[Hg] Dr. Bello Alfaro DO Work Phone: 2(173)463-671281 [place] [address] 09-12-2024 08:47-0400 Body height 160.[address] Bello Alfaro DO Work Phone: 8(449)100-124581 [place] [address] 09-12-2024 08:47-0400 Body mass index (BMI) [Ratio] 29.9 kg/m2 Dr. Bello Alfaro DO Work Phone: 1(541)691-445120 [place] [address] 09-12-2024 08:47-0400 Body weight 76.[address] Bello Alfaro DO Work Phone: 3(411)025-197781 [place] [address] 09-12-2024 08:47-0400 Diastolic blood pressure 72 mm[Hg] Dr. Bello Alfaro DO Work Phone: 4(318)078-721720 [place] [address] 09-12-2024 08:47-0400 Systolic blood pressure 122 mm[Hg] Dr. Bello Alfaro DO Work Phone: 3(985)772-200881 [place] [address] 06-28-2024 09:24-0500 Body mass index (BMI) [Ratio] 29.1 kg/m2 Halima Izaguirre APRN.SURGICAL ASSIST Work Phone: [facility] 06-28-2024 09:24-0500 Body temperature 102.7 [degF] Halima Izaguirre APRN.SURGICAL ASSIST Work Phone: [facility] 06-28-2024 09:24-0500 Body weight 76.9 kg Halima Izaguirre BRIDGE PAINTER.SURGICAL ASSIST Work Phone: [facility] 06-28-2024 09:24-0500 Diastolic blood pressure 75 mm[Hg] Halima Izaguirre BRIDGE PAINTER.SURGICAL ASSIST Work Phone: [facility] 06-28-2024 09:24-0500 Heart rate 106 /min Halima Dmitriy BRIDGE PAINTER.SURGICAL ASSIST Work Phone: [facility] 06-28-2024 09:24-0500 Respiratory rate 18 /min Halima Izaguirre BRIDGE PAINTER.SURGICAL ASSIST Work Phone: [facility] 06-28-2024 09:24-0500 SaO2% (BldA) [Mass fraction] 100 % Halima Izaguirre BRIDGE PAINTER.SURGICAL ASSIST Work Phone: [facility] 06-28-2024 09:24-0500 Systolic blood pressure 114 mm[Hg] Halima Izaguirre BRIDGE PAINTER.SURGICAL ASSIST Work Phone: [facility] 08-25-2023 12:39-0500 Body temperature 96.7 [degF] No Primary Care Physician [facility] 08-25-2023 12:39-0500 Heart rate 100 /min No Primary Care Physician [facility] 08-25-2023 12:39-0500 Respiratory rate 16 /min No Primary Care Physician [facility] 08-25-2023 12:39-0500 SaO2% (BldA) [Mass fraction] 97 % No Primary Care Physician [facility] 08-25-2023 12:10-0500 Diastolic blood pressure 90 mm[Hg] No Primary Care Physician [facility] 08-25-2023 12:10-0500 Systolic blood pressure 145 mm[Hg] No Primary Care Physician [facility] 08-23-2023 07:38-0500 Body height 162.56 cm No Primary Care Physician [facility] 08-23-2023 07:38-0500 Body mass index (BMI) [Ratio] 36.6 kg/m2 No Primary Care Physician [facility] 08-23-2023 07:38-0500 Body weight 96.9 kg No Primary Care Physician [facility] 08-15-2023 08:23-0500 Body height 162.56 cm No Primary Care Physician [facility] 08-15-2023 08:23-0500 Body mass index (BMI) [Ratio] 36.7 kg/m2 No Primary Care Physician [facility] 08-15-2023 08:23-0500 Body weight 97.12 kg No Primary Care Physician [facility] 08-15-2023 08:23-0500 Diastolic blood pressure 88 mm[Hg] No Primary Care Physician [facility] 08-15-2023 08:23-0500 Systolic blood pressure 131 mm[Hg] No Primary Care Physician [facility] 08-11-2023 15:02-0500 Body mass index (BMI) [Ratio] 36.3 kg/m2 No Primary Care Physician [facility] 08-11-2023 15:02-0500 Body weight 96.21 kg No Primary Care Physician [facility] 08-11-2023 15:02-0500 Diastolic blood pressure 84 mm[Hg] No Primary Care Physician [facility] 08-11-2023 15:02-0500 Systolic blood pressure 126 mm[Hg] No Primary Care Physician [facility] 08-01-2023 08:22-0500 Body mass index (BMI) [Ratio] 36.6 kg/m2 No Primary Care Physician [facility] 08-01-2023 08:22-0500 Body weight 96.61 kg No Primary Care Physician [facility] 08-01-2023 08:22-0500 Diastolic blood pressure 79 mm[Hg] No Primary Care Physician [facility] 08-01-2023 08:22-0500 Systolic blood pressure 122 mm[Hg] No Primary Care Physician [facility] 07-18-2023 08:28-0500 Body mass index (BMI) [Ratio] 35.4 kg/m2 No Primary Care Physician [facility] 07-18-2023 08:28-0500 Body weight 93.66 kg No Primary Care Physician [facility] 07-18-2023 08:28-0500 Diastolic blood pressure 78 mm[Hg] No Primary Care Physician [facility] 07-18-2023 08:28-0500 Systolic blood pressure 120 mm[Hg] No Primary Care Physician [facility] 07-06-2023 08:34-0500 Body mass index (BMI) [Ratio] 34.8 kg/m2 No Primary Care Physician [facility] 07-06-2023 08:34-0500 Body weight 92.13 kg No Primary Care Physician [facility] 07-06-2023 08:34-0500 Diastolic blood pressure 78 mm[Hg] No Primary Care Physician [facility] 07-06-2023 08:34-0500 Systolic blood pressure 129 mm[Hg] No Primary Care Physician [facility] 06-22-2023 08:56-0500 Diastolic blood pressure 77 mm[Hg] Dr. Bello Alfaro Work Phone: 3(487)457-847781 [place] [address] 06-22-2023 08:56-0500 Systolic blood pressure 128 mm[Hg] Dr. Bello Alfaro Work Phone: 6(773)519-015581 [place] [address] 06-22-2023 08:24-0500 Body height 162.[address] Bello Alfaro Work Phone: 8(114)214-132381 [place] [address] 06-22-2023 08:23-0500 Body mass index (BMI) [Ratio] 34.5 kg/m2 Dr. Bello Alfaro Work Phone: 9(893)766-085181 [place] [address] 06-22-2023 08:23-0500 Body weight 91.[address] Bello Alfaro Work Phone: 9(392)106-717281 [place] [address] 05-25-2023 11:21-0500 Body mass index (BMI) [Ratio] 33.7 kg/m2 Dr. Bello Alfaro Work Phone: 9(804)350-978181 [place] [address] 05-25-2023 11:21-0500 Body weight 89.[address] Bello Alfaro Work Phone: 6(252)706-729881 [place] [address] 04-26-2023 09:12-0400 Body mass index (BMI) [Ratio] 32.7 kg/m2 Dr. Bello Alfaro Work Phone: 4(995)992-079281 [place] [address] 04-26-2023 09:12-0400 Body weight 86.[address] Bello Alfaro Work Phone: 6(096)542-642381 [place] [address] 04-26-2023 09:12-0400 Diastolic blood pressure 78 mm[Hg] Dr. Bello Alfaro Work Phone: 7(266)367-584781 [place] [address] 04-26-2023 09:12-0400 Systolic blood pressure 122 mm[Hg] Dr. Bello Alfaro Work Phone: 9(271)794-327981 [place] [address] 03-29-2023 08:33-0400 Body mass index (BMI) [Ratio] 31.9 kg/m2 Dr. Bello Alfaro Work Phone: 7(847)711-357281 [place] [address] 03-29-2023 08:33-0400 Body weight 84.[address] Bello Alfaro Work Phone: 0(269)265-503581 [place] [address] 03-29-2023 08:33-0400 Diastolic blood pressure 65 mm[Hg] Dr. Bello Alfaro Work Phone: 2(717)517-449181 [place] [address] 03-29-2023 08:33-0400 Systolic blood pressure 108 mm[Hg] Dr. Bello Alfaro Work Phone: 2(738)317-031681 [place] [address] 03-01-2023 08:39-0400 Body mass index (BMI) [Ratio] 31.1 kg/m2 Dr. Bello Alfaro Work Phone: 6(428)533-591081 [place] [address] 03-01-2023 08:39-0400 Body weight 82.[address] Bello Alfaro Work Phone: 9(947)658-787681 [place] [address] 03-01-2023 08:39-0400 Diastolic blood pressure 72 mm[Hg] Dr. Bello Alfaro Work Phone: 5(627)562-405481 [place] [address] 03-01-2023 08:39-0400 Systolic blood pressure 109 mm[Hg] Dr. Bello Alfaro Work Phone: 1(162)681-016581 [place] [address] 01-31-2023 13:21-0400 Body height 162.[address] Blelo Alfaro Work Phone: 0(677)825-312881 [place] [address] 01-31-2023 13:18-0400 Body mass index (BMI) [Ratio] 31.2 kg/m2 Dr. Bello Alfaro Work Phone: 5(244)241-560981 [place] [address] 01-31-2023 13:18-0400 Body weight 82.[address] Bello Alfaro Work Phone: [facility] 01-31-2023 13:18-0400 Diastolic blood pressure 75 mm[Hg] Dr. Bello Alfaro Work Phone: [facility] 01-31-2023 13:18-0400 Systolic blood pressure 124 mm[Hg] Dr. Bello Alfaro Work Phone: [facility] 06-10-2022 09:23-0500 Body height 162.[address] Bello Alfaro Work Phone: [facility] Work Phone: 06-10-2022 09:17-0500 Body mass index (BMI) [Ratio] 29.5 kg/m2 Dr. Bello Alfaro Work Phone: [facility] Work Phone: 06-10-2022 09:17-0500 Body weight 78.[address] Bello Alfaro Work Phone: [facility] Work Phone: 05-03-2022 12:49-0400 Body temperature 99 [degF] Dorina Zurawick BRIDGE PAINTER.SURGICAL ASSIST Work Phone: [facility] 05-03-2022 12:49-0400 Body weight 77.66 kg Dorina Zurawick BRIDGE PAINTER.SURGICAL ASSIST Work Phone: [facility] 05-03-2022 12:49-0400 Diastolic blood pressure 68 mm[Hg] Dorina Zurawick BRIDGE PAINTER.SURGICAL ASSIST Work Phone: [facility] 05-03-2022 12:49-0400 Heart rate 86 /min Dorina Zurawick BRIDGE PAINTER.SURGICAL ASSIST Work Phone: [facility] 05-03-2022 12:49-0400 Respiratory rate 14 /min Dorina Zurawick BRIDGE PAINTER.SURGICAL ASSIST Work Phone: [facility] 05-03-2022 12:49-0400 SaO2% (BldA) [Mass fraction] 99 % Dorinadoreen Daley BRIDGE PAINTER.SURGICAL ASSIST Work Phone: [facility] 05-03-2022 12:49-0400 Systolic blood pressure 100 mm[Hg] Dorina Orozconikunj BRIDGE PAINTER.SURGICAL ASSIST Work Phone: [facility] Encounters Encounter Date Encounter Type Care Provider Facility Start: 04-25-2025 End: 04-25-2025 ambulatory Bello Alfaro [place] Start: 04-22-2025 End: 04-22-2025 Patient encounter procedure Nikki Donato PAD ASSEMBLER-C -[facility] Work Phone: Start: 04-22-2025 End: 04-22-2025 ambulatory Nikki Donato [place] Start: 04-20-2025 Non-patient / Non-visit Kathy Tinsley CNM -[facility] Start: 04-19-2025 Non-patient / Non-visit Dr. Clementina Enrique MD -[facility] Start: 04-18-2025 Non-patient / Non-visit Dr. Camille Herzog DO -[facility] Start: 04-18-2025 End: 04-20-2025 Evaluation and management of inpatient Camille Herzog Facility:[facility] Start: 04-18-2025 End: 04-18-[address] Camille Herzog DO -[facility] Work Phone: Start: 04-18-2025 End: 04-18-[address] Bello Alfaro DO Work Phone: -[facility] Start: 04-11-2025 End: 04-11-[address] Bello Alfaro DO Work Phone: -[facility] Start: 04-11-2025 End: 04-11-2025 Patient encounter procedure Lavern DOMINGO -[facility] Work Phone: Start: 04-11-2025 ambulatory Lavern Zavala Facility [place] Start: 04-11-2025 Non-patient / Non-visit Lavern Zavala CNM -[facility] Start: 04-08-2025 End: 04-08-[address] Bello Alfaro DO Work Phone: -[facility] Start: 04-08-2025 End: 04-08-2025 Patient encounter procedure Lavern Zavala CNM -[facility] Work Phone: Start: 04-04-2025 End: 04-04-2025 Patient encounter procedure Lavern Zavala CNM -[facility] Work Phone: Start: 04-04-2025 End: 04-04-[address] Bello Alfaro DO Work Phone: -[facility] Start: 03-28-2025 End: 03-28-[address] Bello Alfaro DO Work Phone: -Laboratory Specimen Start: 03-28-2025 End: 03-28-[address] Camille Herzog DO -Labor[facility] Specimen Work Phone: Start: 03-28-2025 End: 03-28-[address] Camille Herzog DO -[facility] Work Phone: Start: 03-28-2025 End: 03-28-[address] Bello Alfaro DO Work Phone: -[facility] Start: 03-28-2025 End: 03-28-2025 ambulatory Camille Herzog Facility:[facility] Start: 03-14-2025 End: 03-14-2025 Patient encounter procedure Liana MNEDEZ -[facility] Work Phone: Start: 03-14-2025 End: 03-14-[address] Bello Alfaro DO Work Phone: -[facility] Start: 03-01-2025 End: 03-01-2025 Patient encounter procedure Lavern Zavala CNM -[facility] Work Phone: Start: 03-01-2025 End: 03-01-[address] Bello Alfaro DO Work Phone: [facility] Start: 02-14-2025 End: 02-14-[address] Clementina Enrique MD -[facility] Work Phone: Start: 02-14-2025 End: 02-14-[address] Bello Alfaro DO Work Phone: [facility] Start: 01-28-2025 End: 01-28-2025 Patient encounter procedure Liana Rodriguez PAD ASSEMBLER-C -[facility] Work Phone: Start: 01-28-2025 End: 01-28-[address] Bello Alfaro DO Work Phone: [facility] Start: 01-28-2025 End: 01-28-2025 ambulatory Liana Rodriguez NP Facility:[facility] Start: 01-09-2025 End: 01-09-[address] Camille Herzog DO -[facility] Work Phone: Start: 01-09-2025 End: 01-09-[address] Bello Alfaro DO Work Phone: [facility] Start: 12-10-2024 End: 12-10-2024 Patient encounter procedure Lavern Zavala CNM -[facility] Work Phone: Start: 12-10-2024 End: 12-10-[address] Bello Alfaro DO Work Phone: [facility] Work Phone: Start: 12-10-2024 End: 12-10-2024 ambulatory Lavern Zavala Facility:[facility] Start: 11-29-2024 End: 11-29-2024 ambulatory KELY PEREZ [facility] Start: 11-13-2024 End: 11-13-2024 Patient encounter procedure Liana Rodriguez NP-C -[facility] Work Phone: Start: 11-13-2024 End: 11-13-[address] Bello Alfaro DO Work Phone: [facility] Work Phone: Start: 11-13-2024 End: 11-13-2024 ambulatory Liana Rodriguez NP Facility:[facility] Start: 10-17-2024 End: 10-17-[address] Clementina Enrique MD -[facility] Work Phone: Start: 10-17-2024 End: 10-17-2024 ambulatory Clementina Enrique [place] [place]: 09-25-2024 End: 09-25-2024 Patient encounter procedure Lavern Zavala CNM -[facility] Work Phone: Start: 09-25-2024 End: 09-25-[address] Bello Alfaro DO Work Phone: [facility] Work Phone: Start: 09-25-2024 End: 09-25-2024 ambulatory Camille Herzog Facility:[facility] Start: 09-12-2024 End: 09-12-[address] Bello Alfaro DO Work Phone: [facility] Work Phone: Start: 09-12-2024 End: 09-12-[address] Camille Herzog DO -Laboratory, Specimen Work Phone: Start: 09-12-2024 End: 09-12-[address] Camille Herzog DO -[facility] Work Phone: Start: 09-12-2024 End: 09-12-2024 ambulatory Camille Herzog [place] Start: 09-12-2024 End: 09-12-2024 ambulatory Camille Herzog Facility:[facility] Start: 06-28-2024 End: 06-28-2024 Subsequent hospital visit by physician Salazar [facility] Work Phone: Radiology Comment on above: Acute cough [R05.1] Start: 06-28-2024 End: 06-28-2024 ambulatory BELLO ALFARO Facility:[facility] Start: 06-28-2024 End: 06-28-2024 Patient encounter procedure Halima Izaguirre TAURUS Work Phone: [facility] Comment on above: Influenza A (Primary Dx); Acute cough; History of asthma Start: 08-25-2023 Non-patient / Non-visit No Primary Care Physician [facility] Start: 08-24-2023 Non-patient / Non-visit No Primary Care Physician [facility] Start: 08-23-2023 Non-patient / Non-visit No Primary Care Physician [facility] Start: 08-23-2023 End: 08-25-2023 Evaluation and management of inpatient No Primary Care Physician [facility] Work Phone: Start: 08-15-2023 End: 08-15-2023 Patient encounter procedure No Primary Care Physician [facility] Work Phone: Start: 08-11-2023 End: 08-11-2023 ambulatory No Primary Care Physician [facility] Work Phone: Start: 08-11-2023 End: 08-11-2023 Patient encounter procedure No Primary Care Physician [facility] Work Phone: Start: 08-01-2023 End: 08-01-2023 Patient encounter procedure No Primary Care Physician [facility] Work Phone: Start: 07-18-2023 End: 07-18-2023 Patient encounter procedure No Primary Care Physician [facility] Work Phone: Start: 07-06-2023 End: 07-06-2023 Patient encounter procedure No Primary Care Physician [facility] Work Phone: Start: 06-22-2023 End: 06-22-[address] Bello Alfaro Work Phone: [facility] Work Phone: Start: 06-22-2023 End: 06-22-[address] Bello Alfaro Work Phone: [facility] Work Phone: Start: 05-25-2023 End: 05-25-[address] Bello Alfaro Work Phone: [facility] Work Phone: Start: 04-26-2023 End: 04-26-[address] Bello Alfaro Work Phone: [facility] Work Phone: Start: 03-29-2023 End: 03-29-[address] Bello Alfaro Work Phone: [facility] Work Phone: Start: 03-01-2023 End: 03-01-[address] Bello Alfaro Work Phone: [facility] Work Phone: Start: 02-11-2023 End: 02-11-[address] Bello Alfaro Work Phone: [facility] Work Phone: Start: 02-11-2023 End: 02-11-[address] Bello Alfaro Work Phone: [facility] Work Phone: Start: 01-31-2023 End: 01-31-[address] Bello Alfaro Work Phone: [facility] Work Phone: Start: 01-31-2023 End: 01-31-[address] Bello Alfaro Work Phone: [facility] Work Phone: Start: 01-02-2023 End: 01-02-2023 [facility] Start: 12-31-2022 End: 12-31-2022 ambulatory [facility] Work Phone: Start: 12-31-2022 End: 12-31-2022 [facility] Start: 06-10-2022 End: 06-10-[address] Bello Alfaro Work Phone: [facility] Work Phone: Start: 06-10-2022 End: 06-10-[address] Bello Alfaro [facility] Start: 06-10-2022 End: 06-10-[address] Bello Alfaro Work Phone: [facility] Start: 06-08-2022 Telephone encounter [facility] [place] Comment on above: Appointment Start: 05-16-2022 End: 05-16-2022 ambulatory [facility] Work Phone: Start: 05-16-2022 End: 05-16-2022 [facility] Start: 05-14-2022 End: 05-14-2022 [facility] Start: 05-03-2022 End: 05-03-2022 Patient encounter procedure Dorina Daley APRN.CNP Work Phone: [facility] [place] Comment on above: Bacterial sinusitis (Primary Dx); PÉREZ (generalized anxiety disorder); Less than 8 weeks gestation of Start: 03-04-2021 Patient encounter status Dorina Daley BRIDGE PAINTER.SURGICAL ASSIST Work Phone: [facility] Work Phone: Procedures Date Procedure Procedure Detail Performing Clinician Start: 04-18-[address] Arnol Alfaro DO Work Phone: Start: 04-18-2025 Serologic test for syphilis Dr. Bello Alfaro DO Work Phone: Start: 03-28-2025 Beta-hemolytic Streptococcus culture Dr. Bello Alfaro DO Work Phone: Start: 01-28-2025 Serologic test for syphilis Dr. Bello Alfaro DO Work Phone: Start: 11-13-[address] Bello Alfaro DO Work Phone: Comment on above: TEST RESULTS LIMITSAFP, Serum, Open Spin a Bifida Results Report Test Results: *Screen Negative* Gest. Age on Collection Date 17.1 weeks Gestat. Age Based On As provided Recalculations are not recommended when gestational dating by LMP and ultrasound are within 10 days. [age] Race Weight 171 lbs Insulin Dep Diabetes No Multiple Gestation No AFP Value 47.1 ng/mL AFP MoM 1.34 OSBR Risk 1 IN 4273Interpretation Interpretation: Screen NegativeThis result is screen negative for OSB. The AFP MoM calculated is based on the gestational age provided. MS-AFP can identify up to 80% of open neural tube defects. Closed neural tube defects and some open defects may not be detected by this test. This test does not screen for Down Syndrome or Trisomy 18. If screening for Down Syndrome or Trisomy 18 is desired, contact [employer] to discuss available options. The [employer] recommends amniocentesis be offered to women age 35 and older.Comment: Gisele Rossi, Ph.D., DABCCDirectorReferences: Available Upon Request.Multiples Of Median Cutoffs For AFP ElevationsSingleton 2.5 Black 2.8IDD 2.0 Twins 4.5 Abbreviation DefinitionsIDD - Insulin Dep DiabetesOSBR - Open Spina Bifida RiskFor further inquiries contact [employer] at [phone].This test was developed and its performance characteristicsdetermined by [employer]. It has not been cleared or approvedby the Food and Drug Administration. TESTING PERFORMED AT [facility]. ORIGINAL REPORT ON FILE IN LAB CONTAINS ADDITIONAL TEST SITE INFORMATION. Start: 09-25-2024 Hepatitis C antibody measurement Dr. Rafael Alfaro DO Work Phone: Comment on above: Reactive: Presumptive evidence of antibo dies to HCV. Follow CDC recommendations for supplemental testing.Non-Reactive: Antibodies to HCV were not detected; does not exclude the possibility of exposure to HCVReactive Results are presumptive evidence of antibodies to HCV. Follow CDC recommendations for supplemental testing.Order confirmation testing: HCV Quant by PCR testing - HCVPCR #[id number] Non Reactive: < 0.8 Equivocal: >/= 0.8 to < 1.0 Reactive: >/= 1.0The CDC requires that a reactive/equivocal HCV antibody result be sent out for confirmation. HCV Quant by PCR testing. Start: 09-25-[address] Bello Alfaro DO Work Phone: Start: 09-25-[address] eBllo Alfaro DO Work Phone: Comment on above: Antibody Result: InterpretationNon-React stan: Non-ImmuneReactive: ImmuneThe following results were obtained with the [employer] Rubella IgG assay. Results from assays of other manufacturers cannot be used interchangeably. Start: 09-25-2024 Serologic test for syphilis Dr. Bello Alfaro DO Work Phone: Start: 09-12-[address] Bello Alfaro DO Work Phone: Start: 06-28-2024 Radiologic exam chest 2 views Halima arcihbald APRN.SURGICAL ASSIST Work Phone: Start: 06-28-2024 INFLUENZA A&B MOLECULAR (POC) [facility] Start: 08-11-2023 Group B Streptococcus Culture No Primary Care Physician Start: 01-31-[address] Bello Alfaro Work Phone: Start: 01-31-[address] Bello Alfaro Work Phone: Plan of Treatment Date Care Activity Detail Author Start: 07-06-2033 Urine microalbumin profile DTaP,Tdap,Td Vaccine (8 - Td or Tdap) [facility] Start: 04-25-2025 End: 04-25-2025 Patient encounter procedure Departed Physician/Provider Office Visit -[facility] Work Phone: Start: 04-22-2025 End: 04-22-2025 Patient encounter procedure Care and examination of lactating mother -[facility] Work Phone: Start: 04-20-2025 [facility] Start: 04-20-2025 Patient discharge [facility] Start: 04-19-2025 Consultation [facility] Start: 04-18-2025 Documentation procedure [facility] Start: 04-18-2025 Application of ice collar, cap or bag [facility] Start: 04-18-2025 Catheterization of vein [facility] Start: 04-18-2025 Introduction of urin felix catheter [facility] Start: 04-18-2025 Measuring intake and output [facility] Start: 04-18-2025 Notification of physician [facility] Start: 04-18-2025 Procedure discontinued [facility] Start: 04-18-2025 Provision of activit y privileges [facility] Start: 04-18-2025 Vital signs measurements [facility] Start: 04-18-2025 End: 04-18-2025 [facility] Start: 04-18-2025 [facility] Start: 04-18-2025 Admission procedure [facility] Start: 04-18-2025 End: 04-20-2025 Evaluation and management of inpatient Anxiety with depression -[facility] Work Phone: Start: 04-08-2025 Nonstress test [facility] Start: 04-08-2025 Obstetric monitoring [facility] Start: 04-08-2025 Vital signs measurements [facility] Start: 04-08-2025 [facility] Start: 04-08-2025 Patient discharge [facility] Start: 04-04-2025 [facility] Start: 01-28-2025 CBC W Auto Different ial panel - Blood [facility] Start: 01-28-2025 Measurement of gluco se 2 hours after glucose challenge for glucose tolerance test [facility] Start: 01-28-2025 Serologic test for syphilis [facility] Start: 01-28-2025 [facility] Start: 11-13-2024 Procedure [facility] Start: 03-04-2024 Covid-19 Vaccine ( season) Covid-19 Vaccine () [facility] Start: 03-04-2024 Influenza vaccination Influenz a Vaccine (#1) [facility] Start: 08-25-2023 Patient discharge [facility] Start: 08-24-2023 Documentation procedure [facility] Start: 08-24-2023 Administration of medication [facility] Start: 08-24-2023 Application of ice collar, cap or bag [facility] Start: 08-24-2023 Catheterization of vein [facility] Start: 08-24-2023 Introduction of urin felix catheter [facility] Start: 08-24-2023 Measuring intake and output [facility] Start: 08-24-2023 Notification of physician [facility] Start: 08-24-2023 Procedure discontinued [facility] Start: 08-24-2023 Provision of activit y privileges [facility] Start: 08-24-2023 Vital signs measurements [facility] Start: 08-24-2023 End: 08-24-2023 [facility] Start: 08-24-2023 Consultation [facility] Start: 08-23-2023 Verification routine [facility] Start: 08-23-2023 Admission procedure [facility] Start: 07-03-2023 PAP TESTING PAP TESTING [facility] Start: 07-03-2023 Screening for malign ant neoplasm of cervix Cervical Cancer Screening [facility] Start: 05-03-2023 Urine microalbumin profile DTAP,TDAP,TD (7 - Td or Tdap) [facility] Comment on above: Postponed from 01/30 (Declined at this time) Start: 12-31-2022 Influenza vaccination INFLUENZA (#1) [facility] Comment on above: Postponed from 03/04 (Declined at this time) Start: 06-10-2022 Liquid based cervica l cytology screening [facility] Work Phone: Start: 2014 HEPATITIS C SCREENING HEPATITIS C [facility] Start: 2014 Hepatitis C screening Hepatitis C [facility] Start: 2014 HIV SCREENING HIV SCREENING [facility] Start: 2014 HIV screening HIV Screening [facility] Start: 2010 PEDS TO ADULT TRANSI TION ANNUAL ASSESSMENT PEDS TO ADULT TRANSITION ANNUAL ASSESSMENT [facility] Start: 2008 PEDS TO ADULT TRANSI TION INITIAL DISCUSSION PEDS TO ADULT TRANSITION INITIAL DISCUSSION [facility] Start: 12-02-2007 HPV VACCINE (1 - 2-d ose series) HPV VACCINE (1 - 2-dose series) [facility] Start: 06-02-1997 COVID-19 VACCINE (#1) COVID-19 VACCI NE (#1) [facility] CBC W Auto Different ial panel - Blood [facility] CBC W Auto Different ial panel - Blood [facility] CBC W Auto Different ial panel - Blood [facility] Comprehensive metabo lic 2000 panel - Serum or Plasma [facility] Erythrocyte mean corpuscular volume determination [facility] Hematocrit [Volume Fraction] of Blood [facility] Hemoglobin [Mass/vol ume] in Blood [facility] Hepatitis B surface antigen measurement [facility] Hepatitis C antibody measurement [facility] Hepatitis C antibody measurement [facility] HIV 1+2 Ab+HIV1 p24 Ag [Presence] in Serum or Plasma by Immunoassay [facility] Leukocytes [#/volume ] in Blood [facility] Mean corpuscular hemoglobin concentration determination [facility] Mean corpuscular hemoglobin determination [facility] Measurement of gluco se 2 hours after glucose challenge for glucose tolerance test [facility] Neutrophil count [facility] Neutrophil percent differential count [facility] Path report.final Dx Spec Wo [facility] Work Phone: Patient Education [facility] Work Phone: Patient referral [facility] Work Phone: Platelets [#/volume] in Blood [facility] Procedure [facility] Protein/Creatinine [Ratio] in Urine [facility] Red blood cell count [facility] Red cell distributio n width determination [facility] Rubella IgG measurement [facility] Rubella IgG measurement [facility] Serologic test for syphilis [facility] Treponema sp Ab [Presence] in Serum [facility] Treponema sp Ab [Presence] in Serum [facility] Immunizations Immunization Date Immunization Notes Care Provider Jeovany [facility] 03-01-2025 tetanus toxoid, redu dwaine diphtheria toxoid, and acellular pertussis vaccine, adsorbed Dr. Bello Alfaro DO Work Phone: [facility] 07-06-2023 tetanus toxoid, redu dwaine diphtheria toxoid, and acellular pertussis vaccine, adsorbed No Primary Care Physician [facility] 04-24-2014 influenza, injectabl e, quadrivalent, preservative free Dorina Daley APRN.SURGICAL ASSIST Work Phone: [facility] 04-24-2014 influenza virus vaccine, unspecified formulation Halima Izaguirre APRN.SURGICAL ASSIST Work Phone: [facility] 01-30-2013 Meningococcal, MCV4, unspecified conjugate formulation(groups A, C, Y and W-135) Dorina Daley APRN.SURGICAL ASSIST Work Phone: [facility] Work Phone: 01-30-2013 varicella virus vaccine Genny on [place] BRIDGE PAINTER.[facility] Work Phone: [facility] Work Phone: 04-17-2009 influenza virus vaccine, unspecified formulation Dorina [place] BRIDGE PAINTER.[facility] Work Phone: [facility] 01-30-2009 hepatitis A vaccine, unspecified formulation Dorina [place] BRIDGE PAINTER.[facility] Work Phone: [facility] Work Phone: 01-30-2009 Meningococcal, MCV4, unspecified conjugate formulation(groups A, C, Y and W-135) Dorina [place] BRIDGE PAINTER.[facility] Work Phone: [facility] Work Phone: 01-30-2009 tetanus toxoid, redu dwaine diphtheria toxoid, and acellular pertussis vaccine, adsorbed Dorina [place] BRIDGE PAINTER.[facility] Work Phone: [facility] Work Phone: 05-09-2008 influenza virus vaccine, unspecified formulation Dorina [place] BRIDGE PAINTER.[facility] Work Phone: [facility] Work Phone: 05-22-2007 influenza virus vaccine, unspecified formulation Dorina [place] BRIDGE PAINTER.[facility] Work Phone: [facility] 02-14-2007 hepatitis A vaccine, unspecified formulation Dorina [place] BRIDGE PAINTER.[facility] Work Phone: [facility] Work Phone: 05-09-2006 influenza virus vaccine, unspecified formulation Dorina [place] BRIDGE PAINTER.[facility] Work Phone: [facility] Work Phone: 05-10-2005 influenza virus vaccine, unspecified formulation Dorina [place] BRIDGE PAINTER.[facility] Work Phone: [facility] Work Phone: 05-29-2004 influenza virus vaccine, unspecified formulation Dorina [place] BRIDGE PAINTER.[facility] Work Phone: [facility] Work Phone: 02-06-2002 diphtheria, tetanus toxoids and acellular pertussis vaccine Dorina [place] BRIDGE PAINTER.[facility] Work Phone: [facility] Work Phone: 02-06-2002 measles, mumps and rubella virus vaccine Dorina [place] BRIDGE PAINTER.[facility] Work Phone: [facility] Work Phone: 02-06-2002 poliovirus vaccine, inactivated Dorina [place] BRIDGE PAINTER.[facility] Work Phone: [facility] Work Phone: 06-13-2000 influenza virus vaccine, unspecified formulation Dorina [place] BRIDGE PAINTER.[facility] Work Phone: [facility] Work Phone: 06-05-1999 influenza virus vaccine, unspecified formulation Dorina [place] BRIDGE PAINTER.[facility] Work Phone: [facility] Work Phone: 02-06-1999 poliovirus vaccine, inactivated Dorina [place] BRIDGE PAINTER.[facility] Work Phone: [facility] Work Phone: 11-03-1998 diphtheria, tetanus toxoids and acellular pertussis vaccine Dorina [place] BRIDGE PAINTER.[facility] Work Phone: [facility] Work Phone: 11-03-1998 haemophilus influenz ae type b vaccine, HbOC conjugate Dorina [place] BRIDGE PAINTER.[facility] Work Phone: [facility] Work Phone: 11-28-1997 measles, mumps and rubella virus vaccine Dorina [place] BRIDGE PAINTER.[facility] Work Phone: [facility] Work Phone: 11-28-1997 varicella virus vaccine Genny on [place] BRIDGE PAINTER.[facility] Work Phone: [facility] Work Phone: 06-03-1997 diphtheria, tetanus toxoids and acellular pertussis vaccine Dorina [place] BRIDGE PAINTER.[facility] Work Phone: [facility] Work Phone: 06-03-1997 haemophilus influenz ae type b vaccine, HbOC conjugate Dorina [place] BRIDGE PAINTER.[facility] Work Phone: [facility] Work Phone: 06-03-1997 hepatitis B vaccine, pediatric or pediatric/adolescent dosage Dorina [place] BRIDGE PAINTER.[facility] Work Phone: [facility] Work Phone: 04-03-1997 diphtheria, tetanus toxoids and acellular pertussis vaccine Dorina [place] BRIDGE PAINTER.[facility] Work Phone: [facility] Work Phone: 04-03-1997 haemophilus influenz ae type b vaccine, HbOC conjugate Dorina [place] BRIDGE PAINTER.[facility] Work Phone: [facility] Work Phone: 04-03-1997 poliovirus vaccine, inactivated Dorina [place] BRIDGE PAINTER.[facility] Work Phone: [facility] Work Phone: 02-19-1997 diphtheria, tetanus toxoids and acellular pertussis vaccine Dorina [place] BRIDGE PAINTER.[facility] Work Phone: [facility] Work Phone: 02-19-1997 haemophilus influenz ae type b vaccine, HbOC conjugate Dorina [place] BRIDGE PAINTER.[facility] Work Phone: [facility] Work Phone: 02-19-1997 poliovirus vaccine, inactivated Dorina [place] BRIDGE PAINTER.[facility] Work Phone: [facility] Work Phone: 01-16-1997 hepatitis B vaccine, pediatric or pediatric/adolescent dosage Dorina [place] BRIDGE PAINTER.[facility] Work Phone: [facility] Work Phone: 1996 hepatitis B vaccine, pediatric or pediatric/adolescent dosage Dorina [place] BRIDGE PAINTER.SURGICAL ASSIST Work Phone: [facility] Work Phone: Payers Date Payer Category Payer Self-pay [id number] 2022 Unknown [id number] 2015 Unknown [id number] 2006 Unknown [facility] [id number] 1996 Unknown [id number] 2.16. [id number] Unknown JOVANNY [id number] Unknown [id number] 2.16.8 [id number] Unknown [id number] 2.16.8 [id number] Unknown [id number] 2.16.8 [id number] Unknown [id number] 2.16.8 40.1.800902.3.579.2.462 Unknown [id number] 2.16.8 40.1.151648.3.579.2.462 Unknown [id number] 2.16.8 40.1.823825.3.579.2.462 Unknown [id number] 2.16.8 40.1.296566.3.579.2.462 Unknown [id number] 2.16.8 40.1.809261.3.579.2.462 Unknown [id number] 2.16.8 40.1.638320.3.579.2.462 Unknown [id number] 2.16.8 40.1.899813.3.579.2.462 Unknown [id number] 2.16.8 40.1.730798.3.579.2.462 Unknown [id number] 2.16.8 40.1.038299.3.579.2.462 Unknown [id number] 2.16.8 40.1.209478.3.579.2.462 Unknown [id number] 2.16.8 40.1.036836.3.579.2.462 Unknown [id number] 2.16.8 40.1.498781.3.579.2.462 Unknown [id number] 2.16.8 40.1.331057.3.579.2.462 Unknown [id number] 2.16.8 40.1.601706.3.579.2.462 Unknown [id number] 2.16.8 40.1.389851.3.579.2.462 Unknown [id number] 2.16.8 40.1.950964.3.579.2.462 Unknown [id number] 2.16.8 40.1.108130.3.579.2.462 Unknown [id number] 2.16.8 [id number] Unknown [id number] 2.16.8 [id number] Unknown [id number] 2.16.8 [id number] Unknown [id number] 2.16.8 [id number] Unknown [id number] 2.16.8 [id number] Unknown [id number] 2.16.8 [id number] Unknown [id number] 2.16.8 [id number] Unknown [id number] 2.16.8 [id number] Social History Date Type Detail Facility Start: 08-28-2024 End: 04-23-2025 Tobacco smoking status NHIS Never smoked tobacco [facility] Start: 05-03-2022 End: 06-28-2024 Alcohol intake Current non-drinker of alcohol (finding) [facility] Start: 07-03-2020 History SDOH Social Connections Phone 5 [facility] Start: 07-03-2020 History SDOH Social Connections Get Together 4 [facility] Start: 07-03-2020 History SDOH Social Connections Restorationism 2 [facility] Start: 07-03-2020 History SDOH Social Connections Meetings 1 [facility] Start: 07-03-2020 History SDOH Social Connections Living 7 [facility] Start: 07-03-2020 History SDOH Physica l Activity DPW 0 [facility] Start: 07-03-2020 History SDOH Stress 3 [facility] Start: 07-03-2020 Education 21 [facility] Start: 1995 Sex Assigned At Not on file C [facility] Start: 04-23-2022 End: 05-03-2022 Exposure to SARS-CoV-2 (event) Not sure [facility] Start: 03-20-2015 End: 08-23-2023 Tobacco smoking status NHIS Unknown if ever smoked [facility] Start: 1995 Sex Assigned At Female W [facility] Start: 07-03-2020 End: 07-25-2023 History of Social function [facility] Start: 07-03-2020 End: 07-25-2023 Social connection and isolation panel [facility] Do you belong to any clubs or organizations such as amish groups, unions, fraternal or athletic groups, or school groups? No [facility] Are you now , , , , never or living with a partner? Never [facility] Do you feel stress - tense, restless, nervous, or anxious, or unable to sleep at night because your mind is troubled all the time - these days [OSQ] To some extent [facility] National Score (1-10 0), lower number is lower risk 51 [facility] Start: 09-19-2024 End: 09-30-2024 Sex Female (finding) [facility] Goals Date Patient Goal Desired Activity /State Clinical Notes 05-03-2022 to 04-22-2025 Note Date & Type Note Facility 04-22-2025 Progress note [facility] 04-22-2025 Progress note Note Date/Time April 23, 2025 9:26am [facility] [address] [address] OFFICE VISIT Date of Service: 04/22/25 MR#: [id number] Acct: [id number] Name: ROBERTO CARLOS JAIN Rep #: [id number] : 1995 Provider: ANDREA Donato Age/Sex: 29/F Location: [facility] Status: Signed Intake Vital Signs 04/18/25 11:41 Height 5 ft 4 in Intake Visit Reasons: Visit Allergies No Known Allergies Allergy (Verified 04/18/25 11:36) [facility] Medical History (Updated 04/23/25 @ 08:21 by ANDREA Matson) Care and examination of lactating mother Engorgement of breasts Gestational HTN Vaginal delivery Family history of malignant hyperthermia Asthma Seasonal allergies Anxiety with depression Family History Father Diabetes Mother Hypertension Grandmother Family history of recurrent miscarriage paternal Social History (Updated 04/23/25 @ 08:16 by ANDREA Matson) adopted: No household members: spouse and children housing: house number of children: 2 current occupational status: unemployed current occupation: [employer] pets and animals: Yes (2) pets and animals: dog(s) history of recent travel: No ([place]) sexually active: Yes Smoking Status: Never smoker alcohol intake: never substance use type: does not use well-balanced diet: daily or most days caffeine: No eating out: rarely or never during the past year weight has: decreased > 10 lbs what type of physical activity do you participate in: other details: crossfit frequency: 3-4 times per week duration: 45-60 minutes/day ben/mu-ism: Orthodoxy seatbelt use: always do you feel safe at home: Yes additional social history: Daren- AEP History 3 Elective abortions Hx Para 2 Spontaneous abortions 1 Hx # Term Pregnancies 2 Ectopic pregnancies Hx # Pregnancies Multiple births # of living children 2 Past Pregnancies Del. Date Name GA/Weeks Outcome Route Bth Weight Gen Labor Lgth Anesthesia Del [facility] FOB Unknown 05/2022 Miscarriage 6wks 08/23/23 Romain 37 live - 6#13oz Male epid ural [facility] Lavern Mercedes 04/18/25 [place] 39 live - full term Male epid ural [facility] ZELALEM Mercedes Delivery Date: 08/23/23 Last Updated by: Stacy YATES Delivery Date: 04/18/25 Last Updated by: Zoila Santos, RN See problem list for complications HPI HPI HPI: ROBERTO CARLOS JAIN, is a 29 F who presents to the office today for assessment ROS ROS Const Constitutional: Denies fever(s) or lethargy : Denies nipple discharge Skin Skin/Breast: Reports breast pain; Denies breast skin changes or nipple discharge Details: patient reports being engorged since milk came in overnight 04/21 ROS Narrative patient with HTN during , denies MI, visual changes and RUQ pain. Has BP check in OB office scheduled. Exam Maternal Assessment Breast Assessment Bilateral Breasts: Engorged and Symmetrical Nipple Assessment Bilateral Nipples: Short Areolar Tissue Areolar Tissue: Non-pliable Assessment Baby Feeding History Is your baby latching onto the breast: Yes Number of Breast Feedings in 24 hours: every 2-2.5 hours Minutes per breast: First Breast: 10-15 Minutes per breast: Second Breast: 5 Supplements Supplement Type:: None Breast Pumping Type of Breast Pump: spectra Frequency: has not pumped yet Output - Last 24 hours Wets/Color:: 7 Stools/Color:: 6-7 yellow, brownish Exam Const General: comfortable and no acute distress Orientation: alert and oriented x3 Chest Breast inspection: normal inspection of the breasts Breast palpation: normal palpation of the breasts (breasts firm) Resp Effort & Inspection: normal respiratory effort Skin General: no rashes or lesions noted Psych Appearance: grossly normal Mental Status: mental status grossly normal Affect: normal affect Assessment and Plan Assessment and Plan (1) Engorgement of breasts: Status: Acute Plan: Educated on ice, motrin, breast gymnastics, pumping only 2-5 minutes with goal of not overpumping. Monitor for any signs of infection and call office right away. (2) Care and examination of lactating mother: Status: Acute Plan: Newborns weight down 4% from birthweight with adequate output. Assisted patient to latch in office for 25 minutes, 10 on right side and 15 on left with total transfer volume of 65ml. Educated on feeding on demand, offering both sides with each feed, haakaa use, pumping, milk supply, milk storage and milk regulation. Follow up with lactationPRN. Card given with termite control servicer number provided, encouraged to call with any questions or concerns Coding Level of Care Code Off vis,new,level 3 Diagnoses Engorgement of breasts N64.59 Care and examination of lactating mother Z39.1 Time Spent (min) 40 Comment Includes chart review, counseling, documentation and coordination of care. 04/23/25 0826 <Electronically signed by Nikki MNEDEZ> Date _ Nikki MENDEZ Cosigner Signature: Date (if applicable) CC: ~ [place] [facility] Work Phone: 1(148) 737-404810-18-2025 Discharge summary [facility] Medical Records Department [address] [place] [address] Instructions for Home/Discharge Instructions 04/19/25 1304 MR#: [id number] Acct: [id number] Name: ROBERTO CARLOS JAIN Rep #:[id number] : 1995 29 From: Clementina reynoso MD PCP: Dr. Bello Alfaro, DO Status:AD M IN Discharge Instructions DC O2, CPAP, BIPAP needs Home O2 Discharge instructions: No Dressing / Incision Discharge Activity: Return to Normal Activity, May Not Drive (while taking narcotic pain medications.) and May Shower May resume sexual activity in: 4-6 weeks Dressing / Incision Call your doctor if your incision/area has: Continuous Slow Oozing, Sudden Increased Bleeding, Increased Pain/ Swelling, Increased Redness and Foul Smelling Discharge Follow Up Care Please Follow Up With: Clementina Enrique MD When: Call [phone] to make an appointment with your doctor in 6 weeks. If you had elevated blood pressure or 4th degree laceration, you will need to be seen in 2 weeks. Test Results: Test results from this visit will be discussed in further detail at your follow- up appointment, if applicable. Discharge Plan Admission Admit Date/Time: 04/18/25 10:55 Attending Provider: Camille Herzog Primary Care Provider: Bello Alfaro Discharge Orders/Prescriptions Prescriptions: No Action PNV-[place] 28-1-300 mg capsule 1 cap PO DAILY Referrals / Follow Up: Bello Alfaro DO [Primary Care Provider, Medical] 04/19/25 1304villa Enrique MD CC: Dr. Bello Alfaro DO ~ Signed [facility]10-18-2025 Progress note Author Kathy Tinsley [facility] Note Date/Time April 20, 2025 1 0:16am [facility] Medical Records Department [address] [place] [address] Progress Note - OBGYN 04/20/25 0910 MR#: [id number] Acct: [id number] Name: ROBERTO CARLOS JAIN Rep #:[id number] : 1995 29 From: Kathy Tinsley CNM PCP: Dr. Bello Alfaro DO Status:AD M IN Location: [place] [id number] Subjective Subjective day #2, reports feeling well, desires d/c to home. Objective Data Objective Data Vital Signs: Vital Signs Temp Pulse Resp BP Pulse Ox O2 Del Method 97.0 F L 70 16 129/70 H 97 Room Air 04/19/25 20:05 04/20/25 02:33 04/20/25 02:33 04/20/25 02:33 04/20/25 02:33 04/20/25 02:33 Oxygen Delivery Method Room Air Weight: 197 lb 8.547 oz Body Mass Index (BMI) 33.9 Intake & Output: Intake and Output for Last 24 Hours 04/18/25 04/19/25 04/20/25 23:59 23:59 23:59 Intake Total 2914.90 / 2914.90 Output Total 1000 / 1000 400 / 400 Balance 4.90 / 1913.90 -400 / -400 Lab / Micro Data Attestation: I reviewed the patient's lab results. 04/18/25 12:00 04/18/25 12:00 Physical Exam Const alert, oriented x3 and no apparent distress HEENT normocephalic Resp normal respiratory effort and normal air movement Resp Narrative: Respirations eased & unlabored. GI soft to palpation, non-tender and non-distended Uterus Palpation: uterus fundus firm (u/2, small dark red lochia, no odor. ) Neuro oriented x3 Psych thought process normal, cooperative and affect normal Charges/Coding Multi Select Codes Urinary/Genital Urinary/Genital CPT Codes: 48666 CARE AFTER DELIVERY Assessment & Plan (1) Vaginal delivery: COMMENT: zelalem lopez (2) PIH ( induced hypertension): COMMENT: BP stable. Will monitor BP at home 2-3 times a week & call if >140/90. (3) Hemorrhoids during : QUALIFIERS: Trimester: third trimester Qualified Code(s): O22.43 - Hemorrhoids in , third trimester COMMENT: compounded suppositories, tucks, warm soaks, avoid constipation PLAN: Plan s/p PPD # 2 1. routine post delivery care 2. breast feeding- support given 3. rh positive 4. rubella immune 5. d/c home today - f/u in office in 6 wks. 04/20/25915 <Electronically signed by Kathy Tinsley CNM> Cosigner Signature (if applicable): CC: ~ Signed [facility] Work Phone: 1(446) 617-303810-18-2025 Progress note [facility] Medical Records Department [address] [place] [address] Progress Note - OBGYN 04/20/25909 MR#: [id number] Acct: [id number] Name: ROBERTO CARLOS JAIN Rep #:[id number] : 1995 29 From: Kathy Tinsley CNM PCP: Dr. Bello Alfaro, DO Status:AD M IN Location: [id number] Subjective Subjective day #2, reports feeling well, desires d/c to home. Objective Data Objective Data Vital Signs: Vital Signs Temp Pulse Resp BP Pulse Ox O2 Del Method 97.0 F L 70 16 129/70 H 97 Room Air 04/19/25 20:05 04/20/25 02:33 04/20/25 02:33 04/20/25 02:33 04/20/25 02:33 04/20/25 02:33 Oxygen Delivery Method Room Air Weight: 197 lb 8.547 oz Body Mass Index (BMI) 33.9 Intake & Output: Intake and Output for Last 24 Hours 04/18/25 04/19/25 04/20/25 23:59 23:59 23:59 Intake Total 2914.90 / 2914.90 Output Total 1000 / 1000 400 / 400 Balance 1914.90 / 1914.90 -400 / -400 Lab / Micro Data Attestation: I reviewed the patient's lab results. 04/18/25 12:00 04/18/25 12:00 Physical Exam Const alert, oriented x3 and no apparent distress HEENT normocephalic Resp normal respiratory effort and normal air movement Resp Narrative: Respirations eased & unlabored. GI soft to palpation, non-tender and non-distended Uterus Palpation: uterus fundus firm (u/2, small dark red lochia, no odor. ) Neuro oriented x3 Psych thought process normal, cooperative and affect normal Charges/Coding Multi Select Codes Urinary/Genital Urinary/Genital CPT Codes: 18163 CARE AFTER DELIVERY Assessment & Plan (1) Vaginal delivery: COMMENT: zelalem lopez (2) PIH ( induced hypertension): COMMENT: BP stable. Will monitor BP at home 2-3 times a week & call if >140/90. (3) Hemorrhoids during : QUALIFIERS: Trimester: third trimester Qualified Code(s): O22.43 - Hemorrhoids in , third trimester COMMENT: compounded suppositories, tucks, warm soaks, avoid constipation PLAN: Plan s/p PPD # 2 1. routine post delivery care 2. breast feeding- support given 3. rh positive 4. rubella immune 5. d/c home today - f/u in office in 6 wks. 04/20/25 9967 Cosigner Signature (if applicable): CC: ~ Signed [facility]10-17-2025 Progress note Author Clementina Enrique [facility] Note Date/Time April 19, 2025 2 :05pm [facility] Medical Records Department [address] [place] [address] Progress Note - OBGYN 04/19/25 1304 MR#: [id number] Acct: [id number] Name: ROBERTO CARLOS JAIN Rep #:[id number] : 1995 29 From: Clementina reynoso MD PCP: Dr. Bello Alfaro, DO Status:AD M IN Location: [id number] Subjective Subjective Patient doing well without complaints. Tolerating PO. Ambulating and voiding without difficulty. feeding well. Denies chest pain, shortness of breath,calf pain/swelling, fevers, chills, lightheadedness. Objective Data Objective Data Vital Signs: Vital Signs Temp Pulse Resp BP Pulse Ox O2 Del Method 97.9 F 73 16 136/76 H 97 Room Air 04/19/25 11:59 04/19/25 12:00 04/19/25 11:59 04/19/25 12:00 04/19/25 11:59 04/19/25 11:59 Oxygen Delivery Method Room Air Weight: 197 lb 8.547 oz Body Mass Index (BMI) 33.9 Intake & Output: Intake and Output for Last 24 Hours 04/17/25 04/18/25 04/19/25 23:59 23:59 23:59 Intake Total 2914.90 / 2914.90 Output Total 1000 / 1000 400 / 400 Balance 1914.90 / 1914.90 -400 / -400 Lab / Micro Data 04/18/25 12:00 04/18/25 12:00 Labs: Laboratory Results - last 24 hr 04/18/25 12:00: Creatinine 0.58 L, Estim Creat Clear Calc 156.52, Est GFR (MDRD)Non-Af 126, Uric Acid 4.2, AST 18, ALT 10, Syphilis Total Ab Nonreactive ROS Constitutional Constitutional: Reports systems reviewed and no addt'l complaints, except as documented Cardiovascular Cardiovascular: Reports systems reviewed and no addt'l complaints, except as documented Respiratory/Chest Respiratory/Chest: Reports systems reviewed and no addt'l complaints, except as documented Gastrointestinal Gastrointestinal: Reports systems reviewed and no addt'l complaints, except as documented Physical Exam Const alert, oriented x3 and no apparent distress HEENT Head and Scalp: atraumatic Resp normal respiratory effort GI soft to palpation and non-tender Bimanual Exam - Vag & Uterus: uterus non-tender Uterus Palpation: uterus fundus firm (below Umbilicus) Assessment & Plan (1) Vaginal delivery: COMMENT: jv (2) PIH ( induced hypertension): PLAN: Plan s/p PPD # 1 1. routine post delivery care 2. breast feeding- support given 3. rh positive 4. rubella immune 04/19/25 1305 <Electronically signed by Clementina Enrique MD> Cosigner Signature (if applicable): CC: ~ Signed [facility] Work Phone: 1(198) 858-826510-17-2025 Discharge summary Author Clementina Enrique [facility] Note Date/Time April 20, 2025 1 2:40pm [facility] Medical Records Department [address] [place] [address] Instructions for Home/Discharge Instructions 04/19/25 1304 MR#: [id number] Acct: [id number] Name: ROBERTO CARLOS JAIN Rep #:[id number] : 1995 29 From: Clementina reynoso MD PCP: Dr. Bello Alfaro, DO Status:AD M IN Discharge Instructions DC O2, CPAP, BIPAP needs Home O2 Discharge instructions: No Dressing / Incision Discharge Activity: Return to Normal Activity, May Not Drive (while taking narcotic pain medications.) and May Shower May resume sexual activity in: 4-6 weeks Dressing / Incision Call your doctor if your incision/area has: Continuous Slow Oozing, Sudden Increased Bleeding, Increased Pain/ Swelling, Increased Redness and Foul Smelling Discharge Follow Up Care Please Follow Up With: Clementina Enrique MD When: Call [phone] to make an appointment with your doctor in 6 weeks. If you had elevated blood pressure or 4th degree laceration, you will need to be seen in 2 weeks. Test Results: Test results from this visit will be discussed in further detail at your follow- up appointment, if applicable. Discharge Plan Admission Admit Date/Time: 04/18/25 10:55 Attending Provider: Camille Herzog Primary Care Provider: Bello Alfaro Discharge Orders/Prescriptions Prescriptions: No Action PNV-[place] 28-1-300 mg capsule 1 cap PO DAILY Referrals / Follow Up: Bello Alfaro DO [Primary Care Provider, Medical] 04/19/25 1304<Electronically signed by Clementina Enrique MD>Clementina Enrique MD CC: Dr. Bello Alfaro DO ~ Signed [facility] Work Phone: 1(580) 934-477310-17-2025 Progress note [facility] Medical Records Department [address] [place] [address] Progress Note - OBGYN 04/19/25 1304 MR#: [id number] Acct: [id number] Name: ROBERTO CARLOS JAIN Rep #:[id number] : 1995 29 From: Clementina reynoso MD PCP: Dr. Bello Alfaro DO Status:AD M IN Location: [id number] Subjective Subjective Patient doing well without complaints. Tolerating PO. Ambulating and voiding without difficulty. feeding well. Denies chest pain, shortness of breath,calf pain/swelling, fevers, chills, lightheadedness. Objective Data Objective Data Vital Signs: Vital Signs Temp Pulse Resp BP Pulse Ox O2 Del Method 97.9 F 73 16 136/76 H 97 Room Air 04/19/25 11:59 04/19/25 12:00 04/19/25 11:59 04/19/25 12:00 04/19/25 11:59 04/19/25 11:59 Oxygen Delivery Method Room Air Weight: 197 lb 8.547 oz Body Mass Index (BMI) 33.9 Intake & Output: Intake and Output for Last 24 Hours 04/17/25 04/18/25 04/19/25 23:59 23:59 23:59 Intake Total 2914.90 / 2914.90 Output Total 1000 / 1000 400 / 400 Balance 1914.90 / 1914.90 -400 / -400 Lab / Micro Data 04/18/25 12:00 04/18/25 12:00 Labs: Laboratory Results - last 24 hr 04/18/25 12:00: Creatinine 0.58 L, Estim Creat Clear Calc 156.52, Est GFR (MDRD)Non-Af 126, Uric Acid 4.2, AST 18, ALT 10, Syphilis Total Ab Nonreactive ROS Constitutional Constitutional: Reports systems reviewed and no addt'l complaints, except as documented Cardiovascular Cardiovascular: Reports systems reviewed and no addt'l complaints, except as documented Respiratory/Chest Respiratory/Chest: Reports systems reviewed and no addt'l complaints, except as documented Gastrointestinal Gastrointestinal: Reports systems reviewed and no addt'l complaints, except as documented Physical Exam Const alert, oriented x3 and no apparent distress HEENT Head and Scalp: atraumatic Resp normal respiratory effort GI soft to palpation and non-tender Bimanual Exam - Vag & Uterus: uterus non-tender Uterus Palpation: uterus fundus firm (below Umbilicus) Assessment & Plan (1) Vaginal delivery: COMMENT: jv (2) PIH ( induced hypertension): PLAN: Plan s/p PPD # 1 1. routine post delivery care 2. breast feeding- support given 3. rh positive 4. rubella immune 04/19/25 1305 Cosigner Signature (if applicable): CC: ~ Signed [facility]10-16-2025 Procedure note [facility] Medical Records Department [address] [place] [address] OB Vaginal Delivery 04/18/25 192 MR#: [id number] Acct: [id number] Name: ROBERTO CARLOS JAIN Rep #:[id number] : 1995 29 From: Camille Herzog DO PCP: Dr. Bello Alfaro DO Status:AD M IN Location: [id number] Assessment & Plan (1) PIH ( induced hypertension): (2) Supervision of high-risk : QUALIFIERS: Trimester: third trimester Qualified Code(s): O09.93 - Supervision of high risk , unspecified, third trimester COMMENT: PRR , JOANNE 04/23/25, boy, PC Romain, Daren (3) : QUALIFIERS: Weeks of gestation: 39 weeks Qualified Code(s): Z3A.39 - 39 weeks gestation of COMMENT: Neg GBS. NIPT low risk. carrier negative first . Negative AFP . nl anatomy. (4) History of gestational hypertension: COMMENT: discussed 81 mg ASA if desired. (5) Anxiety with depression: COMMENT: prozac; switched to zoloft; stable Maternal Data Information JOANNE Calculator Estimated Delivery Date Method Current WG Current Estimate 04/23/25 LMP (Certain) 39w 2d Other Estimates 04/22/25 Ultrasound #1 39w 3d Final JOANNE: 04/23/25 Final JOANNE Source: LMP Gestational age: 39 weeks 2 days Doctor Who Attended Delivery: Curry Hendrix Vaginal Delivery Maternal Presentation Maternal Presentation: Medically Indicated Induction Type of Induction: Pitocin and Amniotomy Vaginal Delivery Information Procedure Performed: Spontaneous Vaginal Delivery Surgeon/Practitioner: Camille Herzog Date of Procedure: 04/18/25 Pre-Procedure Diagnosis: gestational hypertension, 39 weeks, Post-Procedure Diagnosis: gestational hypertension, 39 weeks, Type of anesthesia: Epidural Estimated Blood Loss: 100cc Time of Delivery: 19:08 Findings Description of procedure: Patient began pushing and delivered the head in the ANTONIO presentation. The head was delivered atraumatically. The anterior and posterior shoulders delivered without complication followed by the rest of the infant and the was placed on the maternal abdomen. Delayed cord clamping was employed for approximately 60 seconds. Cord was clamped and cut and gentle traction was applied to the cord, despite gentle traction and uterine massage, the cord evulsed. The placenta was beyond the cervical os and was manually grasped and delivered in one piece. manual uterine exploration was performed and no further membranes or uterine parts were left behind. The perineum and vagina were inspected. EBL was 100 cc. Patient and tolerated delivery well. Procedure findings: viable male infant apgars 7/9 Edwar Presentation: Vertex Amniotic Membrane Rupture Type: Artificial Amniotic Fluid Description: Lightly stained meconium Placental Delivery Description: Manual Removal Placenta Disposition: [facility] Specimen collected: No Cord Vessel Description: 3 Vessels Cord Entanglement: None A Gender: Male (1 minute): 7 (5 minute): 9 Delayed Cord Clamping: Yes Visual Merchandising Director business project analyst: No Post Vaginal Deli Medications given after delivery: IV Pitocin Episiotomy Description: None Laceration: None Complication Complications: No Multi Select Codes Urinary/Genital Urinary/Genital CPT Codes: 04199 Vaginal Delivery global pkg 04/18/25 192 Cosigner Signature (if applicable): CC: Dr. Camille Herzog DO; Dr. Bello Alfaro DO~ Signed [facility]10-16-2025 History and physical note Author Camille Grant [facility] Note Date/Time April 18, 2025 1 :45pm [facility] Medical Records Department [address] [place] [address] H&P Exam - BEEF LUGGER 04/18/25 1242 MR#: [id number] Acct: [id number] Name: ROBERTO CARLOS JAIN Rep #:[id number] : 1995 29 From: Camille Herzog DO PCP: Dr. Bello Alfaro DO Status:AD M IN Location: PR942-0 HPI - General General Date of Admission: 04/18/25 HPI Narrative ROBERTO CARLOS JAIN, is a 29 y/o @ 39 weeks 2 days who presents to L&D for induced hypertension. Her pressures in the beginning of [id number]'s and have started to increase to 140's-150's/80's. She has intermittent headaches. pre-e work up ordered. plan is for IOL today. Maternal Data Information JOANNE Calculator Estimated Delivery Date Method Current WG Current Estimate 04/23/25 LMP (Certain) 39w 2d Other Estimates 04/22/25 Ultrasound #1 39w 3d PFSH PFSH Medical History (Updated 04/18/25 @ 12:[address] Camille Herzog DO) Gestational HTN Vaginal delivery Family history of malignant hyperthermia Asthma Seasonal allergies Anxiety with depression Home Medications ?Medication ?Instructions ?Recorded ?Last Taken ?Type multivit-min no.71-iron fum 28 1 cap PO DAILY pregnanc y 01/20/23 04/17/25 22:00 History mg-folate no.1 1 mg-dha 300 mg 1 cap capsule (PNV-[place]) Allergy/AdvReac Type Severity Reaction Status Date / Time No Known Allergies Allergy Verified 04/18/25 11:36 Family History Father Diabetes Mother Hypertension Grandmother Family history of recurrent miscarriage paternal Social History adopted: No household members: spouse and children housing: house number of children: 1 current occupational status: unemployed current occupation: [employer] pets and animals: Yes (2) pets and animals: dog(s) history of recent travel: No ([place]) sexually active: Yes Smoking Status: Never smoker alcohol intake: never substance use type: does not use well-balanced diet: daily or most days caffeine: No eating out: rarely or never during the past year weight has: decreased > 10 lbs what type of physical activity do you participate in: other details: crossfit frequency: 3-4 times per week duration: 45-60 minutes/day ben/mu-ism: Orthodoxy seatbelt use: always do you feel safe at home: Yes additional social history: Kimberlyn POLK History 3 Elective abortions Hx Para 1 Spontaneous abortions 1 Hx # Term Pregnancies Ectopic pregnancies Hx # Pregnancies 1 Multiple births # of living children 1 Past Pregnancies Del. Date Name GA/Weeks Outcome Route Bth Weight Infant Gen Labor Lgth Anesthesia Del Locatn Provider FOB Unknown 05/2022 Miscarriage 6wks 08/23/23 Romain 37 live - 6#13oz Male epid ural [facility] Lavern Zavala Daren Delivery Date: 08/23/23 Last Updated by: Stacy YATES Visit Details Expected Delivery Route/Plan Labor Preferences- CB/BF classes: no labor support person: Daren labor intervention preferences: [] pain management options preferred: epidural cut cord/dad catch: yes : yes PP control planned: [] discussed possible routes of delivery and associated risks: [] special requests: [] Plans Covid status: [] Flu vaccine: [] Tdap vaccine: given Rhogam: na LARC form signed: yes Problem list reviewed and updated with the most current plan of care details and appropriate orders placed. Relevant counseling for the gestational age provided. Continue routine care and follow up unless otherwise noted in visit notes/problem list details OB Flowsheet Initial Weight: 169 lb Date -?-?-?-?-?-?-?-?-?-?-?-?- EGA Weight BP Urine Prot -?-?-?-?-?-?-?-?-?-?-?-?- Glucose FHR FuHt Pres Dilation -?-?-?-?-?-?-?-?-?-?-?-?- Effaced St Visit Note 09/12/24 -?-?-?-?-?-?-?-?-?-?-?-?- 8w 1d 169 lb (+0 oz) 122/72 -?-?-?-?-?-?-?-?-?-?-?-?- 158 -?-?-?-?-?-?-?-?-?-?-?-?- JV- CRL consiste nt with LMP. Desires NIPT. will return in 2 weeks for blood work. 09/25/24 -?-?-?-?-?-?-?-?-?-?-?-?- 10w 0d 168 lb 2 oz (-14 oz) 134/79 Negative -?-?-?-?-?-?-?-?-?-?-?-?- Negative 180 -?-?-?-?-?-?-?-?-?-?-?-?- KW- no vb/crampi ng. requesting a heartbeat check because her friend just had SAB. active fetus on US and FHT easily found. labs today 10/17/24 -?-?-?-?-?-?-?-?-?-?-?-?- 13w 1d 171 lb 2 oz (+2 lb 2 oz) 123/71 Negative -?-?-?-?-?-?-?-?-?-?-?-?- Negative 160 -?-?-?-?-?-?-?-?-?-?-?-?- SM- no vb crmapi ng 11/13/24 -?-?-?-?-?-?-?-?-?-?-?-?- 17w 0d 173 lb (+4 lb) 122/74 Negative -?-?-?-?-?-?-?-?-?-?-?-?- Negative 154 -?-?-?-?-?-?-?-?-?-?-?-?- MH-No VB. Thinks feels flutters. AFP today. No concerns 12/10/24 -?-?-?-?-?-?-?-?-?-?-?-?- 20w 6d 176 lb 8 oz (+7 lb 8 oz) 124/75 1+ -?-?-?-?-?-?-?-?-?-?-?-?- Negative 160 -?-?-?-?-?-?-?-?-?-?-?-?- KW- no vb/crampi ng. +flutters. US reviewed. PC ratio send for 1+ protein. 01/09/25 -?-?-?-?-?-?-?-?-?-?-?-?- 25w 1d 183 lb (+14 lb) 107/67 Negative -?-?-?-?-?-?-?-?-?-?-?-?- Negative 168 -?-?-?-?-?-?-?-?-?-?-?--?- JV- no lof, vagi nal bleeding or dec fm. glucola next visi. 01/28/25 -?-?-?-?-?-?-?-?-?-?-?-?- 27w 6d 187 lb (+18 lb) 107/71 Negative -?-?-?-?-?-?-?-?-?-?-?-?- Negative 159 28 -?-?-?-?-?-?-?-?-?-?-?-?- MH-No Vb, LOF. Good FM. Larc. 28 wk labs pending 02/14/25 -?-?-?-?-?-?-?-?-?-?-?-?- 30w 2d 188 lb 3 oz (+19 lb 3 oz) 129/73 Negative -?-?-?-?-?-?-?-?-?-?-?-?- Negative 140 31 Cephalic -?-?-?-?-?-?-?-?-?-?-?-?- SM- no vb lof go od fm no reuglar ctx 03/01/25 -?-?-?-?-?-?-?-?-?-?-?-?- 32w 3d 192 lb (+23 lb) 121/76 Negative -?-?-?-?-?-?-?-?-?-?-?-?- Negative 150 34 -?-?-?-?-?-?-?-?-?-?-?-?- KW-work in for J V. no vb/lof/ctx good fm. TDap today. if fundal height elevated next visit will get growth US 03/14/25 -?-?-?-?-?-?-?-?-?-?-?-?- 34w 2d 192 lb (+23 lb) 122/74 Negative -?-?-?-?-?-?-?-?-?-?-?-?- Negative 146 35 -?-?-?-?-?-?-?-?-?-?-?-?- MH-No VB, LOF. Has painful hemorrhoid-1cm on exam, soft, nonthrombosed. 03/28/25 -?-?-?-?-?-?-?-?-?-?-?-?- 36w 2d 192 lb 7 oz (+23 lb 7 oz) 133/81 123/78 Negative -?-?-?-?-?-?-?-?-?-?-?-?- Negative 140 37 Cephalic 0 .5 -?-?-?-?-?-?-?-?-?-?-?-?- JV- pt has some fight upper side pain that feels bruised. She is in the room with her toddler who is screaming but she denies headaches, blurry vision,nausea or vomiting. 04/04/25 -?-?-?-?-?-?-?-?-?-?-?-?- 37w 2d 193 lb 8 oz (+24 lb 8 oz) 129/85 -?-?-?-?-?-?-?-?-?-?-?-?- 140 37 Cephalic 1 -?-?--?-?-?-?-?-?-?-?-?-?- 60 -2 KW- no vb/ lof/ctx. good fm no concerns today 04/11/25 -?-?-?-?-?-?-?-?-?-?-?-?- 38w 2d 195 lb 3 oz (+26 lb 3 oz) 135/84 Negative -?-?-?-?-?-?-?-?-?-?-?-?- Negative 145 38 Cephalic 3 .5 -?-?-?-?-?-?-?-?-?-?-?-?- 50 -3 KW- no vb/ lof/ctx. good fm. no headaches/dizziness/blurred vision. 04/18/25 -?-?-?-?-?-?-?-?-?-?-?-?- 39w 2d 198 lb 3 oz (+29 lb 3 oz) 138/86 Negative -?-?-?-?-?-?-?-?-?-?-?-?- Negative 135 3 Cephalic 2 .5 -?-?-?-?-?-?-?-?-?-?-?-?- 50 -3 JV- on and off headaches. non now. bp, starting to go up. was on l&D this weekend for 150/90 and headache. sending to l&D for iOL for PIH. ROS Constitutional Constitutional: Denies change in weight, fatigue, fever(s), headache(s), poor appetite or weakness Eyes Eyes: Denies blurry vision, change in vision, seeing flashes or spots in vision ENT HEENT: Denies dizziness, headache(s), loss taste/smell or sore throat Cardiovascular Cardiovascular: Denies chest pain, dizziness, dyspnea, irregular heart rhythm, leg edema, palpitations, rapid heart rate or vomiting Respiratory/Chest Respiratory/Chest: Denies chest tightness, cough, dyspnea or breast pain Gastrointestinal Gastrointestinal: Denies abdominal pain, anorexia, constipation, cramping, diarrhea, hemorrhoids, vomiting or weight changes Genitourinary Genitourinary: Denies dysuria, flank pain, genital lesions, genital pain, urinary frequency or urinary urgency Musculoskeletal Musculoskeletal: Denies back pain, difficulty walking, joint pain, limited range of motion, muscle cramps or numbness Integumentary Integumentary: Denies lesions or unusual bruising Neurologic Neurologic: Denies abnormal movements, abnormal speech, dizziness, numbness, seizure-like activity or syncope Psychiatric Psychiatric: Denies anxiety, behavioral changes, change in appetite, change in libido, cognitive impairment, confusion, depression, difficulty concentrating, hallucinations or suicidal thoughts Endocrine Endocrinology: Denies excessive sweating, polydipsia or polyuria Hematologic/Lymphatic Hematologic/Lymphatic: Denies easy bleeding, easy bruising or lymphadenopathy Allergic/Immunologic Allergic/Immunologic: Denies itchy eyes, lip swelling, seasonal rhinorrhea, rhinitis, throat swelling, tongue swelling, eczemia, wheezing or asthma Vital Signs Vital Signs Vital Signs: 04/18/25 11:22 04/18/25 11:22 04/18/25 11:22 Pulse Rate 69 Respiratory Rate 18 Blood Pressure 130/86 H BP Systolic 130 BP Diastolic 86 04/18/25 12:17 04/18/25 12:17 Pulse Rate 74 Respiratory Rate Blood Pressure 128/76 H BP Systolic 128 BP Diastolic 76 Weight Weight: 197 lb 8.547 oz Body Mass Index (BMI) 33.9 Physical Exam Const alert, oriented x3, no apparent distress and healthy appearing General Appearance: cooperative; Negative for anxious HEENT normocephalic Face and Sinus: normal facial exam Eyes EOMs intact bilaterally and no scleral icterus General Eye: normal appearance of both eyes Neck full ROM and supple Lymph Lymphatic: no lymphadenopathy noted Resp normal respiratory effort Effort and Inspection: able to speak in complete sentences Cardio regular rate GI soft to palpation and non-tender Inspection: gravid Palpation: soft; Negative for tender Back/Spine no CVA tenderness Extremity normal to inspection, full ROM and no clubbing, cyanosis or edema General Extremity: Negative for calf tenderness or edema Skin Lesions: no lesions Rashes: no rashes Psych mental status grossly normal Labs Labs Labs: Blood Type A POSITIVE Antibody Screen NEGATIVE Hct, (37-47) 34.1 % L Hgb, (12.0-15.0) 11.1 g/dL L Obstetrics Ultrasound Syphilis Total Ab, (Nonreactive) Nonreactive Rubella IgG Antibody, (Nonreactive) REAC Hep Bs Antigen, (Nonreactive) Nonreactive Hepatitis C Antibody, (Nonreactive) Nonreactive Chlamydia DNA ([place]), (Negative) Negative N.gonorrhoeae DNA ([place]), (Negative) Negative HIV 1&2 Antibody, (Nonreactive) Nonreactive Glucose 1 Hr 50 gm, (70-140) 103 mg/dL Rhogam given: No Miscellaneous Test Assessment & Plan (1) PIH ( induced hypertension): (2) Hemorrhoids during : QUALIFIERS: Trimester: third trimester Qualified Code(s): O22.43 - Hemorrhoids in , third trimester COMMENT: compounded suppositories, tucks, warm soaks, avoid constipation (3) Supervision of high-risk : QUALIFIERS: Trimester: third trimester Qualified Code(s): O09.93 - Supervision of high risk , unspecified, third trimester COMMENT: PRR , JOANNE 04/23/25, boy, PC Romain, Daren (4) : QUALIFIERS: Weeks of gestation: 39 weeks Qualified Code(s): Z3A.39 - 39 weeks gestation of COMMENT: Neg GBS. NIPT low risk. carrier negative first . Negative AFP . nl anatomy. (5) History of gestational hypertension: COMMENT: discussed 81 mg ASA if desired. (6) Anxiety with depression: COMMENT: prozac; switched to zoloft; stable PLAN: Plan Patient presents IOL, plan management for with pitocin/AROM. Pain management: plans epidural. GBS negative. Management of any complications: see above I have reviewed the [facility]END[facility] and made any clinically relevant updates. 04/18/25 1245 <Electronically signed by Camille Herzog DO> Cosigner Signature (if applicable): CC: Dr. Camille Herzog DO; Dr. Bello Alfaro DO~ Signed [facility] Work Phone: [phone] History and physical note [facility] Medical Records Department [address] [place] [address] H&P Exam - BEEF LUGGER 04/18/25 1242 MR#: [id number] Acct: [id number] Name: ROBERTO CARLOS JAIN Rep #:[id number] : 1995 29 From: Camille Herzog DO PCP: Dr. Bello Alfaro DO Status:AD M IN Location: [id number] HPI - General General Date of Admission: 04/18/25 HPI Narrative ROBERTO CARLOS JAIN, is a 29 y/o @ 39 weeks 2 days who presents to L&D for induced hypertension. Her pressures in the beginning of [id number]'/s70's and have started to increase to 140's-150's/80's. She has intermittent headaches. pre-e work up ordered. plan is for IOL today. Maternal Data Information JOANNE Calculator Estimated Delivery Date Method Current WG Current Estimate 04/23/25 LMP (Certain) 39w 2d Other Estimates 04/22/25 Ultrasound #1 39w 3d PFSH PFS Medical History (Updated 04/18/25 @ 12:[address] Camille Herzog, DO) Gestational HTN Vaginal delivery Family history of malignant hyperthermia Asthma Seasonal allergies Anxiety with depression Home Medications ?Medication ?Instructions ?Recorded ?Last Taken ?Type multivit-min no.71-iron fum 28 1 cap PO DAILY pregnanc y 01/20/23 04/17/25 22:00 History mg-folate no.1 1 mg-dha 300 mg 1 cap capsule (PNV-[place]) Allergy/AdvReac Type Severity Reaction Status Date / Time No Known Allergies Allergy Verified 04/18/25 11:36 Family History Father Diabetes Mother Hypertension Grandmother Family history of recurrent miscarriage paternal Social History adopted: No household members: spouse and children housing: house number of children: 1 current occupational status: unemployed current occupation: [employer] pets and animals: Yes (2) pets and animals: dog(s) history of recent travel: No ([place]) sexually active: Yes Smoking Status: Never smoker alcohol intake: never substance use type: does not use well-balanced diet: daily or most days caffeine: No eating out: rarely or never during the past year weight has: decreased > 10 lbs what type of physical activity do you participate in: other details: crossfit frequency: 3-4 times per week duration: 45-60 minutes/day ben/mu-ism: Orthodoxy seatbelt use: always do you feel safe at home: Yes additional social history: Daren- [employer] History 3 Elective abortions Hx Para 1 Spontaneous abortions 1 Hx # Term Pregnancies Ectopic pregnancies Hx # Pregnancies 1 Multiple births # of living children 1 Past Pregnancies Del. Date Name GA/Weeks Outcome Route Bth Weight Infant Gen Labor Lgth Anesthesia Del Locatn Provider FOB Unknown 05/2022 Miscarriage 6wks 08/23/23 Romain 37 live - 6#13oz Male epid ural [facility] Lavern Mercedes Delivery Date: 08/23/23 Last Updated by: Stacy Garzon SROM Visit Details Expected Delivery Route/Plan Labor Preferences- CB/BF classes: no labor support person: Daren labor intervention preferences: [] pain management options preferred: epidural cut cord/dad catch: yes : yes PP control planned: [] discussed possible routes of delivery and associated risks: [] special requests: [] Plans Covid status: [] Flu vaccine: [] Tdap vaccine: given Rhogam: na LARC form signed: yes Problem list reviewed and updated with the most current plan of care details and appropriate ordersplaced. Relevant counseling for the gestational age provided. Continue routine care and follow up unless otherwise noted in visit notes/problem list details OB Flowsheet Initial Weight: 169 lb Date -?-?-?-?-?-?-?-?-?-?-?-?- EGA Weight BP Urine Prot -?-?-?-?-?-?-?-?-?-?-?-?- Glucose FHR FuHt Pres Dilation -?-?-?-?-?-?-?-?-?-?-?-?- Effaced St Visit Note 09/12/24 -?-?-?-?-?-?-?-?-?-?-?-?- 8w 1d 169 lb (+0 oz) 122/72 -?-?-?-?-?-?-?-?-?-?-?-?- 158 -?-?-?-?-?-?-?-?-?-?-?-?- JV- CRL consiste nt with LMP. Desires NIPT. will return in 2 weeks for blood work. 09/25/24 -?-?-?-?-?-?-?-?-?-?-?-?- 10w 0d 168 lb 2 oz (-14 oz) 134/79 Negative -?-?-?-?-?-?-?-?-?-?-?-?- Negative 180 -?-?-?-?-?-?-?-?-?-?-?-?- KW- no vb/crampi ng. requesting a heartbeat check because her friend just had SAB. active fetus on US and FHT easily found. labs today 10/17/24 -?-?-?-?-?-?-?-?-?-?-?-?- 13w 1d 171 lb 2 oz (+2 lb 2 oz) 123/71 Negative -?-?-?-?-?-?-?-?-?-?-?-?- Negative 160 -?-?-?-?-?-?-?-?-?-?-?-?- SM- no vb crmapi ng 11/13/24 -?-?-?-?-?-?-?-?-?-?-?-?- 17w 0d 173 lb (+4 lb) 122/74 Negative -?-?-?-?-?-?-?-?-?-?-?-?- Negative 154 -?-?-?-?-?-?-?-?-?-?-?-?- MH-No VB. Thinks feels flutters. AFP today. No concerns 12/10/24 -?-?-?-?-?-?-?-?-?-?-?-?- 20w 6d 176 lb 8 oz (+7 lb 8 oz) 124/75 1+ -?-?-?-?-?-?-?-?-?-?-?-?- Negative 160 -?-?-?-?-?-?-?-?-?-?-?-?- KW- no vb/crampi ng. +flutters. US reviewed. PC ratio send for 1+ protein. 01/09/25 -?-?-?-?-?-?-?-?-?-?-?-?- 25w 1d 183 lb (+14 lb) 107/67 Negative -?-?-?-?-?-?-?-?-?-?-?-?- Negative 168 -?-?-?-?-?-?-?-?-?-?-?--?- JV- no lof, vagi nal bleeding or dec fm. glucola next visi. 01/28/25 -?-?-?-?-?-?-?-?-?-?-?-?- 27w 6d 187 lb (+18 lb) 107/71 Negative -?-?-?-?-?-?-?-?-?-?-?-?- Negative 159 28 -?-?-?-?-?-?-?-?-?-?-?-?- MH-No Vb, LOF. Good FM. Larc. 28 wk labs pending 02/14/25 -?-?-?-?-?-?-?-?-?-?-?-?- 30w 2d 188 lb 3 oz (+19 lb 3 oz) 129/73 Negative -?-?-?-?-?-?-?-?-?-?-?-?- Negative 140 31 Cephalic -?-?-?-?-?-?-?-?-?-?-?-?- SM- no vb lof go od fm no reuglar ctx 03/01/25 -?-?-?-?-?-?-?-?-?-?-?-?- 32w 3d 192 lb (+23 lb) 121/76 Negative -?-?-?-?-?-?-?-?-?-?-?-?- Negative 150 34 -?-?-?-?-?-?-?-?-?-?-?-?- KW-work in for J V. no vb/lof/ctx good fm. TDap today. if fundal height elevated next visit will get growth US 03/14/25 -?-?-?-?-?-?-?-?-?-?-?-?- 34w 2d 192 lb (+23 lb) 122/74 Negative -?-?-?-?-?-?-?-?-?-?-?-?- Negative 146 35 -?-?-?-?-?-?-?-?-?-?-?-?- MH-No VB, LOF. Has painful hemorrhoid-1cm on exam, soft, nonthrombosed. 03/28/25 -?-?-?-?-?-?-?-?-?-?-?-?- 36w 2d 192 lb 7 oz (+23 lb 7 oz) 133/81 123/78 Negative -?-?-?-?-?-?-?-?-?-?-?-?- Negative 140 37 Cephalic 0 .5 -?-?-?-?-?-?-?-?-?-?-?-?- JV- pt has some fight upper side pain that feels bruised. She is in the room with her toddler who is screaming but she denies headaches, blurry vision,nausea or vomiting. 04/04/25 -?-?-?-?-?-?-?-?-?-?-?-?- 37w 2d 193 lb 8 oz (+24 lb 8 oz) 129/85 -?-?-?-?-?-?-?-?-?-?-?-?- 140 37 Cephalic 1 -?-?--?-?-?-?-?-?-?-?-?-?- 60 -2 KW- no vb/ lof/ctx. good fm no concerns today 04/11/25 -?-?-?-?-?-?-?-?-?-?-?-?- 38w 2d 195 lb 3 oz (+26 lb 3 oz) 135/84 Negative -?-?-?-?-?-?-?-?-?-?-?-?- Negative 145 38 Cephalic 3 .5 -?-?-?-?-?-?-?-?-?-?-?-?- 50 -3 KW- no vb/ lof/ctx. good fm. no headaches/dizziness/blurred vision. 04/18/25 -?-?-?-?-?-?-?-?-?-?-?-?- 39w 2d 198 lb 3 oz (+29 lb 3 oz) 138/86 Negative -?-?-?-?-?-?-?-?-?-?-?-?- Negative 135 3 Cephalic 2 .5 -?-?-?-?-?-?-?-?-?-?-?-?- 50 -3 JV- on and off headaches. non now. bp, starting to go up. was on l&D this weekend for 150/90 and headache. sending to l&D for iOL for PIH. ROS Constitutional Constitutional: Denies change in weight, fatigue, fever(s), headache(s), poor appetite or weakness Eyes Eyes: Denies blurry vision, change in vision, seeing flashes or spots in vision ENT HEENT: Denies dizziness, headache(s), loss taste/smell or sore throat Cardiovascular Cardiovascular: Denies chest pain, dizziness, dyspnea, irregular heart rhythm, leg edema, palpitations, rapid heart rate or vomiting Respiratory/Chest Respiratory/Chest: Denies chest tightness, cough, dyspnea or breast pain Gastrointestinal Gastrointestinal: Denies abdominal pain, anorexia, constipation, cramping, diarrhea, hemorrhoids, vomiting or weight changes Genitourinary Genitourinary: Denies dysuria, flank pain, genital lesions, genital pain, urinary frequency or urinary urgency Musculoskeletal Musculoskeletal: Denies back pain, difficulty walking, joint pain, limited range of motion, muscle cramps or numbness Integumentary Integumentary: Denies lesions or unusual bruising Neurologic Neurologic: Denies abnormal movements, abnormal speech, dizziness, numbness, seizure-like activity or syncope Psychiatric Psychiatric: Denies anxiety, behavioral changes, change in appetite, change in libido, cognitive impairment, confusion, depression, difficulty concentrating, hallucinations or suicidal thoughts Endocrine Endocrinology: Denies excessive sweating, polydipsia or polyuria Hematologic/Lymphatic Hematologic/Lymphatic: Denies easy bleeding, easy bruising or lymphadenopathy Allergic/Immunologic Allergic/Immunologic: Denies itchy eyes, lip swelling, seasonal rhinorrhea, rhinitis, throat swelling, tongue swelling, eczemia, wheezing or asthma Vital Signs Vital Signs Vital Signs: 04/18/25 11:22 04/18/25 11:22 04/18/25 11:22 Pulse Rate 69 Respiratory Rate 18 Blood Pressure 130/86 H BP Systolic 130 BP Diastolic 86 04/18/25 12:17 04/18/25 12:17 Pulse Rate 74 Respiratory Rate Blood Pressure 128/76 H BP Systolic 128 BP Diastolic 76 Weight Weight: 197 lb 8.547 oz Body Mass Index (BMI) 33.9 Physical Exam Const alert, oriented x3, no apparent distress and healthy appearing General Appearance: cooperative; Negative for anxious HEENT normocephalic Face and Sinus: normal facial exam Eyes EOMs intact bilaterally and no scleral icterus General Eye: normal appearance of both eyes Neck full ROM and supple Lymph Lymphatic: no lymphadenopathy noted Resp normal respiratory effort Effort and Inspection: able to speak in complete sentences Cardio regular rate GI soft to palpation and non-tender Inspection: gravid Palpation: soft; Negative for tender Back/Spine no CVA tenderness Extremity normal to inspection, full ROM and no clubbing, cyanosis or edema General Extremity: Negative for calf tenderness or edema Skin Lesions: no lesions Rashes: no rashes Psych mental status grossly normal Labs Labs Labs: Blood Type A POSITIVE Antibody Screen NEGATIVE Hct, (37-47) 34.1 % L Hgb, (12.0-15.0) 11.1 g/dL L Obstetrics Ultrasound Syphilis Total Ab, (Nonreactive) Nonreactive Rubella IgG Antibody, (Nonreactive) REAC Hep Bs Antigen, (Nonreactive) Nonreactive Hepatitis C Antibody, (Nonreactive) Nonreactive Chlamydia DNA ([facility]), (Negative) Negative N.gonorrhoeae DNA ([place]ILBUR), (Negative) Negative HIV 1&2 Antibody, (Nonreactive) Nonreactive Glucose 1 Hr 50 gm, (70-140) 103 mg/dL Rhogam given: No Miscellaneous Test Assessment & Plan (1) PIH ( induced hypertension): (2) Hemorrhoids during : QUALIFIERS: Trimester: third trimester Qualified Code(s): O22.43 - Hemorrhoids in , third trimester COMMENT: compounded suppositories, tucks, warm soaks, avoid constipation (3) Supervision of high-risk : QUALIFIERS: Trimester: third trimester Qualified Code(s): O09.93 - Supervision of high risk , unspecified, third trimester COMMENT: PRR , JOANNE 04/23/25, boy, PC Romain, Daren (4) : QUALIFIERS: Weeks of gestation: 39 weeks Qualified Code(s): Z3A.39 - 39 weeks gestation of COMMENT: Neg GBS. NIPT low risk. carrier negative first . Negative AFP . nl anatomy. (5) History of gestational hypertension: COMMENT: discussed 81 mg ASA if desired. (6) Anxiety with depression: COMMENT: prozac; switched to zoloft; stable PLAN: Plan Patient presents IOL, plan management for with pitocin/AROM. Pain management: plans epidural. GBS negative. Management of any complications: see above I have reviewed the [facility]END[facility] and made any clinically relevant updates. 04/18/25 1245 Cosigner Signature (if applicable): CC: Dr. Camille Herzog DO; Dr. Bello Alfaro DO~ Signed [facility]10-16-2025 [facility] [address], [address] [place] [address] OFFICE VISIT Date of Service: 04/18/25 MR#: [id number] Acct: [id number] Name: ROBERTO CARLOS JAIN Rep #: [id number] : 1995 Provider: Dr. Gissell Herzog DO Age/Sex: 29/F Location: [facility] [place] Status: Signed Intake Vital Signs 01/28/25 13:15 04/11/25 11:18 04/18/25 10:20 04/18/25 10:21 Height 5 ft 3 in 5 ft 3 in 5 ft 3 in 5 ft 3 in Weight: 195 lb 3 oz 198 lb 3 oz BMI 34.5 35.1 BP 135/84 H 138/86 H Intake Visit Reasons: 39 wk ob Size Tester Required: No Is patient in pain?: No Allergies No Known Allergies Allergy (Verified 04/18/25 10:21) Medications ?Medication ?Instructions ?Recorded ?Confirmed ?Type multivit-min no.71-iron fum 28 1 cap PO DAILY 01/20/23 04/18/25 History mg-folate no.1 1 mg-dha 300 mg capsule (PNV-[place]) Last Menstrual Period: 07/17/24 Zika: Zika virus screening: Negative : No [facility] Medical History Seasonal allergies Vaginal delivery Family history of malignant hyperthermia Asthma Anxiety with depression Family History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 miscarriage paternal Social History adopted: No household members: spouse and children housing: house number of children: 1 current occupational status: unemployed current occupation: [employer] pets and animals: Yes (2) pets and animals: dog(s) history of recent travel: [place] ([place]) sexually active: Yes Smoking Status: Never smoker alcohol intake: never substance use type: does not use well-balanced diet: daily or most days caffeine: No eating out: rarely or never during the past year weight has: decreased > 10 lbs what type of physical activity do you participate in: other details: crossfit frequency: 3-4 times per week duration: 45-60 minutes/day ben/mu-ism: Orthodoxy seatbelt use: always do you feel safe at home: Yes additional social history: Kimberlyn POLK History 3 Elective abortions Hx Para 1 Spontaneous abortions 1 Hx # Term Pregnancies Ectopic pregnancies Hx # Pregnancies 1 Multiple births # of living children 1 Past Pregnancies Del. Date Name GA/Weeks Outcome Route Bth Weight Gen Labor Lgth Anesthesia Del Locatn Provider FOB Unknown 05/2022 Miscarriage 6wks 08/23/23 [place] 37 live - 6#13oz Male epid ural [facility] Lavern Calderonle Delivery Date: 08/23/23 Last Updated by: Stacy YATES HPI 34 wk ob Details: ROBERTO CARLOS JAIN is a 29 year old who presents for routine OB visit. OB Visit JOANNE Calculator Estimated Delivery Date Method Current WG Current Estimate 04/23/25 LMP (Certain) 34w 2d Other Estimates 04/22/25 Ultrasound #1 34w 3d Expected Delivery Route/Plan Labor Preferences- CB/BF classes: no labor support person: Daren labor intervention preferences: [] pain management options preferred: epidural cut cord/dad catch: yes : yes PP control planned: [] discussed possible routes of delivery and associated risks: [] special requests: [] Specific Issue/Plans Covid status: [] Flu vaccine: [] Tdap vaccine: given Rhogam: na LARC form signed: yes Problem list reviewed and updated with the most current plan of care details and appropriate orders placed. Relevant counseling for the gestational age provided. Continue routine care and follow up unless otherwise noted in visit notes/problem list details Initial Weight: Not Recorded Date -?-?-?-?-?-?-?-?-?-?-?-?- EGA Weight BP Urine Prot -?-?-?-?-?-?-?-?-?-?-?-?- Glucose FHR FuHt Pres Dilation -?-?-?-?-?-?-?-?-?-?-?-?- Effaced St Visit Note 09/12/24 -?-?-?-?-?-?-?-?--?-?-?-?- 8w 1d 169 lb 122/72 -?-?-?-?-?-?-?-?-?-?-?-?- 158 -?-?-?-?-?-?-?-?-?-?-?-?- JV- CRL consiste nt with LMP. Desires NIPT. will return in 2 weeks for blood work. 09/25/24 -?-?-?-?-?-?-?-?-?-?-?-?- 10w 0d 168 lb 2 oz 134/79 Nega tive -?-?-?-?-?-?-?-?-?-?-?-?- Negative 180 -?-?-?-?-?-?-?-?-?-?-?-?- KW- no vb/crampi ng. requesting a heartbeat check because her friend just had SAB. active fetus on US and FHT easily found. labs today 10/17/24 -?-?-?-?-?-?-?-?-?-?-?-?- 13w 1d 171 lb 2 oz 123/71 Nega tive -?-?-?-?-?-?-?-?-?-?-?-?- Negative 160 -?-?-?-?-?-?-?-?-?-?-?-?- SM- no vb crmapi ng 11/13/24 -?-?-?-?-?-?-?-?-?-?-?-?- 17w 0d 173 lb 122/74 Negative -?-?-?-?-?-?-?-?-?-?-?-?- Negative 154 -?-?-?-?-?-?-?-?-?-?-?-?- MH-No VB. Thinks feels flutters. AFP today. No concerns 12/10/24 -?-?-?-?-?-?-?-?-?-?-?-?- 20w 6d 176 lb 8 oz 124/75 1+ -?-?-?-?-?-?-?-?-?-?-?-?- Negative 160 -?-?-?-?-?-?-?-?-?-?-?-?- KW- no vb/crampi ng. +flutters. US reviewed. PC ratio send for 1+ protein. 01/09/25 -?-?-?-?-?-?-?-?-?-?-?-?- 25w 1d 183 lb 107/67 Negative -?-?-?-?-?-?-?-?-?-?-?-?- Negative 168 -?-?-?-?-?-?-?-?-?-?-?-?- JV- no lof, vagi nal bleeding or dec fm. glucola next visi. 01/28/25 -?-?-?-?-?-?-?-?-?-?-?-?- 27w 6d 187 lb 107/71 Negative -?-?-?-?-?-?-?-?-?-?-?-?- Negative 159 28 -?-?-?-?-?-?-?-?-?-?-?-?- MH-No Vb, LOF. Good FM. Larc. 28 wk labs pending 02/14/25 -?-?-?-?-?-?-?-?-?-?-?-?- 30w 2d 188 lb 3 oz 129/73 Nega tive -?-?-?-?-?-?-?-?-?-?-?-?- Negative 140 31 Cephalic -?-?-?-?-?-?-?-?-?-?-?-?- SM- no vb lof go od fm no reuglar ctx 03/01/25 -?-?-?-?-?-?-?-?-?-?-?-?- 32w 3d 192 lb 121/76 Negative -?-?-?-?-?-?-?-?-?-?-?-?- Negative 150 34 -?-?-?-?-?-?-?-?-?-?-?-?- KW-work in for J V. no vb/lof/ctx good fm. TDap today. if fundal height elevated next visit will get growth US 03/14/25 -?-?-?-?-?-?-?-?-?-?-?-?- 34w 2d 192 lb 122/74 -?-?-?-?-?-?-?-?-?-?-?-?- 146 35 -?-?-?-?-?-?-?-?-?-?-?-?- MH-No VB, LOF. Has painful hemorrhoid-1cm on exam, soft, nonthrombosed. ACOG First Trimester First Trimester: Discussed Second Trimester Second Trimester: Signs and Symptoms of Labor, Selecting a care provider, Reproductive Life Planning & Contreception, Care Planning, Depression/Anxiety and Intimate Partner Violence; Discussed Tobacco Cessation Third Trimester Third Trimester: Pain Management Plans, Labor support person(s), Immediate Larc, Circumcision preference, Movement Monitoring, Signs and Symptoms of Preeclampsia and [place] Education ROS Const Reports system reviewed and no additional complaints, except as documented GI Reports as per HPI, Denies abdominal pain, Denies nausea and Denies vomiting Exam Const General: cooperative Nutritional Appearance: well nourished GI Palpation: soft, nontender and other (gravid) Rectal Exam: hemorrhoids (soft, nonthrombosed) Coding Level of Care Code OB Routine Diagnoses Supervision of high risk in third trimester O09.93 Trimester: third trimester 34 weeks gestation of Z3A.34 Weeks of gestation: 34 weeks History of gestational hypertension Z87.59 Anxiety with depression F41.8 Hemorrhoids during in third trimester O22.43 Trimester: third trimester Assessment and Plan Assessment and Plan (1) Supervision of high-risk : Status: Acute Qualifiers: Trimester: third trimester Qualified Code(s): O09.93 - Supervision of high risk , unspecified, third trimester Comment: PRR , JOANNE 04/23/25, boy, BJORN [place], Daren (2) : Status: Acute Qualifiers: Weeks of gestation: 34 weeks Qualified Code(s): Z3A.34 - 34 weeks gestation of Comment: NIPT low risk. carrier negative first . Negative AFP . nl anatomy. (3) History of gestational hypertension: Status: Acute Comment: discussed 81 mg ASA if desired. (4) Anxiety with depression: Status: Acute Comment: prozac; switched to zoloft; stable (5) Hemorrhoids during : Status: Acute Qualifiers: Trimester: third trimester Qualified Code(s): O22.43 - Hemorrhoids in , third trimester Comment: compounded suppositories, tucks, warm soaks, avoid constipation Orders: Orders POC Urinalysis 2 Dip (Clinic) Today Plan problem list reviewed and updated for most current plan of care and appropriate orders placed. Relevant counseling for the gestational age appropriate provided and ACOG education checklist updated. Continue routine care and follow up. 03/14/25 5902 <Electronically signed by Liana MENDEZ> Date _ Liana Doshi Signature: Date (if applicable) CC: ~ [facility] Work Phone: [phone] [facility] [address] [place] [address], [address] [place] [address] OFFICE VISIT Date of Service: 03/14/25 MR#: [id number] Acct: [id number] Name: ROBERTO CARLOS JAIN Rep #: [id number] : 1995 Provider: PAD ASSEMBLER-C [place] Age/Sex: 29/F Location: [facility] [place] Status: Signed Intake Vital Signs 01/28/25 13:15 03/01/25 11:59 03/14/25 13:30 Height 5 ft 3 in 5 ft 3 in 5 ft 3 in Weight: 192 lb BMI 34.0 BP 122/74 H Intake Visit Reasons: 34 wk ob Chief Complaint: 34 Week OB Size Tester Required: No Is patient in pain?: No Allergies No Known Allergies Allergy (Verified 03/14/25 13:32) Medications 3 ?Medication ?Instructions ?Recorded ?Confirmed ?Type multivit-min no.71-iron fum 28 1 cap PO DAILY 01/20/23 03/14/25 History mg-folate no.1 1 mg-dha 300 mg capsule (PNV-[place]) Last Menstrual Period: 07/17/24 Zika: Zika virus screening: Negative : No PFSH PFSH Medical History Seasonal allergies Vaginal delivery Family history of malignant hyperthermia Asthma Anxiety with depression Family History Father Diabetes Mother Hypertension Grandmother Family history of recurrent miscarriage paternal Social History adopted: No household members: spouse and children housing: house number of children: 1 current occupational status: unemployed current occupation: [employer] pets and animals: Yes (2) pets and animals: dog(s) history of recent travel: [place] ([place]) sexually active: Yes Smoking Status: Never smoker alcohol intake: never substance use type: does not use well-balanced diet: daily or most days caffeine: No eating out: rarely or never during the past year weight has: decreased > 10 lbs what type of physical activity do you participate in: other details: crossfit frequency: 3-4 times per week duration: 45-60 minutes/day ben/mu-ism: Orthodoxy seatbelt use: always do you feel safe at home: Yes additional social history: Daren- JAM History 3 Elective abortions Hx Para 1 Spontaneous abortions 1 Hx # Term Pregnancies Ectopic pregnancies Hx # Pregnancies 1 Multiple births # of living children 1 Past Pregnancies Del. Date Name GA/Weeks Outcome Route Bth Weight Infant Gen Labor Lgth Anesthesia Del Locatn Provider FOB Unknown 05/2022 Miscarriage 6wks 02/20/24 [place] 37 live - 6#13oz Male epid ural [facility] Lavern Mercedes Delivery Date: 08/23/23 Last Updated by: Stacy Garzon SROM HPI 34 wk ob Details: ROBERTO CARLOS JAIN is a 29 year old who presents for routine OB visit. OB Visit JOANNE Calculator Estimated Delivery Date Method Current WG Current Estimate 04/23/25 LMP (Certain) 34w 2d Other Estimates 04/22/25 Ultrasound #1 34w 3d Expected Delivery Route/Plan Labor Preferences- CB/BF classes: no labor support person: Daren labor intervention preferences: [] pain management options preferred: epidural cut cord/dad catch: yes : yes PP control planned: [] discussed possible routes of delivery and associated risks: [] special requests: [] Specific Issue/Plans Covid status: [] Flu vaccine: [] Tdap vaccine: given Rhogam: na LARC form signed: yes Problem list reviewed and updated with the most current plan of care details and appropriate ordersplaced. Relevant counseling for the gestational age provided. Continue routine care and follow up unless otherwise noted in visit notes/problem list details Initial Weight: Not Recorded Date -?-?-?-?-?-?-?-?-?-?-?-?- EGA Weight BP Urine Prot -?-?-?-?-?-?-?-?-?-?-?-?- Glucose FHR FuHt Pres Dilation -?-?-?-?-?-?-?-?-?-?-?-?- Effaced St Visit Note 09/12/24 -?-?-?-?-?-?-?-?--?-?-?-?- 8w 1d 169 lb 122/72 -?-?-?-?-?-?-?-?-?-?-?-?- 158 -?-?-?-?-?-?-?-?-?-?-?-?- JV- CRL consiste nt with LMP. Desires NIPT. will return in 2 weeks for blood work. 09/25/24 -?-?-?-?-?-?-?-?-?-?-?-?- 10w 0d 168 lb 2 oz 134/79 Nega tive -?-?-?-?-?-?-?-?-?-?-?-?- Negative 180 -?-?-?-?-?-?-?-?-?-?-?-?- KW- no vb/crampi ng. requesting a heartbeat check because her friend just had SAB. active fetus on US and FHT easily found. labs today 10/17/24 -?-?-?-?-?-?-?-?-?-?-?-?- 13w 1d 171 lb 2 oz 123/71 Nega tive -?-?-?-?-?-?-?-?-?-?-?-?- Negative 160 -?-?-?-?-?-?-?-?-?-?-?-?- SM- no vb crmapi ng 11/13/24 -?-?-?-?-?-?-?-?-?-?-?-?- 17w 0d 173 lb 122/74 Negative -?-?-?-?-?-?-?-?-?-?-?-?- Negative 154 -?-?-?-?-?-?-?-?-?-?-?-?- MH-No VB. Thinks feels flutters. AFP today. No concerns 12/10/24 -?-?-?-?-?-?-?-?-?-?-?-?- 20w 6d 176 lb 8 oz 124/75 1+ -?-?-?-?-?-?-?-?-?-?-?-?- Negative 160 -?-?-?-?-?-?-?-?-?-?-?-?- KW- no vb/crampi ng. +flutters. US reviewed. PC ratio send for 1+ protein. 01/09/25 -?-?-?-?-?-?-?-?-?-?-?-?- 25w 1d 183 lb 107/67 Negative -?-?-?-?-?-?-?-?-?-?-?-?- Negative 168 -?-?-?-?-?-?-?-?-?-?-?-?- JV- no lof, vagi nal bleeding or dec fm. glucola next visi. 01/28/25 -?-?-?-?-?-?-?-?-?-?-?-?- 27w 6d 187 lb 107/71 Negative -?-?-?-?-?-?-?-?-?-?-?-?- Negative 159 28 -?-?-?-?-?-?-?-?-?-?-?-?- -No Vb, LOF. Good FM. Larc. 28 wk labs pending 02/14/25 -?-?-?-?-?-?-?-?-?-?-?-?- 30w 2d 188 lb 3 oz 129/73 Nega tive -?-?-?-?-?-?-?-?-?-?-?-?- Negative 140 31 Cephalic -?-?-?-?-?-?-?-?-?-?-?-?- SM- no vb lof go od fm no reuglar ctx 03/01/25 -?-?-?-?-?-?-?-?-?-?-?-?- 32w 3d 192 lb 121/76 Negative -?-?-?-?-?-?-?-?-?-?-?-?- Negative 150 34 -?-?-?-?-?-?-?-?-?-?-?-?- KW-work in for J V. no vb/lof/ctx good fm. TDap today. if fundal height elevated next visit will get growth US 03/14/25 -?-?-?-?-?-?-?-?-?-?-?-?- 34w 2d 192 lb 122/74 -?-?-?-?-?-?-?-?-?-?-?-?- 146 35 -?-?-?-?-?-?-?-?-?-?-?-?- MH-No VB, LOF. Has painful hemorrhoid-1cm on exam, soft, nonthrombosed. ACOG First Trimester First Trimester: Discussed Second Trimester Second Trimester: Signs and Symptoms of Labor, Selecting a care provider, Reproductive Life Planning & Contreception, Care Planning, Depression/Anxiety and Intimate Partner Violence; Discussed Tobacco Cessation Third Trimester Third Trimester: Pain Management Plans, Labor support person(s), Immediate Larc, Circumcision preference, Movement Monitoring, Signs and Symptoms of Preeclampsia and Education ROS Const Reports system reviewed and no additional complaints, except as documented GI Reports as per HPI, Denies abdominal pain, Denies nausea and Denies vomiting Exam Const General: cooperative Nutritional Appearance: well nourished GI Palpation: soft, nontender and other (gravid) Rectal Exam: hemorrhoids (soft, nonthrombosed) Coding Level of Care Code OB Routine Diagnoses Supervision of high risk in third trimester O09.93 Trimester: third trimester 34 weeks gestation of Z3A.34 Weeks of gestation: 34 weeks History of gestational hypertension Z87.59 Anxiety with depression F41.8 Hemorrhoids during in third trimester O22.43 Trimester: third trimester Assessment and Plan Assessment and Plan (1) Supervision of high-risk : Status: Acute Qualifiers: Trimester: third trimester Qualified Code(s): O09.93 - Supervision of high risk , unspecified, third trimester Comment: PRR , JOANNE 04/23/25, boy, BJORN [place], Daren (2) : Status: Acute Qualifiers: Weeks of gestation: 34 weeks Qualified Code(s): Z3A.34 - 34 weeks gestation of Comment: NIPT low risk. carrier negative first . Negative AFP . nl anatomy. (3) History of gestational hypertension: Status: Acute Comment: discussed 81 mg ASA if desired. (4) Anxiety with depression: Status: Acute Comment: prozac; switched to zoloft; stable (5) Hemorrhoids during : Status: Acute Qualifiers: Trimester: third trimester Qualified Code(s): O22.43 - Hemorrhoids in , third trimester Comment: compounded suppositories, tucks, warm soaks, avoid constipation Orders: Orders POC Urinalysis 2 Dip (Clinic) Today Plan problem list reviewed and updated for most current plan of care and appropriate orders placed. Relevant counseling for the gestational age appropriate provided and ACOG education checklist updated. Continue routine care and follow up. 03/14/25 1354 s PAD ASSEMBLER PAD ASSEMBLER-C> Date _ Liana Rodriguez PAD ASSEMBLER PAD ASSEMBLER-C Cosigner Signature: Date (if applicable) CC: ~ [facility]08-29-2025 [facility] [address] [place] [address], [address] [place] [address] OFFICE VISIT Date of Service: 03/01/25 MR#: [id number] Acct: [id number] Name: ROBERTO CARLOS JAIN Rep #: [id number] : 1995 Provider: BREANN Zavala Age/Sex: 29/F Location: [facility] [place] Status: Signed Intake Vital Signs 01/09/25 15:23 02/14/25 15:17 03/01/25 11:57 03/01/25 11:59 Height 5 ft 3 in 5 ft 3 in 5 ft 3 in 5 ft 3 in Weight: 192 lb BMI 34.0 BP 121/76 H Intake Visit Reasons: 32 WK OB Size Tester Required: No Is patient in pain?: No Allergies No Known Allergies Allergy (Verified 03/01/25 11:57) Medications ?Medication ?Instructions ?Recorded ?Confirmed ?Type multivit-min no.71-iron fum 28 1 cap PO DAILY 01/20/23 03/01/25 History mg-folate no.1 1 mg-dha 300 mg capsule (PNV-[place]) Last Menstrual Period: 07/17/24 Zika: Zika virus screening: Negative : No PFSH PFSH Medical History Seasonal allergies Vaginal delivery Family history of malignant hyperthermia Asthma Anxiety with depression Family History Father Diabetes Mother Hypertension Grandmother Family history of recurrent miscarriage paternal Social History adopted: No household members: spouse and children housing: house number of children: 1 current occupational status: unemployed current occupation: [employer] pets and animals: Yes (2) pets and animals: dog(s) history of recent travel: [place] ([place]) sexually active: Yes Smoking Status: Never smoker alcohol intake: never substance use type: does not use well-balanced diet: daily or most days caffeine: No eating out: rarely or never during the past year weight has: decreased > 10 lbs what type of physical activity do you participate in: other details: crossfit frequency: 3-4 times per week duration: 45-60 minutes/day ben/mu-ism: Orthodoxy seatbelt use: always do you feel safe at home: Yes additional social history: Kimbrelyn POLK History 3 Elective abortions Hx Para 1 Spontaneous abortions 1 Hx # Term Pregnancies Ectopic pregnancies Hx # Pregnancies 1 Multiple births # of living children 1 Past Pregnancies Del. Date Name GA/Weeks Outcome Route Bth Weight Gen Labor Lgth Anesthesia Del Locatn Provider FOB Unknown 05/2022 Miscarriage 6wks 08/23/23 [place] 37 live - 6#13oz Male epid ural [facility] Lavern Mercedes Delivery Date: 08/23/23 Last Updated by: Stacy YATES HPI 32 WK OB Details: ROBERTO CARLOS JAIN is a 29 year old who presents for routine OB visit. OB Visit JOANNE Calculator Estimated Delivery Date Method Current WG Current Estimate 04/23/25 LMP (Certain) 32w 3d Other Estimates 04/22/25 Ultrasound #1 32w 4d Expected Delivery Route/Plan Labor Preferences- CB/BF classes: no labor support person: Daren labor intervention preferences: [] pain management options preferred: epidural cut cord/dad catch: yes : yes PP control planned: [] discussed possible routes of delivery and associated risks: [] special requests: [] Specific Issue/Plans Covid status: [] Flu vaccine: [] Tdap vaccine: [] Rhogam: na LARC form signed: yes Problem list reviewed and updated with the most current plan of care details and appropriate ordersplaced. Relevant counseling for the gestational age provided. Continue routine care and follow up unless otherwise noted in visit notes/problem list details Initial Weight: Not Recorded Date -?-?-?-?-?-?-?-?-?-?-?-?- EGA Weight BP Urine Prot -?-?-?-?-?-?-?-?-?-?-?-?- Glucose FHR FuHt Pres Dilation -?-?-?-?-?-?-?-?-?-?-?-?- Effaced St Visit Note 09/12/24 -?-?-?-?-?-?-?-?-?-?-?-?- 8w 1d 169 lb 122/72 -?-?-?-?-?-?-?-?-?-?-?-?- 158 -?-?-?-?-?-?-?-?-?-?-?-?- JV- CRL consiste nt with LMP. Desires NIPT. will return in 2 weeks for blood work. 09/25/24 -?-?-?-?-?-?-?-?-?-?-?-?- 10w 0d 168 lb 2 oz 134/79 Nega tive -?-?-?-?-?-?-?-?-?-?-?-?- Negative 180 -?-?-?-?-?-?--?-?-?-?-?-?- KW- no vb/crampi ng. requesting a heartbeat check because her friend just had SAB. active fetus on US and FHT easily found. labs today 10/17/24 -?-?-?-?-?-?-?-?-?-?-?--?- 13w 1d 171 lb 2 oz 123/71 Nega tive -?-?-?-?-?-?-?-?-?-?-?-?- Negative 160 -?-?-?-?-?-?-?-?-?-?-?-?- SM- no vb crmapi ng 11/13/24 -?-?-?-?-?-?-?-?-?-?-?-?- 17w 0d 173 lb 122/74 Negative -?-?-?-?-?-?-?-?-?-?-?-?- Negative 154 -?-?-?-?-?-?-?-?-?-?-?-?- MH-No VB. Thinks feels flutters. AFP today. No concerns 12/10/24 -?-?-?-?-?-?-?-?-?-?-?-?- 20w 6d 176 lb 8 oz 124/75 1+ -?-?-?-?-?-?-?-?-?-?-?-?- Negative 160 -?-?-?-?-?-?-?-?-?-?-?-?- KW- no vb/armond burks. +flutters. US reviewed. PC ratio send for 1+ protein. 01/09/25 -?-?-?-?-?-?-?-?-?-?-?-?- 25w 1d 183 lb 107/67 Negative -?-?-?-?-?-?-?-?-?-?-?-?- Negative 168 -?-?-?-?-?-?-?-?-?-?-?-?- JV- no lof, vagi nal bleeding or dec fm. glucola next visi. 01/28/25 -?-?-?-?-?-?-?-?-?-?-?-?- 27w 6d 187 lb 107/71 Negative -?-?-?-?-?-?-?-?-?-?-?-?- Negative 159 28 -?-?-?-?-?-?-?-?-?-?-?-?- MH-No Vb, LOF. Good FM. Larc. 28 wk labs pending 02/14/25 -?-?-?-?-?-?-?-?-?-?-?-?- 30w 2d 188 lb 3 oz 129/73 Nega tive -?-?-?-?-?-?-?-?-?-?-?-?- Negative 140 31 Cephalic -?-?-?-?-?-?-?-?-?-?-?-?- SM- no vb lof go od fm no reuglar ctx 03/01/25 -?-?-?-?-?-?-?-?-?-?-?-?- 32w 3d 192 lb 121/76 Negative -?-?-?-?-?-?-?-?-?-?-?-?- Negative 150 34 -?-?-?-?-?-?-?-?-?-?-?-?- KW-work in for J V. no vb/lof/ctx good fm. TDap today. if fundal height elevat ed next visit will get growth US ACOG First Trimester First Trimester: Discussed Second Trimester Second Trimester: Signs and Symptoms of Labor, Selecting a care provider, Reproductive Life Planning & Contreception, Care Planning, Depression/Anxiety and Intimate Partner Violence; Discussed Tobacco Cessation Third Trimester Third Trimester: Pain Management Plans, Labor support person(s), Immediate Larc, Circumcision preference, Movement Monitoring, Signs and Symptoms of Preeclampsia and Education ROS Const Reports system reviewed and no additional complaints, except as documented Eyes Reports system reviewed and no additional complaints, except as documented ENT Reports system reviewed and no additional complaints, except as documented Card Reports system reviewed and no additional complaints, except as documented Resp Reports system reviewed and no additional complaints, except as documented GI Reports system reviewed and no additional complaints, except as documented, Denies nausea and Denies vomiting Reports system reviewed and no additional complaints, except as documented Musc Reports system reviewed and no additional complaints, except as documented Skin/Breast Reports system reviewed and no additional complaints, except as documented Neuro Yes system reviewed and no additional complaints, except as documented Psych Reports system reviewed and no additional complaints, except as documented Endo Reports system reviewed and no additional complaints, except as documented Dashawn/Lymph Reports system reviewed and no additional complaints, except as documented Aller/Immun Reports system reviewed and no additional complaints, except as documented Exam Const General: cooperative, healthy appearing and no acute distress Orientation: alert, awake and oriented x3 Neck Neck: normal visual inspection and full ROM Resp Effort & Inspection: normal respiratory effort, able to speak in complete sentences and symmetric chest movement GI Inspection: normal to inspection Palpation: soft and other Other: gravid Skin General: no rashes or lesions noted Neuro General: patient alert, patient awake and patient oriented x3 Cognition: normal cognition Speech: speech normal Gait: normal gait Motor: muscle tone normal throughout Extrem General: normal to inspection and full ROM Psych Appearance: grossly normal Mental Status: mental status grossly normal Mood: congruent mood Affect: normal affect Speech and Movement: speech and movement normal Attitude: cooperative Thought Process: normal Thought Content: normal Judgment: judgment good Results POC Urinalysis 2 Dip (Clinic) Office Urine Glucose Negative Last Edit by Kristyn Rodríguez on 03/01/25 12: 17 Office Urine Protein Negative Last Edit by Kristyn Rodríguez on 03/01/25 12: 17 Coding Level of Care Code OB Routine Diagnoses Supervision of high risk in second trimester O09.92 Trimester: second trimester 32 weeks gestation of Z3A.32 Weeks of gestation: 32 weeks History of gestational hypertension Z87.59 Anxiety with depression F41.8 Assessment and Plan Assessment and Plan (1) Supervision of high-risk : Status: Acute Qualifiers: Trimester: second trimester Qualified Code(s): O09.92 - Supervision of high risk , unspecified, second trimester Comment: PRR , JOANNE 04/23/25, boy, PC Romain, Daren (2) : Status: Acute Qualifiers: Weeks of gestation: 32 weeks Qualified Code(s): Z3A.32 - 32 weeks gestation of Comment: NIPT low risk. carrier negative first . Negative AFP . nl anatomy. (3) History of gestational hypertension: Status: Acute Comment: discussed 81 mg ASA if desired. (4) Anxiety with depression: Status: Acute Comment: prozac; switched to zoloft; stable Orders: Orders POC Urinalysis 2 Dip (Clinic) Today Dr. Clementina Enrique MD Tdap Immunization Today Lavern Zavala CNM Z23 - Encounter for immunization Medications: New Adacel(Tdap Adolesn/Adult)(PF) (diph,pertuss(acel),tet vac(PF)) 0.5 mL IM ONCE 0.5 mL 0RF NS Lavern Zavala CNM Z23 - Encounter for immunization Plan Details Additional Comments: ACOG trimester education reviewed and updated. see problem list details for updated plan management information and see below for orders placed atthis visit. [place] appropriate handout given. 03/01/25 1218 s CHAYOM> Date _ Lavern Zavala BREANN Tijerinanaomy Signature: Date (if applicable) CC: ~ [facility]08-14-2025 [facility] [address] [place] [address], [address] [place] [address] OFFICE VISIT Date of Service: 02/14/25 MR#: [id number] Acct: [id number] Name: ROBERTO CARLOS JAIN Rep #: [id number] : 1995 Provider: Dr. Sy Enrique MD Age/Sex: 29/F Location: [facility] [place] Status: Signed Intake Vital Signs 01/09/25 15:23 01/28/25 13:15 02/14/25 15:13 02/14/25 15:17 Height 5 ft 3 in 5 ft 3 in 5 ft 3 in 5 ft 3 in Weight: 188 lb 3 oz BMI 33.3 BP 129/73 H Intake Visit Reasons: 30 WK OB Size Tester Required: No Is patient in pain?: No Allergies No Known Allergies Allergy (Verified 02/14/25 15:13) Medications ?Medication ?Instructions ?Recorded ?Confirmed ?Type multivit-min no.71-iron fum 28 1 cap PO DAILY 01/20/23 02/14/25 History mg-folate no.1 1 mg-dha 300 mg capsule (PNV-[place]) Last Menstrual Period: 07/17/24 Zika: Zika virus screening: Negative : No PFSH PFSH Medical History Seasonal allergies Vaginal delivery Family history of malignant hyperthermia Asthma Anxiety with depression Family History Father Diabetes Mother Hypertension Grandmother Family history of recurrent miscarriage paternal Social History adopted: No household members: spouse and children housing: house number of children: 1 current occupational status: unemployed current occupation: [employer] pets and animals: Yes (2) pets and animals: dog(s) history of recent travel: [place] ([place]) sexually active: Yes Smoking Status: Never smoker alcohol intake: never substance use type: does not use well-balanced diet: daily or most days caffeine: No eating out: rarely or never during the past year weight has: decreased > 10 lbs what type of physical activity do you participate in: other details: crossfit frequency: 3-4 times per week duration: 45-60 minutes/day ben/mu-ism: Orthodoxy seatbelt use: always do you feel safe at home: Yes additional social history: Daren- AESamuel History 3 Elective abortions Hx Para 1 Spontaneous abortions 1 Hx # Term Pregnancies Ectopic pregnancies Hx # Pregnancies 1 Multiple births # of living children 1 Past Pregnancies Del. Date Name GA/Weeks Outcome Route Bth Weight Infant Gen Labor Lgth Anesthesia Del Locatn Provider FOB Unknown 05/2022 Miscarriage 6wks 08/23/23 [place] 37 live - 6#13oz Male epid ural [facility] Lavern Mercedes Delivery Date: 08/23/23 Last Updated by: Stacy YATES HPI 30 WK OB Details: ROBERTO CARLOS JAIN is a 29 year old who presents for routine OB visit. OB Visit JOANNE Calculator Estimated Delivery Date Method Current WG Current Estimate 04/23/25 LMP (Certain) 30w 2d Other Estimates 04/22/25 Ultrasound #1 30w 3d Expected Delivery Route/Plan Labor Preferences- CB/BF classes: no labor support person: Daren labor intervention preferences: [] pain management options preferred: epidural cut cord/dad catch: yes : yes PP control planned: [] discussed possible routes of delivery and associated risks: [] special requests: [] Specific Issue/Plans Covid status: [] Flu vaccine: [] Tdap vaccine: [] Rhogam: na LARC form signed: yes Problem list reviewed and updated with the most current plan of care details and appropriate ordersplaced. Relevant counseling for the gestational age provided. Continue routine care and follow up unless otherwise noted in visit notes/problem list details Initial Weight: Not Recorded Date -?-?-?-?-?-?-?-?-?-?-?-?- EGA Weight BP Urine Prot -?-?-?-?-?-?-?-?-?-?-?-?- Glucose FHR FuHt Pres Dilation -?-?-?-?-?-?-?-?-?-?-?-?- Effaced St Visit Note 09/12/24 -?-?-?-?-?-?-?-?-?-?-?-?- 8w 1d 169 lb 122/72 -?-?-?-?-?-?-?-?-?-?-?-?- 158 -?-?-?-?-?-?-?-?-?-?-?-?- JV- CRL consiste nt with LMP. Desires NIPT. will return in 2 weeks for blood work. 09/25/24 -?-?-?-?-?-?-?-?-?-?-?-?- 10w 0d 168 lb 2 oz 134/79 Nega tive -?-?-?-?-?-?-?-?-?-?-?-?- Negative 180 -?-?-?-?-?-?-?-?-?-?-?-?- KW- no vb/crampi ng. requesting a heartbeat check because her friend just had SAB. active fetus on US and FHT easily found. labs today 10/17/24 -?-?-?-?-?--?-?-?-?-?-?-?- 13w 1d 171 lb 2 oz 123/71 Nega tive -?-?-?-?-?-?-?-?-?-?-?-?- Negative 160 -?-?-?-?-?-?-?-?-?-?-?-?- SM- no vb crmapi ng 11/13/24 -?-?-?-?-?-?-?-?-?-?-?-?- 17w 0d 173 lb 122/74 Negative -?-?-?-?-?-?-?-?-?-?-?-?- Negative 154 -?-?-?-?-?-?-?-?-?-?-?-?- MH-No VB. Thinks feels flutters. AFP today. No concerns 12/10/24 -?-?-?-?-?-?-?-?-?-?-?-?- 20w 6d 176 lb 8 oz 124/75 1+ -?-?-?-?-?-?-?-?-?-?-?-?- Negative 160 -?-?-?-?-?-?-?-?-?-?-?-?- KW- no vb/crampi ng. +flutters. US reviewed. PC ratio send for 1+ protein. 01/09/25 -?-?-?-?-?-?-?-?-?-?-?-?- 25w 1d 183 lb 107/67 Negative -?-?-?-?-?-?-?-?-?-?-?-?- Negative 168 -?-?-?-?-?-?-?-?-?-?-?-?- JV- no lof, vagi nal bleeding or dec fm. glucola next visi. 01/28/25 -?-?-?-?-?-?-?-?-?-?-?-?- 27w 6d 187 lb 107/71 Negative -?-?-?-?-?-?-?-?-?-?-?-?- Negative 159 28 -?-?-?-?-?-?-?-?-?-?-?-?- MH-No Vb, LOF. Good FM. Larc. 28 wk labs pending 02/14/25 -?-?-?-?-?-?-?-?-?-?-?-?- 30w 2d 188 lb 3 oz 129/73 Nega tive -?-?-?-?-?-?-?-?-?-?-?-?- Negative 140 31 Cephalic -?-?-?-?-?-?-?-?-?-?-?-?- SM- no vb lof go od fm no reuglar ctx ACOG First Trimester First Trimester: Discussed Second Trimester Second Trimester: Signs and Symptoms of Labor, Selecting a care provider, Reproductive Life Planning & Contreception, Care Planning, Depression/Anxiety and Intimate Partner Violence; Discussed Tobacco Cessation Third Trimester Third Trimester: Pain Management Plans, Labor support person(s), Immediate Larc, Circumcision preference, Movement Monitoring, Signs and Symptoms of Preeclampsia and Education Results POC Urinalysis 2 Dip (Clinic) Office Urine Glucose Negative Last Edit by Liana Murphy on 02/14/25 15:21 Office Urine Protein Negative Last Edit by Liana Murphy on 02/14/25 15:21 Coding Level of Care Code OB Routine Diagnoses Supervision of high risk in second trimester O09.92 Trimester: second trimester 30 weeks gestation of Z3A.30 Weeks of gestation: 30 weeks Anxiety with depression F41.8 History of gestational hypertension Z87.59 Assessment and Plan Assessment and Plan (1) Supervision of high-risk : Status: Acute Qualifiers: Trimester: second trimester Qualified Code(s): O09.92 - Supervision of high risk , unspecified, second trimester Comment: PRR , JOANNE 04/23/25, boy, BJORN LernerRomain, Daren (2) : Status: Acute Qualifiers: Weeks of gestation: 30 weeks Qualified Code(s): Z3A.30 - 30 weeks gestation of Comment: NIPT low risk. carrier negative first . Negative AFP . nl anatomy. (3) Anxiety with depression: Status: Acute Comment: prozac; switched to zoloft; stable (4) History of gestational hypertension: Status: Acute Comment: discussed 81 mg ASA if desired. Orders: Orders POC Urinalysis 2 Dip (Clinic) Today 02/14/25 1540 oscar ABEBE> Date _ Clementina Enrique MD Cosigner Signature: Date (if applicable) CC: ~ [facility]08-14-2025 Progress note Author Clementina Enrique [facility] Note Date/Time February 14, 2025 3: 40pm [facility] [address], [address] [place] [address] OFFICE VISIT Date of Service: 02/14/25 MR#: [id number] Acct: [id number] Name: ROBERTO CARLOS JAIN Rep #: [id number] : 1995 Provider: Dr. Sy Enrique MD Age/Sex: 29/F Location: [facility] [place] Status: Signed Intake Vital Signs 01/09/25 15:23 01/28/25 13:15 02/14/25 15:13 02/14/25 15:17 Height 5 ft 3 in 5 ft 3 in 5 ft 3 in 5 ft 3 in Weight: 188 lb 3 oz BMI 33.3 BP 129/73 H Intake Visit Reasons: 30 WK OB Size Tester Required: No Is patient in pain?: No Allergies No Known Allergies Allergy (Verified 02/14/25 15:13) Medications ?Medication ?Instructions ?Recorded ?Confirmed ?Type multivit-min no.71-iron fum 28 1 cap PO DAILY 01/20/23 02/14/25 History mg-folate no.1 1 mg-dha 300 mg capsule (PNV-[place]) Last Menstrual Period: 07/17/24 Zika: Zika virus screening: Negative : No PFSH PFSH Medical History Seasonal allergies Vaginal delivery Family history of malignant hyperthermia Asthma Anxiety with depression Family History Father Diabetes Mother Hypertension Grandmother Family history of recurrent miscarriage paternal Social History adopted: No household members: spouse and children housing: house number of children: 1 current occupational status: unemployed current occupation: [employer] pets and animals: Yes (2) pets and animals: dog(s) history of recent travel: [place] ([place]) sexually active: Yes Smoking Status: Never smoker alcohol intake: never substance use type: does not use well-balanced diet: daily or most days caffeine: No eating out: rarely or never during the past year weight has: decreased > 10 lbs what type of physical activity do you participate in: other details: crossfit frequency: 3-4 times per week duration: 45-60 minutes/day ben/mu-ism: Orthodoxy seatbelt use: always do you feel safe at home: Yes additional social history: Kimberlyn POLK History 3 Elective abortions Hx Para 1 Spontaneous abortions 1 Hx # Term Pregnancies Ectopic pregnancies Hx # Pregnancies 1 Multiple births # of living children 1 Past Pregnancies Del. Date Name GA/Weeks Outcome Route Bth Weight Gen Labor Lgth Anesthesia Del Locatn Provider FOB Unknown 05/2022 Miscarriage 6wks 08/23/23 [place] 37 live - 6#13oz Male epid ural [facility] Lavern Mercedes Delivery Date: 08/23/23 Last Updated by: Stacy YATES HPI 30 WK OB Details: ROBERTO CARLOS JAIN is a 29 year old who presents for routine OB visit. OB Visit JOANNE Calculator Estimated Delivery Date Method Current WG Current Estimate 04/23/25 LMP (Certain) 30w 2d Other Estimates 04/22/25 Ultrasound #1 30w 3d Expected Delivery Route/Plan Labor Preferences- CB/BF classes: no labor support person: Daren labor intervention preferences: [] pain management options preferred: epidural cut cord/dad catch: yes : yes PP control planned: [] discussed possible routes of delivery and associated risks: [] special requests: [] Specific Issue/Plans Covid status: [] Flu vaccine: [] Tdap vaccine: [] Rhogam: na LARC form signed: yes Problem list reviewed and updated with the most current plan of care details and appropriate orders placed. Relevant counseling for the gestational age provided. Continue routine care and follow up unless otherwise noted in visit notes/problem list details Initial Weight: Not Recorded Date -?-?-?-?-?-?-?-?-?-?-?-?- EGA Weight BP Urine Prot -?-?-?-?-?-?-?-?-?-?-?-?- Glucose FHR FuHt Pres Dilation -?-?-?-?-?-?-?-?-?-?-?-?- Effaced St Visit Note 09/12/24 -?-?-?-?-?-?-?-?-?-?-?-?- 8w 1d 169 lb 122/72 -?-?-?-?-?-?-?-?-?-?-?-?- 158 -?-?-?-?-?-?-?-?-?-?-?-?- JV- CRL consiste nt with LMP. Desires NIPT. will return in 2 weeks for blood work. 09/25/24 -?-?-?-?-?-?-?-?-?-?-?-?- 10w 0d 168 lb 2 oz 134/79 Nega tive -?-?-?-?-?-?-?-?-?-?-?-?- Negative 180 -?-?-?-?-?-?-?-?-?-?-?-?- KW- no vb/crampi ng. requesting a heartbeat check because her friend just had SAB. active fetus on US and FHT easily found. labs today 10/17/24 -?-?-?-?-?--?-?-?-?-?-?-?- 13w 1d 171 lb 2 oz 123/71 Nega tive -?-?-?-?-?-?-?-?-?-?-?-?- Negative 160 -?-?-?-?-?-?-?-?-?-?-?-?- SM- no vb crmapi ng 11/13/24 -?-?-?-?-?-?-?-?-?-?-?-?- 17w 0d 173 lb 122/74 Negative -?-?-?-?-?-?-?-?-?-?-?-?- Negative 154 -?-?-?-?-?-?-?-?-?-?-?-?- MH-No VB. Thinks feels flutters. AFP today. No concerns 12/10/24 -?-?-?-?-?-?-?-?-?-?-?-?- 20w 6d 176 lb 8 oz 124/75 1+ -?-?-?-?-?-?-?-?-?-?-?-?- Negative 160 -?-?-?-?-?-?-?-?-?-?-?-?- KW- no vb/crampi ng. +flutters. US reviewed. PC ratio send for 1+ protein. 01/09/25 -?-?-?-?-?-?-?-?-?-?-?-?- 25w 1d 183 lb 107/67 Negative -?-?-?-?-?-?-?-?-?-?-?-?- Negative 168 -?-?-?-?-?-?-?-?-?-?-?-?- JV- no lof, vagi nal bleeding or dec fm. glucola next visi. 01/28/25 -?-?-?-?-?-?-?-?-?-?-?-?- 27w 6d 187 lb 107/71 Negative -?-?-?-?-?-?-?-?-?-?-?-?- Negative 159 28 -?-?-?-?-?-?-?-?-?-?-?-?- MH-No Vb, LOF. Good FM. Larc. 28 wk labs pending 02/14/25 -?-?-?-?-?-?-?-?-?-?-?-?- 30w 2d 188 lb 3 oz 129/73 Nega tive -?-?-?-?-?-?-?-?-?-?-?-?- Negative 140 31 Cephalic -?-?-?-?-?-?-?-?-?-?-?-?- SM- no vb lof go od fm no reuglar ctx ACOG First Trimester First Trimester: Discussed Second Trimester Second Trimester: Signs and Symptoms of Labor, Selecting a care provider, Reproductive Life Planning & Contreception, Care Planning, Depression/Anxiety and Intimate Partner Violence; Discussed Tobacco Cessation Third Trimester Third Trimester: Pain Management Plans, Labor support person(s), Immediate Larc, Circumcision preference, Movement Monitoring, Signs and Symptoms of Preeclampsia and Education Results POC Urinalysis 2 Dip (Clinic) Office Urine Glucose Negative Last Edit by Liana Murphy on 02/14/25 15:21 Office Urine Protein Negative Last Edit by Liana Pinappard on 02/14/25 15:21 Coding Level of Care Code OB Routine Diagnoses Supervision of high risk in second trimester O09.92 Trimester: second trimester 30 weeks gestation of Z3A.30 Weeks of gestation: 30 weeks Anxiety with depression F41.8 History of gestational hypertension Z87.59 Assessment and Plan Assessment and Plan (1) Supervision of high-risk : Status: Acute Qualifiers: Trimester: second trimester Qualified Code(s): O09.92 - Supervision of high risk , unspecified, second trimester Comment: PRR , JOANNE 04/23/25, boy, PC Romain, Daren (2) : Status: Acute Qualifiers: Weeks of gestation: 30 weeks Qualified Code(s): Z3A.30 - 30 weeks gestation of Comment: NIPT low risk. carrier negative first . Negative AFP . nl anatomy. (3) Anxiety with depression: Status: Acute Comment: prozac; switched to zoloft; stable (4) History of gestational hypertension: Status: Acute Comment: discussed 81 mg ASA if desired. Orders: Orders POC Urinalysis 2 Dip (Clinic) Today 02/14/25 1540 <Electronically signed by Clementina moore MD> Date _ Clementina Enrique MD Cosigner Signature: Date (if applicable) CC: ~ [facility] Work Phone: 1(323) 128-720207-28-2025 [facility] [address] [place] [address], [address] [place] [address] OFFICE VISIT Date of Service: 01/28/25 MR#: [id number] Acct: [id number] Name: ROBERTO CARLOS JAIN Rep #: [id number] : 1995 Provider: ANDREA Rodriguez Age/Sex: 29/F Location: [facility] [place] Status: Signed Intake Vital Signs 11/13/24 15:51 01/09/25 15:23 01/28/25 13:14 01/28/25 13:15 Height 5 ft 3 in 5 ft 3 in 5 ft 3 in 5 ft 3 in Weight: 187 lb BMI 33.1 BP 107/71 Intake Visit Reasons: 28wk ob/glucose Size Tester Required: No Is patient in pain?: No Allergies No Known Allergies Allergy (Verified 01/28/25 13:15) Medications ?Medication ?Instructions ?Recorded ?Confirmed ?Type multivit-min no.71-iron fum 28 1 cap PO DAILY 01/20/23 01/28/25 History mg-folate no.1 1 mg-dha 300 mg capsule (PNV-[place]) Last Menstrual Period: 07/17/24 Zika: Zika virus screening: Negative : No Have you fallen in the past year?: No PFSH PFSH Medical History Seasonal allergies Vaginal delivery Family history of malignant hyperthermia Asthma Anxiety with depression Family History Father Diabetes Mother Hypertension Grandmother Family history of recurrent miscarriage paternal Social History adopted: No household members: spouse and children housing: house number of children: 1 current occupational status: unemployed current occupation: [employer] pets and animals: Yes (2) pets and animals: dog(s) history of recent travel: [place] ([place]) sexually active: Yes Smoking Status: Never smoker alcohol intake: never substance use type: does not use well-balanced diet: daily or most days caffeine: No eating out: rarely or never during the past year weight has: decreased > 10 lbs what type of physical activity do you participate in: other details: crossfit frequency: 3-4 times per week duration: 45-60 minutes/day ben/mu-ism: Orthodoxy seatbelt use: always do you feel safe at home: Yes additional social history: Daren- AEP History 3 Elective abortions Hx Para 1 Spontaneous abortions 1 Hx # Term Pregnancies Ectopic pregnancies Hx # Pregnancies 1 Multiple births # of living children 1 Past Pregnancies Del. Date Name GA/Weeks Outcome Route Bth Weight Gen Labor Lgth Anesthesia Del Locatn Provider FOB Unknown 05/2022 Miscarriage 6wks 08/23/23 [place] 37 live - 6#13oz Male epid ural [facility] Lavern Mercedes Delivery Date: 08/23/23 Last Updated by: Stacy Garzon SROM HPI 28wk ob/glucose Details: ROBERTO CARLOS JAIN is a 29 year old who presents for routine OB visit. OB Visit JOANNE Calculator Estimated Delivery Date Method Current WG Current Estimate 04/23/25 LMP (Certain) 27w 6d Other Estimates 04/22/25 Ultrasound #1 28w 0d Expected Delivery Route/Plan Labor Preferences- CB/BF classes: no labor support person: Daren labor intervention preferences: [] pain management options preferred: epidural cut cord/dad catch: yes : yes PP control planned: [] discussed possible routes of delivery and associated risks: [] special requests: [] Specific Issue/Plans Covid status: [] Flu vaccine: [] Tdap vaccine: [] Rhogam: na LARC form signed: yes Problem list reviewed and updated with the most current plan of care details and appropriate ordersplaced. Relevant counseling for the gestational age provided. Continue routine care and follow up unless otherwise noted in visit notes/problem list details Initial Weight: Not Recorded Date -?-?-?-?-?-?-?-?-?-?-?-?- EGA Weight BP Urine Prot -?-?-?-?-?-?-?-?-?-?-?-?- Glucose FHR FuHt Pres Dilation -?-?-?-?-?-?-?-?-?-?-?-?- Effaced St Visit Note 09/12/24 -?-?-?-?-?-?-?-?-?-?-?-?- 8w 1d 169 lb 122/72 -?-?-?-?-?-?-?-?-?-?-?-?- 158 -?-?-?-?-?-?-?-?-?-?-?-?- JV- CRL consiste nt with LMP. Desires NIPT. will return in 2 weeks for blood work. 09/25/24 -?-?-?-?-?-?-?-?-?-?-?-?- 10w 0d 168 lb 2 oz 134/79 Nega tive -?-?-?-?-?-?-?-?-?--?-?-?- Negative 180 -?-?-?-?-?-?-?-?-?-?-?-?- KW- no vb/crampi ng. requesting a heartbeat check because her friend just had SAB. active fetus on US and FHT easily found. labs today 10/17/24 -?-?-?-?-?-?-?-?-?-?-?-?- 13w 1d 171 lb 2 oz 123/71 Nega tive -?-?-?-?-?-?-?-?-?-?-?-?- Negative 160 -?-?-?-?-?-?-?-?-?-?-?-?- SM- no vb crmapi ng 11/13/24 -?-?-?-?-?-?-?-?-?-?-?-?- 17w 0d 173 lb 122/74 Negative -?-?-?-?-?-?-?-?-?-?-?-?- Negative 154 -?-?-?-?-?-?-?-?-?-?-?-?- MH-No VB. Thinks feels flutters. AFP today. No concerns 12/10/24 -?-?-?-?-?-?-?-?-?-?-?-?- 20w 6d 176 lb 8 oz 124/75 1+ -?-?-?-?-?-?-?-?-?-?-?-?- Negative 160 -?-?-?-?-?-?-?-?-?-?-?-?- KW- no vb/crampi ng. +flutters. US reviewed. ratio send for 1+ protein. 01/09/25 -?-?-?-?-?-?-?-?-?-?-?-?- 25w 1d 183 lb 107/67 Negative -?-?-?-?-?-?-?-?-?-?-?-?- Negative 168 -?-?-?-?-?-?-?-?-?-?-?-?- JV- no lof, vagi nal bleeding or dec fm. glucola next visi. 01/28/25 -?-?-?-?-?-?-?-?-?-?-?-?- 27w 6d 187 lb 107/71 Negative -?-?-?-?-?-?-?-?-?-?-?-?- Negative 159 28 -?-?-?-?-?-?-?-?-?-?-?-?- MH-No Vb, LOF. Good FM. Larc. 28 wk labs pending ACOG First Trimester First Trimester: Discussed Second Trimester Second Trimester: Signs and Symptoms of Labor, Selecting a care provider, Reproductive Life Planning & Contreception, Care Planning, Depression/Anxiety and Intimate Partner Violence; Discussed Tobacco Cessation Third Trimester Third Trimester: Pain Management Plans, Labor support person(s), Immediate Larc, Circumcision preference Yes Yes, Movement Monitoring, Signs and Symptoms of Preeclampsia and Education ROS Const Reports system reviewed and no additional complaints, except as documented GI Denies abdominal pain, Denies nausea and Denies vomiting Exam Const General: cooperative Nutritional Appearance: well nourished GI Palpation: soft, nontender and other (gravid) Results POC Urinalysis 2 Dip (Clinic) Office Urine Glucose Negative Last Edit by Keisha Palomino on 01/28/25 13:26 Office Urine Protein Negative Last Edit by Keisha Palomino on 01/28/25 13:26 Coding Level of Care Code OB Routine Diagnoses Supervision of high risk in second trimester O09.92 Trimester: second trimester 27 weeks gestation of Z3A.27 Weeks of gestation: 27 weeks History of gestational hypertension Z87.59 Anxiety with depression F41.8 Assessment and Plan Assessment and Plan (1) Supervision of high-risk : Status: Acute Qualifiers: Trimester: second trimester Qualified Code(s): O09.92 - Supervision of high risk , unspecified, second trimester Comment: PRR , JOANNE 04/23/25, boy, PC Ell[place], Daren (2) : Status: Acute Qualifiers: Weeks of gestation: 27 weeks Qualified Code(s): Z3A.27 - 27 weeks gestation of Comment: NIPT low risk. carrier negative first . Negative AFP . nl anatomy. (3) History of gestational hypertension: Status: Acute Comment: discussed 81 mg ASA if desired. (4) Anxiety with depression: Status: Acute Comment: prozac; switched to zoloft; stable Plan problem list reviewed and updated for most current plan of care and appropriate orders placed. Relevant counseling for the gestational age appropriate provided and ACOG education checklist updated. Continue routine care and follow up. Clinical Quality Measures Falls Risk Screening/Assistive Devices Have you fallen in the past year?: No 01/28/25 1335 s PAD ASSEMBLER PAD ASSEMBLER-C> Date _ Liana Rodriguez PAD ASSEMBLER PAD ASSEMBLER-C Cosigner Signature: Date (if applicable) CC: ~ [facility]07-09-2025 Evaluation note* Diagnosis Onset Date Resolution Status Admit Date Anxiety with depression acute J fahad 2024 3:20pm History of gestational hypertension acute January 09, 2025 3 :20pm acute January 09, 2025 3:20pm Supervision of high-risk acute January 09, 2025 3 :20pm Anxiety with depression acute J fahad 2024 1:08pm History of gestational hypertension acute January 28, 2025 1:08pm acute January 28 1:08pm Supervision of high-risk acute January 28, 2025 1:08pm Anxiety with depression acute A ugust 2024 3:08pm History of gestational hypertension acute February 14 3:08pm acute February 14, 2 025 3:08pm Supervision of high-risk acute February 14 3:08pm Anxiety with depression acute A ugust 2024 12:05pm History of gestational hypertension acute March 01 12:05pm acute March 01, 025 12:05pm Supervision of high-risk acute March 01 12:05pm Anxiety with depression acute S eptember 2024 1:28pm Hemorrhoids during acute March 14, 2025 1:28pm History of gestational hypertension acute March 14, 2025 1:28pm acute March 1:28pm Supervision of high-risk acute March 14, 2025 1:28pm Anxiety with depression acute S eptember 2024 10:57am Hemorrhoids during acute March 28, 2025 10:57am History of gestational hypertension acute March 28, 2025 10:57am acute March 10:57am Supervision of high-risk acute March 28, 2025 10:57am Anxiety with depression acute O ctober 2024 2:46pm Hemorrhoids during acute April 04, 2025 2:46pm History of gestational hypertension acute April 04 2:46pm acute April 04, 025 2:46pm Supervision of high-risk acute April 04 2:46pm Anxiety with depression acute O ctober 2024 4:13pm Hemorrhoids during acute April 08, 2025 4:13pm History of gestational hypertension acute April 08 4:13pm acute April 08, 025 4:13pm Supervision of high-risk acute April 08 4:13pm Anxiety with depression acute O ctober 2024 11:16am Hemorrhoids during acute April 11, 2025 11:16am History of gestational hypertension acute April 11 11:16am acute April 11, 025 11:16am Supervision of high-risk acute April 11 11:16am [facility] Work Phone: 1(375) 102-478207-09-2025 Evaluation note* Diagnosis Onset Date Resolution Status Admit Date Anxiety with depression acute J fahad 2024 3:20pm History of gestational hypertension acute January 09, 2025 3 :20pm resolved January 09, 2025 3:20pm Supervision of high-risk resolved January 09, 2025 3 :20pm Anxiety with depression acute J fahad 2024 1:08pm History of gestational hypertension acute January 28, 2025 1:08pm resolved January 28 1:08pm Supervision of high-risk resolved January 28, 2025 1:08pm Anxiety with depression acute A ugust 2024 3:08pm History of gestational hypertension acute February 14 3:08pm resolved February 14, 2 025 3:08pm Supervision of high-risk resolved February 14 3:08pm Anxiety with depression acute A ugust 2024 12:05pm History of gestational hypertension acute March 01 12:05pm resolved March 01, 025 12:05pm Supervision of high-risk resolved March 01 12:05pm Anxiety with depression acute S eptember 2024 1:28pm Hemorrhoids during acute March 14, 2025 1:28pm History of gestational hypertension acute March 14, 2025 1:28pm resolved March 1:28pm Supervision of high-risk resolved March 14, 2025 1:28pm Anxiety with depression acute S eptember 2024 10:57am Hemorrhoids during acute March 28, 2025 10:57am History of gestational hypertension acute March 28, 2025 10:57am resolved March 10:57am Supervision of high-risk resolved March 28, 2025 10:57am Anxiety with depression acute O ctober 2024 2:46pm Hemorrhoids during acute April 04, 2025 2:46pm History of gestational hypertension acute April 04 2:46pm resolved April 04 2 025 2:46pm Supervision of high-risk resolved April 04 2:46pm Anxiety with depression acute O ctober 2024 4:13pm Hemorrhoids during acute April 08, 2025 4:13pm History of gestational hypertension acute April 08 4:13pm resolved April 08, 2 025 4:13pm Supervision of high-risk resolved April 08 4:13pm Anxiety with depression acute O ctober 2024 11:16am Hemorrhoids during acute April 11, 2025 11:16am History of gestational hypertension acute April 11 11:16am resolved April 11 11:16am Supervision of high-risk resolved April 11 11:16am Anxiety with depression acute O ctober 2024 10:12am Hemorrhoids during acute April 18, 2025 10:12am History of gestational hypertension acute April 18 10:12am resolved April 18, 2025 10:12am Supervision of high-risk resolved April 18 10:12am Anxiety with depression acute O ctober 2024 10:55am Hemorrhoids during acute April 18, 2025 10:55am History of gestational hypertension acute April 18 10:55am PIH ( induced hypertension) acute April 18 10:55am Vaginal delivery acute April 18, 2025 10:55am resolved April 18, 2025 10:55am Supervision of high-risk resolved April 18 10:55am Care and examination of lactating mother acute April 22 12:29pm Engorgement of breasts acute Oc 2024 12:29pm [facility] Work Phone: 1(875) 661-786406-09-2025 Evaluation note* Diagnosis Onset Date Resolution Status Admit Date Anxiety with depression acute J une 2024 11:17am History of gestational hypertension acute December 10, 2024 1 1:17am acute December 10, 2024 11:17am Supervision of high-risk acute December 10, 2024 1 1:17am Anxiety with depression acute J fahad 2024 3:20pm History of gestational hypertension acute January 09, 2025 3 :20pm acute January 09, 2025 3:20pm Supervision of high-risk acute January 09, 2025 3 :20pm Anxiety with depression acute J fahad 2024 1:08pm History of gestational hypertension acute January 28, 2025 1:08pm acute January 28 1:08pm Supervision of high-risk acute January 28, 2025 1:08pm Anxiety with depression acute A ugust 2024 3:08pm History of gestational hypertension acute February 14 3:08pm acute February 14, 2 025 3:08pm Supervision of high-risk acute February 14 3:08pm Anxiety with depression acute A ugust 2024 12:05pm History of gestational hypertension acute March 01 12:05pm acute March 01, 2 025 12:05pm Supervision of high-risk acute March 01 12:05pm Anxiety with depression acute S eptember 2024 1:28pm Hemorrhoids during acute March 14, 2025 1:28pm History of gestational hypertension acute March 14, 2025 1:28pm acute March 1:28pm Supervision of high-risk acute March 14, 2025 1:28pm [facility] Work Phone: 1([phone]) 803-638406-09-2025 Evaluation note* Diagnosis Onset Date Resolution Status Admit Date Anxiety with depression acute J une 2024 11:17am History of gestational hypertension acute December 10, 2024 1 1:17am acute December 10, 2024 11:17am Supervision of high-risk acute December 10, 2024 1 1:17am Anxiety with depression acute J fahad 2024 3:20pm History of gestational hypertension acute January 09, 2025 3 :20pm acute January 09, 2025 3:20pm Supervision of high-risk acute January 09, 2025 3 :20pm Anxiety with depression acute J fahad 2024 1:08pm History of gestational hypertension acute January 28, 2025 1:08pm acute January 28 1:08pm Supervision of high-risk acute January 28, 2025 1:08pm Anxiety with depression acute A ugust 2024 3:08pm History of gestational hypertension acute February 14 3:08pm acute February 14, 2 025 3:08pm Supervision of high-risk acute February 14 3:08pm Anxiety with depression acute A ugust 2024 12:05pm History of gestational hypertension acute March 01 12:05pm acute March 01, 2 025 12:05pm Supervision of high-risk acute March 01 12:05pm Anxiety with depression acute S eptember 2024 1:28pm Hemorrhoids during acute March 14, 2025 1:28pm History of gestational hypertension acute March 14, 2025 1:28pm acute March 1:28pm Supervision of high-risk acute March 14, 2025 1:28pm Anxiety with depression acute S eptember 2024 10:57am Hemorrhoids during acute March 28, 2025 10:57am History of gestational hypertension acute March 28, 2025 10:57am acute March 10:57am Supervision of high-risk acute March 28, 2025 10:57am [facility] Work Phone: 1(347) 487-891906-09-2025 Evaluation note* Diagnosis Onset Date Resolution Status Admit Date Anxiety with depression acute J une 2024 11:17am History of gestational hypertension acute December 10, 2024 1 1:17am acute December 10, 2024 11:17am Supervision of high-risk acute December 10, 2024 1 1:17am Anxiety with depression acute J fahad 2024 3:20pm History of gestational hypertension acute January 09, 2025 3 :20pm acute January 09, 2025 3:20pm Supervision of high-risk acute January 09, 2025 3 :20pm Anxiety with depression acute J fahad 2024 1:08pm History of gestational hypertension acute January 28, 2025 1:08pm acute January 28 1:08pm Supervision of high-risk acute January 28, 2025 1:08pm Anxiety with depression acute A ugust 2024 3:08pm History of gestational hypertension acute February 14 3:08pm acute February 14, 2 025 3:08pm Supervision of high-risk acute February 14 3:08pm Anxiety with depression acute A ugust 2024 12:05pm History of gestational hypertension acute March 01 12:05pm acute March 01, 2 025 12:05pm Supervision of high-risk acute March 01 12:05pm Anxiety with depression acute S eptember 2024 1:28pm Hemorrhoids during acute March 14, 2025 1:28pm History of gestational hypertension acute March 14, 2025 1:28pm acute March 1:28pm Supervision of high-risk acute March 14, 2025 1:28pm Anxiety with depression acute S eptember 2024 10:57am Hemorrhoids during acute March 28, 2025 10:57am History of gestational hypertension acute March 28, 2025 10:57am acute March 10:57am Supervision of high-risk acute March 28, 2025 10:57am Anxiety with depression acute O ctober 2024 2:46pm Hemorrhoids during acute April 04, 2025 2:46pm History of gestational hypertension acute April 04 2:46pm acute April 04, 025 2:46pm Supervision of high-risk acute April 04 2:46pm [facility] Work Phone: 1(721) 259-378006-09-2025 [facility] [address] [place] [address], [address] [place] [address] OFFICE VISIT Date of Service: 12/10/24 MR#: [id number] Acct: [id number] Name: ROBERTO CARLOS JAIN Rep #: [id number] : 1995 Provider: BREANN Zavala Age/Sex: 29/F Location: [facility] [place] Status: Signed Intake Vital Signs 10/17/24 09:47 11/13/24 15:51 12/10/24 11:19 Height 5 ft 3 in 5 ft 3 in 5 ft 3 in Weight: 176 lb 8 oz BMI 31.2 BP 124/75 H Intake Visit Reasons: 21wk ob Size Tester Required: No Is patient in pain?: No Allergies No Known Allergies Allergy (Verified 12/10/24 11:20) Medications ?Medication ?Instructions ?Recorded ?Confirmed ?Type multivit-min no.71-iron fum 28 1 cap PO DAILY 01/20/23 12/10/24 History mg-folate no.1 1 mg-dha 300 mg capsule (PNV-[place]) Last Menstrual Period: 01/14/25 Zika: Zika virus screening: Negative : No PFSH PFSH Medical History Seasonal allergies Vaginal delivery Family history of malignant hyperthermia Asthma Anxiety with depression Family History Father Diabetes Mother Hypertension Grandmother Family history of recurrent miscarriage paternal Social History adopted: No household members: spouse and children housing: house number of children: 1 current occupational status: unemployed current occupation: [employer] pets and animals: Yes (2) pets and animals: dog(s) history of recent travel: No ([place]) sexually active: Yes Smoking Status: Never smoker alcohol intake: never substance use type: does not use well-balanced diet: daily or most days caffeine: No eating out: rarely or never during the past year weight has: decreased > 10 lbs what type of physical activity do you participate in: other details: crossfit frequency: 3-4 times per week duration: 45-60 minutes/day ben/mu-ism: Orthodoxy seatbelt use: always do you feel safe at home: Yes additional social history: Daren- JAM History 3 Elective abortions Hx Para 1 Spontaneous abortions 1 Hx # Term Pregnancies Ectopic pregnancies Hx # Pregnancies 1 Multiple births # of living children 1 Past Pregnancies Del. Date Name GA/Weeks Outcome Route Bth Weight Gen Labor Lgth Anesthesia Del Locatn Provider FOB Unknown 05/2022 Miscarriage 6wks 08/23/23 [place] 37 live - 6#13oz Male epid ural [facility] Lavern Mercedes Delivery Date: 08/23/23 Last Updated by: Stacy YATES HPI 21wk ob Details: ROBERTO CARLOS JAIN is a 29 year old who presents for routine OB visit. OB Visit JOANNE Calculator Estimated Delivery Date Method Current WG Current Estimate 04/23/25 LMP (Certain) 20w 6d Other Estimates 04/22/25 Ultrasound #1 21w 0d Expected Delivery Route/Plan Labor Preferences- CB/BF classes: [] labor support person: [] labor intervention preferences: [] pain management options preferred: [] cut cord/dad catch: [] : [] PP control planned: [] discussed possible routes of delivery and associated risks: [] special requests: [] Specific Issue/Plans Covid status: [] Flu vaccine: [] Tdap vaccine: [] Rhogam: [] LARC form signed: [] Problem list reviewed and updated with the most current plan of care details and appropriate ordersplaced. Relevant counseling for the gestational age provided. Continue routine care and follow up unless otherwise noted in visit notes/problem list details Initial Weight: Not Recorded Date -?-?-?-?-?-?-?-?-?-?-?-?- EGA Weight BP Urine Prot -?-?-?-?-?-?-?-?-?-?-?-?- Glucose FHR FuHt Pres Dilation -?-?-?-?-?-?-?-?-?-?-?-?- Effaced St Visit Note 09/12/24 -?-?-?-?-?-?-?-?-?-?-?-?- 8w 1d 169 lb 122/72 -?-?-?-?-?-?-?-?-?-?-?-?- 158 -?-?-?-?-?-?-?-?-?-?-?-?- JV- CRL consiste nt with LMP. Desires NIPT. will return in 2 weeks for blood work. 09/25/24 -?-?-?-?-?-?-?-?-?-?-?-?- 10w 0d 168 lb 2 oz 134/79 Nega tive -?-?-?-?-?-?-?-?-?-?-?-?- Negative 180 -?-?-?-?-?-?-?-?-?-?-?-?- KW- no vb/crampi ng. requesting a heartbeat check because her friend just had SAB. active fetus on US and FHT easily found. labs today 10/17/24 -?-?-?-?-?-?-?-?-?-?-?-?- 13w 1d 171 lb 2 oz 123/71 Nega tive -?-?-?-?-?-?-?-?-?-?-?-?- Negative 160 -?-?-?-?-?-?-?-?-?-?-?-?- SM- no vb crmapi ng 11/13/24 -?-?-?-?-?-?-?-?-?-?-?-?- 17w 0d 173 lb 122/74 Negative -?-?-?-?-?-?-?-?-?-?-?-?- Negative 154 -?-?-?-?-?-?-?-?-?-?-?-?- MH-No VB. Thinks feels flutters. AFP today. No concerns 12/10/24 -?-?-?-?-?-?-?-?-?-?-?-?- 20w 6d 176 lb 8 oz 124/75 1+ -?-?-?-?-?-?-?-?-?-?-?-?- Negative 160 -?-?-?-?-?-?-?-?-?-?-?-?- KW- no vb/crampi ng. +flutters. US reviewed. PC ratio send for 1+ protein. ACOG First Trimester First Trimester: Discussed Second Trimester Second Trimester: Signs and Symptoms of Labor, Selecting a care provider, Reproductive Life Planning & Contreception, Care Planning, Depression/Anxiety and Intimate Partner Violence; Discussed Tobacco Cessation Third Trimester Third Trimester: Pain Management Plans, Labor support person(s), Immediate Larc, Movement Monitoring, Signs and Symptoms of Preeclampsia and Education ROS Const Reports system reviewed and no additional complaints, except as documented Eyes Reports system reviewed and no additional complaints, except as documented ENT Reports system reviewed and no additional complaints, except as documented Card Reports system reviewed and no additional complaints, except as documented Resp Reports system reviewed and no additional complaints, except as documented GI Reports system reviewed and no additional complaints, except as documented, Denies nausea and Denies vomiting Reports system reviewed and no additional complaints, except as documented Musc Reports system reviewed and no additional complaints, except as documented Skin/Breast Reports system reviewed and no additional complaints, except as documented Neuro Yes system reviewed and no additional complaints, except as documented Psych Reports system reviewed and no additional complaints, except as documented Endo Reports system reviewed and no additional complaints, except as documented Dashawn/Lymph Reports system reviewed and no additional complaints, except as documented Aller/Immun Reports system reviewed and no additional complaints, except as documented Exam Const General: cooperative, healthy appearing and no acute distress Orientation: alert, awake and oriented x3 Neck Neck: normal visual inspection and full ROM Resp Effort & Inspection: normal respiratory effort, able to speak in complete sentences and symmetric chest movement GI Inspection: normal to inspection Palpation: soft and other Other: gravid Skin General: no rashes or lesions noted Neuro General: patient alert, patient awake and patient oriented x3 Cognition: normal cognition Speech: speech normal Gait: normal gait Motor: muscle tone normal throughout Extrem General: normal to inspection and full ROM Psych Appearance: grossly normal Mental Status: mental status grossly normal Mood: congruent mood Affect: normal affect Speech and Movement: speech and movement normal Attitude: cooperative Thought Process: normal Thought Content: normal Judgment: judgment good Results POC Urinalysis 2 Dip (Clinic) Office Urine Glucose Negative Last Edit by Liana Murphy on 12/10/24 11:29 Office Urine Protein 1+ Last Edit by Liana Murphy on 12/10/24 11:29 Coding Level of Care Code OB Routine Diagnoses Supervision of high risk in second trimester O09.92 Trimester: second trimester 20 weeks gestation of Z3A.20 Weeks of gestation: 20 weeks History of gestational hypertension Z87.59 Anxiety with depression F41.8 Assessment and Plan Assessment and Plan (1) Supervision of high-risk : Status: Acute Qualifiers: Trimester: second trimester Qualified Code(s): O09.92 - Supervision of high risk , unspecified, second trimester Comment: PRR , JOANNE 04/23/25, boy, BJORN Romain, Daren (2) : Status: Acute Qualifiers: Weeks of gestation: 20 weeks Qualified Code(s): Z3A.20 - 20 weeks gestation of Comment: NIPT low risk. carrier negative first . Negative AFP . nl anatomy. (3) History of gestational hypertension: Status: Acute Comment: discussed 81 mg ASA if desired. (4) Anxiety with depression: Status: Acute Comment: prozac; switched to zoloft; stable Orders: Orders POC Urinalysis 2 Dip (Clinic) Today Protein+Creatinine Ratio,Urine Today R80.9 - Proteinuria, unspecified Plan Details Additional Comments: ACOG trimester education reviewed and updated. see problem list details for updated plan management information and see below for orders placed atthis visit. GA appropriate handout given. 12/10/24 1134 s CNM> Date _ Lavern Lucas BREANN Cosigner Signature: Date (if applicable) CC: ~ [facility]05-13-2025 Evaluation note* Diagnosis Onset Date Resolution Status Admit Date Anxiety with depression acute M 2024 3:48pm History of gestational hypertension acute November 13, 2024 3 :48pm acute November 13, 2024 3:48pm Supervision of high-risk acute November 13, 2024 3 :48pm Anxiety with depression acute [facility] 2024 11:17am History of gestational hypertension acute December 10, 2024 1 1:17am acute December 10, 2024 11:17am Supervision of high-risk acute December 10, 2024 1 1:17am Anxiety with depression acute J fahad 2024 3:20pm History of gestational hypertension acute January 09, 2025 3 :20pm acute January 09, 2025 3:20pm Supervision of high-risk acute January 09, 2025 3 :20pm Anxiety with depression acute J fahad 2024 1:08pm History of gestational hypertension acute January 28, 2025 1:08pm acute January 28 1:08pm Supervision of high-risk acute January 28, 2025 1:08pm Anxiety with depression acute A ugust 2024 3:08pm History of gestational hypertension acute February 14 3:08pm acute February 14, 2 025 3:08pm Supervision of high-risk acute February 14 3:08pm Anxiety with depression acute A ugust 2024 12:05pm History of gestational hypertension acute March 01 12:05pm acute March 01 025 12:05pm Supervision of high-risk acute March 01 12:05pm [facility] Work Phone: 1(667) 371-193805-13-2025 [facility] [address] [place] [address], [address] [place] [address] OFFICE VISIT Date of Service: 11/13/24 MR#: [id number] Acct: [id number] Name: ROBERTO CARLOS JAIN Rep #: [id number] : 1995 Provider: ANDREA Rodriguez Age/Sex: 28/F Location: [facility] [place] Status: Signed Intake Vital Signs 09/12/24 08:47 10/17/24 09:47 11/13/24 15:51 Height 5 ft 3 in 5 ft 3 in 5 ft 3 in Weight: 173 lb BMI 30.6 BP 122/74 H Intake Visit Reasons: 17wk ob Chief Complaint: 17 Week OB Size Tester Required: No Is patient in pain?: No Allergies No Known Allergies Allergy (Verified 11/13/24 15:51) Medications ?Medication ?Instructions ?Recorded ?Confirmed ?Type multivit-min no.71-iron fum 28 1 cap PO DAILY 01/20/23 11/13/24 History mg-folate no.1 1 mg-dha 300 mg capsule (PNV-[place]) Last Menstrual Period: 07/17/24 Zika: Zika virus screening: Negative : No PFSH PFSH Medical History Seasonal allergies Vaginal delivery Family history of malignant hyperthermia Asthma Anxiety with depression Family History Father Diabetes Mother Hypertension Grandmother Family history of recurrent miscarriage paternal Social History adopted: No household members: spouse and children housing: house number of children: 1 current occupational status: unemployed current occupation: [employer] pets and animals: Yes (2) pets and animals: dog(s) history of recent travel: [place] ([place]) sexually active: Yes Smoking Status: Never smoker alcohol intake: never substance use type: does not use well-balanced diet: daily or most days caffeine: No eating out: rarely or never during the past year weight has: decreased > 10 lbs what type of physical activity do you participate in: other details: crossfit frequency: 3-4 times per week duration: 45-60 minutes/day ben/mu-ism: Orthodoxy seatbelt use: always do you feel safe at home: Yes additional social history: Daren- AEP History 3 Elective abortions Hx Para 1 Spontaneous abortions 1 Hx # Term Pregnancies Ectopic pregnancies Hx # Pregnancies 1 Multiple births # of living children 1 Past Pregnancies Del. Date Name GA/Weeks Outcome Route Bth Weight Infant Gen Labor Lgth Anesthesia Del Locatn Provider FOB Unknown 05/2022 Miscarriage 6wks 08/23/23 [place] 37 live - 6#13oz Male epid ural [facility] Lavern Zavala Daren Delivery Date: 08/23/23 Last Updated by: Stacy Garzon SROM HPI 17wk ob Details: ROBERTO CARLOS JAIN is a 28 year old who presents for routine OB visit. OB Visit JOANNE Calculator Estimated Delivery Date Method Current WG Current Estimate 04/23/25 LMP (Certain) 17w 0d Other Estimates 04/22/25 Ultrasound #1 17w 1d Expected Delivery Route/Plan Labor Preferences- CB/BF classes: [] labor support person: [] labor intervention preferences: [] pain management options preferred: [] cut cord/dad catch: [] : [] PP control planned: [] discussed possible routes of delivery and associated risks: [] special requests: [] Specific Issue/Plans Covid status: [] Flu vaccine: [] Tdap vaccine: [] Rhogam: [] LARC form signed: [] Problem list reviewed and updated with the most current plan of care details and appropriate ordersplaced. Relevant counseling for the gestational age provided. Continue routine care and follow up unless otherwise noted in visit notes/problem list details Initial Weight: Not Recorded Date -?-?-?-?-?-?-?-?-?-?-?-?- EGA Weight BP Urine Prot -?-?-?-?-?-?-?-?-?-?-?-?- Glucose FHR FuHt Pres Dilation -?-?-?-?-?-?-?-?-?-?-?-?- Effaced St Visit Note 09/12/24 -?-?-?-?-?-?-?-?-?-?-?-?- 8w 1d 169 lb 122/72 -?-?-?-?-?-?-?-?-?-?-?-?- 158 -?-?-?-?-?-?-?-?-?-?-?-?- JV- CRL consiste nt with LMP. Desires NIPT. will return in 2 weeks for blood work. 09/25/24 -?-?-?-?-?-?-?-?-?-?-?-?- 10w 0d 168 lb 2 oz 134/79 Nega tive -?-?-?-?-?-?-?-?-?-?-?-?- Negative 180 -?-?-?-?-?-?--?-?-?-?-?-?- KW- no vb/crampi kimmie. requesting a heartbeat check because her friend just had SAB. active fetus on US and FHT easily found. labs today 10/17/24 -?-?-?-?-?-?-?-?-?-?-?--?- 13w 1d 171 lb 2 oz 123/71 Nega tive -?-?-?-?-?-?-?-?-?-?-?-?- Negative 160 -?-?-?-?-?-?-?-?-?-?-?-?- SM- no vb crmapi ng 11/13/24 -?-?-?-?-?-?-?-?-?-?-?-?- 17w 0d 173 lb 122/74 Negative -?-?-?-?-?-?-?-?-?-?-?-?- Negative 154 -?-?-?-?-?-?-?-?-?-?-?-?- MH-No VB. Thinks feels flutters. AFP today. No concerns ACOG First Trimester First Trimester: Discussed Second Trimester Second Trimester: Signs and Symptoms of Labor, Selecting a care provider, Reproductive Life Planning & Contreception, Care Planning, Depression/Anxiety and Intimate Partner Violence; Discussed Tobacco Cessation Third Trimester Third Trimester: Pain Management Plans, Labor support person(s), Immediate Larc, Movement Monitoring, Signs and Symptoms of Preeclampsia and [place] Education ROS Const Reports system reviewed and no additional complaints, except as documented GI Denies abdominal pain, Denies nausea and Denies vomiting Exam Const General: cooperative Nutritional Appearance: well nourished GI Palpation: soft, nontender and other (gravid) Results POC Urinalysis 2 Dip (Clinic) Office Urine Glucose Negative Last Edit by Adeola Tinsley on 11/13/24 15 :57 Office Urine Protein Negative Last Edit by Adeola Tinsley on 11/13/24 15 :57 Coding Level of Care Code OB Routine Diagnoses Supervision of high risk in second trimester O09.92 Trimester: second trimester 17 weeks gestation of Z3A.17 Weeks of gestation: 17 weeks History of gestational hypertension Z87.59 Anxiety with depression F41.8 Assessment and Plan Assessment and Plan (1) Supervision of high-risk : Status: Acute Qualifiers: Trimester: second trimester Qualified Code(s): O09.92 - Supervision of high risk , unspecified, second trimester Comment: PRR , JOANNE 04/23/25, boy, BJORN [place], Daren (2) : Status: Acute Qualifiers: Weeks of gestation: 17 weeks Qualified Code(s): Z3A.17 - 17 weeks gestation of Comment: NIPT low risk. carrier negative first . plan AFP screen (3) History of gestational hypertension: Status: Acute Comment: discussed 81 mg ASA if desired. (4) Anxiety with depression: Status: Acute Comment: prozac; switched to zoloft; stable Orders: Orders POC Urinalysis 2 Dip (Clinic) Today Plan problem list reviewed and updated for most current plan of care and appropriate orders placed. Relevant counseling for the gestational age appropriate provided and ACOG education checklist updated. Continue routine care and follow up. 11/13/24 1604 s PAD ASSEMBLER PAD ASSEMBLER-C> Date _ Liana Rodriguez PAD ASSEMBLER PAD ASSEMBLER-C Cosigner Signature: Date (if applicable) CC: ~ [facility]05-13-2025 Progress note Author Liana [place] [facility] Note Date/Time November 13, 2024 4:04p [facility] [address] [place] [address], [address] [place] [address] OFFICE VISIT Date of Service: 11/13/24 MR#: [id number] Acct: [id number] Name: ROBERTO CARLOS JAIN Rep #: [id number] : 1995 Provider: ANDREA Rodriguez Age/Sex: 28/F Location: [facility] [place] Status: Signed Intake Vital Signs 09/12/24 08:47 10/17/24 09:47 11/13/24 15:51 Height 5 ft 3 in 5 ft 3 in 5 ft 3 in Weight: 173 lb BMI 30.6 BP 122/74 H Intake Visit Reasons: 17wk ob Chief Complaint: 17 Week OB Size Tester Required: No Is patient in pain?: No Allergies No Known Allergies Allergy (Verified 11/13/24 15:51) Medications ?Medication ?Instructions ?Recorded ?Confirmed ?Type multivit-min no.71-iron fum 28 1 cap PO DAILY 01/20/23 11/13/24 History mg-folate no.1 1 mg-dha 300 mg capsule (PNV-[place]) Last Menstrual Period: 07/17/24 Zika: Zika virus screening: Negative : No PFSH PFSH Medical History Seasonal allergies Vaginal delivery Family history of malignant hyperthermia Asthma Anxiety with depression Family History Father Diabetes Mother Hypertension Grandmother Family history of recurrent miscarriage paternal Social History adopted: No household members: spouse and children housing: house number of children: 1 current occupational status: unemployed current occupation: [employer] pets and animals: Yes (2) pets and animals: dog(s) history of recent travel: No ([place]) sexually active: Yes Smoking Status: Never smoker alcohol intake: never substance use type: does not use well-balanced diet: daily or most days caffeine: No eating out: rarely or never during the past year weight has: decreased > 10 lbs what type of physical activity do you participate in: other details: crossfit frequency: 3-4 times per week duration: 45-60 minutes/day ben/mu-ism: Orthodoxy seatbelt use: always do you feel safe at home: Yes additional social history: Daren- AEP History 3 Elective abortions Hx Para 1 Spontaneous abortions 1 Hx # Term Pregnancies Ectopic pregnancies Hx # Pregnancies 1 Multiple births # of living children 1 Past Pregnancies Del. Date Name GA/Weeks Outcome Route Bth Weight Gen Labor Lgth Anesthesia Del Locatn Provider FOB Unknown 05/2022 Miscarriage 6wks 08/23/23 [place] 37 live - 6#13oz Male epid ural WC Lavern Zavala Daren Delivery Date: 08/23/23 Last Updated by: Stacy Garzon SROM HPI 17wk ob Details: ROBERTO CARLOS JAIN is a 28 year old who presents for routine OB visit. OB Visit JOANNE Calculator Estimated Delivery Date Method Current WG Current Estimate 04/23/25 LMP (Certain) 17w 0d Other Estimates 04/22/25 Ultrasound #1 17w 1d Expected Delivery Route/Plan Labor Preferences- CB/BF classes: [] labor support person: [] labor intervention preferences: [] pain management options preferred: [] cut cord/dad catch: [] : [] PP control planned: [] discussed possible routes of delivery and associated risks: [] special requests: [] Specific Issue/Plans Covid status: [] Flu vaccine: [] Tdap vaccine: [] Rhogam: [] LARC form signed: [] Problem list reviewed and updated with the most current plan of care details and appropriate orders placed. Relevant counseling for the gestational age provided. Continue routine care and follow up unless otherwise noted in visit notes/problem list details Initial Weight: Not Recorded Date -?-?-?-?-?-?-?-?-?-?-?-?- EGA Weight BP Urine Prot -?-?-?-?-?-?-?-?-?-?-?-?- Glucose FHR FuHt Pres Dilation -?-?-?-?-?-?-?-?-?-?-?-?- Effaced St Visit Note 09/12/24 -?-?-?-?-?-?-?-?-?-?-?-?- 8w 1d 169 lb 122/72 -?-?-?-?-?-?-?-?-?-?-?-?- 158 -?-?-?-?-?-?-?-?-?-?-?-?- JV- CRL consiste nt with LMP. Desires NIPT. will return in 2 weeks for blood work. 09/25/24 -?-?-?-?-?-?-?-?-?-?-?-?- 10w 0d 168 lb 2 oz 134/79 Nega tive -?-?-?-?-?-?-?-?-?-?-?-?- Negative 180 -?-?-?-?-?-?--?-?-?-?-?-?- KW- no vb/crampi ng. requesting a heartbeat check because her friend just had SAB. active fetus on US and FHT easily found. labs today 10/17/24 -?-?-?-?-?-?-?-?-?-?-?--?- 13w 1d 171 lb 2 oz 123/71 Nega tive -?-?-?-?-?-?-?-?-?-?-?-?- Negative 160 -?-?-?-?-?-?-?-?-?-?-?-?- SM- no vb crmapi ng 11/13/24 -?-?-?-?-?-?-?-?-?-?-?-?- 17w 0d 173 lb 122/74 Negative -?-?-?-?-?-?-?-?-?-?-?-?- Negative 154 -?-?-?-?-?-?-?-?-?-?-?-?- MH-No VB. Thinks feels flutters. AFP today. No concerns ACOG First Trimester First Trimester: Discussed Second Trimester Second Trimester: Signs and Symptoms of Labor, Selecting a care provider, Reproductive Life Planning & Contreception, Care Planning, Depression/Anxiety and Intimate Partner Violence; Discussed Tobacco Cessation Third Trimester Third Trimester: Pain Management Plans, Labor support person(s), Immediate Larc, Movement Monitoring, Signs and Symptoms of Preeclampsia and [place] Education ROS Const Reports system reviewed and no additional complaints, except as documented GI Denies abdominal pain, Denies nausea and Denies vomiting Exam Const General: cooperative Nutritional Appearance: well nourished GI Palpation: soft, nontender and other (gravid) Results POC Urinalysis 2 Dip (Clinic) Office Urine Glucose Negative Last Edit by Adeola Tinsley on 11/13/24 15 :57 Office Urine Protein Negative Last Edit by Adeola Tinsley on 11/13/24 15 :57 Coding Level of Care Code OB Routine Diagnoses Supervision of high risk in second trimester O09.92 Trimester: second trimester 17 weeks gestation of Z3A.17 Weeks of gestation: 17 weeks History of gestational hypertension Z87.59 Anxiety with depression F41.8 Assessment and Plan Assessment and Plan (1) Supervision of high-risk : Status: Acute Qualifiers: Trimester: second trimester Qualified Code(s): O09.92 - Supervision of high risk , unspecified, second trimester Comment: PRR , JOANNE 04/23/25, boy, BJORN [place], Daren (2) : Status: Acute Qualifiers: Weeks of gestation: 17 weeks Qualified Code(s): Z3A.17 - 17 weeks gestation of Comment: NIPT low risk. carrier negative first . plan AFP screen (3) History of gestational hypertension: Status: Acute Comment: discussed 81 mg ASA if desired. (4) Anxiety with depression: Status: Acute Comment: prozac; switched to zoloft; stable Orders: Orders POC Urinalysis 2 Dip (Clinic) Today Plan problem list reviewed and updated for most current plan of care and appropriate orders placed. Relevant counseling for the gestational age appropriate provided and ACOG education checklist updated. Continue routine care and follow up. 11/13/24 [id number] <Electronically signed by Liana agee PAD ASSEMBLER PAD ASSEMBLER-C> Date _ Liana [place] PAD ASSEMBLER PAD ASSEMBLER-C Cosigner Signature: Date (if applicable) CC: ~ [facility] Work Phone: 1(282) 317-424404-16-2025 Evaluation note* Diagnosis Onset Date Resolution Status Admit Date Anxiety with depression acute A pril 2024 9:45am History of gestational hypertension acute October 17, 2024 9:45am acute October 17 9:45am Supervision of high-risk acute October 17, 2024 9:45am Anxiety with depression acute M ay 2024 3:48pm History of gestational hypertension acute November 13, 2024 3 :48pm acute November 13, 2024 3:48pm Supervision of high-risk acute November 13, 2024 3 :48pm Anxiety with depression acute J une 2024 11:17am History of gestational hypertension acute December 10, 2024 1 1:17am acute December 10, 2024 11:17am Supervision of high-risk acute December 10, 2024 1 1:17am Anxiety with depression acute J fahad 2024 3:20pm History of gestational hypertension acute January 09, 2025 3 :20pm acute January 09, 2025 3:20pm Supervision of high-risk acute January 09, 2025 3 :20pm Anxiety with depression acute J fahad 2024 1:08pm History of gestational hypertension acute January 28, 2025 1:08pm acute January 28 1:08pm Supervision of high-risk acute January 28, 2025 1:08pm [facility] Work Phone: 1(279) 621-353304-16-2025 Evaluation note* Diagnosis Onset Date Resolution Status Admit Date Anxiety with depression acute A pril 2024 9:45am History of gestational hypertension acute October 17, 2024 9:45am acute October 17 9:45am Supervision of high-risk acute October 17, 2024 9:45am Anxiety with depression acute M ay 2024 3:48pm History of gestational hypertension acute November 13, 2024 3 :48pm acute November 13, 2024 3:48pm Supervision of high-risk acute November 13, 2024 3 :48pm Anxiety with depression acute J une 2024 11:17am History of gestational hypertension acute December 10, 2024 1 1:17am acute December 10, 2024 11:17am Supervision of high-risk acute December 10, 2024 1 1:17am Anxiety with depression acute J fahad 2024 3:20pm History of gestational hypertension acute January 09, 2025 3 :20pm acute January 09, 2025 3:20pm Supervision of high-risk acute January 09, 2025 3 :20pm Anxiety with depression acute J fahad 2024 1:08pm History of gestational hypertension acute January 28, 2025 1:08pm acute January 28 1:08pm Supervision of high-risk acute January 28, 2025 1:08pm Anxiety with depression acute A ug2024 3:08pm History of gestational hypertension acute February 14 3:08pm acute February 14, 2 025 3:08pm Supervision of high-risk acute February 14 3:08pm [facility] Work Phone: 1(125) 629-461003-12-2025 Evaluation note* Diagnosis Onset Date Resolution Status Admit Date Anxiety with depression acute M 2024 8:30am History of gestational hypertension acute September 12, 2024 8:30am History of miscarriage, currently acute September 12, 2 025 8:30am History of induced hypertension acute September 12, 2024 8:30am acute September 12 8:30am Supervision of high-risk acute September 12, 2024 8:30am [facility] Work Phone: 1(684) 356-259903-12-2025 Evaluation note* Diagnosis Onset Date Resolution Status Admit Date Anxiety with depression acute M 2024 8:30am History of gestational hypertension acute September 12, 2024 8:30am History of miscarriage, currently acute September 12, 025 8:30am History of induced hypertension acute September 12, 2024 8:30am acute September 12 8:30am Supervision of high-risk acute September 12, 2024 8:30am Anxiety with depression acute M 2024 11:07am History of gestational hypertension acute September 25, 2024 11:07am History of miscarriage, currently acute September 25, 025 11:07am History of induced hypertension acute September 25, 2024 11:07am acute September 25 11:07am Supervision of high-risk acute September 25, 2024 11:07am [facility] Work Phone: 1(728) 394-698603-12-2025 Evaluation note* Diagnosis Onset Date Resolution Status Admit Date Anxiety with depression acute M 2024 8:30am History of gestational hypertension acute September 12, 2024 8:30am acute September 12 8:30am Supervision of high-risk acute September 12, 2024 8:30am History of miscarriage, currently resolved September 12, 025 8:30am History of induced hypertension resolved September 12, 2024 8:30am Anxiety with depression acute M arch 2024 11:07am History of gestational hypertension acute September 25, 2024 11:07am acute September 25 11:07am Supervision of high-risk acute September 25, 2024 11:07am History of miscarriage, currently resolved September 25, 025 11:07am History of induced hypertension resolved September 25, 2024 11:07am Anxiety with depression acute A pril 2024 9:45am History of gestational hypertension acute October 17, 2024 9:45am acute October 17 9:45am Supervision of high-risk acute October 17, 2024 9:45am Anxiety with depression acute M ay 2024 3:48pm History of gestational hypertension acute November 13, 2024 3 :48pm acute November 13, 2024 3:48pm Supervision of high-risk acute November 13, 2024 3 :48pm [facility] Work Phone: 1(827) 335-820203-12-2025 Evaluation note* Diagnosis Onset Date Resolution Status Admit Date Anxiety with depression acute M arch 2024 8:30am History of gestational hypertension acute September 12, 2024 8:30am acute September 12 8:30am Supervision of high-risk acute September 12, 2024 8:30am History of miscarriage, currently resolved September 12, 8:30am History of induced hypertension resolved September 12, 2024 8:30am Anxiety with depression acute M 2024 11:07am History of gestational hypertension acute September 25, 2024 11:07am acute September 25 11:07am Supervision of high-risk acute September 25, 2024 11:07am History of miscarriage, currently resolved September 25, 025 11:07am History of induced hypertension resolved September 25, 2024 11:07am Anxiety with depression acute A pri 2024 9:45am History of gestational hypertension acute October 17, 2024 9:45am acute October 17 9:45am Supervision of high-risk acute October 17, 2024 9:45am Anxiety with depression acute M 2024 3:48pm History of gestational hypertension acute November 13, 2024 3 :48pm acute November 13, 2024 3:48pm Supervision of high-risk acute November 13, 2024 3 :48pm Anxiety with depression acute J 2024 11:17am History of gestational hypertension acute December 10, 2024 1 1:17am acute December 10, 2024 11:17am Supervision of high-risk acute December 10, 2024 1 1:17am [facility] Work Phone: 1(538) 256-509403-12-2025 Evaluation note* Diagnosis Onset Date Resolution Status Admit Date Anxiety with depression acute M 2024 8:30am History of gestational hypertension acute September 12, 2024 8:30am acute September 12 8:30am Supervision of high-risk acute September 12, 2024 8:30am History of miscarriage, currently resolved September 12, 025 8:30am History of induced hypertension resolved September 12, 2024 8:30am Anxiety with depression acute M 2024 11:07am History of gestational hypertension acute September 25, 2024 11:07am acute September 25 11:07am Supervision of high-risk acute September 25, 2024 11:07am History of miscarriage, currently resolved September 25, 2 025 11:07am History of induced hypertension resolved September 25, 2024 11:07am Anxiety with depression acute A pril 2024 9:45am History of gestational hypertension acute October 17, 2024 9:45am acute October 17 9:45am Supervision of high-risk acute October 17, 2024 9:45am Anxiety with depression acute M ay 2024 3:48pm History of gestational hypertension acute November 13, 2024 3 :48pm acute November 13, 2024 3:48pm Supervision of high-risk acute November 13, 2024 3 :48pm Anxiety with depression acute J [facility] 2024 11:17am History of gestational hypertension acute December 10, 2024 1 1:17am acute December 10, 2024 11:17am Supervision of high-risk acute December 10, 2024 1 1:17am Anxiety with depression acute J fahad 2024 3:20pm History of gestational hypertension acute January 09, 2025 3 :20pm acute January 09, 2025 3:20pm Supervision of high-risk acute January 09, 2025 3 :20pm [facility] Work Phone: 1(283) 732-922112-26-2024 History of Present illness Narrative* Amarilis Toure, RT(R) - 06/28/2024 9:40 AM EST Radiology Service Progress Note PATIENT NAME: Roberto Carlos Jain DATE OF SERVICE: June 28, 2024 TIME: 9:42 AM PATIENT IDENTITY VERIFICATION COMPLETED USING TWO (2) IDENTIFIERS: Name and Date of confirmedby patient verbally. FALL SCREENING: Has the patient had 2 falls in the last year or 1 fall with injury or currently using an Ambulatory Assistive Device (Walker, Cane, Wheelchair, Crutches, etc.)? No PATIENT GENDER DATA: Female. status: : No status: NO. PATIENT RELEVANT IMPLANT DATA REVIEWED: Not Applicable PATIENT PRESENTS WITH AN IMPLANTABLE OR ATTACHED FINE ARTS INSTRUCTOR: No RADIOLOGY DEPARTMENT: General X-ray: Exam(s) Completed: Chest X-Ray PERIPHERAL IV DATA: Not applicable SIGNED BY: RT Malachi(Bay) June 28, 2024 9:42 AM documented in [facility]24 NoteHNO ID: [id number] Author: AMARILIS TOURE RT(R) Service: ? Author Type: Technologist Type: Progress Notes Filed: 06/28/2024 09:46 Note Text: Radiology Service Progress Note PATIENT NAME: Roberto Carlos Jain DATE OF SERVICE: June 28, 2024 TIME: 9:42 AM PATIENT IDENTITY VERIFICATION COMPLETED USING TWO (2) IDENTIFIERS: Name and Date of confirmed by patient verbally. FALL SCREENING: Has the patient had 2 falls in the last year or 1 fall with injury or currently using an Ambulatory Assistive Device (Walker, Cane, Wheelchair, Crutches, etc.)? No PATIENT GENDER DATA: Female. status: : No status: NO. PATIENT RELEVANT IMPLANT DATA REVIEWED: Not Applicable PATIENT PRESENTS WITH AN IMPLANTABLE OR ATTACHED FINE ARTS INSTRUCTOR: No RADIOLOGY DEPARTMENT: General X-ray: Exam(s) Completed: Chest X-Ray PERIPHERAL IV DATA: Not applicable SIGNED BY: RT Malachi(Bay) June 28, 2024 9:42 [facility]12-26-2024 NoteHNO ID: [id number] Author: HALIMA IZAGUIRRE APRN.FARRAH Service: ? Author Type: Nurse Practitioner Type: Progress Notes Filed: 06/28/2024 10:05 Note Text: Subjective HPI HPI Roberto Carlos Jain is a 28 year old female who presents today for CC of fever, cough, congestion. This started 2 days ago. Has tried otc medication for relief. Symptoms are worsened by nothing. Risk factors no sick exposures. Hx of asthma. Denies possibility of being /. nonsmoker. 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 albuterol HFA (PROVENTIL HFA, VENTOLIN HFA) 90 mcg/actuation inhaler 2 puffs q 4 prn. May use 15 to 20 minutes pre-exercise cetirizine-pseudoephedrine (ZYRTEC-D) 5-120 mg per tablet Take 1 tablet by mouth once daily. FLUoxetine (PROZAC) 10 mg capsule Take 1 capsule by mouth once daily. Take with 20 mg capsule to total 30 mg a day, take In the morning (Patient not taking: Reported on 06/28/2024) FLUoxetine (PROZAC) 20 mg capsule Take 1 capsule by mouth once daily. Take with 10 mg capsul, take In the morning (Patient not taking: Reported on 06/28/2024) rizatriptan (MAXALT INSPECTOR PLATING) 5 mg disintegrating tablet Take 1 tablet by mouth as needed for Migraine Headache (see administration instructions). May repeat in 2 hours if needed (Patient not taking: Reported on 06/28/2024) FAMILY HISTORY Problem Relation Age of Onset Asthma Mother Asthma Father Allergies Father Heart Father Diabetes Father Allergies Sister Cancer Sister PATERNAL SIDE WITH BREAST CANCER AND GBCA Heart Maternal Grandfather NM Lipids Maternal Grandfather ELEVATED CHOLESTEROL Social History Tobacco Use Smoking status: Never Smokeless tobacco: Never Vaping Use Vaping status: Never Used Substance Use Topics Alcohol use: No Drug use: No Review of Systems Constitutional: Positive for fever. HENT: Positive for congestion and sore throat. Negative for ear pain and nosebleeds. Respiratory: Positive for cough. Negative for shortness of breath and wheezing. Musculoskeletal: Negative for neck pain. Skin: Negative for itching and rash. Objective Blood pressure 114/75, pulse 106, temperature (!) 39.3 ?C (102.7 ?F), resp. rate 18, weight 76.9 kg (169 lb 8.5 oz), last menstrual period 02/20/2021, SpO2 100%. Physical Exam Constitutional: General: She is not in acute distress. Appearance: She is ill-appearing. She is not toxic-appearing or diaphoretic. HENT: Head: Normocephalic and atraumatic. Right Ear: Hearing, tympanic membrane, ear canal and external ear normal. Left Ear: Hearing, tympanic membrane, ear canal and external ear normal. Nose: Nose normal. Mouth/Throat: Pharynx: Uvula midline. No pharyngeal swelling, oropharyngeal exudate, posterior oropharyngeal erythema or uvula swelling. Eyes: General: Lids are normal. No scleral icterus. Right eye: No discharge. Left eye: No discharge. Conjunctiva/sclera: Conjunctivae normal. Pupils: Pupils are equal, round, and reactive to light. Neck: Trachea: Trachea normal. Cardiovascular: Rate and Rhythm: Normal rate and regular rhythm. Heart sounds: Normal heart sounds. Pulmonary: Effort: Pulmonary effort is normal. Breath sounds: Rhonchi (scattered bilat) present. No decreased breath sounds, wheezing or rales. Musculoskeletal: Cervical back: Normal range of motion and neck supple. Lymphadenopathy: Cervical: No cervical adenopathy. Right cervical: No superficial cervical adenopathy. Left cervical: No superficial cervical adenopathy. Skin: Findings: No rash. Neurological: Mental Status: She is alert and oriented to person, place, and time. ASSESSMENT/PLAN: 1. Influenza A - ICD9: 487.1, ICD10: J10.1 (primary diagnosis) -discussed expected course -discussed supportive care -discussed red flags and reasons for f/u -discussed contagiousness, reason/when close family members should f/u, and whom to avoid -f/u in 3-5 days if symptoms worsening - OSELTAMIVIR 75 MG CAPSULE - ALBUTEROL SULFATE HFA 90 MCG/ACTUATION AEROSOL INHALER - PREDNISONE 20 MG TABLET 2. Acute cough - ICD9: 786.2, ICD10: R05.1 - XR CHEST 2V FRONTAL/LAT IMPRESSION: No acute radiographic abnormality. Dictated by : SERGIO UGARTE MD - ALBUTEROL SULFATE HFA 90 MCG/ACTUATION AEROSOL INHALER - PREDNISONE 20 MG TABLET 3. History of asthma - ICD9: V12.69, ICD10: Z87.09 Halima Izaguirre APRN.[facility]12-26-2024 History of Present illness Narrative* Halima Izaguirre APRN.[facility] - 06/28/2024 9:38 AM EST Subjective HPI HPI Roberto Carlos Jain is a 28 year old female who presents today for CC of fever, cough, congestion.This started 2 days ago. Has tried otc medication for relief. Symptoms are worsened by nothing. Risk factors no sick exposures. Hx of asthma. Denies possibility of being /. nonsmoker. 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 albuterol HFA (PROVENTIL HFA, VENTOLIN HFA) 90 mcg/actuation inhaler 2 puffs q 4 prn. May use 15 to20 minutes pre-exercise cetirizine-pseudoephedrine (ZYRTEC-D) 5-120 mg per tablet Take 1 tablet by mouth once daily. FLUoxetine (PROZAC) 10 mg capsule Take 1 capsule by mouth once daily. Take with 20 mg capsule to total 30 mg a day, take In the morning (Patient not taking: Reported on 06/28/2024) FLUoxetine (PROZAC) 20 mg capsule Take 1 capsule by mouth once daily. Take with 10 mg capsul, take In the morning (Patient not taking: Reported on 06/28/2024) rizatriptan (MAXALT INSPECTOR PLATING) 5 mg disintegrating tablet Take 1 tablet by mouth as needed for Migraine Headache (see administration instructions). May repeat in 2 hours if needed (Patient not taking: Reported on 06/28/2024) FAMILY HISTORY Problem Relation Age of Onset Asthma Mother Asthma Father Allergies Father Heart Father Diabetes Father Allergies Sister Cancer Sister PATERNAL SIDE WITH BREAST CANCER AND GBCA Heart Maternal Grandfather NM Lipids Maternal Grandfather ELEVATED CHOLESTEROL Social History Tobacco Use Smoking status: Never Smokeless tobacco: Never Vaping Use Vaping status: Never Used Substance Use Topics Alcohol use: No Drug use: No Review of Systems Constitutional: Positive for fever. HENT: Positive for congestion and sore throat. Negative for ear pain and nosebleeds. Respiratory: Positive for cough. Negative for shortness of breath and wheezing. Musculoskeletal: Negative for neck pain. Skin: Negative for itching and rash. Objective Blood pressure 114/75, pulse 106, temperature (!) 39.3 C (102.7 F), resp. rate 18, weight 76.9 kg (169 lb 8.5 oz), last menstrual period 02/20/2021, SpO2 100%. Physical Exam Constitutional: General: She is not in acute distress. Appearance: She is ill-appearing. She is not toxic-appearing or diaphoretic. HENT: Head: Normocephalic and atraumatic. Right Ear: Hearing, tympanic membrane, ear canal and external ear normal. Left Ear: Hearing, tympanic membrane, ear canal and external ear normal. Nose: Nose normal. Mouth/Throat: Pharynx: Uvula midline. No pharyngeal swelling, oropharyngeal exudate, posterior oropharyngeal erythema or uvula swelling. Eyes: General: Lids are normal. No scleral icterus. Right eye: No discharge. Left eye: No discharge. Conjunctiva/sclera: Conjunctivae normal. Pupils: Pupils are equal, round, and reactive to light. Neck: Trachea: Trachea normal. Cardiovascular: Rate and Rhythm: Normal rate and regular rhythm. Heart sounds: Normal heart sounds. Pulmonary: Effort: Pulmonary effort is normal. Breath sounds: Rhonchi (scattered bilat) present. No decreased breath sounds, wheezing or rales. Musculoskeletal: Cervical back: Normal range of motion and neck supple. Lymphadenopathy: Cervical: No cervical adenopathy. Right cervical: No superficial cervical adenopathy. Left cervical: No superficial cervical adenopathy. Skin: Findings: No rash. Neurological: Mental Status: She is alert and oriented to person, place, and time. ASSESSMENT/PLAN: 1. Influenza A - ICD9: 487.1, ICD10: J10.1 (primary diagnosis) -discussed expected course -discussed supportive care -discussed red flags and reasons for f/u -discussed contagiousness, reason/when close family members should f/u, and whom to avoid -f/u in 3-5 days if symptoms worsening - OSELTAMIVIR 75 MG CAPSULE - ALBUTEROL SULFATE HFA 90 MCG/ACTUATION AEROSOL INHALER - PREDNISONE 20 MG TABLET 2. Acute cough - ICD9: 786.2, ICD10: R05.1 - XR CHEST 2V FRONTAL/LAT IMPRESSION: No acute radiographic abnormality. Dictated by : SERGIO UGARTE MD - ALBUTEROL SULFATE HFA 90 MCG/ACTUATION AEROSOL INHALER - PREDNISONE 20 MG TABLET 3. History of asthma - ICD9: V12.69, ICD10: Z87.09 Halima Izaguirre APRN.SURGICAL ASSIST documented in this encounter[facility] Progress note Author Clementina Enrique [facility] August 25, 2023 8:19am Note Date/Time August 25, 2023 8:20am [facility] Medical Records Department [address] [place] [address] Progress Note - OBGYN 08/25/23818 MR#: [id number] Acct: [id number] Name: ROBERTO CARLOS JAIN Rep #:[id number] : 1995 From: Clementina reynoso MD PCP: Dr. Bello Alfaro, DO Status:AD IN Location: NC835-7 Subjective Subjective Patient doing well without complaints. Tolerating PO. Ambulating and voiding without difficulty. infant feeding well. Denies chest pain, shortness of breath,calf pain/swelling, fevers, chills, lightheadedness. Objective Data Objective Data Vital Signs: Vital Signs Temp Pulse Resp BP Pulse Ox O2 Del Method 97.0 F L 88 16 124/91 H 98 Room Air 08/25/23 08:08 08/25/23 08:08 08/25/23 08:08 08/25/23 08:08 08/25/23 08:08 08/25/23 08:08 Oxygen Delivery Method Room Air Weight: 213 lb 10.047 oz Body Mass Index (BMI) 36.6 Intake & Output: Intake and Output for Last 24 Hours 08/23/23 08/24/23 08/25/23 23:59 23:59 23:59 Intake Total 2810.04 / 2810.04 877.67 / 877.67 Output Total 1150 / 1150 1200 / 1200 Balance 1660.04 / 1660.04 -322.33 / -322.33 Lab / Micro Data 08/23/23 19:30 08/23/23 19:30 ROS Constitutional Constitutional: Reports systems reviewed and no addt'l complaints, except as documented Cardiovascular Cardiovascular: Reports systems reviewed and no addt'l complaints, except as documented Respiratory/Chest Respiratory/Chest: Reports systems reviewed and no addt'l complaints, except as documented Gastrointestinal Gastrointestinal: Reports systems reviewed and no addt'l complaints, except as documented Physical Exam Const alert, oriented x3 and no apparent distress HEENT Head and Scalp: atraumatic Resp normal respiratory effort GI soft to palpation and non-tender Bimanual Exam - Vag & Uterus: uterus non-tender Uterus Palpation: uterus fundus firm (below Umbilicus) Assessment & Plan (1) Vaginal delivery: COMMENT: KW SROM 37.5 Boy Romain PLAN: Plan s/p PPD # 2 1. routine post delivery care 2. breast feeding- support given 3. rh positive 4. rubella immune 08/25/23 0819 <Electronically signed by Clementina Enrique MD> Cosigner Signature (if applicable): CC: ~ Signed [facility] Work Phone: 1(713) 433-200702-21-2024 Progress note Author Liana Rodriguez [facility] August 24, 2023 8:00am Note Date/Time August 24, 2023 8:00am [facility] Medical Records Department [address] [place] [address] Progress Note - OBGYN 08/24/23 0759 MR#: [id number] Acct: [id number] Name: ROBERTO CARLOS JAIN Rep #:[id number] : 1995 27 From: Liana Rodriguez PAD ASSEMBLER PAD ASSEMBLER-C PCP: Dr. Bello Alfaro, DO Status:AD M IN Location: BR443-2 Subjective Subjective Patient doing well without complaints. Tolerating PO. Ambulating and voiding without difficulty. Feeding well. Denies chest pain, shortness of breath, calf pain/swelling, fevers, chills, lightheadedness. Objective Data Objective Data Vital Signs: Vital Signs Temp Pulse Resp BP Pulse Ox O2 Del Method 97.4 F L 100 16 121/74 H 95 Room Air 08/24/23 07:26 08/24/23 07:26 08/24/23 07:26 08/24/23 07:26 08/24/23 07:26 08/24/23 07:26 Oxygen Delivery Method Room Air Weight: 213 lb 10.047 oz Body Mass Index (BMI) 36.6 Intake & Output: Intake and Output for Last 24 Hours 08/22/23 08/23/23 08/24/23 23:59 23:59 23:59 Intake Total 2810.04 / 2810.04 250 / 250 Output Total 1150 / 1150 1200 / 1200 Balance 1660.04 / 1660.04 -950 / -950 Lab / Micro Data 08/23/23 19:30 08/23/23 19:30 Labs: Laboratory Results - last 24 hr 08/23/23 08:00: Vag Amniotic Fld Detect POSITIVE H 08/23/23 09:15: WBC 11.9 H, RBC 4.00 L, Hgb 10.8 L, Hct 33.0 L, MCV 82.5, MCH 27.0, MCHC 32.7, RDW Std Deviation 38.7, RDW Coeff of [place] 12.9, Plt Count 249, MPV 11.1, Immature Gran % (Auto) 0.500, Neut % (Auto) 82.6 H, Lymph % (Auto) 8.7L, Van Zandt % (Auto) 6.0, Eos % (Auto) 1.8, Baso % (Auto) 0.4, Absolute Neuts (auto)9.8 H, Absolute Lymphs (auto) 1.03, Nucleated RBC % 0, Syphilis Total Ab Non-reactive, Blood Type A POSITIVE, Antibody Screen NEGATIVE 08/23/23 18:50: U Random Total Protein 11.6, Urine Creatinine 30.90, Protein/Creatinin Ratio 375 H 08/23/23 19:30: WBC 16.5 H, RBC 3.91 L, Hgb 10.4 L, Hct 32.7 L, MCV 83.6, MCH 26.6 L, MCHC 31.8 L, RDW Std Deviation 39.2, RDW Coeff of [place]il[place] 13.1, Plt Count 245, MPV 10.9, Creatinine 0.63, Estim Creat Clear Calc 152.91, Est GFR (MDRD) AfAmer 147, Est GFR (MDRD) Non-Af 121, Uric Acid 4.1, AST 24, ALT 12 L Physical Exam Const alert and oriented x3 HEENT normocephalic Eyes PERRL Neck full ROM Resp normal respiratory effort GI soft to palpation GI Narrative: FF below U Assessment & Plan (1) Vaginal delivery: COMMENT: KW SROM 37.5 Boy Romain (2) Anxiety with depression: COMMENT: prozac; switched to zoloft; stable PLAN: Plan s/p PPD # 1 1. routine post delivery care 2. breast feeding- support given 3. rh positive 4. rubella immune 08/24/23 0800 <Electronically signed by Liana Rodriguez NP PAD ASSEMBLER-C> Cosigner Signature (if applicable): CC: ~ Signed [facility] Work Phone: 1(236) 684-245202-21-2024 Procedure [facility] 08-23-2023 Progress note Author Clementina Enrique [facility] August 23, 2023 8:29pm Note Date/Time August 23, 2023 8:29pm [facility] Medical Records Department [address] [place] [address] Progress Note 08/23/232026 MR#: [id number] Acct: [id number] Name: ROBERTO CARLOS JAIN Rep #:[id number] : 1995 27 From: Clementina reynoso MD PCP: Dr. Bello Alfaro, DO Status:AD M IN Location: [place] [id number] Progress Note giles din for BJ due to decel into the 90s x 4 minutes. upon arrival patientin OR and on hands and knees and heart rate in the 150s moderate variability andacceleration present. some blood present, possible small abruption but overall reassuring FHT and now 5 cm, so bleeding could be due to quick cervical change. position changed and one late decel noted, then min-mod variability pos accel. will continue to monitor and return to room for now, reviewed with nursing and counseling center manager tracing monitoring and bleeding monitoring parameters. exp management for now. 08/23/232028 <Electronically signed by Clementina Enrique MD> Clementina Enrique MD Cosigner Signature (if applicable): CC: ~ Signed [facility] Work Phone: 1(829) 268-771102-20-2024 Progress note Author Lavern Zavala [facility] August 23, 2023 8:21pm Note Date/Time August 23, 2023 8:21pm [facility] Medical Records Department [address] [place] [address] Progress Note 08/23/232013 MR#: [id number] Acct: [id number] Name: ROBERTO CARLOS JAIN Rep #:[id number] : 1995 27 From: Lavern Zavala CNM PCP: Dr. Belol Alfaro, DO Status:AD M IN [facility] Note comfortable with epidural current tracing: FHT: 135 Moderate variability reactive prolonged deceleration noted after nursing placed IUPC category II tracing Anthem: 1-2 minute Contractions after IUPC Membranes: Forebag Ruptured for meconium 1400 SVE: reviewed tracing abnormalities since last note: collaboration with Dr Enrique at time of deceleration for Cat II FHT tracing and BJ. In route to hospital A/P: Continue with position changes Discontinue pitocin IV fluid bolus Epidural per anesthesia BJ called. If resolved return to room and anticipate . Dr Enrique aware of above assessment and agrees with plan of care Assessment & Plan Assessment/Plan (1) SROM (spontaneous rupture of membranes): (2) H/O miscarriage, currently : (3) Seasonal allergies: (4) Supervision of high-risk : QUALIFIERS: Trimester: third trimester Qualified Code(s): O09.93 - Supervision of high risk , unspecified, third trimester (5) : QUALIFIERS: Weeks of gestation: 36 weeks Qualified Code(s): Z3A.36 - 36 weeks gestation of (6) Anxiety with depression: Multi Select Codes Urinary/Genital Urinary/Genital CPT Codes: No Charge 08/23/232020 <Electronically signed by Lavern Zavala CNM> Lavern Zavala CNM Cosigner Signature (if applicable): CC: ~ Signed [facility] Work Phone: 1(201) 799-406802-20-2024 Progress note Author Lavern Zavala [facility] August 23, 2023 12:46pm Note Date/Time August 23, 2023 12:46pm [facility] Medical Records Department [address] [place] [address] Progress Note 08/23/23 1243 MR#: [id number] Acct: [id number] Name: ROBERTO CARLOS JAIN Rep #:[id number] : 1995 27 From: Lavern Zavala CNM PCP: Dr. Bello Alfaro, DO Status:AD M IN Location: [place] [address] Progress Note Coping well with contractions current tracing: FHT: 140 Moderate variability reactive no decelerations category I tracing Anthem: 3-4 minute mild Contractions Membranes: additional bag felt SVE:260/-2 A/P: Continue with position changes start and titrate pitocin per protocol Epidural per anesthesia Plan to rupture forebag when appropriate Anticipate Dr Enrique aware of above assessment and agrees with plan of care Assessment & Plan Assessment/Plan (1) SROM (spontaneous rupture of membranes): (2) H/O miscarriage, currently : (3) Seasonal allergies: (4) Supervision of high-risk : QUALIFIERS: Trimester: third trimester Qualified Code(s): O09.93 - Supervision of high risk , unspecified, third trimester (5) : QUALIFIERS: Weeks of gestation: 36 weeks Qualified Code(s): Z3A.36 - 36 weeks gestation of (6) Anxiety with depression: Multi Select Codes Urinary/Genital Urinary/Genital CPT Codes: No Charge 08/23/23 1246 <Electronically signed by Lavern Zavala CNM> Lavern Zavala CNM Cosigner Signature (if applicable): CC: ~ Signed [facility] Work Phone: 1(440) 619-321602-20-2024 History and physical note Author Lavern Zavala [facility] August 23, 2023 8:36am Note Date/Time August 23, 2023 8:33am [facility] Medical Records Department [address] [place] [address] H&P Exam - BEEF LUGGER 08/23/23 0830 MR#: [id number] Acct: [id number] Name: ROBERTO CARLOS JAIN Rep #:[id number] : 1995 27 From: Lavern Zavala CNM PCP: Dr. Bello Alfaro, DO Status:AD M IN Location: [place] KQ847-7 HPI - General General Date of Admission: 08/23/23 Date of Service: 08/23/23 HPI Narrative ROBERTO CARLOS JAIN, is a 27 F 37.5 weeks GBS neg who presents to Unit for SROM at 0515 this am for clear fluid. positive ROM. Maternal Data Information JOANNE Calculator Estimated Delivery Date Method Current WG Current Estimate 09/08/23 LMP (Certain) 37w 5d Final JOANNE: 09/08/23 Final JOANNE Source: US >20 weeks Gestational age: 37.5 weeks PFSH PFSH Medical History Anxiety with depression Asthma Home Medications montelukast 10 mg tablet (Singulair) 10 mg PO DAILY 01/20/23 [History Last Taken Unknown] multivit-min no.71-iron fum 28 mg-folate no.1 1 mg-dha 300 mg capsule (PNV- [place]) 1 cap PO DAILY 01/20/23 [History Last Taken 08/23/23 07:00 1 cap] breast pump #1 ea 07/18/23 [Rx Last Taken Unknown] sertraline 50 mg tablet (Zoloft) 75 mg (1.5 x 50 mg) PO DAILY 90 days #135 tabs 08/01/23 [Rx Last Taken 08/23/23 07:00 75 mg] Allergy/AdvReac Type Severity Reaction Status Date / Time No Known Allergies Allergy Verified 08/23/23 07:45 Family History Father Diabetes Mother Hypertension Grandmother Family history of recurrent miscarriage paternal Social History adopted: No household members: spouse current occupational status: employed current occupation: [employer] pets and animals: Yes pets and animals: dog(s) history of recent travel: Yes ([place]) out of state: Yes out of country: No sexually active: Yes Smoking Status: Never smoker alcohol intake: never substance use type: does not use well-balanced diet: daily or most days caffeine: No eating out: 1-3 times/week during the past year weight has: increased > 10 lbs what type of physical activity do you participate in: walking frequency: 3-4 times per week duration: 30-45 minutes/day ben/mu-ism: Orthodoxy seatbelt use: always do you feel safe at home: Yes additional social history: works at [employer] History 2 Elective abortions Hx Para 0 Spontaneous abortions 1 Hx # Term Pregnancies Ectopic pregnancies Hx # Pregnancies Multiple births # of living children 0 Past Pregnancies Del. Date Name GA/Weeks Outcome Route Bth Weight Infant Gen Labor Lgth Anesthesia Del Locatn Provider FOB Unknown 05/2022 Miscarriage 6wks Visit Details Expected Delivery Route/Plan Labor Preferences- CB/BF classes: signed up for all 3 labor support person: Daren labor intervention preferences: [] pain management options preferred: [] cut cord/dad catch: [] : plans PP control planned: [] discussed possible routes of delivery and associated risks: [] special requests: [] Plans Covid status: unvaxed Flu vaccine: declines Tdap vaccine: accepts 07/06 Rhogam: NA LARC form signed: [] Problem list reviewed and updated with the most current plan of care details and appropriate orders placed. Relevant counseling for the gestational age provided. Continue routine care and follow up unless otherwise noted in visit notes/problem list details OB Flowsheet Initial Weight: Not Recorded Date -?-?-?-?-?-?-?-?-?-?-?-?- EGA Weight BP Urine Prot -?-?-?-?-?-?-?-?-?-?-?-?- Glucose FHR FuHt Pres Dilation -?-?-?-?-?-?-?-?-?-?-?-?- Effaced St Visit Note 01/31/23 -?-?-?-?-?-?-?-?-?-?-?-?- 8w 4d 182 lb 4 oz 124/75 -?-?-?-?-?-?-?-?-?-?-?-?- -?-?-?-?-?-?-?-?-?-?-?-?- Sm- getting form al scan right after this visit. no vb 03/01/23 -?-?-?-?-?-?-?-?-?-?-?-?- 12w 5d 181 lb 4 oz 109/72 Nega tive -?-?-?-?-?-?-?-?-?-?-?-?- Negative 160 -?-?-?-?-?-?-?-?-?-?-?-?- KW-VB/cramping. no concerns 03/29/23 -?-?-?-?-?-?-?-?-?-?-?-?- 16w 5d 186 lb 4 oz 108/65 Nega tive -?-?-?-?-?-?-?-?-?-?-?-?- Negative 153 -?-?-?-?-?-?-?-?-?-?-?-?- JV- no lof, vagi nal bleeding, or cramping. no complaints. normal NIPT. has an atomy scan scheduled. 04/26/23 -?-?-?-?-?-?-?-?-?-?-?-?- 20w 5d 190 lb 8 oz 122/78 Nega tive -?-?-?-?-?-?-?-?-?-?-?-?- Negative 155 -?-?--?-?-?-?-?-?-?-?-?-?- MH-No VB, LOF. G ood FM. Wants to change to zoloft due to concern with prozac and . New Rx sent and discussed blade changer. 05/25/23 -?-?-?-?-?--?-?-?-?-?-?-?- 24w 6d 197 lb Negative -?-?-?-?-?-?-?-?-?-?-?-?- Negative 160 25 -?-?-?-?-?-?-?-?-?-?-?-?- KW-discussed CB education classes. no vb/lof/cramping. good fm. KW-discussed CB education cl asses. no vb/lof/cramping. good fm. did not start the zoloft yet. will pickers material handlers from pharmacy and start taking 06/22/23 -?-?-?-?-?-?-?-?-?-?-?-?- 28w 6d 201 lb 4 oz 128/77 Nega tive -?-?-?-?-?-?-?-?-?-?-?-?- Negative 143 28 -?-?-?-?-?-?-?-?-?-?-?-?- LC- no vb/ctx/lo f. good fm. enrolled in CBE, larc and pedi discussed. 07/06/23 -?-?-?-?-?-?-?-?-?-?-?-?- 30w 6d 203 lb 2 oz 129/78 Nega tive -?-?-?-?-?-?-?-?-?-?-?-?- Negative 153 31 -?-?-?-?-?-?-?-?-?-?-?-?- LC- no vb/ctx/lo f. good fm. no concerns today. will desire a breast pump. tdap today 07/18/23 -?-?-?-?-?-?-?-?-?-?-?-?- 32w 4d 206 lb 8 oz 120/78 Nega tive -?-?-?-?-?-?-?-?-?-?-?-?- Negative 147 33 -?-?-?-?-?-?-?-?-?-?-?-?- JV- no lof, vagi nal bleeding or dec fm. breast pump rx today JV- no lof, vaginal bleeding or dec fm. breast pump rx today. will try increasing zoloft to 75 these next 2 weeks. if helps will give rx to reflect this if not will give rx for 100 mg. 08/01/23 -?-?-?-?-?-?-?-?-?-?-?-?- 34w 4d 213 lb 122/79 Negative -?-?-?-?-?-?-?-?-?-?-?-?- Negative 160 35 -?-?-?-?-?--?-?-?-?-?-?-?- JV-doing well on zoloft 75 mg. no lof, vaginal bleeding, or dec fm. 08/11/23 -?-?-?-?-?-?-?-?-?-?-?-?- 36w 0d 212 lb 2 oz 126/84 Nega tive -?-?-?-?-?-?-?-?-?-?-?-?- Negative 156 36 -?-?-?-?-?-?-?-?-?-?-?-?- MH-Gush of fluid in the night, none since. No bleeding. ROM and GBS collected. No CTX. Good FM 08/15/23 -?-?-?-?-?-?-?-?-?-?-?-?- 36w 4d 214 lb 2 oz 131/88 Nega tive -?-?-?-?-?-?-?-?-?-?-?-?- Negative 150 37 -?-?-?-?-?-?-?-?-?-?-?-?- JV- no lof, vagi nal bleeding, or dec fm gbs was negative. NST FHR Rate Baby A Baseline: 150 Variability:: Moderate Accelerations:: 15 x 15 Decelerations:: Variable NST Reactive:: Yes FHR Category:: Category II Uterine Activity:: 2-3 minutes ROS Constitutional Constitutional: Denies change in weight, fatigue, fever(s), headache(s), poor appetite or weakness Eyes Eyes: Denies blurry vision, change in vision, floaters, seeing flashes or spots in vision ENT HEENT: Denies dizziness, headache(s), loss taste/smell or sore throat Cardiovascular Cardiovascular: Denies chest pain, dizziness, dyspnea, irregular heart rhythm, lightheadedness, palpitations or rapid heart rate Respiratory/Chest Respiratory/Chest: Denies change in mental status, chest tightness, cough, dyspnea or breast pain Gastrointestinal Gastrointestinal: Denies anorexia, chewing difficulty, constipation, diarrhea or weight changes Genitourinary Genitourinary: Denies difficulty urinating, dysuria, flank pain, genital pain, urinary frequency or urinary urgency Musculoskeletal Musculoskeletal: Denies back pain, difficulty walking, extremity pain, joint pain, muscle cramps or muscle weakness Integumentary Integumentary: Denies lesions or unusual bruising Neurologic Neurologic: Denies abnormal movements, abnormal speech, dizziness, numbness, seizure-like activity, syncope or weakness Psychiatric Psychiatric: Denies behavioral changes, change in appetite, confusion, depression, homicidal ideation, suicidal ideation or suicidal thoughts Endocrine Endocrinology: Denies excessive sweating, polydipsia or polyuria Hematologic/Lymphatic Hematologic/Lymphatic: Denies anemia Allergic/Immunologic Allergic/Immunologic: Denies itchy eyes, lip swelling, throat swelling, tongue swelling or wheezing Vital Signs Vital Signs Vital Signs: 08/23/23 07:41 08/23/23 07:41 08/23/23 07:41 Temperature Temperature Source Pulse Rate 89 Blood Pressure 130/84 H BP Systolic 130 BP Diastolic 84 Pulse Ox 97 08/23/23 07:41 08/23/23 07:41 Temperature 98.5 F Temperature Source Temporal Pulse Rate Blood Pressure BP Systolic BP Diastolic Pulse Ox Weight Weight: 213 lb 10.047 oz Body Mass Index (BMI) 36.6 Physical Exam Const alert, oriented x3 and no apparent distress General Appearance: cooperative Orientation / Consciousness: awake HEENT normocephalic Neck full ROM Lymph Lymphatic: no lymphadenopathy noted Chest inspection of chest normal Resp normal respiratory effort and normal air movement Effort and Inspection: able to speak in complete sentences and symmetric chest movement GI soft to palpation and non-tender Inspection: gravid Palpation: soft; Negative for tender external exam normal Manual OB Exam: dilated Back/Spine normal to inspection Extremity normal to inspection and full ROM Skin no rashes or lesions noted Psych mental status grossly normal Appearance: grossly normal Speech: normal speech Labs Labs Labs: Blood Type A POSITIVE Antibody Screen NEGATIVE Hct 35.4 % (37-47) L Hgb 11.7 g/dL (12.0-15.0) L Obstetrics Ultrasound Syphilis Total Ab Non-reactive Rubella IgG Antibody Reactive (Nonreactive) Hep Bs Antigen Non-Reactive (Nonreactive) Hepatitis C Antibody Non-Reactive (Nonreactive) Chlamydia DNA ([place]) Negative (Negative) N.gonorrhoeae DNA ([facility]) Negative (Negative) HIV 1&2 Antibody Non-Reactive (Nonreactive) Glucose 1 Hr 50 gm 115 mg/dL (70-140) Assessment & Plan (1) SROM (spontaneous rupture of membranes): PLAN: Patient presents IAL, plan expectant management for , pitocin/AROM PRN if needed. Pain management: plans epidural. GBS neg. Management of any complications: none I have reviewed the [facility] and made any clinically relevant updates. Dr Enrique aware of above assessment and plan and agrees with plan of care (2) H/O miscarriage, currently : COMMENT: 05/2022 @6wks (3) Anxiety with depression: COMMENT: prozac; switched to zoloft; stable (4) Seasonal allergies: (5) Supervision of high-risk : QUALIFIERS: Trimester: third trimester Qualified Code(s): O09.93 - Supervision of high risk , unspecified, third trimester COMMENT: PRR,,boy! JOANNE 09/07/22 Daren (6) : QUALIFIERS: Weeks of gestation: 36 weeks Qualified Code(s): Z3A.36 - 36 weeks gestation of COMMENT: Neg GBS. NIPT low risk, carrier neg. , nl anatomy Charges/Coding Multi Select Codes Urinary/Genital Urinary/Genital CPT Codes: No Charge 08/23/23 0836 <Electronically signed by Lavern Zavala CNM> Cosigner Signature (if applicable): CC: BREANN Zavala; Dr. Bello Alfaro DO~ Signed [facility] Work Phone: 1(590) 326-927812-20-2022 Miscellaneous Notes* Telephone Encounter - Lizeth Lovelace Pss - 06/22/2022 9:20 AM EST 1st attempt to reach patient. Left message for patient to call office to schedule to schedule new patient consult with anyone in Dr. Alfaro's triad. Ok per JG. Patient's MRN is [id number]. * Telephone Encounter - Bello Alfaro DO - 06/21/2022 4:05 PM EST Yes, willing for him to establish care with our team. Bello Alfaro DO * Telephone Encounter - INDIA Kenny - 06/08/2022 12:40 PM EST Patient calling in to see if you will make an exception to take on her as a patient. Daren Nicknikunj, : 02/08/1996. Please review and advise. Patient prefers that we call her to get him scheduled if willing to take him on. INDIA Kenny June 08, 2022 12:42 PM documented in [facility] History of Present illness Narrative* Dorina Daley, TARAH.SURGICAL ASSIST - 05/03/2022 12:53 PM EDT Chief Complaint Patient presents with: Cough: Cough and nsal congestion for past two weeks no over the counters working and just found outshe is HPI Roberto Carlos Tanner is a 26 year old female who presents here today for Above Complaints. Roberto Carlos is an established patient of Dr. Alfaro. [...] what OB she would like to use ([facility]), has not set up appointment yet. Was [...] BREAST CANCER AND GBCA Heart Maternal Grandfather NM Lipids Maternal Grandfather ELEVATED CHOLESTEROL Patient Allergies [...] day, take In the morning rizatriptan (MAXALT INSPECTOR PLATING) 5 mg disintegrating tablet Take 1 tablet by mouth as needed for Migraine Headache (see administration instructions). May repeat in 2 hours if needed loratadine (CLARITIN) 10 mg tablet Take 1 tablet by mouth once daily. albuterol HFA (PROVENTIL HFA, VENTOLIN HFA) 90 mcg/actuation inhaler 2 puffs q 4 prn. May use 15 to20 minutes pre-exercise cetirizine-pseudoephedrine (ZYRTEC-D) 5-120 mg per [...] numerous over the counter cold/flu medications. Due topregnancy, we discussed regimen of short term amoxicillin x 5 days. Pt requesting antibiotic versussymptomatic, supportive management. - Will begin treatment with Amoxicillin for 5 days - The patient should also be given warm salt water gargles, throat lozenges and/or OTC throat sprayas needed and nasal saline gtts and suction [...] needs to discuss with OB as soon aspossible about options for medication regimen. 3. Less [...] symptoms occur. Patient agreeable to treatment plan. Dorina Daley APRN.CNP [address] [place] [address] documented in [facility] encounter[facility]* Diagnosis Bacterial sinusitis- Primary Unspecified sinusitis (chronic) PÉREZ (generalized anxiety disorder) Generalized anxiety disorder Less than 8 weeks gestation of state, incidental documented in this encounter [facility]on[facility] noteNo assessment information availableWSumma Health [facility] Work Phone: evaluation note* Diagnosis Onset Date Resolution Status Anxiety with depression acut e H/O miscarriage, currently acute acute Seasonal allergies acute Supervision of high-risk [facility] Work Phone: Evaluation note* Diagnosis Onset Date Resolution Status Anxiety with depression acut e H/O miscarriage, currently acute acute Seasonal allergies acute Supervision of high-risk acute Anxiety with depression acut e H/O miscarriage, currently acute acute Seasonal allergies acute Supervision of high-risk acute Anxiety with depression acut e acute Supervision of high-risk acute Anxiety with depression acut e H/O miscarriage, currently acute acute Seasonal allergies acute Supervision of high-risk acute Anxiety with depression acut e H/O miscarriage, currently acute acute Seasonal allergies acute Supervision of high-risk acute [facility] Work Phone: Evaluation note* Diagnosis Onset Date Resolution Status Anxiety with depression acut e acute Supervision of high-risk acute Anxiety with depression acut e H/O miscarriage, currently acute acute Seasonal allergies acute Supervision of high-risk acute Anxiety with depression acut e H/O miscarriage, currently acute acute Seasonal allergies acute Supervision of high-risk acute Anxiety with depression acut e H/O miscarriage, currently acute acute Seasonal allergies acute Supervision of high-risk acute Anxiety with depression acut e H/O miscarriage, currently acute acute Seasonal allergies acute Supervision of high-risk acute Breast feeding status of mother noneactive Anxiety with depression acut e H/O miscarriage, currently acute acute Seasonal allergies acute Supervision of high-risk acute Anxiety with depression acut e acute Supervision of high-risk acute Anxiety with depression acut e H/O miscarriage, currently acute acute Seasonal allergies acute Supervision of high-risk acute [facility] Work Phone: Evaluation note* Diagnosis Onset Date Resolution Status Anxiety with depression acut e Seasonal allergies acute resolved Supervision of high-risk resolved Anxiety with depression acut e Seasonal allergies acute resolved Supervision of high-risk resolved Anxiety with depression acut e Seasonal allergies acute resolved Supervision of high-risk resolved Anxiety with depression acut e Seasonal allergies acute resolved Supervision of high-risk resolved Breast feeding status of mother noneactive Anxiety with depression acut e Seasonal allergies acute resolved Supervision of high-risk resolved Anxiety with depression acut e resolved Supervision of high-risk resolved Anxiety with depression acut e Seasonal allergies acute resolved Supervision of high-risk resolved Anxiety with depression acut e Seasonal allergies acute Vaginal delivery acute resolved Supervision of high-risk resolved [facility] Work Phone: Evaluation note* Diagnosis Influenza A- Primary Influenza with other respiratory manifestations Acute cough History of asthma Personal history of other diseases of respiratory system [facility] Dis[facility] instructionsAdditional Instructions Rest! Relax, feed baby! Call if any questions or concerns. F/U in office in 6 weeks.[facility] Work Phone: Progress note Author Lavern Zavala [facility] Note Date/Time December 10, 2024 11:34 am [facility] [address], [address] [place] [address] OFFICE VISIT Date of Service: 12/10/24 MR#: [id number] Acct: [id number] Name: ROBERTO CARLOS JAIN Rep #: [id number] : 1995 Provider: BREANN Zavala Age/Sex: 29/F Location: [facility] [facility] Status: Signed Intake Vital Signs 10/17/24 09:47 11/13/24 15:51 12/10/24 11:19 Height 5 ft 3 in 5 ft 3 in 5 ft 3 in Weight: 176 lb 8 oz BMI 31.2 BP 124/75 H Intake Visit Reasons: 21wk ob Size Tester Required: No Is patient in pain?: No Allergies No Known Allergies Allergy (Verified 12/10/24 11:20) Medications ?Medication ?Instructions ?Recorded ?Confirmed ?Type multivit-min no.71-iron fum 28 1 cap PO DAILY 01/20/23 12/10/24 History mg-folate no.1 1 mg-dha 300 mg capsule (PNV-[place]) Last Menstrual Period: 07/17/24 Zika: Zika virus screening: Negative : No PFSH PFSH Medical History Seasonal allergies Vaginal delivery Family history of malignant hyperthermia Asthma Anxiety with depression Family History Father Diabetes Mother Hypertension Grandmother Family history of recurrent miscarriage paternal Social History adopted: No household members: spouse and children housing: house number of children: 1 current occupational status: unemployed current occupation: [employer] pets and animals: Yes (2) pets and animals: dog(s) history of recent travel: [place] ([place]) sexually active: Yes Smoking Status: Never smoker alcohol intake: never substance use type: does not use well-balanced diet: daily or most days caffeine: No eating out: rarely or never during the past year weight has: decreased > 10 lbs what type of physical activity do you participate in: other details: crossfit frequency: 3-4 times per week duration: 45-60 minutes/day ben/mu-ism: Orthodoxy seatbelt use: always do you feel safe at home: Yes additional social history: Daren- AESamuel History 3 Elective abortions Hx Para 1 Spontaneous abortions 1 Hx # Term Pregnancies Ectopic pregnancies Hx # Pregnancies 1 Multiple births # of living children 1 Past Pregnancies Del. Date Name GA/Weeks Outcome Route Bth Weight Infant Gen Labor Lgth Anesthesia Del Locatn Provider FOB Unknown 05/2022 Miscarriage 6wks 08/23/23 [place] 37 live - 6#13oz Male epid ural [facility] Lavern Mercedes Delivery Date: 08/23/23 Last Updated by: Stacy Garzon SROM HPI 21wk ob Details: ROBERTO CARLOS JAIN is a 29 year old who presents for routine OB visit. OB Visit JOANNE Calculator Estimated Delivery Date Method Current WG Current Estimate 04/23/25 LMP (Certain) 20w 6d Other Estimates 04/22/25 Ultrasound #1 21w 0d Expected Delivery Route/Plan Labor Preferences- CB/BF classes: [] labor support person: [] labor intervention preferences: [] pain management options preferred: [] cut cord/dad catch: [] : [] PP control planned: [] discussed possible routes of delivery and associated risks: [] special requests: [] Specific Issue/Plans Covid status: [] Flu vaccine: [] Tdap vaccine: [] Rhogam: [] LARC form signed: [] Problem list reviewed and updated with the most current plan of care details and appropriate orders placed. Relevant counseling for the gestational age provided. Continue routine care and follow up unless otherwise noted in visit notes/problem list details Initial Weight: Not Recorded Date -?-?-?-?-?-?-?-?-?-?-?-?- EGA Weight BP Urine Prot -?-?-?-?-?-?-?-?-?-?-?-?- Glucose FHR FuHt Pres Dilation -?-?-?-?-?-?-?-?-?-?-?-?- Effaced St Visit Note 09/12/24 -?-?-?-?-?-?-?-?-?-?-?-?- 8w 1d 169 lb 122/72 -?-?-?-?-?-?-?-?-?-?-?-?- 158 -?-?-?-?-?-?-?-?-?-?-?-?- JV- CRL consiste nt with LMP. Desires NIPT. will return in 2 weeks for blood work. 09/25/24 -?-?-?-?-?-?-?-?-?-?-?-?- 10w 0d 168 lb 2 oz 134/79 Nega tive -?-?-?-?-?-?-?-?-?-?-?-?- Negative 180 -?-?-?-?-?-?-?-?-?-?-?-?- KW- no vb/crampi ng. requesting a heartbeat check because her friend just had SAB. active fetus on US and FHT easily found. labs today 10/17/24 -?-?-?-?-?-?-?-?-?-?-?-?- 13w 1d 171 lb 2 oz 123/71 Nega tive -?-?-?-?-?-?-?-?-?-?-?-?- Negative 160 -?-?-?-?-?-?-?-?-?-?-?-?- SM- no vb crmapi ng 11/13/24 -?-?-?-?-?-?-?-?-?-?-?-?- 17w 0d 173 lb 122/74 Negative -?-?-?-?-?-?-?-?-?-?-?-?- Negative 154 -?-?-?-?-?-?-?-?-?-?-?-?- MH-No VB. Thinks feels flutters. AFP today. No concerns 12/10/24 -?-?-?-?-?-?-?-?-?-?-?-?- 20w 6d 176 lb 8 oz 124/75 1+ -?-?-?-?-?-?-?-?-?-?-?-?- Negative 160 -?-?-?-?-?-?-?-?-?-?-?-?- KW- no vb/crampi ng. +flutters. US reviewed. PC ratio send for 1+ protein. ACOG First Trimester First Trimester: Discussed Second Trimester Second Trimester: Signs and Symptoms of Labor, Selecting a care provider, Reproductive Life Planning & Contreception, Care Planning, Depression/Anxiety and Intimate Partner Violence; Discussed Tobacco Cessation Third Trimester Third Trimester: Pain Management Plans, Labor support person(s), Immediate Larc, Movement Monitoring, Signs and Symptoms of Preeclampsia and Education ROS Const Reports system reviewed and no additional complaints, except as documented Eyes Reports system reviewed and no additional complaints, except as documented ENT Reports system reviewed and no additional complaints, except as documented Card Reports system reviewed and no additional complaints, except as documented Resp Reports system reviewed and no additional complaints, except as documented GI Reports system reviewed and no additional complaints, except as documented, Denies nausea and Denies vomiting Reports system reviewed and no additional complaints, except as documented Musc Reports system reviewed and no additional complaints, except as documented Skin/Breast Reports system reviewed and no additional complaints, except as documented Neuro Yes system reviewed and no additional complaints, except as documented Psych Reports system reviewed and no additional complaints, except as documented Endo Reports system reviewed and no additional complaints, except as documented Dashawn/Lymph Reports system reviewed and no additional complaints, except as documented Aller/Immun Reports system reviewed and no additional complaints, except as documented Exam Const General: cooperative, healthy appearing and no acute distress Orientation: alert, awake and oriented x3 Neck Neck: normal visual inspection and full ROM Resp Effort & Inspection: normal respiratory effort, able to speak in complete sentences and symmetric chest movement GI Inspection: normal to inspection Palpation: soft and other Other: gravid Skin General: no rashes or lesions noted Neuro General: patient alert, patient awake and patient oriented x3 Cognition: normal cognition Speech: speech normal Gait: normal gait Motor: muscle tone normal throughout Extrem General: normal to inspection and full ROM Psych Appearance: grossly normal Mental Status: mental status grossly normal Mood: congruent mood Affect: normal affect Speech and Movement: speech and movement normal Attitude: cooperative Thought Process: normal Thought Content: normal Judgment: judgment good Results POC Urinalysis 2 Dip (Clinic) Office Urine Glucose Negative Last Edit by Liana Murphy on 12/10/24 11:29 Office Urine Protein 1+ Last Edit by Liana Murphy on 12/10/24 11:29 Coding Level of Care Code OB Routine Diagnoses Supervision of high risk in second trimester O09.92 Trimester: second trimester 20 weeks gestation of Z3A.20 Weeks of gestation: 20 weeks History of gestational hypertension Z87.59 Anxiety with depression F41.8 Assessment and Plan Assessment and Plan (1) Supervision of high-risk : Status: Acute Qualifiers: Trimester: second trimester Qualified Code(s): O09.92 - Supervision of high risk , unspecified, second trimester Comment: PRR , JOANNE 04/23/25, boy, PC Romain, Daren (2) : Status: Acute Qualifiers: Weeks of gestation: 20 weeks Qualified Code(s): Z3A.20 - 20 weeks gestation of Comment: NIPT low risk. carrier negative first . Negative AFP . nl anatomy. (3) History of gestational hypertension: Status: Acute Comment: discussed 81 mg ASA if desired. (4) Anxiety with depression: Status: Acute Comment: prozac; switched to zoloft; stable Orders: Orders POC Urinalysis 2 Dip (Clinic) Today Protein+Creatinine Ratio,Urine Today R80.9 - Proteinuria, unspecified Plan Details Additional Comments: ACOG trimester education reviewed and updated. see problem list details for updated plan management information and see below for orders placed at this visit. GA appropriate handout given. 12/10/24 1134 <Electronically signed by Lavern agee CNM> Date _ Lavern Zavala CNM Cosigner Signature: Date (if applicable) CC: ~ [facility] Work Phone: Progress note Author Liana Rodriguez [facility] Note Date/Time January 28, 2025 1:35 pm [facility] [address] [place] [address], [address] [place] [address] OFFICE VISIT Date of Service: 01/28/25 MR#: [id number] Acct: [id number] Name: ROBERTO CARLOS JAIN Rep #: [id number] : 1995 Provider: ANDREA Rodriguez Age/Sex: 29/F Location: [facility] [place] Status: Signed Intake Vital Signs 11/13/24 15:51 01/09/25 15:23 01/28/25 13:14 01/28/25 13:15 Height 5 ft 3 in 5 ft 3 in 5 ft 3 in 5 ft 3 in Weight: 187 lb BMI 33.1 BP 107/71 Intake Visit Reasons: 28wk ob/glucose Size Tester Required: No Is patient in pain?: No Allergies No Known Allergies Allergy (Verified 01/28/25 13:15) Medications ?Medication ?Instructions ?Recorded ?Confirmed ?Type multivit-min no.71-iron fum 28 1 cap PO DAILY 01/20/23 01/28/25 History mg-folate no.1 1 mg-dha 300 mg capsule (PNV-[place]) Last Menstrual Period: 01/14/25 Zika: Zika virus screening: Negative : No Have you fallen in the past year?: No PFSH PFSH Medical History Seasonal allergies Vaginal delivery Family history of malignant hyperthermia Asthma Anxiety with depression Family History Father Diabetes Mother Hypertension Grandmother Family history of recurrent miscarriage paternal Social History adopted: No household members: spouse and children housing: house number of children: 1 current occupational status: unemployed current occupation: [employer] pets and animals: Yes (2) pets and animals: dog(s) history of recent travel: [place] ([place]) sexually active: Yes Smoking Status: Never smoker alcohol intake: never substance use type: does not use well-balanced diet: daily or most days caffeine: No eating out: rarely or never during the past year weight has: decreased > 10 lbs what type of physical activity do you participate in: other details: crossfit frequency: 3-4 times per week duration: 45-60 minutes/day ben/mu-ism: Orthodoxy seatbelt use: always do you feel safe at home: Yes additional social history: Daren- AESamuel History 3 Elective abortions Hx Para 1 Spontaneous abortions 1 Hx # Term Pregnancies Ectopic pregnancies Hx # Pregnancies 1 Multiple births # of living children 1 Past Pregnancies Del. Date Name GA/Weeks Outcome Route Bth Weight Gen Labor Lgth Anesthesia Del Locatn Provider FOB Unknown 05/2022 Miscarriage 6wks 08/23/23 [place] 37 live - 6#13oz Male epid ural [facility] Lavern Zavala Daren Delivery Date: 08/23/23 Last Updated by: Stacy YATES HPI 28wk ob/glucose Details: ROBERTO CARLOS JAIN is a 29 year old who presents for routine OB visit. OB Visit JOANNE Calculator Estimated Delivery Date Method Current WG Current Estimate 04/23/25 LMP (Certain) 27w 6d Other Estimates 04/22/25 Ultrasound #1 28w 0d Expected Delivery Route/Plan Labor Preferences- CB/BF classes: no labor support person: Daren labor intervention preferences: [] pain management options preferred: epidural cut cord/dad catch: yes : yes PP control planned: [] discussed possible routes of delivery and associated risks: [] special requests: [] Specific Issue/Plans Covid status: [] Flu vaccine: [] Tdap vaccine: [] Rhogam: na LARC form signed: yes Problem list reviewed and updated with the most current plan of care details and appropriate orders placed. Relevant counseling for the gestational age provided. Continue routine care and follow up unless otherwise noted in visit notes/problem list details Initial Weight: Not Recorded Date -?-?-?-?-?-?-?-?-?-?-?-?- EGA Weight BP Urine Prot -?-?-?-?-?-?-?-?-?-?-?-?- Glucose FHR FuHt Pres Dilation -?-?-?-?-?-?-?-?-?-?-?-?- Effaced St Visit Note 09/12/24 -?-?-?-?-?-?-?-?-?-?-?-?- 8w 1d 169 lb 122/72 -?-?-?-?-?-?-?-?-?-?-?-?- 158 -?-?-?-?-?-?-?-?-?-?-?-?- JV- CRL consiste nt with LMP. Desires NIPT. will return in 2 weeks for blood work. 09/25/24 -?-?-?-?-?-?-?-?-?-?-?-?- 10w 0d 168 lb 2 oz 134/79 Nega tive -?-?-?-?-?-?-?-?-?--?-?-?- Negative 180 -?-?-?-?-?-?-?-?-?-?-?-?- KW- no vb/crampi ng. requesting a heartbeat check because her friend just had SAB. active fetus on US and FHT easily found. labs today 10/17/24 -?-?-?-?-?-?-?-?-?-?-?-?- 13w 1d 171 lb 2 oz 123/71 Nega tive -?-?-?-?-?-?-?-?-?-?-?-?- Negative 160 -?-?-?-?-?-?-?-?-?-?-?-?- SM- no vb crmapi ng 11/13/24 -?-?-?-?-?-?-?-?-?-?-?-?- 17w 0d 173 lb 122/74 Negative -?-?-?-?-?-?-?-?-?-?-?-?- Negative 154 -?-?-?-?-?-?-?-?-?-?-?-?- MH-No VB. Thinks feels flutters. AFP today. No concerns 12/10/24 -?-?-?-?-?-?-?-?-?-?-?-?- 20w 6d 176 lb 8 oz 124/75 1+ -?-?-?-?-?-?-?-?-?-?-?-?- Negative 160 -?-?-?-?-?-?-?-?-?-?-?-?- KW- no vb/crampi ng. +flutters. US reviewed. PC ratio send for 1+ protein. 01/09/25 -?-?-?-?-?-?-?-?-?-?-?-?- 25w 1d 183 lb 107/67 Negative -?-?-?-?-?-?-?-?-?-?-?-?- Negative 168 -?-?-?-?-?-?-?-?-?-?-?-?- JV- no lof, vagi nal bleeding or dec fm. glucola next visi. 01/28/25 -?-?-?-?-?-?-?-?-?-?-?-?- 27w 6d 187 lb 107/71 Negative -?-?-?-?-?-?-?-?-?-?-?-?- Negative 159 28 -?-?-?-?-?-?-?-?-?-?-?-?- MH-No Vb, LOF. Good FM. Larc. 28 wk labs pending ACOG First Trimester First Trimester: Discussed Second Trimester Second Trimester: Signs and Symptoms of Labor, Selecting a care provider, Reproductive Life Planning & Contreception, Care Planning, Depression/Anxiety and Intimate Partner Violence; Discussed Tobacco Cessation Third Trimester Third Trimester: Pain Management Plans, Labor support person(s), Immediate Larc, Circumcision preference Yes Yes, Movement Monitoring, Signs and Symptoms of Preeclampsia and Education ROS Const Reports system reviewed and no additional complaints, except as documented GI Denies abdominal pain, Denies nausea and Denies vomiting Exam Const General: cooperative Nutritional Appearance: well nourished GI Palpation: soft, nontender and other (gravid) Results POC Urinalysis 2 Dip (Clinic) Office Urine Glucose Negative Last Edit by Keisha Palomino on 01/28/25 13:26 Office Urine Protein Negative Last Edit by Keisha Palomino on 01/28/25 13:26 Coding Level of Care Code OB Routine Diagnoses Supervision of high risk in second trimester O09.92 Trimester: second trimester 27 weeks gestation of Z3A.27 Weeks of gestation: 27 weeks History of gestational hypertension Z87.59 Anxiety with depression F41.8 Assessment and Plan Assessment and Plan (1) Supervision of high-risk : Status: Acute Qualifiers: Trimester: second trimester Qualified Code(s): O09.92 - Supervision of high risk , unspecified, second trimester Comment: PRR , JOANNE 04/23/25, boy, PC Romain, Daren (2) : Status: Acute Qualifiers: Weeks of gestation: 27 weeks Qualified Code(s): Z3A.27 - 27 weeks gestation of Comment: NIPT low risk. carrier negative first . Negative AFP . nl anatomy. (3) History of gestational hypertension: Status: Acute Comment: discussed 81 mg ASA if desired. (4) Anxiety with depression: Status: Acute Comment: prozac; switched to zoloft; stable Plan problem list reviewed and updated for most current plan of care and appropriate orders placed. Relevant counseling for the gestational age appropriate provided and ACOG education checklist updated. Continue routine care and follow up. Clinical Quality Measures Falls Risk Screening/Assistive Devices Have you fallen in the past year?: No 01/28/25 0861 <Electronically signed by Liana agee PAD ASSEMBLER PAD ASSEMBLER-C> Date _ Liana Moratings PAD ASSEMBLER PAD ASSEMBLER-C Cosigner Signature: Date (if applicable) CC: ~ [facility] Work Phone: Progress note Author Lavern Zavala [facility] Note Date/Time March 01, 2025 12 :18pm [facility] [address], [address] [place] [address] OFFICE VISIT Date of Service: 03/01/25 MR#: [id number] Acct: [id number] Name: ROBERTO CARLOS JAIN Rep #: [id number] : 1995 Provider: BREANN Zavala Age/Sex: 29/F Location: [facility] Status: Signed Intake Vital Signs 01/09/25 15:23 02/14/25 15:17 03/01/25 11:57 03/01/25 11:59 Height 5 ft 3 in 5 ft 3 in 5 ft 3 in 5 ft 3 in Weight: 192 lb BMI 34.0 BP 121/76 H Intake Visit Reasons: 32 WK OB Size Tester Required: No Is patient in pain?: No Allergies No Known Allergies Allergy (Verified 03/01/25 11:57) Medications ?Medication ?Instructions ?Recorded ?Confirmed ?Type multivit-min no.71-iron fum 28 1 cap PO DAILY 01/20/23 03/01/25 History mg-folate no.1 1 mg-dha 300 mg capsule (PNV-[place]) Last Menstrual Period: 07/17/24 Zika: Zika virus screening: Negative : No PFSH PFSH Medical History Seasonal allergies Vaginal delivery Family history of malignant hyperthermia Asthma Anxiety with depression Family History Father Diabetes Mother Hypertension Grandmother Family history of recurrent miscarriage paternal Social History adopted: No household members: spouse and children housing: house number of children: 1 current occupational status: unemployed current occupation: [employer] pets and animals: Yes (2) pets and animals: dog(s) history of recent travel: [place] ([place]) sexually active: Yes Smoking Status: Never smoker alcohol intake: never substance use type: does not use well-balanced diet: daily or most days caffeine: No eating out: rarely or never during the past year weight has: decreased > 10 lbs what type of physical activity do you participate in: other details: crossfit frequency: 3-4 times per week duration: 45-60 minutes/day ben/mu-ism: Orthodoxy seatbelt use: always do you feel safe at home: Yes additional social history: Kimberlyn POLK History 3 Elective abortions Hx Para 1 Spontaneous abortions 1 Hx # Term Pregnancies Ectopic pregnancies Hx # Pregnancies 1 Multiple births # of living children 1 Past Pregnancies Del. Date Name GA/Weeks Outcome Route Bth Weight Gen Labor Lgth Anesthesia Del Locatn Provider FOB Unknown 05/2022 Miscarriage 6wks 08/23/23 [place] 37 live - 6#13oz Male epid ural [facility] Lavern Mercedes Delivery Date: 08/23/23 Last Updated by: Stacy YATES HPI 32 WK OB Details: ROBERTO CARLOS JAIN is a 29 year old who presents for routine OB visit. OB Visit JOANNE Calculator Estimated Delivery Date Method Current WG Current Estimate 04/23/25 LMP (Certain) 32w 3d Other Estimates 04/22/25 Ultrasound #1 32w 4d Expected Delivery Route/Plan Labor Preferences- CB/BF classes: no labor support person: Daren labor intervention preferences: [] pain management options preferred: epidural cut cord/dad catch: yes : yes PP control planned: [] discussed possible routes of delivery and associated risks: [] special requests: [] Specific Issue/Plans Covid status: [] Flu vaccine: [] Tdap vaccine: [] Rhogam: na LARC form signed: yes Problem list reviewed and updated with the most current plan of care details and appropriate orders placed. Relevant counseling for the gestational age provided. Continue routine care and follow up unless otherwise noted in visit notes/problem list details Initial Weight: Not Recorded Date -?-?-?-?-?-?-?-?-?-?-?-?- EGA Weight BP Urine Prot -?-?-?-?-?-?-?-?-?-?-?-?- Glucose FHR FuHt Pres Dilation -?-?-?-?-?-?-?-?-?-?-?-?- Effaced St Visit Note 09/12/24 -?-?-?-?-?-?-?-?-?-?-?-?- 8w 1d 169 lb 122/72 -?-?-?-?-?-?-?-?-?-?-?-?- 158 -?-?-?-?-?-?-?-?-?-?-?-?- JV- CRL consiste nt with LMP. Desires NIPT. will return in 2 weeks for blood work. 09/25/24 -?-?-?-?-?-?-?-?-?-?-?-?- 10w 0d 168 lb 2 oz 134/79 Nega tive -?-?-?-?-?-?-?-?-?-?-?-?- Negative 180 -?-?-?-?-?-?--?-?-?-?-?-?- KW- no vb/crampi ng. requesting a heartbeat check because her friend just had SAB. active fetus on US and FHT easily found. labs today 10/17/24 -?-?-?-?-?-?-?-?-?-?-?--?- 13w 1d 171 lb 2 oz 123/71 Nega tive -?-?-?-?-?-?-?-?-?-?-?-?- Negative 160 -?-?-?-?-?-?-?-?-?-?-?-?- SM- no vb crmapi ng 11/13/24 -?-?-?-?-?-?-?-?-?-?-?-?- 17w 0d 173 lb 122/74 Negative -?-?-?-?-?-?-?-?-?-?-?-?- Negative 154 -?-?-?-?-?-?-?-?-?-?-?-?- MH-No VB. Thinks feels flutters. AFP today. No concerns 12/10/24 -?-?-?-?-?-?-?-?-?-?-?-?- 20w 6d 176 lb 8 oz 124/75 1+ -?-?-?-?-?-?-?-?-?-?-?-?- Negative 160 -?-?-?-?-?-?-?-?-?-?-?-?- KW- no vb/armond ng. +flutters. US reviewed. PC ratio send for 1+ protein. 01/09/25 -?-?-?-?-?-?-?-?-?-?-?-?- 25w 1d 183 lb 107/67 Negative -?-?-?-?-?-?-?-?-?-?-?-?- Negative 168 -?-?-?-?-?-?-?-?-?-?-?-?- JV- no lof, vagi nal bleeding or dec fm. glucola next visi. 01/28/25 -?-?-?-?-?-?-?-?-?-?-?-?- 27w 6d 187 lb 107/71 Negative -?-?-?-?-?-?-?-?-?-?-?-?- Negative 159 28 -?-?-?-?-?-?-?-?-?-?-?-?- MH-No Vb, LOF. Good FM. Larc. 28 wk labs pending 02/14/25 -?-?-?-?-?-?-?-?-?-?-?-?- 30w 2d 188 lb 3 oz 129/73 Nega tive -?-?-?-?-?-?-?-?-?-?-?-?- Negative 140 31 Cephalic -?-?-?-?-?-?-?-?-?-?-?-?- SM- no vb lof go od fm no reuglar ctx 03/01/25 -?-?-?-?-?-?-?-?-?-?-?-?- 32w 3d 192 lb 121/76 Negative -?-?-?-?-?-?-?-?-?-?-?-?- Negative 150 34 -?-?-?-?-?-?-?-?-?-?-?-?- KW-work in for J V. no vb/lof/ctx good fm. TDap today. if fundal height elevat ed next visit will get growth US ACOG First Trimester First Trimester: Discussed Second Trimester Second Trimester: Signs and Symptoms of Labor, Selecting a care provider, Reproductive Life Planning & Contreception, Care Planning, Depression/Anxiety and Intimate Partner Violence; Discussed Tobacco Cessation Third Trimester Third Trimester: Pain Management Plans, Labor support person(s), Immediate Larc, Circumcision preference, Movement Monitoring, Signs and Symptoms of Preeclampsia and Education ROS Const Reports system reviewed and no additional complaints, except as documented Eyes Reports system reviewed and no additional complaints, except as documented ENT Reports system reviewed and no additional complaints, except as documented Card Reports system reviewed and no additional complaints, except as documented Resp Reports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 Anxiety with depression April 04 2:46pm Hemorrhoids during April 2:46pm History of gestational hypertension [facility] 2024 2:46pm April 04, 2025 2: 46pm Supervision of high-risk [facility] 2024 2:46pm Chief Complaint Admit Date 21wk ob December 10, 2024 11:17 am 25wk ob January 09, 2025 3:20p m 28wk ob/glucose January 28, 2025 1:08 pm 30 WK OB February 14, 2025 3: 08pm 32 WK OB March 01, 2025 12 :05pm 34 wk ob March 14, 2025 1:28pm 36 wk ob March 28, 2025 10:57am 37 wk ob April 04, 2025 2: 46pm R/O PRE E April 08, 2025 4: 13pm Chief Complaint Admit Date 25wk ob January 09, 2025 3:20p m 28wk ob/glucose January 28, 2025 1:08 pm 30 WK OB February 14, 2025 3: 08pm 32 WK OB March 01, 2025 12 :05pm 34 wk ob March 14, 2025 1:28pm 36 wk ob March 28, 2025 10:57am 37 wk ob April 04, 2025 2: 46pm R/O PRE E April 08, 2025 4: 13pm R/O PRE E April 11, 2025 8: 11am 38 wk ob April 11, 2025 11 :16am Reason for Visit Admit Date Anxiety with depression January 09, 2025 3 :20pm History of gestational hypertension January 09, 2025 3:20pm January 09, 2025 3:20p m Supervision of high-risk January 09, 2025 3:20pm Anxiety with depression January 28, 2025 1:08pm History of gestational hypertension January 28, 2025 1:08pm January 28, 2025 1:08 pm Supervision of high-risk January 28, 2025 1:08pm Anxiety with depression February 14 3:08pm History of gestational hypertension Febu 2024 3:08pm February 14, 2025 3: 08pm Supervision of high-risk Aug2024 3:08pm Anxiety with depression March 01 12:05pm History of gestational hypertension 2024 12:05pm March 01, 2025 12 :05pm Supervision of high-risk Aug[facility] t 2024 12:05pm Anxiety with depression March 14, 2025 1:28pm Hemorrhoids during March 042024 1:28pm History of gestational hypertension Sept ember 2024 1:28pm March 14, 2025 1:28pm Supervision of high-risk Septe mber 2024 1:28pm Anxiety with depression March 28, 2025 10:57am Hemorrhoids during March 052024 10:57am History of gestational hypertension Sept emb2024 10:57am March 28, 2025 10:57am Supervision of high-risk Septe mber 2024 10:57am Anxiety with depression April 04 2:46pm Hemorrhoids during April 2:46pm History of gestational hypertension [facility] 2024 2:46pm April 04, 2025 2: 46pm Supervision of high-risk [facility] 2024 2:46pm Anxiety with depression April 08 4:13pm Hemorrhoids during April 4:13pm History of gestational hypertension [facility] 2024 4:13pm April 08, 2025 4: 13pm Supervision of high-risk [facility] 2024 4:13pm Anxiety with depression April 11 11:16am Hemorrhoids during April 11:16am History of gestational hypertension [facility] 2024 11:16am April 11, 2025 11 :16am Supervision of high-risk [facility] 2024 11:16am Chief Complaint Admit Date 25wk ob January 09, 2025 3:20p m 28wk ob/glucose January 28, 2025 1:08 pm 30 WK OB February 14, 2025 3: 08pm 32 WK OB March 01, 2025 12 :05pm 34 wk ob March 14, 2025 1:28pm 36 wk ob March 28, 2025 10:57am 37 wk ob April 04, 2025 2: 46pm R/O PRE E April 08, 2025 4: 13pm R/O PRE E April 11, 2025 8: 11am 38 wk ob April 11, 2025 11 :16am 39 wk ob April 18, 2025 1 0:12am VAGINAL DELIVERY April 18, 2025 1 0:55am LABOR & DELIVERY April 18, 2025 1 2:42pm VAGINAL DELIVERY April 19, 2025 1 :04pm VAGINAL DELIVERY April 20, 2025 9 :10am Visit April 22, 2025 1 2:29pm 1wk BP Check April 25, 2025 9 :55am Reason for Visit Admit Date Anxiety with depression January 09, 2025 3 :20pm History of gestational hypertension January 09, 2025 3:20pm January 09, 2025 3:20p m Supervision of high-risk January 09, 2025 3:20pm Anxiety with depression January 28, 2025 1:08pm History of gestational hypertension January 28, 2025 1:08pm January 28, 2025 1:08 pm Supervision of high-risk January 28, 2025 1:08pm Anxiety with depression February 14 3:08pm History of gestational hypertension [facility] 2024 3:08pm February 14, 2025 3: 08pm Supervision of high-risk [facility] 2024 3:08pm Anxiety with depression March 01 12:05pm History of gestational hypertension [facility] 2024 12:05pm March 01, 2025 12 :05pm Supervision of high-risk Aug[facility] t 2024 12:05pm Anxiety with depression March 14, 2025 1:28pm Hemorrhoids during March 042024 1:28pm History of gestational hypertension [facility]2024 1:28pm March 14, 2025 1:28pm [facility]vision of high-risk [facility] 2024 1:28pm Anxiety with depression March 28, 2025 10:57am Hemorrhoids during March 052024 10:57am History of gestational hypertension [facility]2024 10:57am March 28, 2025 10:57am [facility]vision of high-risk [facility] 2024 10:57am Anxiety with depression April 04 2:46pm Hemorrhoids during April 2:46pm History of gestational hypertension [facility] 2024 2:46pm April 04, 2025 2: 46pm Supervision of high-risk [facility] 2024 2:46pm Anxiety with depression April 08 4:13pm Hemorrhoids during April 4:13pm History of gestational hypertension [facility] 2024 4:13pm April 08, 2025 4: 13pm Supervision of high-risk [facility] 2024 4:13pm Anxiety with depression April 11 11:16am Hemorrhoids during April 11:16am History of gestational hypertension [facility] 2024 11:16am April 11, 2025 11 :16am Supervision of high-risk [facility] 2024 11:16am Anxiety with depression April 18 10:12am Hemorrhoids during April 10:12am History of gestational hypertension [facility] 2024 10:12am April 18, 2025 1 0:12am Supervision of high-risk [facility] 2024 10:12am Anxiety with depression April 18 10:55am Hemorrhoids during April 10:55am History of gestational hypertension [facility] 2024 10:55am PIH ( induced hypertension) [facility] 2024 10:55am Vaginal delivery April 18, 2025 1 0:55am April 18, 2025 1 0:55am Supervision of high-risk [facility] 2024 10:55am Care and examination of lactating mother April 22, 2025 12:29pm Engorgement of breasts April 22 12:29pm Family History Relationship Condition Age at Onset Recorded Date/T [place] father Diabetes mellitus Unknown mother Hypertension Unknown Relationship Condition Age at Onset Recorded Date/T [place] father Diabetes mellitus Unknown mother Hypertension Unknown grandmother Family history of recurrent miscarriage U nknown Advance Directives Advance Directive Response Recorded Date/ Time Living Will No August 23 9:34am Power of Bilingual Administrative Assistant No August 23, 2023 9:34am Advance Directive Response Recorded Date/ Time Do you have a Healthcare Power of Bilingual Administrative Assistant? No April 18, 2025 12:34pm Advance Directive Response Recorded Date/ Time Do you have a Healthcare Power of Bilingual Administrative Assistant? No April 18, 2025 11:34am Summary Purpose Additional Source Comments Source Comments (unrecognize d section and content) In the event this informatio n is protected by the Federal Confidentiality of Alcohol and Drug Abuse Patient Records regulations: The Federal rules restrict any use of the information to criminally investigate or prosecute any alcohol or drug abuse patient.[facility] the event this information is protected by the Federal Confidentiality of Alcohol and Drug Abuse Patient Records regulations: The Federal rules restrict any use of the information to criminally investigate or prosecute any alcohol or drug abuse patient.[facility] the event this information is protected by the Federal Confidentiality of Alcohol and Drug Abuse Patient Records regulations: The Federal rules restrict any use of the information to criminally investigate or prosecute any alcohol or drug abuse patient.[facility] the event this information is protected by the Federal Confidentiality of Alcohol and Drug Abuse Patient Records regulations: The Federal rules restrict any use of the information to criminally investigate or prosecute any alcohol or drug abuse patient.[facility] Reason for Visit (unrecogniz ed section and content) Reason Comments Cough Cough and nsal conge stion for past two weeks 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 Jalen Arevalo MD Family Provider Active Dr. Bello Alfaro DO Primary Care Provider Active Team Status: Inactive Member Role Status Dates Dr. Bello Alfaro DO Primary Care Provider Active Dr. Clementina Enriqeu MD Attending Provider, Referr ing Provider Active Team Status: Active Member Role Status Dates Dr. Bello Alfaro DO Primary Care Provider Active Dr. Clementina Enrique MD Attending Provider, Referr ing Provider Active Team Status: Inactive Member Role Status Dates Dr. Bello Alfaro DO Primary Care Provider, Referr ing Provider Active Dr. Clementina Enrique MD Attending Provider Active Team Status: Inactive Member Role Status Dates Dr. Bello Alfaro DO Referring Provider Active Lavern Zavala CNM Attending Provider Active Team Status: Inactive Member Role Status Dates Dr. Camille Herzog DO Attending Provider Activ e Team Status: Inactive Member Role Status Dates Liana Rodriguez PAD ASSEMBLER, PAD ASSEMBLER-C Attending Provider Active Team Status: Inactive Member Role Status Dates No Primary Care Physician Referring Provider Active Lavern Zavala CNM Attending Provider Active Team Status: Inactive Member Role Status Dates Roberto Carlos Darnell CNM Attending Provider Active Dr. Bello Alfaro , DO Primary Care Provider, Referr ing Provider Active Team Status: Inactive Member Role Status Dates Dr. Bello Alfaro , Primary Care Provider, Referr ing Provider Active Dr. Camille Herzog DO Attending Provider Activ e Team Status: Inactive Member Role Status Dates Dr. Bello Alfaro DO Primary Care Provider, Referr ing Provider Active Liana Rodriguez PAD ASSEMBLER, PAD ASSEMBLER-C Attending Provider Active Team Status: Inactive Member Role Status Dates Dr. Bello Alfaro DO Primary Care Provider Active Liana Rodriguez PAD ASSEMBLER, PAD ASSEMBLER-C Attending Provider, Referring Provider Active Team Status: Active Member Role Status Dates Dr. Bello Alfaro DO Primary Care Provider Active Dr. Clementina Enrique MD Referring Provider Active Lavern Zavala CNM Admit Provider, Att ending Provider, Other Provider Active Team Status: Active Member Role Status Dates Dr. Bello Alfaro DO Primary Care Provider Active Dr. Clementina Enrique MD Attending Provider, Referr ing Provider Active Lavern Zavala CNM Admit Provider, Other Provider Ac tive Team Status: Inactive Member Role Status Dates Dr. Bello Alfaro DO Primary Care Provider Active Dr. 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 Bello Alfaro DO Primary Care Provider Active Start: September 12, 2024 End: September 12, 2024 Dr. Bello Alfaro DO Referring Provider Active Start: September 12, 2024 End: September 12, 2024 Dr. Camille Herzog DO Attending Provider Activ e Start: September 12, 2024 End: September 12, 2024 Team Status: Inactive Member Role Status Dates Dr. Bello Alfaro DO Primary Care Provider Active Start: September 12, 2024 End: September 12, 2024 Dr. Camille Herzog DO Attending Provider Activ e Start: September 12, 2024 End: September 12, 2024 Dr. Camille Herzog DO Referring Provider Activ e Start: September 12, 2024 End: September 12, 2024 Team Status: Inactive Member Role Status Dates Dr. Bello Alfaro DO Primary Care Provider Active Start: September 25, 2024 End: September 25, 2024 Dr. Bello Alfaro DO Referring Provider Active Start: September 25, 2024 End: September 25, 2024 Lavern Zavala CNM Attending Provider Active S tart: September 25, 2024 End: September 25, 2024 Team Status: Inactive Member Role Status Dates Dr. Bello Alfaro DO Primary Care Provider Active Start: September 25, 2024 End: September 25, 2024 Dr. Camille Herzog DO Attending Provider Activ e Start: September 25, 2024 End: September 25, 2024 Dr. Camille Herzog DO Referring Provider Activ e Start: September 25, 2024 End: September 25, 2024 Team Status: Inactive Member Role Status Dates Dr. Bello Alfaro DO Primary Care Provider Active Start: October 17, 2024 End: October 17, 2024 Dr. Bello Alfaro DO Referring Provider Active Start: October 17, 2024 End: October 17, 2024 Dr. Clementina Enrique MD Attending Provider Active Start: October 17, 2024 End: October 17, 2024 Team Status: Inactive Member Role Status Dates Dr. Bello Alfaro DO Primary Care Provider Active Start: November 13, 2024 End: November 13, 2024 Dr. Bello Alfaro DO Referring Provider Active Start: November 13, 2024 End: November 13, 2024 Liana Rodriguez PAD ASSEMBLER, PAD ASSEMBLER-C Attending Provider Active Start: November 13, 2024 End: November 13, 2024 Team Status: Active Member Role Status Dates Dr. Bello Alfaro DO Primary Care Provider Active Start: November 13, 2024 Liana Rodriguez PAD ASSEMBLER, PAD ASSEMBLER-C Attending Provider Active Start: November 13, 2024 Liana Rodriguez PAD ASSEMBLER, PAD ASSEMBLER-C Referring Provider Active Start: November 13, 2024 Team Status: Inactive Member Role Status Dates Dr. Bello Alfaro DO Primary Care Provider Active Start: November 13, 2024 End: November 13, 2024 Liana Rodriguez PAD ASSEMBLER, PAD ASSEMBLER-C Attending Provider Active Start: November 13, 2024 End: November 13, 2024 Liana Rodriguez PAD ASSEMBLER, PAD ASSEMBLER-C Referring Provider Active Start: November 13, 2024 End: November 13, 2024 Team Status: Inactive Member Role Status Dates Dr. Bello Alfaro DO Primary Care Provider Active Start: December 10, 2024 End: December 10, 2024 Dr. Bello Alfaro DO Referring Provider Active Start: December 10, 2024 End: December 10, 2024 Lavern Zavala CNM Attending Provider Active S tart: December 10, 2024 End: December 10, 2024 Team Status: Inactive Member Role Status Dates Dr. Bello Alfaro DO Primary Care Provider Active Start: December 10, 2024 End: December 10, 2024 Lavern Zavala CNM Attending Provider Active S tart: December 10, 2024 End: December 10, 2024 Lavern Zavala CNM Referring Provider Active S tart: December 10, 2024 End: December 10, 2024 Team Status: Active Member Role/Relationship Status Dates Dr. Jalen Arevalo MD Family Provider Active Dr. Bello Alfaro DO Primary Care Provider Active Team Status: Inactive Member Role/Relationship Status Dates Dr. Bello Alfaro DO Primary Care Provider Active Start: September 12, 2024 End: September 12, 2024 Dr. Bello Alfaro DO Referring Provider Active Start: September 12, 2024 End: September 12, 2024 Dr. Camille Herzog DO Attending Provider Activ e Start: September 12, 2024 End: September 12, 2024 Team Status: Inactive Member Role/Relationship Status Dates Dr. Bello Alfaro DO Primary Care Provider Active Start: September 12, 2024 End: September 12, 2024 Dr. Camille Herzog DO Attending Provider Activ e Start: September 12, 2024 End: September 12, 2024 Dr. Camille Herzog DO Referring Provider Activ e Start: September 12, 2024 End: September 12, 2024 Team Status: Inactive Member Role/Relationship Status Dates Dr. Bello Alfaro DO Primary Care Provider Active Start: September 25, 2024 End: September 25, 2024 Dr. Bello Alfaro DO Referring Provider Active Start: September 25, 2024 End: September 25, 2024 Lavern Zavala CNM Attending Provider Active S tart: September 25, 2024 End: September 25, 2024 Team Status: Inactive Member Role/Relationship Status Dates Dr. Bello Alfaro DO Primary Care Provider Active Start: September 25, 2024 End: September 25, 2024 Dr. Camille Herzog DO Attending Provider Activ e Start: September 25, 2024 End: September 25, 2024 Dr. Camille Herzog DO Referring Provider Activ e Start: September 25, 2024 End: September 25, 2024 Team Status: Inactive Member Role/Relationship Status Dates Dr. Bello Alfaro DO Primary Care Provider Active Start: October 17, 2024 End: October 17, 2024 Dr. Bello Alfaro DO Referring Provider Active Start: October 17, 2024 End: October 17, 2024 Dr. Clementina Enrique MD Attending Provider Active Start: October 17, 2024 End: October 17, 2024 Team Status: Inactive Member Role/Relationship Status Dates Dr. Bello Alfaro DO Primary Care Provider Active Start: November 13, 2024 End: November 13, 2024 Dr. Bello Alfaro DO Referring Provider Active Start: November 13, 2024 End: November 13, 2024 Liana Rodriguez PAD ASSEMBLER, PAD ASSEMBLER-C Attending Provider Active Start: November 13, 2024 End: November 13, 2024 Team Status: Inactive Member Role/Relationship Status Dates Dr. Bello Alfaro DO Primary Care Provider Active Start: November 13, 2024 End: November 13, 2024 Liana Rodriguez PAD ASSEMBLER, PAD ASSEMBLER-C Attending Provider Active Start: November 13, 2024 End: November 13, 2024 Liana Rodriguez PAD ASSEMBLER, PAD ASSEMBLER-C Referring Provider Active Start: November 13, 2024 End: November 13, 2024 Team Status: Inactive Member Role/Relationship Status Dates Dr. Bello Alfaro DO Primary Care Provider Active Start: December 10, 2024 End: December 10, 2024 Dr. Bello Alfaro DO Referring Provider Active Start: December 10, 2024 End: December 10, 2024 Lavern Zavala CNM Attending Provider Active S tart: December 10, 2024 End: December 10, 2024 Team Status: Inactive Member Role/Relationship Status Dates Dr. Bello Alfaro DO Primary Care Provider Active Start: December 10, 2024 End: December 10, 2024 Lavern Zavala CNM Attending Provider Active S tart: December 10, 2024 End: December 10, 2024 Lavern Zavala CNM Referring Provider Active S tart: December 10, 2024 End: December 10, 2024 Team Status: Inactive Member Role/Relationship Status Dates Dr. Bello Alfaro DO Primary Care Provider Active Start: January 09, 2025 End: January 09, 2025 Dr. Bello Alfaro DO Referring Provider Active Start: January 09, 2025 End: January 09, 2025 Dr. Camille Herzog DO Attending Provider Activ e Start: January 09, 2025 End: January 09, 2025 Team Status: Inactive Member Role/Relationship Status Dates Dr. Bello Alfaro DO Primary Care Provider Active Start: October 17, 2024 End: October 17, 2024 Dr. Bello Alfaro DO Referring Provider Active Start: October 17, 2024 End: October 17, 2024 Dr. Clementina Enrique MD Attending Provider Active Start: October 17, 2024 End: October 17, 2024 Team Status: Inactive Member Role/Relationship Status Dates Dr. Bello Alfaro DO Primary Care Provider Active Start: November 13, 2024 End: November 13, 2024 Dr. Bello Alfaro DO Referring Provider Active Start: November 13, 2024 End: November 13, 2024 Liana Rodriguez PAD ASSEMBLER, PAD ASSEMBLER-C Attending Provider Active Start: November 13, 2024 End: November 13, 2024 Team Status: Inactive Member Role/Relationship Status Dates Dr. Bello Alfaro DO Primary Care Provider Active Start: November 13, 2024 End: November 13, 2024 Liana Rodriguez PAD ASSEMBLER, PAD ASSEMBLER-C Attending Provider Active Start: November 13, 2024 End: November 13, 2024 Liana Rodriguez PAD ASSEMBLER, PAD ASSEMBLER-C Referring Provider Active Start: November 13, 2024 End: November 13, 2024 Team Status: Inactive Member Role/Relationship Status Dates Dr. Bello Alfaro DO Primary Care Provider Active Start: December 10, 2024 End: December 10, 2024 Dr. Bello Alfaro DO Referring Provider Active Start: December 10, 2024 End: December 10, 2024 Lavern Zavala CNM Attending Provider Active S tart: December 10, 2024 End: December 10, 2024 Team Status: Inactive Member Role/Relationship Status Dates Dr. Bello Alfaro DO Primary Care Provider Active Start: December 10, 2024 End: December 10, 2024 Lavern Zavala CNM Attending Provider Active S tart: December 10, 2024 End: December 10, 2024 Lavern Zavala CNM Referring Provider Active S tart: December 10, 2024 End: December 10, 2024 Team Status: Inactive Member Role/Relationship Status Dates Dr. Bello Alfaro DO Primary Care Provider Active Start: January 09, 2025 End: January 09, 2025 Dr. Bello Alfaro DO Referring Provider Active Start: January 09, 2025 End: January 09, 2025 Dr. Camille Herzog DO Attending Provider Activ e Start: January 09, 2025 End: January 09, 2025 Team Status: Inactive Member Role/Relationship Status Dates Dr. Bello Alfaro DO Primary Care Provider Active Start: January 28, 2025 End: January 28, 2025 Dr. Bello Alfaro DO Referring Provider Active Start: January 28, 2025 End: January 28, 2025 Liana Rodriguez PAD ASSEMBLER, PAD ASSEMBLER-C Attending Provider Active Start: January 28, 2025 End: January 28, 2025 Team Status: Active Member Role/Relationship Status Dates Dr. Bello Alfaro DO Primary Care Provider Active Start: January 28, 2025 Liana Rodriguez PAD ASSEMBLER, PAD ASSEMBLER-C Attending Provider Active Start: January 28, 2025 Team Status: Inactive Member Role/Relationship Status Dates Dr. Bello Alfaro DO Primary Care Provider Active Start: January 28, 2025 End: January 28, 2025 Liana Rodriguez PAD ASSEMBLER, PAD ASSEMBLER-C Attending Provider Active Start: January 28, 2025 End: January 28, 2025 Team Status: Inactive Member Role/Relationship Status Dates Dr. Bello Alfaro DO Primary Care Provider Active Start: February 14, 2025 End: February 14, 2025 Dr. Bello Alfaro DO Referring Provider Active Start: February 14, 2025 End: February 14, 2025 Dr. Clementina Enrique MD Attending Provider Active Start: February 14, 2025 End: February 14, 2025 Team Status: Inactive Member Role/Relationship Status Dates Dr. Bello Alfaro DO Primary Care Provider Active Start: November 13, 2024 End: November 13, 2024 Dr. Bello Alfaro DO Referring Provider Active Start: November 13, 2024 End: November 13, 2024 Liana Rodriguez PAD ASSEMBLER, PAD ASSEMBLER-C Attending Provider Active Start: November 13, 2024 End: November 13, 2024 Team Status: Inactive Member Role/Relationship Status Dates Dr. Bello Alfaro DO Primary Care Provider Active Start: November 13, 2024 End: November 13, 2024 Liana Rodriguez PAD ASSEMBLER, PAD ASSEMBLER-C Attending Provider Active Start: November 13, 2024 End: November 13, 2024 Liana Rodriguez PAD ASSEMBLER, PAD ASSEMBLER-C Referring Provider Active Start: November 13, 2024 End: November 13, 2024 Team Status: Inactive Member Role/Relationship Status Dates Dr. Bello Alfaro DO Primary Care Provider Active Start: December 10, 2024 End: December 10, 2024 Dr. Bello Alfaro DO Referring Provider Active Start: December 10, 2024 End: December 10, 2024 Lavern Zavala CNM Attending Provider Active S tart: December 10, 2024 End: December 10, 2024 Team Status: Inactive Member Role/Relationship Status Dates Dr. Bello Alfaro DO Primary Care Provider Active Start: December 10, 2024 End: December 10, 2024 Lavern Zavala CNM Attending Provider Active S tart: December 10, 2024 End: December 10, 2024 Lavern Zavala CNM Referring Provider Active S tart: December 10, 2024 End: December 10, 2024 Team Status: Inactive Member Role/Relationship Status Dates Dr. Bello Alfaro DO Primary Care Provider Active Start: January 09, 2025 End: January 09, 2025 Dr. Bello Alfaro DO Referring Provider Active Start: January 09, 2025 End: January 09, 2025 Dr. Camille Herzog DO Attending Provider Activ e Start: January 09, 2025 End: January 09, 2025 Team Status: Inactive Member Role/Relationship Status Dates Dr. Bello Alfaro DO Primary Care Provider Active Start: January 28, 2025 End: January 28, 2025 Dr. Bello Alfaro DO Referring Provider Active Start: January 28, 2025 End: January 28, 2025 Liana Rodriguez PAD ASSEMBLER, PAD ASSEMBLER-C Attending Provider Active Start: January 28, 2025 End: January 28, 2025 Team Status: Inactive Member Role/Relationship Status Dates Dr. Bello Alfaro DO Primary Care Provider Active Start: January 28, 2025 End: January 28, 2025 Liana Rodriguez PAD ASSEMBLER, PAD ASSEMBLER-C Attending Provider Active Start: January 28, 2025 End: January 28, 2025 Team Status: Inactive Member Role/Relationship Status Dates Dr. Bello Alfaro DO Primary Care Provider Active Start: February 14, 2025 End: February 14, 2025 Dr. Bello Alfaro DO Referring Provider Active Start: February 14, 2025 End: February 14, 2025 Dr. Clementina Enrique MD Attending Provider Active Start: February 14, 2025 End: February 14, 2025 Team Status: Inactive Member Role/Relationship Status Dates Dr. Bello Alfaro DO Primary Care Provider Active Start: March 01, 2025 End: March 01, 2025 Dr. Bello Alfaro DO Referring Provider Active Start: March 01, 2025 End: March 01, 2025 Lavern Zavala CNM Attending Provider Active S tart: March 01, 2025 End: March 01, 2025 Team Status: Inactive Member Role/Relationship Status Dates Dr. Bello Alfaro DO Primary Care Provider Active Start: December 10, 2024 End: December 10, 2024 Dr. Bello Alfaro DO Referring Provider Active Start: December 10, 2024 End: December 10, 2024 Lavern Zavala CNM Attending Provider Active S tart: December 10, 2024 End: December 10, 2024 Team Status: Inactive Member Role/Relationship Status Dates Dr. Bello Alfaro DO Primary Care Provider Active Start: December 10, 2024 End: December 10, 2024 Lavern Zavala CNM Attending Provider Active S tart: December 10, 2024 End: December 10, 2024 Lavern Zavala CNM Referring Provider Active S tart: December 10, 2024 End: December 10, 2024 Team Status: Inactive Member Role/Relationship Status Dates Dr. Bello Alfaro DO Primary Care Provider Active Start: January 09, 2025 End: January 09, 2025 Dr. Bello Alfaro DO Referring Provider Active Start: January 09, 2025 End: January 09, 2025 Dr. Camille Herzog DO Attending Provider Activ e Start: January 09, 2025 End: January 09, 2025 Team Status: Inactive Member Role/Relationship Status Dates Dr. Bello Alfaro DO Primary Care Provider Active Start: January 28, 2025 End: January 28, 2025 Dr. Bello Alfaro DO Referring Provider Active Start: January 28, 2025 End: January 28, 2025 Liana Rodriguez PAD ASSEMBLER, PAD ASSEMBLER-C Attending Provider Active Start: January 28, 2025 End: January 28, 2025 Team Status: Inactive Member Role/Relationship Status Dates Dr. Bello Alfaro DO Primary Care Provider Active Start: January 28, 2025 End: January 28, 2025 Liana Rodriguez PAD ASSEMBLER, PAD ASSEMBLER-C Attending Provider Active Start: January 28, 2025 End: January 28, 2025 Team Status: Inactive Member Role/Relationship Status Dates Dr. Bello Alfaro DO Primary Care Provider Active Start: February 14, 2025 End: February 14, 2025 Dr. Bello Alfaro DO Referring Provider Active Start: February 14, 2025 End: February 14, 2025 Dr. Clementina Enrique MD Attending Provider Active Start: February 14, 2025 End: February 14, 2025 Team Status: Inactive Member Role/Relationship Status Dates Dr. Bello Alfaro DO Primary Care Provider Active Start: March 01, 2025 End: March 01, 2025 Dr. Bello Alfaro DO Referring Provider Active Start: March 01, 2025 End: March 01, 2025 Lavern Zavala CNM Attending Provider Active S tart: March 01, 2025 End: March 01, 2025 Team Status: Inactive Member Role/Relationship Status Dates Dr. Bello Alfaro DO Primary Care Provider Active Start: March 14, 2025 End: March 14, 2025 Dr. Bello Alfaro DO Referring Provider Active Start: March 14, 2025 End: March 14, 2025 Liana Rodriguez PAD ASSEMBLER, PAD ASSEMBLER-C Attending Provider Active Start: March 14, 2025 End: March 14, 2025 Team Status: Active Member Role/Relationship Status Dates Dr. Jalen Arevalo MD Primary care physician Active Dr. Bello Alfaro DO Primary care physician Active Team Status: Inactive Member Role/Relationship Status Dates Dr. Bello Alfaro DO Primary care physician Active Start: December 10, 2024 End: December 10, 2024 Dr. Bello Alfaro DO Referring Provider Active Start: December 10, 2024 End: December 10, 2024 Lavern Zavala CNM Attending physician Active Start: December 10, 2024 End: December 10, 2024 Team Status: Inactive Member Role/Relationship Status Dates Dr. Bello Alfaro DO Primary care physician Active Start: December 10, 2024 End: December 10, 2024 Lavern Zavala CNM Attending physician Active Start: December 10, 2024 End: December 10, 2024 Lavern Zavala CNM Referring Provider Active S tart: December 10, 2024 End: December 10, 2024 Team Status: Inactive Member Role/Relationship Status Dates Dr. Bello Alfaro DO Primary care physician Active Start: January 09, 2025 End: January 09, 2025 Dr. Bello Alfaro DO Referring Provider Active Start: January 09, 2025 End: January 09, 2025 Dr. Camille Herzog DO Attending physician Acti ve Start: January 09, 2025 End: January 09, 2025 Team Status: Inactive Member Role/Relationship Status Dates Dr. Bello Alfaro DO Primary care physician Active Start: January 28, 2025 End: January 28, 2025 Dr. Bello Alfaro DO Referring Provider Active Start: January 28, 2025 End: January 28, 2025 Liana Rodriguez PAD ASSEMBLER, PAD ASSEMBLER-C Attending physician Active Start: January 28, 2025 End: January 28, 2025 Team Status: Inactive Member Role/Relationship Status Dates Dr. Bello Alfaro DO Primary care physician Active Start: January 28, 2025 End: January 28, 2025 Liana Rodriguez PAD ASSEMBLER, PAD ASSEMBLER-C Attending physician Active Start: January 28, 2025 End: January 28, 2025 Team Status: Inactive Member Role/Relationship Status Dates Dr. Bello Alfaro DO Primary care physician Active Start: February 14, 2025 End: February 14, 2025 Dr. Bello Alfaro DO Referring Provider Active Start: February 14, 2025 End: February 14, 2025 Dr. Clementina Enrique MD Attending physician Active Start: February 14, 2025 End: February 14, 2025 Team Status: Inactive Member Role/Relationship Status Dates Dr. Bello Alfaro DO Primary care physician Active Start: March 01, 2025 End: March 01, 2025 Dr. Bello Alfaro DO Referring Provider Active Start: March 01, 2025 End: March 01, 2025 Lavern Zavala CNM Attending physician Active Start: March 01, 2025 End: March 01, 2025 Team Status: Inactive Member Role/Relationship Status Dates Dr. Bello Alfaro DO Primary care physician Active Start: March 14, 2025 End: March 14, 2025 Dr. Bello Alfaro DO Referring Provider Active Start: March 14, 2025 End: March 14, 2025 Liana Rodriguez PAD ASSEMBLER, PAD ASSEMBLER-C Attending physician Active Start: March 14, 2025 End: March 14, 2025 Team Status: Inactive Member Role/Relationship Status Dates Dr. Bello Alfaro DO Primary care physician Active Start: March 28, 2025 End: March 28, 2025 Dr. Bello Alfaro DO Referring Provider Active Start: March 28, 2025 End: March 28, 2025 Dr. Camille Herzog DO Attending physician Active Start: March End: March 28, 2025 Team Status: Inactive Member Role/Relationship Status Dates Dr. Bello Alfaro DO Primary care physician Active Start: March 28, 2025 End: March 28, 2025 Dr. Camille Herzog DO Attending physician Active Start: March End: March 28, 2025 Dr. Camille Herzog DO Referring Provider Active Start: March End: March 28, 2025 Team Status: Inactive Member Role/Relationship Status Dates Dr. Bello Alfaro DO Primary care physician Active Start: April 04, 2025 End: April 04, 2025 Dr. Bello Alfaro DO Referring Provider Active Start: April 04, 2025 End: April 04, 2025 Lavern Zavala CNM Attending physician Active Start: April 04, 2025 End: April 04, 2025 Team Status: Inactive Member Role/Relationship Status Dates Dr. Bello Alfaro DO Primary care physician Active Start: April 08, 2025 End: April 08, 2025 Lavern Zavala CNM Attending physician Active Start: April 08, 2025 End: April 08, 2025 Lavern Zavala CNM Referring Provider Active S tart: April 08, 2025 End: April 08, 2025 Team Status: Inactive Member Role/Relationship Status Dates Dr. Bello Alfaro DO Primary care physician Active Start: January 09, 2025 End: January 09, 2025 Dr. Bello Alfaro DO Referring Provider Active Start: January 09, 2025 End: January 09, 2025 Dr. Camille Herzog DO Attending physician Acti ve Start: January 09, 2025 End: January 09, 2025 Team Status: Inactive Member Role/Relationship Status Dates Dr. Bello Alfaro DO Primary care physician Active Start: January 28, 2025 End: January 28, 2025 Dr. Bello Alfaro DO Referring Provider Active Start: January 28, 2025 End: January 28, 2025 Liana Rodriguez PAD ASSEMBLER, PAD ASSEMBLER-C Attending physician Active Start: January 28, 2025 End: January 28, 2025 Team Status: Inactive Member Role/Relationship Status Dates Dr. Bello Alfaro DO Primary care physician Active Start: January 28, 2025 End: January 28, 2025 Liana Rodriguez NP, PAD ASSEMBLER-C Attending physician Active Start: January 28, 2025 End: January 28, 2025 Team Status: Inactive Member Role/Relationship Status Dates Dr. Bello Alfaro DO Primary care physician Active Start: February 14, 2025 End: February 14, 2025 Dr. Bello Alfaro DO Referring Provider Active Start: February 14, 2025 End: February 14, 2025 Dr. Clementina Enrique MD Attending physician Active Start: February 14, 2025 End: February 14, 2025 Team Status: Inactive Member Role/Relationship Status Dates Dr. Bello Alfaro DO Primary care physician Active Start: March 01, 2025 End: March 01, 2025 Dr. Bello Alfaro DO Referring Provider Active Start: March 01, 2025 End: March 01, 2025 Lavern Zavala CNM Attending physician Active Start: March 01, 2025 End: March 01, 2025 Team Status: Inactive Member Role/Relationship Status Dates Dr. Bello Alfaro DO Primary care physician Active Start: March 14, 2025 End: March 14, 2025 Dr. Bello Alfaro DO Referring Provider Active Start: March 14, 2025 End: March 14, 2025 Liana Rodriguez NP, PAD ASSEMBLER-C Attending physician Active Start: March 14, 2025 End: March 14, 2025 Team Status: Inactive Member Role/Relationship Status Dates Dr. Bello Alfaro DO Primary care physician Active Start: March 28, 2025 End: March 28, 2025 Dr. Bello Alfaro DO Referring Provider Active Start: March 28, 2025 End: March 28, 2025 Dr. Camille Herzog DO Attending physician Active Start: March End: March 28, 2025 Team Status: Inactive Member Role/Relationship Status Dates Dr. Bello Alfaro DO Primary care physician Active Start: March 28, 2025 End: March 28, 2025 Dr. Camille Herzog DO Attending physician Active Start: March End: March 28, 2025 Dr. Camille Herzog DO Referring Provider Active Start: March End: March 28, 2025 Team Status: Inactive Member Role/Relationship Status Dates Dr. Bello Alfaro DO Primary care physician Active Start: April 04, 2025 End: April 04, 2025 Dr. Bello Alfaro DO Referring Provider Active Start: April 04, 2025 End: April 04, 2025 Lavern Zavala CNM Attending physician Active Start: April 04, 2025 End: April 04, 2025 Team Status: Inactive Member Role/Relationship Status Dates Dr. Bello Alfaro DO Primary care physician Active Start: April 08, 2025 End: April 08, 2025 Lavern Zavala CNM Attending physician Active Start: April 08, 2025 End: April 08, 2025 Lavern Zavala CNM Referring Provider Active S tart: April 08, 2025 End: April 08, 2025 Team Status: Active Member Role/Relationship Status Dates Dr. Bello Alfaro DO Primary care physician Active Start: April 11, 2025 Lavern Zavala CNM Attending physician Active Start: April 11, 2025 Lavern Zavala CNM Referring Provider Active S tart: April 11, 2025 Lavern Zavala CNM Nurse Practitioner Active S tart: April 11, 2025 Team Status: Inactive Member Role/Relationship Status Dates Dr. Bello Alfaro DO Primary care physician Active Start: April 11, 2025 End: April 11, 2025 Dr. Bello Alfaro DO Referring Provider Active Start: April 11, 2025 End: April 11, 2025 Lavern Zavala CNM Attending physician Active Start: April 11, 2025 End: April 11, 2025 Team Status: Inactive Member Role/Relationship Status Dates Dr. Bello Alfaro DO Primary care physician Active Start: April 18, 2025 End: April 18, 2025 Dr. Bello Alfaro DO Referring Provider Active Start: April 18, 2025 End: April 18, 2025 Dr. Camille Herzog DO Attending physician Acti ve Start: April 18, 2025 End: April 18, 2025 Team Status: Inactive Member Role/Relationship Status Dates Dr. Bello Alfaro DO Primary care physician Active Start: April 18, 2025 End: April 20, 2025 Dr. Camille Herzog DO Admitting physician Acti ve Start: April 18, 2025 End: April 20, 2025 Dr. Camille Herzog DO Attending physician Acti ve Start: April 18, 2025 End: April 20, 2025 Team Status: Active Member Role/Relationship Status Dates Dr. Bello Alfaro DO Primary care physician Active Start: April 18, 2025 Dr. Camille Herzog DO Admitting physician Acti ve Start: April 18, 2025 Dr. Camille Herzog DO Attending physician Acti ve Start: April 18, 2025 Dr. Camille Herzog DO Nurse Practitioner Activ e Start: April 18, 2025 Team Status: Active Member Role/Relationship Status Dates Dr. Bello Alfaro DO Primary care physician Active Start: April 19, 2025 Dr. Camille Herzog DO Admitting physician Acti ve Start: April 19, 2025 Dr. Camille Herzog DO Nurse Practitioner Activ e Start: April 19, 2025 Dr. Clementina Enrique MD Attending physician Active Start: April 19, 2025 Team Status: Active Member Role/Relationship Status Dates Dr. Bello Alfaro DO Primary care physician Active Start: April 20, 2025 Dr. Camille Herzog DO Admitting physician Acti ve Start: April 20, 2025 Dr. Camille Herzog DO Nurse Practitioner Activ e Start: April 20, 2025 Kathy Tinsley CNM Attending physician Active Start: April 20, 2025 Team Status: Inactive Member Role/Relationship Status Dates Dr. Bello Alfaro , DO Primary care physician Active Start: April 22, 2025 End: April 22, 2025 Dr. Bello Alfaro , DO Referring Provider Active Start: April 22, 2025 End: April 22, 2025 ANDREA Matson Attending physician Active S tart: April 22, 2025 End: April 22, 2025 Team Status: Inactive Member Role/Relationship Status Dates Dr. Bello Alfaro , Primary care physician Active Start: April 25, 2025 End: April 25, 2025 Dr. Bello Alfaro , DO Referring Provider Active Start: April 25, 2025 End: April 25, 2025 Lavern Zavala CNM Attending physician Active Start: April 25, 2025 End: April 25, 2025 Goals (unrecognized section and content) Type Care Experience Labor Preferences-CB /BF classes: signed up for all 3labor support person: Kylelabor intervention preferences: []pain management options preferred: []cut cord/dad catch: []: plansPP control planned: []discussed possible routes of delivery and associated risks: []special requests: [] Care Experience Labor Preferences-CB /BF classes: nolabor support person: Kylelabor intervention preferences: []pain management options preferred: epiduralcut cord/dad catch: yesbreastfeeding: yesPP control planned: []discussed possible routes of delivery and associated risks: []special requests: [] INFORMATION SOURCE (unrecogn ized section and content) DATE CREATED AUTHOR 06/29/2024 [facility] DATE CREATED AUTHOR AUTHOR'S ORGANIZ ATION 2024 [facility] DATE CREATED AUTHOR AUTHOR'S ORGANIZ ATION 05/06/2025 [facility] FOR RECORDS PERTAINING TO PATIENTS WHO ARE [...] BE BASED ON THE PRIMARY CLINICAL RECORDS. [facility]. provides no warranty or guarantee of the accuracy or completeness of information in this document.
== END | disposition home or self-care (01) ==
LOC: LABSPEC 16:25
PROVIDERS: PCP Student in an Organized Health Care Education/Training Program; Referring Provider Student in an Organized Health Care Education/Training Program; Visit Provider Student in an Organized Health Care Education/Training Program
DX: Z12.4 Encounter for screening for malignant neoplasm of cervix (principal)
CPT/HCPCS: 88175; G0145